=== PATIENT | female | born 1930 | race Caucasian/White ===

== ENCOUNTER 2016-04-10 01:28 | Observation (INO) ==
--- NOTE | 2016-04-10 01:54 | Emergency Department Note ---
Disposition Clinical Impression: CVA (cerebral vascular accident), Light headedness, Dyspnea, Generalized abdominal pain, Diarrhea Disposition: Admitted As Inpatient Condition: Good Referrals: Reinaldo Valladares Jr, MD [Primary Care Provider] - Forms: ED Satisfaction Letter Time of Disposition: 03:38 General Adult HPI - General Chief complaint: ED Chest Pain Stated complaint: vision loss/abd pain/chest pain Time Seen by Provider: 04/10/16 01:48 Source: patient, EMS Mode of arrival: EMS Limitations: no limitations Nursing Notes Reviewed: Yes Vital Signs Reviewed: Yes - History of Present Illness HPI Narrative: This is an 86-year-old female who states around 11:00 pm she had an episode where she lost her vision and got very lightheaded. Patient states she has also had nausea and abdominal pain that is generalized. Patient denies any bloody stools but states she has had a couple weeks of diarrhea. Patient states she has not been on any recent antibiotics and has not traveled out of the country. Patient states she does not have any chest pain but states she was short of breath. Patient states she is feeling better now. Patient states she always has a generalized headache and that really has not changed. Patient' s vision has returned. Onset (ago): hour(s) (started at 11pm) Pain Scale: 6 - Related Data Home Medications Medication Instructions Recorded Confirmed Alprazolam [Xanax 1 MG Tablet] 1 mg PO BID 12/04/15 01/05/16 Amlodipine Besylate 10 mg PO DAILY 12/04/15 01/05/16 Ascorbic Acid [Vitamin C] 500 mg PO DAILY 12/04/15 01/05/16 Aspirin 81 mg PO DAILY 12/04/15 01/05/16 Clopidogrel [Plavix] 75 mg PO DAILY 12/04/15 01/05/16 Furosemide [Lasix] 20 mg PO DAILY 12/04/15 01/05/16 Glimepiride [Amaryl] 2 mg PO BID 12/04/15 01/05/16 Isosorbide MONOnitrate (24 HR) 30 mg PO DAILY 12/04/15 01/05/16 [Imdur] L. Acidophilus/Pectin, [place] 1 cap PO TID PRN 12/04/15 01/05/16 [Acidophilus Probiotic Capsule] Metformin [Glucophage] 500 mg PO BIDWM 12/04/15 01/05/16 Ranitidine HCl [Heartburn Relief] 150 mg PO BID 12/04/15 01/05/16 Ubidecarenone [Co Q10] 100 mg PO DAILY 12/04/15 01/05/16 Zinc Acetate [Galzin] 50 mg PO DAILY 12/04/15 01/05/16 Oxycodone HCl/Acetaminophen 1 - 2 each PO QID PRN 01/05/16 01/05/16 [Percocet 5-325 mg Tablet] Previous Rx's Medication Instructions Recorded HydrALAZINE 25 mg PO Q6HR #100 tablet 12/14/15 Metoprolol [Lopressor] 25 mg PO BID #60 tablet 12/14/15 Nitroglycerin [Nitrostat] 0.4 mg SL AD #30 tab.subl 01/09/16 Allergies Allergy/AdvReac Type Severity Reaction Status Date / Time codeine AdvReac Unknown Gastrointestinal Verified 01/05/16 10:25 Upset All systems ED: reviewed and negative except as stated. Constitutional: Reports: weakness. Denies: fever, chills, weight change Eyes: Reports: vision change. Denies: eye pain, eye discharge ENT ED: Denies: ear pain, throat pain, dental pain, hearing loss, epistaxis, congestion, dysphagia Cardiovascular: Reports: other (light-headedness). Denies: chest pain, palpitations, dyspnea on exertion, edema, syncope Respiratory: Reports: dyspnea. Denies: cough, wheezes, hemoptysis, stridor Gastrointestinal: Reports: abdominal pain, nausea, diarrhea. Denies: vomiting, constipation, hematemesis, melena, hematochezia Genitourinary: Denies: dysuria, frequency, hematuria, discharge Musculoskeletal: Denies: back pain, neck pain, arthralgia, myalgia Integumentary: Denies: rash, abrasion, lesions Neurological: Reports: headache. Denies: numbness, paresthesias, confusion, abnormal gait, vertigo Psychiatric: Denies: anxiety, depression, suicidal thoughts, homicidal thoughts , auditory hallucinations, visual hallucinations Endocrine: Denies: fatigue Hematological/Lymphatic: Denies: easy bleeding, easy bruising Allergic/Immunologic: Denies: facial swelling, urticaria Past Medical History - Past Medical History Attestation: Yes The following information was validated with the patient. Source: patient Medical history: Reports: arthritis, atrial fibrillation, CHF, coronary artery disease, diabetes, GERD, hyperlipidemia, hypertension, myocardial infarction, peripheral artery disease, renal disease, other Surgical history: Reports: appendectomy, cholecystectomy, coronary bypass (CABG) , hysterectomy, DARYL/BSO, other Psychiatric history: Reports: no psych history - Social History Smoking Status: Former smoker Smokeless Tobacco Status: No Alcohol use: Reports: none Drug use: Reports: none Physical Exam - General Limitations: no limitations General appearance: alert, in no apparent distress - Head Head exam: atraumatic, normocephalic, normal inspection - Eye Eye exam: Present: normal appearance, PERRL, EOMI - Expanded Eye Exam Eyelids: bilateral: normal inspection Pupils: Bilateral: regular, round, reactive Sclera/Conjunctival: bilateral: normal inspection - ENT ENT exam: normal exam, normal oropharynx, mucous membranes moist - Expanded ENT Exam External ear exam: Present: normal external inspection Mouth exam: Present: normal external inspection Teeth exam: Present: normal inspection Throat exam: Present: normal inspection - Neck Neck exam: Present: normal inspection, full ROM, trachea midline - Chest Chest inspection: Present: normal inspection, symmetric chest wall rise, other ( scar from previous bypass) - Respiratory Respiratory exam: Present: normal lung sounds bilaterally - Cardiovascular Cardiovascular exam: Present: regular rate, irregular rhythm, normal heart sounds - Abdominal Exam Abdominal exam: Present: soft, Non-Tender. Absent: tenderness, distention, guarding, rebound, rigidity - Extremities Exam Extremities exam: Present: normal inspection, full ROM. Absent: tenderness, pedal edema - Expanded Upper Extremity Exam Shoulder exam: Present: normal inspection, full ROM Arm exam: Present: normal inspection, full ROM Elbow exam: Present: normal inspection, full ROM Forearm/Wrist exam: Present: normal inspection, full ROM Hand exam: Present: normal inspection, full ROM Vascular exam: Normal: capillary refill, radial pulse - Expanded Lower Extremity Exam Hip/Pelvis exam: Present: normal inspection, full ROM Upper leg exam: Present: normal inspection, full ROM Knee exam: Present: normal inspection, full ROM Lower leg exam: Present: normal inspection, full ROM Ankle exam: Present: normal inspection, full ROM Foot/toe exam: Present: normal inspection, full ROM Neurovascular/Tendon exam: Absent: motor deficit, sensory deficit, tendon deficit - Back Exam Back exam: Present: normal inspection, full ROM. Absent: tenderness - Neurological Exam Neurological exam: Present: alert, oriented X3 - Expanded Neurological Exam Patient oriented to: Present: person, place, time Coma Scale Eye Opening: Spontaneous Coma Scale Motor Response: Obeys Commands Coma Scale Verbal Response: Oriented Coma Scale Total: 15 - Psychiatric Psychiatric exam: Present: normal affect, normal mood - Skin Skin exam: Present: warm, dry, intact, normal color Course - Consultations Consultation #1: I spoke with Dr. Clark he just wants pt to have a regular ASA and he will see her in the morning in consult and georgie to order an MRI and carotid dopplers. Time: 03:43 Consultation #2: I spoke with Dr. Velasquez jacques to admit. Time: 03:55 Vital Signs Temperature 98.7 F 04/10/16 01:30 Pulse Rate 66 04/10/16 01:30 Respiratory Rate 16 04/10/16 01:30 Blood Pressure 167/84 04/10/16 01:30 O2 Sat by Pulse Oximetry 93 L 04/10/16 01:30 Temperature 98.7 F 04/10/16 01:30 Pulse Rate 63 04/10/16 03:35 Respiratory Rate 16 04/10/16 03:35 Blood Pressure 150/59 04/10/16 03:35 O2 Sat by Pulse Oximetry 95 04/10/16 03:35 Oxygen Delivery Oxygen Delivery Room Air Medical Decision Making - Medical Records Medical records reviewed: Yes I reviewed the patient's medical records. - Lab Data Lab results reviewed: Yes I reviewed the patient's lab results. Result diagrams: 04/10/16 02:20 04/10/16 02:20 Lab Results 04/10/16 04/10/16 04/10/16 Range/Units 02:20 02:20 02:20 WBC 8.1 (4.3-11.1) K/mcL RBC 3.69 L (3.82-4.97) M/mcL Hgb 11.0 L (11.5-15.4) g/dL Hct 34.2 L (35.3-44.9) % MCV 92.7 (83.0-100.0) fL MCH 29.8 (28.0-33.3) pg MCHC 32.2 (31.6-35.5) g/dL RDW 14.2 (11.5-14.5) % Plt Count 182 (140-400) K/mcL MPV 10.3 (9.4-12.4) fL Immature Gran % 0.5 (0-4) % Seg Neutrophils % 77.3 % Lymphocytes % 13.9 % Monocytes % 6.5 % Eosinophils % 1.2 % Basophils % 0.6 % Neutrophils # 6.2 (1.6-8.9) K/mcL Lymphocytes # 1.1 (0.6-4.6) K/mcL Monocytes # 0.5 (0.0-1.3) K/mcL Eosinophils # 0.1 (0.0-0.6) K/mcL Basophils # 0.1 (0.0-0.2) K/mcL PT 12.0 (9.4-12.1) Seconds INR 1.1 APTT 33.2 (26.0-36.0) Seconds Sodium 139 (136-145) mEq/L Potassium 4.5 (3.5-4.5) mEq/L Chloride 105 (98-109) mEq/L Carbon Dioxide 20 (19-29) mEq/L BUN 37 H (7-20) mg/dL Creatinine 1.41 H (0.57-1.11) mg/dL Est GFR ( Amer) 43 L (> 60) Est GFR (Non-Af Amer) 35 L (> 60) BUN/Creatinine Ratio 26 (6-26) Glucose 108 H (70-99) mg/dL Calculated Osmolality 297 (280-300) Lactic Acid (0.5-2.2) mmol/L Calcium 9.6 (8.6-10.8) mg/dL Total Bilirubin (0.2-1.2) mg/dL Direct Bilirubin (0.0-0.5) mg/dL Indirect Bilirubin (0.0-1.2) mg/dL AST (5-34) Units/L ALT (0-55) Units/L Alkaline Phosphatase (38-126) Units/L Troponin I (0-0.03) ng/mL B-Natriuretic Peptide (0-100) pg/mL Serum Total Protein (6.0-8.3) g/dL Albumin (3.5-5.0) g/dL Globulin (2.4-3.5) g/dL Albumin/Globulin Ratio (1.1-2.2) Lipase (8-78) Units/L TSH 4.982 H (0.350-4.840) mcIU/mL 04/10/16 04/10/16 04/10/16 Range/Units 02:20 02:20 02:20 WBC (4.3-11.1) K/mcL RBC (3.82-4.97) M/mcL Hgb (11.5-15.4) g/dL Hct (35.3-44.9) % MCV (83.0-100.0) fL MCH (28.0-33.3) pg MCHC (31.6-35.5) g/dL RDW (11.5-14.5) % Plt Count (140-400) K/mcL MPV (9.4-12.4) fL Immature Gran % (0-4) % Seg Neutrophils % % Lymphocytes % % Monocytes % % Eosinophils % % Basophils % % Neutrophils # (1.6-8.9) K/mcL Lymphocytes # (0.6-4.6) K/mcL Monocytes # (0.0-1.3) K/mcL Eosinophils # (0.0-0.6) K/mcL Basophils # (0.0-0.2) K/mcL PT (9.4-12.1) Seconds INR APTT (26.0-36.0) Seconds Sodium (136-145) mEq/L Potassium (3.5-4.5) mEq/L Chloride (98-109) mEq/L Carbon Dioxide (19-29) mEq/L BUN (7-20) mg/dL Creatinine (0.57-1.11) mg/dL Est GFR ( Amer) (> 60) Est GFR (Non-Af Amer) (> 60) BUN/Creatinine Ratio (6-26) Glucose (70-99) mg/dL Calculated Osmolality (280-300) Lactic Acid 1.4 (0.5-2.2) mmol/L Calcium (8.6-10.8) mg/dL Total Bilirubin 0.7 (0.2-1.2) mg/dL Direct Bilirubin 0.2 (0.0-0.5) mg/dL Indirect Bilirubin 0.5 (0.0-1.2) mg/dL AST 23 (5-34) Units/L ALT 17 (0-55) Units/L Alkaline Phosphatase 78 (38-126) Units/L Troponin I (0-0.03) ng/mL B-Natriuretic Peptide 735 H (0-100) pg/mL Serum Total Protein 7.7 (6.0-8.3) g/dL Albumin 3.7 (3.5-5.0) g/dL Globulin 4.0 H (2.4-3.5) g/dL Albumin/Globulin Ratio 0.9 L (1.1-2.2) Lipase 59 (8-78) Units/L TSH (0.350-4.840) mcIU/mL 04/10/16 Range/Units 02:20 WBC (4.3-11.1) K/mcL RBC (3.82-4.97) M/mcL Hgb (11.5-15.4) g/dL Hct (35.3-44.9) % MCV (83.0-100.0) fL MCH (28.0-33.3) pg MCHC (31.6-35.5) g/dL RDW (11.5-14.5) % Plt Count (140-400) K/mcL MPV (9.4-12.4) fL Immature Gran % (0-4) % Seg Neutrophils % % Lymphocytes % % Monocytes % % Eosinophils % % Basophils % % Neutrophils # (1.6-8.9) K/mcL Lymphocytes # (0.6-4.6) K/mcL Monocytes # (0.0-1.3) K/mcL Eosinophils # (0.0-0.6) K/mcL Basophils # (0.0-0.2) K/mcL PT (9.4-12.1) Seconds INR APTT (26.0-36.0) Seconds Sodium (136-145) mEq/L Potassium (3.5-4.5) mEq/L Chloride (98-109) mEq/L Carbon Dioxide (19-29) mEq/L BUN (7-20) mg/dL Creatinine (0.57-1.11) mg/dL Est GFR ( Amer) (> 60) Est GFR (Non-Af Amer) (> 60) BUN/Creatinine Ratio (6-26) Glucose (70-99) mg/dL Calculated Osmolality (280-300) Lactic Acid (0.5-2.2) mmol/L Calcium (8.6-10.8) mg/dL Total Bilirubin (0.2-1.2) mg/dL Direct Bilirubin (0.0-0.5) mg/dL Indirect Bilirubin (0.0-1.2) mg/dL AST (5-34) Units/L ALT (0-55) Units/L Alkaline Phosphatase (38-126) Units/L Troponin I 0.02 (0-0.03) ng/mL B-Natriuretic Peptide (0-100) pg/mL Serum Total Protein (6.0-8.3) g/dL Albumin (3.5-5.0) g/dL Globulin (2.4-3.5) g/dL Albumin/Globulin Ratio (1.1-2.2) Lipase (8-78) Units/L TSH (0.350-4.840) mcIU/mL - Radiology Data Radiology results reviewed: Yes I reviewed the patient's radiology results. - EKG Data EKG #1 EKG attestation: Yes I reviewed and interpreted this EKG. Rate: normal Rhythm: A.Fib [place]/QRS: normal Interpretation: nonspecific ST-T wave changes
[2016-04-10 02:27] LABS: Basophils # 0.1 K/mcL (0.0-0.2); Basophils % 0.6 %; Eosinophils # 0.1 K/mcL (0.0-0.6); Eosinophils % 1.2 %; Hematocrit 34.2 % (35.3-44.9); Immature Granulocytes % 0.5 % (0-4); Lymphocytes # 1.1 K/mcL (0.6-4.6); Lymphocytes % 13.9 %; Mean Corpuscular HGB Conc 32.2 g/dL (31.6-35.5); Mean Corpuscular Hemoglobin 29.8 pg (28.0-33.3); Mean Corpuscular Volume 92.7 fL (83.0-100.0); Mean Platelet Volume 10.3 fL (9.4-12.4); Monocytes # 0.5 K/mcL (0.0-1.3); Monocytes % 6.5 %; Neutrophils # 6.2 K/mcL (1.6-8.9); Platelet Count 182 K/mcL (140-400); Red Blood Count 3.69 M/mcL (3.82-4.97); Red Cell Distribution Width 14.2 % (11.5-14.5); Segmented Neutrophils % 77.3 %
[2016-04-10 02:40] LABS: Calcium 9.6 mg/dL (8.6-10.8); Potassium 4.5 mEq/L (3.5-4.5)
[2016-04-10 02:41] LABS: Albumin 3.7 g/dL (3.5-5.0); Albumin/Globulin Ratio 0.9 (1.1-2.2); Bilirubin,Direct 0.2 mg/dL (0.0-0.5); Bilirubin,Indirect 0.5 mg/dL (0.0-1.2); Bilirubin,Total 0.7 mg/dL (0.2-1.2); Total Protein 7.7 g/dL (6.0-8.3)
[2016-04-10 02:46] LABS: INR 1.1
[2016-04-10 02:49] LABS: Activated Partial Thrombo Time 33.2 Seconds (26.0-36.0)
[2016-04-10 03:03] LABS: Thyroid Stimulating Hormone 4.982 mcIU/mL (0.350-4.840)
[2016-04-10] MEDS ORDERED: Aspirin 325 MG TABLET PO ONE (03:42)
[2016-04-10] MEDS ORDERED: Acetaminophen 325 MG TABLET PO PRN (04:03)
[2016-04-10] MEDS ORDERED: *HR* Morphine 2 MG/ML SYRINGE IVP PRN (04:03)
[2016-04-10] MEDS ORDERED: Ondansetron ODT 4 MG TAB.RAPDIS SL PRN (04:03)
[2016-04-10] MEDS ORDERED: *HR* OxyCODONE Immed Rel 5 MG TABLET PO PRN (04:03)
[2016-04-10] MEDS ORDERED: Naloxone 0.4 MG/ML INJ IVP PRN (04:03)
[2016-04-10] MEDS ORDERED: 0.9 % Sodium Chloride 1,000 ML IVC SCH ×2 (04:15→15:30)
[2016-04-10] MEDS ORDERED: Dextrose Gel 15 GM PO PRN ×2 (04:16)
[2016-04-10] MEDS ORDERED: *HR* Dextrose 50 % in Water (Syg) 50 ML SYRINGE IVP PRN (04:16)
[2016-04-10] MEDS ORDERED: D5% in Water 1,000 ML IV PRN (04:16)
--- NOTE | 2016-04-10 04:23 | Internal Med History&Physical ---
Date of Encounter: 04/10/16 Time of Encounter: 04:00 Assessment and Plan (1) CVA (cerebral vascular accident) Status: Acute . Qualifiers: CVA mechanism: unspecified Qualified Code(s): I63.9 - Cerebral infarction, unspecified (2) CHF (congestive heart failure) Status: Chronic . Qualifiers: Congestive heart failure type: combined Congestive heart failure chronicity : acute on chronic Qualified Code(s): I50.43 - Acute on chronic combined systolic (congestive) and diastolic (congestive) heart failure (3) COPD (chronic obstructive pulmonary disease) Status: Chronic . Qualifiers: COPD type: emphysema Emphysema type: panlobular Qualified Code(s): J43.1 - Panlobular emphysema (4) Transient visual loss of left eye Status: Acute . (5) CAD (coronary artery disease) Status: Chronic . Qualifiers: Coronary Disease-Associated Artery/Lesion type: [place] artery [place] vs. transplanted heart: [place] heart Associated angina: without angina Qualified Code(s): I25.10 - Atherosclerotic heart disease of [place] coronary artery without angina pectoris (6) CKD (chronic kidney disease) stage 3, GFR 30-59 ml/min Status: Chronic . (7) Diabetes Status: Chronic . Qualifiers: Diabetes mellitus type: type 2 Diabetes mellitus complication status: with unspecified complications Diabetes mellitus intermediate insulin use: without emt intermediate use Qualified Code(s): E11.8 - Type 2 diabetes mellitus with unspecified complications (8) Hypertension Status: Chronic .. Qualifiers: Hypertension type: essential hypertension Qualified Code(s): I10 - Essential (primary) hypertension (9) Normocytic anemia Status: Chronic . (10) Paroxysmal atrial fibrillation Status: Chronic . (11) Complicated migraine Status: Acute . (12) TIA (transient ischemic attack) Status: Acute . Qualifiers: Transient cerebral ischemia type: amaurosis fugax Qualified Code(s): G45.3 - Amaurosis fugax (13) HLD (hyperlipidemia) Status: Chronic . Qualifiers: Hyperlipidemia type: mixed hyperlipidemia Qualified Code(s): E78.2 - Mixed hyperlipidemia (14) PAD (peripheral artery disease) Status: Chronic . (15) Valvular heart disease Status: Chronic . (16) Hx of CABG Status: Chronic . (17) Anemia Status: Chronic . Qualifiers: Anemia type: other cause Other causes of anemia: chronic disease, other Qualified Code(s): D63.8 - Anemia in other chronic diseases classified elsewhere Internal Medicine - H&P: HPI Chief complaint: Vision loss. Chest pain. Nausea. Admitted From: Emergency Dept Plans for Post Hospital Care: Home History of present illness: Ms. Rodas is a 86 year old female with history significant for CAD/CABG/AMIs, syst/diast CHF-LVEF 40-45%, paroxysmal atrial fibrillation(no A/C due to high fall risk), valvular heart disease/moderate MR+TR/pulm HTN, PAD s/p fem-pop bypass, old CVA, hypertension, dyslipidemia, type 2 diabetes mellitus, GERD, osteoarthritis, osteoporosis, CKD III, anemia chronic disease, anxiety disorder , former smoker The patient was visited and interviewed and examined. The patient was admitted to [facility] via emergency department presents via EMS services from home with complaints of chest pain associated with acute loss of vision. The patient reported that she had experienced approximately 11 PM the night of presentation an episode of acute vision loss. Had an uneventful day and compliance with her scheduled medications which include aspirin and Plavix. Patient has significant history of severe atherosclerotic cardiovascular disease and paroxysmal atrial fibrillation for which she's no chronic anticoagulation prescribed due to high fall risk. SHe's adament has been compliant with her aspirin and Plavix. Stated that late in the evening she had an episode of acute lightheadedness associated with some nausea and abdominal pain. The abdominal pain became generalized.. She acknowledged that over the preceding week she had episodes of loose stools associated with cramping discomfort that had been short-lived. She also experienced generalized headache consistent with chronic recurring headache that she has experienced off and on for many years. She experienced seeming loss of vision followed by bright lights and scotomata last for several minutes and resolved with her vision returning completely. No other neurologic deficits were reported. Her generalized discomfort and abdomen and chest was rated as a 6/10 severity which was also short. Return of vision followed a sense of lightheadedness and chronic headache returning to its baseline. Upon presenting to the emergency department she was completely free of discomfort or deficits. Findings in ED: Temperature 98.7 pulse 60-66 respirations 16 BP 150- 167/50-84 O2 saturation 93-95% at room air. WBC 8.1 hemoglobin 11 platelets 182 ,000. Differential normal. PT 12/1.1 PTT 33.2. Metabolic panel normal except BUN 37, creatinine 1.41. GFR 35. Glucose 108 osm 297. TSH 4.92. Lactic acid 1.4. Hepatic function normal. Troponin 0.02 BNP 735. EKG atrial fibrillation nonspecific ST-T wave changes; no acute ischemic change. CT abdomen and pelvis without contrast demonstrated diverticulosis throughout the colon without evidence of diverticulitis. Artery calcifications. Partially calcified mass anterior to the right ventricle. Bilateral atelectasis. Stable findings of cirrhosis. Bilateral adrenal myolipoma. Bilateral renal cysts status post appendectomy. Status post hysterectomy. Diffuse atherosclerotic changes without aneurysm. Portable chest x-ray reveals no acute cardiopulmonary process. Cardiomegaly. No focal airspace disease. Osseous structures benign. CT head scan demonstrates no acute hemmorrhage. Extensive small vessel chronic ischemic disease. Possible acute ischemia right occipital lobe in the posterior cerebral artery. MRI recommended for further evaluation. Small area of encephalomalacia left occipital. Preliminary impression suggests acute vascular headache, concerning for complicated migraine with transient vision loss, amaurosis fugax. CT scan demonstrated no evidence for acute hemorrhage or mass effect. However a suggestion of acute ischemia in the right occipital lobe associated with the posterior cerebral circulation. A follow-up MRI will be performed. Evidence of old left occipital infarct noted as well. The rapid clearance of patient's symptoms TIA versus complicated migraine highest in differential options. Screening studies were benign. Stage III CKD noted and stable. This is patient's anemia of chronic disease. Elevation in BNP consistent with chronic systolic and diastolic CHF. The patient's presenting, concern for its precipitous workup and treatment opportunity. He does present risk for further acute clinical decline and morbidity given his well-defined comorbid conditions. Cumulative laboratory and radiographic data base was reviewed, considered and discussed. Pertinent ancillary medical records including ECW and PCI documentation was reviewed and considered. Given the patient's presenting concerns, past medical history, clinical findings and symptoms, she is admitted at this time will undergo further evaluation and disposition. Orders were written as per the computerized physician sales order administrator system.......................................................................... .................... Consultative opinion and will be sought as clinical circumstances justify. Pain management needs will be addressed. Laboratory and radiographic data base will be updated as appropriate. Studies include: PT/INR, APTT, hypercoag panel, prolactin, cardiac injury panel, BNP, troponin metabolic and hematologic panel, magnesium, phosphorus, ionized calcium , thyroid panel, lipid profile, A1c, C-peptide, CRP, sedimentation rate, blood gas, lactic acid, UA, serologies, etc. Precautions: Aspiration, fall, seizure, delirium protocol/surveillance initiated. Telemetry with continuous hemodynamic monitoring and pulse oximetry initiated. Orthostatic vital signs. Empiric antibiotic coverage: pending culture data. Special studies: CT head, CT abd/pelvis, MRI brain, carotid US, chest x-ray, telemetry, EKG, echocardiogram. Pulmonary toilet: Incentive spirometry. Aerosol bronchodilator, mucolytic, antitussive PRN. Supplemental oxygen. Corticosteroid therapy PRN. CPAP/BiPAP supplemental oxygen delivery PRN. Aerosol Mucomyst therapy PRN. Fluid and electrolyte repletion efforts will proceed. Careful attention to fluid balance and renal recovery will be emphasized. Avoidance of nephrotoxic exposure and adverse drug drug interaction in the setting of impaired renal function will be monitored closely. Acute coronary syndrome protocol/surveillance initiated. Acute ICER HAND injury protocol/surveillance initiated. Aspirin and statin therapy. Trending of blood pressure measurements. Passive hypertension allowance pending completion of the CVA/TIA. Hypercoagulopathy w/u. DVT and PUD prophylaxis initiated: PPI therapy, intermittent pneumatic cuffs. Subcutaneous heparin. Early ambulation will be encouraged. Immunization updates recommended. Influenza and pneumococcal vaccinations as part of ongoing preventative healthcare recommendations strongly recommended. Smoking cessation counseling briefly addressed. Patient is a former smoker. Advanced care directive discussion briefly addressed. Patient does not declare any healthcare restrictions at this time. Cardiovascular risk appraisal and cardiovascular risk reduction efforts will be emphasized. Physical and occupational therapy consulted to evaluate/assess patient's functional capacity and progress mobility as his circumstances permit. Sliding scale and basal insulin coverage, ADA dietary restraint and schedule an as-needed basis fingerstick glucose assessments were initiated. Nutrition/ diabetes education counseling may be considered as circumstances permit. Outpatient medication schedules will be reviewed, confirmed and facilitated as appropriate. Reconciliation of home treatments including adjustments, substitutions and reintroduction into the treatment regimen will address necessary maintenance therapies for chronic pre-existing medical conditions. Plan of care has been reviewed and discussed in detail with the patient. Questions addressed. Hospital course will depend upon clinical findings, treatment response and potential consultative interventions. Patient is at risk for further acute clinical decline due to her age, chief complaints, findings and comorbidities. Condition is serious. Prognosis is cautiously optimistic. CODE STATUS is full. Past Med Surg Social Fam HX - Past Medical History Source: old records reviewed Medical history: arthritis, atrial fibrillation, cardiomyopathy, CHF, coronary artery disease, CVA, diabetes, GERD, hyperlipidemia, hypertension, kidney stones , migraine, myocardial infarction, osteoporosis, peripheral artery disease, renal disease, SVT, valvular heart disease, other Psychiatric history: anxiety, other - Past Surgical History Surgical History: appendectomy, cholecystectomy, coronary bypass (CABG), hysterectomy, orthopedic, other (Right shoulder surgery. Lumbar laminectomy.), sinus surgery (Tonsillectomy adenoidectomy.), DARYL/BSO, ureteral stent (Renal stone removal.), other, vascular surgery (History of femoropopliteal bypass.) - Social History Smoking Status: Former smoker Smokeless Tobacco Status: No Alcohol use: none Drug use: none Occupational status: retired Current living situation: Home - Independent Activity Level: Independent ambulation, Mostly sedentary Recent Out of Country Travel Within the Last 8 Weeks: No Exposure or Possible Exposure to Illness During Travel: No - Family History Father Living Status: Hx Family Cardiac Disorders: No Hx Family Endocrine Disorder: Yes Internal Medicine - H&P: Meds Amlodipine Besylate 10 mg PO DAILY 12/04/15 [History] Ascorbic Acid [Vitamin C] 500 mg PO DAILY 12/04/15 [History] Aspirin 81 mg PO DAILY 12/04/15 [History] Clopidogrel [Plavix] 75 mg PO DAILY 12/04/15 [History] Furosemide [Lasix] 20 mg PO DAILY 12/04/15 [History] Isosorbide MONOnitrate (24 HR) [Imdur] 30 mg PO DAILY 12/04/15 [History] L. Acidophilus/Pectin, [place] [Acidophilus Probiotic Capsule] 1 cap PO TID PRN 12/04/15 [History] Ubidecarenone [Co Q10] 100 mg PO DAILY 12/04/15 [History] Zinc Acetate [Galzin] 50 mg PO DAILY 12/04/15 [History] Nitroglycerin [Nitrostat] 0.4 mg SL AD #30 tab.subl 01/09/16 [Rx] Metformin [Glucophage] 500 mg PO BIDWM 04/10/16 [History] Metoprolol XL (24 HR) Succ [Toprol Xl] 25 mg PO BID 04/10/16 [History] Alprazolam [Xanax 1 MG Tablet] 1 mg PO BID #10 tablet 04/11/16 [Rx] Atorvastatin [Lipitor] 40 mg PO HS #30 tablet 04/11/16 [Rx] Oxycodone HCl/Acetaminophen [Percocet 5-325 mg Tablet] 1 - 2 each PO QID PRN # 20 tablet 04/11/16 [Rx] PredniSONE 60 mg PO DAILY #30 tablet 04/11/16 [Rx] Allergies codeine Adverse Reaction (Unknown, Verified 04/12/16 15:00) Gastrointestinal Upset All Systems PM: A 10-system review of systems was performed and is negative for pertinent findings except as documented above in the HPI. - Constitutional Constitutional: as per HPI, weakness, no chills, no fever(s), no night sweats - EENT Eyes: as per HPI, blurry vision, change in vision, loss of vision, seeing flashes, no discharge, no pain, no photophobia Ears: as per HPI, no ear discharge, no ear pain, no tinnitus Nose, mouth and throat: as per HPI, no dysphagia, no nasal discharge, no neck pain, no sore throat - Cardiovascular Cardiovascular ROS IM: as per HPI, lightheadedness, no chest pain, no diaphoresis, no dyspnea, no palpitations, no syncope - Respiratory Respiratory: as per HPI, dyspnea, dyspnea on exertion, no cough, no wheezing, no excessive phlegm production - Gastrointestinal Gastrointestinal: as per HPI, abdominal pain, cramping, diarrhea, loose stools, nausea, no hematemesis, no hematochezia, no melena, no vomiting - Genitourinary Genitourinary: as per HPI, no change in urinary stream, no dysuria, no flank pain, no hematuria - Musculoskeletal Musculoskeletal ROS IM: as per HPI, no numbness, no tingling - Integumentary Integumentary IM: as per HPI, no rash, no unusual bruising - Neurological Neurological ROS: as per HPI, headache(s), loss of vision, other, no confusion, no convulsions, no focal weakness, no numbness, no tingling, no tremor(s) - Psychiatric Psychiatric: as per HPI - Endocrine Endocrine IM: as per HPI - Hematologic/Lymphatic Hematologic/Lymphatic: as per HPI, no easy bruising - Allergic/Immunologic Allergic/Immunologic: as per HPI - Constitutional Vitals: Temp Pulse Resp BP Pulse Ox 98.7 F 63 16 150/59 95 04/10/16 01:30 04/10/16 03:35 04/10/16 03:35 04/10/16 03:35 04/10/16 03:35 General appearance: Present: cooperative, mild distress, A&O X 3, answers questions appropriately - Head Head exam: Present: atraumatic, normocephalic - Eye Eye exam: Present: PERRL, conjuntiva pink, sclera anicteric Pupils: Present: normal accommodation, PERRL - ENT ENT exam: Present: mucous membranes moist, normal oropharynx - Neck Neck exam general surgery: Present: full ROM, supple, trachea midline. Absent: lymphadenopathy, tenderness, nuchal rigidity - Respiratory Respiratory exam: Present: decreased breath sounds, CTAB. Absent: accessory muscle use, rales, rhonchi, wheezes - Cardiovascular Cardiovascular exam: Present: distant heart sounds, RRR, +S1, +S2. Absent: diastolic murmur, gallop, rubs, systolic murmur - GI/Abdominal GI/Abdominal exam: Present: normal bowel sounds, soft, no peritoneal signs. Absent: distended, tenderness - Extremities Exam Extremities exam: Present: full ROM, warm, radial pulses palpable and symetrical. Absent: calf tenderness, cyanotic, pedal edema - Neurological Exam Neurological exam: Present: alert, CN II-XII intact, oriented X3, no focal deficits. Absent: pronater drift, facial droop, speech deficit - Psychiatric Psychiatric exam: Present: normal affect, normal mood - Skin Skin exam: Present: dry, intact, warm. Absent: petechiae, rash, urticaria, vesicles Internal Med - H&P Results - Labs CBC & Chem 7: 04/11/16 04:11 04/11/16 04:11 Labs: Short CBC 04/10/16 Range/Units 02:20 WBC 8.1 (4.3-11.1) K/mcL Hgb 11.0 L (11.5-15.4) g/dL Hct 34.2 L (35.3-44.9) % Plt Count 182 (140-400) K/mcL Neutrophils # 6.2 (1.6-8.9) K/mcL BMP 04/10/16 02:20 Sodium 139 Potassium 4.5 Chloride 105 Carbon Dioxide 20 BUN 37 H Creatinine 1.41 H Glucose 108 H Calcium 9.6 Cardiac Enzymes 04/10/16 Range/Units 02:20 Troponin I 0.02 (0-0.03) ng/mL Liver Function 04/10/16 Range/Units 02:20 Total Bilirubin 0.7 (0.2-1.2) mg/dL Direct Bilirubin 0.2 (0.0-0.5) mg/dL AST 23 (5-34) Units/L ALT 17 (0-55) Units/L Alkaline Phosphatase 78 (38-126) Units/L Albumin 3.7 (3.5-5.0) g/dL - Impressions ITS Impressions Abdomen/Pelvis CT 04/10/16 01:48 IMPRESSION: 1. Diverticulosis without scan evidence for diverticulitis. 2. Stable findings of cirrhosis, bilateral adrenal lesions, bilateral renal lesions, and a heterogeneous mass adjacent to the right ventricle. D/ / Roger Ulrich MD / Roger Ulrich MD Interpreting Provider: Roger Ulrich MD Chest X-Ray 04/10/16 01:48 IMPRESSION: No acute disease. D/ / Roger Ulrich MD / Roger Ulrich MD Interpreting Provider: Roger Ulrich MD Head CT 04/10/16 01:49 IMPRESSION: Extensive small vessel chronic ischemic changes with possible acute ischemia in the right occipital lobe in the distribution of the posterior cerebral artery. No acute hemorrhage is identified. Brain MRI is recommended for further evaluation. D/ / Roger Ulrich MD / Roger Ulrich MD Interpreting Provider: Roger Ulrich MD Vital Signs Temp Pulse Resp BP Pulse Ox 04/10/16 03:35 63 16 150/59 95 04/10/16 02:25 57 16 156/66 97 04/10/16 01:40 96 04/10/16 01:30 98.7 F 66 16 167/84 93 L Intake and Output 04/09/16 04/09/16 04/10/16 15:59 23:59 07:59 Other: Weight 67.132 kg Patient Weight 04/10/16 23:59 Weight 67.132 kg Short CBC 04/10/16 Range/Units 02:20 WBC 8.1 (4.3-11.1) K/mcL Hgb 11.0 L (11.5-15.4) g/dL Hct 34.2 L (35.3-44.9) % Plt Count 182 (140-400) K/mcL Neutrophils # 6.2 (1.6-8.9) K/mcL BMP 04/10/16 Range/Units 02:20 Sodium 139 (136-145) mEq/L Potassium 4.5 (3.5-4.5) mEq/L Chloride 105 (98-109) mEq/L Carbon Dioxide 20 (19-29) mEq/L BUN 37 H (7-20) mg/dL Creatinine 1.41 H (0.57-1.11) mg/dL Glucose 108 H (70-99) mg/dL Calcium 9.6 (8.6-10.8) mg/dL Cardiac Enzymes 04/10/16 Range/Units 02:20 Troponin I 0.02 (0-0.03) ng/mL Liver Function 04/10/16 Range/Units 02:20 Total Bilirubin 0.7 (0.2-1.2) mg/dL Direct Bilirubin 0.2 (0.0-0.5) mg/dL AST 23 (5-34) Units/L ALT 17 (0-55) Units/L Alkaline Phosphatase 78 (38-126) Units/L Albumin 3.7 (3.5-5.0) g/dL Abnormal lab results RBC 3.69 M/mcL (3.82-4.97) L 04/10/16 02:20 Hgb 11.0 g/dL (11.5-15.4) L 04/10/16 02:20 Hct 34.2 % (35.3-44.9) L 04/10/16 02:20 BUN 37 mg/dL (7-20) H 04/10/16 02:20 Creatinine 1.41 mg/dL (0.57-1.11) H 04/10/16 02:20 Est GFR ( Amer) 43 (> 60) L 04/10/16 02:20 Est GFR (Non-Af Amer) 35 (> 60) L 04/10/16 02:20 Glucose 108 mg/dL (70-99) H 04/10/16 02:20 B-Natriuretic Peptide 735 pg/mL (0-100) H 04/10/16 02:20 Globulin 4.0 g/dL (2.4-3.5) H 04/10/16 02:20 Albumin/Globulin Ratio 0.9 (1.1-2.2) L 04/10/16 02:20 TSH 4.982 mcIU/mL (0.350-4.840) H 04/10/16 02:20 Allergies Allergy/AdvReac Type Severity Reaction Status Date / Time codeine AdvReac Unknown Gastrointestinal Verified 01/05/16 10:25 Upset Laboratory Last Values WBC 8.1 K/mcL (4.3-11.1) 04/10/16 02:20 RBC 3.69 M/mcL (3.82-4.97) L 04/10/16 02:20 Hgb 11.0 g/dL (11.5-15.4) L 04/10/16 02:20 Hct 34.2 % (35.3-44.9) L 04/10/16 02:20 MCV 92.7 fL (83.0-100.0) 04/10/16 02:20 MCH 29.8 pg (28.0-33.3) 04/10/16 02:20 MCHC 32.2 g/dL (31.6-35.5) 04/10/16 02:20 RDW 14.2 % (11.5-14.5) 04/10/16 02:20 Plt Count 182 K/mcL (140-400) 04/10/16 02:20 MPV 10.3 fL (9.4-12.4) 04/10/16 02:20 Immature Gran % 0.5 % (0-4) 04/10/16 02:20 Seg Neutrophils % 77.3 % 04/10/16 02:20 Lymphocytes % 13.9 % 04/10/16 02:20 Monocytes % 6.5 % 04/10/16 02:20 Eosinophils % 1.2 % 04/10/16 02:20 Basophils % 0.6 % 04/10/16 02:20 Neutrophils # 6.2 K/mcL (1.6-8.9) 04/10/16 02:20 Lymphocytes # 1.1 K/mcL (0.6-4.6) 04/10/16 02:20 Monocytes # 0.5 K/mcL (0.0-1.3) 04/10/16 02:20 Eosinophils # 0.1 K/mcL (0.0-0.6) 04/10/16 02:20 Basophils # 0.1 K/mcL (0.0-0.2) 04/10/16 02:20 PT 12.0 Seconds (9.4-12.1) 04/10/16 02:20 INR 1.1 04/10/16 02:20 APTT 33.2 Seconds (26.0-36.0) 04/10/16 02:20 Sodium 139 mEq/L (136-145) 04/10/16 02:20 Potassium 4.5 mEq/L (3.5-4.5) 04/10/16 02:20 Chloride 105 mEq/L (98-109) 04/10/16 02:20 Carbon Dioxide 20 mEq/L (19-29) 04/10/16 02:20 BUN 37 mg/dL (7-20) H 04/10/16 02:20 Creatinine 1.41 mg/dL (0.57-1.11) H 04/10/16 02:20 Est GFR ( Amer) 43 (> 60) L 04/10/16 02:20 Est GFR (Non-Af Amer) 35 (> 60) L 04/10/16 02:20 BUN/Creatinine Ratio 26 (6-26) 04/10/16 02:20 Glucose 108 mg/dL (70-99) H 04/10/16 02:20 Calculated Osmolality 297 (280-300) 04/10/16 02:20 Lactic Acid 1.4 mmol/L (0.5-2.2) 04/10/16 02:20 Calcium 9.6 mg/dL (8.6-10.8) 04/10/16 02:20 Total Bilirubin 0.7 mg/dL (0.2-1.2) 04/10/16 02:20 Direct Bilirubin 0.2 mg/dL (0.0-0.5) 04/10/16 02:20 Indirect Bilirubin 0.5 mg/dL (0.0-1.2) 04/10/16 02:20 AST 23 Units/L (5-34) 04/10/16 02:20 ALT 17 Units/L (0-55) 04/10/16 02:20 Alkaline Phosphatase 78 Units/L (38-126) 04/10/16 02:20 Troponin I 0.02 ng/mL (0-0.03) 04/10/16 02:20 B-Natriuretic Peptide 735 pg/mL (0-100) H 04/10/16 02:20 Serum Total Protein 7.7 g/dL (6.0-8.3) 04/10/16 02:20 Albumin 3.7 g/dL (3.5-5.0) 04/10/16 02:20 Globulin 4.0 g/dL (2.4-3.5) H 04/10/16 02:20 Albumin/Globulin Ratio 0.9 (1.1-2.2) L 04/10/16 02:20 Lipase 59 Units/L (8-78) 04/10/16 02:20 TSH 4.982 mcIU/mL (0.350-4.840) H 04/10/16 02:20 Abdomen/Pelvis CT 04/10/16 01:48 IMPRESSION: 1. Diverticulosis without scan evidence for diverticulitis. 2. Stable findings of cirrhosis, bilateral adrenal lesions, bilateral renal lesions, and a heterogeneous mass adjacent to the right ventricle. D/ / Roger Ulrich MD / Roger Ulrich MD Interpreting Provider: Roger Ulrich MD Chest X-Ray 04/10/16 01:48 IMPRESSION: No acute disease. D/ / Roger Ulrich MD / Roger Ulrich MD Interpreting Provider: Roger Ulrich MD Head CT 04/10/16 01:49 IMPRESSION: Extensive small vessel chronic ischemic changes with possible acute ischemia in the right occipital lobe in the distribution of the posterior cerebral artery. No acute hemorrhage is identified. Brain MRI is recommended for further evaluation. D/ / Roger Ulrich MD / Roger Ulrich MD Interpreting Provider: Roger Ulrich MD Brain MRI 04/10/16 03:44 IMPRESSION: No acute intracranial abnormality. Small old infarction in the posteromedial left occipital lobe. Mild parenchymal volume loss. Moderate chronic microvascular disease. D/ / Heri Chen MD / Heri Chen MD Interpreting Provider: Heri Chen MD Abnormal lab results RBC 3.23 M/mcL (3.82-4.97) L 04/11/16 04:11 Hgb 9.8 g/dL (11.5-15.4) L 04/11/16 04:11 Hct 29.9 % (35.3-44.9) L 04/11/16 04:11 ESR 33 mm/hr (0-15) H 04/11/16 04:11 VBG pH 7.55 pH Units (7.32-7.42) H 04/10/16 09:27 VBG pCO2 26 mmHg (41-51) L 04/10/16 09:27 VBG pO2 210 mmHg (25-40) H 04/10/16 09:27 Potassium 4.7 mEq/L (3.5-4.5) H 04/11/16 04:11 BUN 40 mg/dL (7-20) H 04/11/16 04:11 Creatinine 1.41 mg/dL (0.57-1.11) H 04/11/16 04:11 Est GFR ( Amer) 43 (> 60) L 04/11/16 04:11 Est GFR (Non-Af Amer) 35 (> 60) L 04/11/16 04:11 BUN/Creatinine Ratio 28 (6-26) H 04/11/16 04:11 Glucose 171 mg/dL (70-99) H 04/11/16 04:11 POC Glucose 207 (58-89) H 04/11/16 11:21 Calculated Osmolality 302 (280-300) H 04/11/16 04:11 Troponin I 0.13 ng/mL (0-0.03) H* 04/10/16 21:41 B-Natriuretic Peptide 735 pg/mL (0-100) H 04/10/16 02:20 Albumin 3.0 g/dL (3.5-5.0) L 04/11/16 04:11 Globulin 3.7 g/dL (2.4-3.5) H 04/11/16 04:11 Albumin/Globulin Ratio 0.8 (1.1-2.2) L 04/11/16 04:11 Triglycerides 230 mg/dL (< 150) H 04/11/16 04:11 Cholesterol 254 mg/dL (< 200) H 04/11/16 04:11 LDL Cholesterol, Calc 181 mg/dL (0-99) H 04/11/16 04:11 VLDL Cholesterol, Calc 46 mg/dL (< 31) H 04/11/16 04:11 HDL Cholesterol 27 mg/dL (40-59) L 04/11/16 04:11 Cholesterol/HDL Ratio 9.4 (0-4.9) H 04/11/16 04:11 TSH 4.982 mcIU/mL (0.350-4.840) H 04/10/16 02:20 Urine Protein >=300 mg/dL (Neg-Trace) H 04/10/16 04:19 Urine Blood Trace (Negative) H 04/10/16 04:19 Urine Microscopic RBC 3-5 per hpf (0-3) H 04/10/16 04:19 Urine Microscopic WBC 3-5 per hpf (0-3) H 04/10/16 04:19 Ur Squamous Epith Cells Many per lpf (None-Few) H 04/10/16 04:19
[2016-04-10] MEDS ORDERED: diazePAM 10 MG/2 ML SYRINGE IVP STA ×2 (04:40→04:43)
[2016-04-10 04:46] LABS: Phosphorous 4.4 mg/dL (2.3-4.7)
[2016-04-10] MEDS ORDERED: diazePAM 10 MG/2 ML SYRINGE ONE (04:46)
[2016-04-10 05:03] LABS: Bilirubin,Urine Negative (Negative); Blood,Urine Trace (Negative); Clarity,Urine Clear (Clear); Color,Urine Yellow (Yellow); Glucose,Urine (UA) Normal (Normal); Ketones,Urine Negative (Negative); Leukocyte Esterase,Urine Negative (Negative); Nitrite,Urine Negative (Negative); PH,Urine 6.5 pH Units (5.0-8.0); Protein,Urine >=300 mg/dL (Neg-Trace); Specific Gravity,Urine 1.015 (1.010-1.025); Urobilinogen,Urine Normal (Normal)
[2016-04-10 05:05] LABS: Bacteria,Urine None Seen per hpf (None-Few); Hyaline Casts,Urine None Seen per lpf (None-Few); Squamous Epithelial Cell,Urine Many per lpf (None-Few)
[2016-04-10 05:08] LABS: Triiodothyronine (T3) Free 2.53 pg/mL (1.71-3.71)
[2016-04-10] MEDS ORDERED: Ipratropium/Albuterol Neb 3 ML IH ONE (06:21)
[2016-04-10] MEDS ORDERED: Ipratropium/Albuterol Neb 3 ML ONE (06:35)
[2016-04-10] MEDS ORDERED: ALPRAZolam 1 MG TABLET PO SCH (09:00)
--- NOTE | 2016-04-10 09:12 | Internal Med Progress Note ---
<David Valle - Last Filed: 04/10/16 16:25> Date of Encounter: 04/10/16 Time of Encounter: 09:11 - Assessment and plan (1) Transient visual loss of left eye Current Visit: Yes Status: Acute Assessment and plan: No hx of CVA, brain MRI showed no acute issue but show hx of old infarct, she noticed prominent temporal artery on left side, left sided transient visual loss of few seconds, she saw bright light not black curtain type of blindness, also complaints of recent onset b/l shoulder pain and b/l hip pain, normal crp from yesterday and slightly elevated ESR , to avoid irreversible blindness of eye from giant cell arteritis, she was started on po high dose steroid, normal inflammatory markers do not necessary completely r/o temporal arteritis, recheck ESR in AM, neuro has been consulted for possible amaurosis fugax from TIA, echo echo and carotid u/s as well. (2) CKD (chronic kidney disease), stage III Current Visit: Yes Status: Acute Assessment and plan: Slight worse than baseline, gentle IV hydration, recheck in AM. (3) DM II (diabetes mellitus, type II), controlled Current Visit: Yes Status: Acute Assessment and plan: Recent A1C in low 5, spoke to breastfeeding educator, will hold off of her oral antidiabetic meds upon d/c, closely f/u with PCP as outpt. Qualifiers: Qualified Code(s): E11.9 - Type 2 diabetes mellitus without complications (4) CAD (coronary artery disease) Current Visit: Yes Status: Acute Assessment and plan: Hx of CABG, con't asa, plavix, imdur, and BB. Qualifiers: Qualified Code(s): I25.10 - Atherosclerotic heart disease of [place] coronary artery without angina pectoris (5) DVT prophylaxis Current Visit: Yes Status: Acute Assessment and plan: Heparin SQ. - Subjective Interval history: Pt seen and examined, normal vision, no tingling/numbness of extremities but did admit recent b/l shoulder pain and b/l hip pain along with weakness of b/l legs. - Constitutional Vitals: Temp Pulse Resp BP Pulse Ox 97.6 F 75 18 167/76 98 04/10/16 08:42 04/10/16 08:42 04/10/16 08:42 04/10/16 08:42 04/10/16 08:42 General appearance: Present: cooperative, A&O X 3, pleasant, no acute distress, answers questions appropriately - Head Head exam: Present: atraumatic, normocephalic Additional comments: Prominent left temporal artery, no tenderness to touch. - Eye Eye exam: Present: PERRL, conjuntiva pink, sclera anicteric Pupils: Present: PERRL - Neck Neck exam general surgery: Present: supple, trachea midline. Absent: lymphadenopathy - Respiratory Respiratory exam: Present: decreased breath sounds (at base b/l). Absent: accessory muscle use, rales, rhonchi, wheezes - Cardiovascular Cardiovascular exam: Present: RRR, +S1, +S2. Absent: diastolic murmur, gallop, rubs, systolic murmur - GI/Abdominal GI/Abdominal exam: Present: normal bowel sounds, soft, no peritoneal signs. Absent: distended, tenderness - Extremities Exam Extremities exam: Present: pedal edema (mild non-pitting b/l), warm, radial pulses palpable and symetrical. Absent: calf tenderness, cyanotic - Neurological Exam Neurological exam: Present: CN II-XII intact, oriented X3, no focal deficits. Absent: pronater drift, facial droop, speech deficit - Skin Skin exam: Present: dry, intact Internal Medicine: Result - Labs CBC & Chem 7: 04/10/16 02:20 04/10/16 02:20 - ABG Interpretation ABG results: PT/INR, D-dimer PT 12.0 Seconds (9.4-12.1) 04/10/16 02:20 Consult Discharge Plan - Plan Referrals: Reinaldo Valladares Jr, MD [Primary Care Provider] - 04/19/16 10:00 am (F/u in a week for hospital d/c f/u, possible TIA, migraine, DM II, HTN, CKD III, go over medication list (stopped two of diabetic med and started her on po steroid)) Armani Aranda DO [Partnered Physician] - 04/19/16 3:40 pm (Please see rheumatoloy for suspicious for temporal arteritis, need biopsy) Rojas Wise MD [Partnered Physician] - (Please see vascular surgery for possibility of need for temporal artery biopsy) Prescriptions: Alprazolam [Xanax 1 MG Tablet] 1 mg PO BID #10 tablet Atorvastatin [Lipitor] 40 mg PO HS #30 tablet Oxycodone HCl/Acetaminophen [Percocet 5-325 mg Tablet] 1 - 2 each PO QID PRN # 20 tablet PRN Reason: Pain PredniSONE 60 mg PO DAILY #30 tablet <Saul Gallego - Last Filed: 04/11/16 13:13> Date of Encounter: 04/10/16 - Constitutional Vitals: Temp Pulse Resp BP Pulse Ox 97.6 F 54 16 149/87 93 L 04/11/16 12:12 04/11/16 12:12 04/11/16 12:12 04/11/16 12:12 04/11/16 12:12 Internal Medicine: Result - Labs CBC & Chem 7: 04/11/16 04:11 04/11/16 04:11 Labs: Short CBC 04/11/16 Range/Units 04:11 WBC 5.5 (4.3-11.1) K/mcL Hgb 9.8 L (11.5-15.4) g/dL Hct 29.9 L (35.3-44.9) % Plt Count 153 (140-400) K/mcL BMP 04/11/16 04:11 Sodium 139 Potassium 4.7 H Chloride 106 Carbon Dioxide 21 BUN 40 H Creatinine 1.41 H Glucose 171 H Calcium 8.8 Cardiac Enzymes 04/10/16 04/10/16 Range/Units 15:56 21:41 Troponin I 0.19 H* 0.13 H* (0-0.03) ng/mL Liver Function 04/11/16 Range/Units 04:11 Total Bilirubin 0.6 (0.2-1.2) mg/dL AST 18 (5-34) Units/L ALT 15 (0-55) Units/L Alkaline Phosphatase 67 (38-126) Units/L Albumin 3.0 L (3.5-5.0) g/dL - ABG Interpretation ABG results: PT/INR, D-dimer PT 12.0 Seconds (9.4-12.1) 04/10/16 02:20 - Attending Attestation I examined this patient and my medical decision-making was reviewed with the Resident Physician on 04/10/16. I agree with the documented findings, disposition and treatment plan as described except to the extent set forth below. Ms. Rodas is currently in observation for acute exac COPD and possible CVA. She is doing somewhat better at this time. Exam Alert. Comfortable Heart reg Wheeze noted Temp artery nontender. I/P 1. Acute exac COPD 2. ? TIA versus temp arteritis Further diagnoses and plan as above.
[2016-04-10 09:50] LABS: VBG HCO3 22.7 mEq/L (21-27); VBG PH 7.55 pH Units (7.32-7.42)
[2016-04-10 10:01] LABS: Hemoglobin A1C 5.2 %
[2016-04-10] MEDS: Nitroglycerin 0.4 MG TAB.SUBL SL SCH (11:00)
[2016-04-10] MEDS: *HR* Heparin 5,000 UNIT/ML VIAL SQ SCH ×2 (11:05→16:45)
[2016-04-10] MEDS: Insulin LISPRO 300 UNITS/3 ML VIAL SQ SCH ×3 (11:05→16:45)
[2016-04-10] MEDS: hydrALAZINE 25 MG TABLET PO SCH ×3 (11:05→16:45)
[2016-04-10] MEDS: Aspirin 81 MG TAB.CHEW PO SCH (11:25)
[2016-04-10] MEDS: (Ubidecarenone [Co Q10] 100 MG) PO SCH (11:25)
[2016-04-10] MEDS: Ascorbic Acid 500 MG TABLET PO SCH (11:25)
[2016-04-10] MEDS: Isosorbide MONOnitrate (24 HR) 30 MG TAB.ER.24H PO SCH (11:25)
[2016-04-10] MEDS: (Zinc Acetate [Galzin] 50 MG) PO SCH (11:26)
--- NOTE | 2016-04-10 11:26 | Electrocardiograph Report ---
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
[2016-04-10] MEDS: predniSONE 20 MG TABLET PO SCH (11:27)
--- NOTE | 2016-04-10 11:28 | Electrocardiograph Report ---
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
[2016-04-10] MEDS ORDERED: ALPRAZolam 1 MG TABLET PO PRN (12:20)
--- NOTE | 2016-04-10 13:06 | Neurology - Consult Note ---
<Carlos Jones - Last Filed: 04/10/16 17:00> Date of Encounter: 04/10/16 Time of Encounter: 13:06 Assessment and Plan (1) Migraine with aura Current Visit: Yes Status: Acute - admitted for TIA/CVA workup but patient reports left visual loss with bright flashes of light that lasts up to an hour with a subsequent headache, nausea, and vomiting - currently she is asymptomatic - description appears to be more consistent with a migraine with aura - she admits to history of migraine headaches at a younger age mostly during her menstrual periods - currently she has been experiencing frequent headaches with associated nausea, photophobia, and these flashes of light "auras". Reports that this is the first time she has experienced "visual loss" - MRI of brain revealed small old infraction in the posteromedial left occipital lobe and chronic microvascular disease - unlikely that she experienced a TIA/CVA however she certainly has the risk factors given her atrial fibrillation - recommend to continue ASA and Plavix - strong history of brain aneurysm in the family, would recommend CTA of head - Carotid doppler is pending - ECHO (12/2015) EF of 40-45%, moderate segmental left ventricular systolic dysfunction Qualifiers: Status migrainosus presence: without status migrainosus Intractability: not intractable Qualified Code(s): G43.109 - Migraine with aura, not intractable, without status migrainosus History of Present Illness Chief complaint: TIA/CVA/VISION LOSS HPI: Ms. Rodas is a 86 year old female with a PMHx of Afib on aspirin and Plavix, CAD , CABG, DM, HLD and HTN who presented with left vision loss on 04/10. Reports at 2300, on 04/09, she experienced sudden complete loss of vision in her left eye while watching tv. Described as flashes of light with complete darkness, she does denies a curtain shade over the eyes. Visual change lasted up to an hour with spontaneous resolution. She also admits to associated lightheadedness, nausea, and headache. Reports a history of headaches as a younger women and also increase in frequency the past several weeks, multiple episodes per week. Denies any loss of consciousness, fall, injury, surgery, or neck pain. Denies any associated slurred speech, facial droop, or extremity weakness. She normally is weak in the lower extremities and uses a walker to ambulate around the house. She lives at home with son. Reported history of aneurysms in the family. Patient was admitted to [facility] for TIA/CVA work-up and neurology was consulted. Head CT showed extensive small vessel chronic changes with possible ischemia of the right occipital lobe. Brain MRI showed no acute infarct with moderate chronic microvascular disease and a small old infarct of the posteriomedial left occipital lobe. She has a history of atrial fibrillation and takes aspirin and plavix but denies any other anticoagulants. No history of prior strokes or DVT/PE. Past Med Surg Social Fam HX - Past Medical History Medical history: arthritis, atrial fibrillation, CHF, coronary artery disease, diabetes, GERD, hyperlipidemia, hypertension, myocardial infarction, osteoporosis, peripheral artery disease, renal disease, other Psychiatric history: anxiety, other - Past Surgical History Surgical History: appendectomy, cholecystectomy, coronary bypass (CABG), hysterectomy, DARYL/BSO, other - Social History Smoking Status: Former smoker Smokeless Tobacco Status: No Alcohol use: none Drug use: none - Family History Father Living Status: Hx Family Cardiac Disorders: No Hx Family Endocrine Disorder: Yes Medications and Allergies Alprazolam [Xanax 1 MG Tablet] 1 mg PO BID 12/04/15 [History] Amlodipine Besylate 10 mg PO DAILY 12/04/15 [History] Ascorbic Acid [Vitamin C] 500 mg PO DAILY 12/04/15 [History] Aspirin 81 mg PO DAILY 12/04/15 [History] Clopidogrel [Plavix] 75 mg PO DAILY 12/04/15 [History] Furosemide [Lasix] 20 mg PO DAILY 12/04/15 [History] Glimepiride [Amaryl] 2 mg PO BID 12/04/15 [History] Isosorbide MONOnitrate (24 HR) [Imdur] 30 mg PO DAILY 12/04/15 [History] L. Acidophilus/Pectin, [place] [Acidophilus Probiotic Capsule] 1 cap PO TID PRN 12/04/15 [History] Ubidecarenone [Co Q10] 100 mg PO DAILY 12/04/15 [History] Zinc Acetate [Galzin] 50 mg PO DAILY 12/04/15 [History] Oxycodone HCl/Acetaminophen [Percocet 5-325 mg Tablet] 1 - 2 each PO QID PRN [History] Nitroglycerin [Nitrostat] 0.4 mg SL AD #30 tab.subl 01/09/16 [Rx] GlipiZIDE [Glucotrol] 5 mg PO BID 04/10/16 [History] Metformin [Glucophage] 500 mg PO BIDWM 04/10/16 [History] Metoprolol XL (24 HR) Succ [Toprol XL] 25 mg PO BID 04/10/16 [History] Allergies codeine Adverse Reaction (Unknown, Verified 04/10/16 09:31) Gastrointestinal Upset All Systems: A 10-system review of systems was performed and is negative for pertinent findings except as documented above in the HPI. - Constitutional Constitutional ROS IM: frequent falls, headache(s), weakness, no daytime sleepiness, no fever(s) - Nose, Mouth, Throat Nose, mouth and throat: headache(s) - Cardiovascular Cardiovascular ROS IM: as per HPI - Respiratory Respiratory IM: as per HPI - Gastrointestinal Gastrointestinal: diarrhea, nausea - Genitourinary Genitourinary ROS: as per HPI - Musculoskeletal Musculoskeletal ROS IM: muscle weakness - Integumentary Integumentary IM: as per HPI - Neurological Neurological ROS: as per HPI - Psychiatric Psychiatric general PM: as per HPI - Endocrine Endocrine IM: as per HPI - Hematologic/Lymphatic Hematologic/Lymphatic pediatric: as per HPI - Allergic/Immunologic Allergic/Immunologic ROS PM: as per HPI Physical Examination - Vital Signs Vital Signs: Initial Vital Signs Temp Pulse Resp BP Pulse Ox 98.7 F 66 16 167/84 93 L 04/10/16 01:30 04/10/16 01:30 04/10/16 01:30 04/10/16 01:30 04/10/16 01:30 - Constitutional General appearance: comfortable - Neurologic Sensorimotor examination: intact Detailed motor examination: grossly full strength in all extremities, full strength in all major muscle groups Motor examination - right side: 5/5: deltoids, biceps, triceps, wrist flexion, wrist extension, deckhand fishing vessel, hip flexors, tibialis Anterior, quadriceps, toe extension (EHL), plantarflexion Motor examination - left side: 5/5: deltoids, biceps, triceps, wrist flexion, wrist extension, hip flexors, deckhand fishing vessel, quadriceps, tibialis Anterior, toe extension (EHL), plantarflexion Detailed sensory examination: intact, light touch Reflexes: Biceps: 2+, Triceps: 2+, Brachioradialis: 2+, Patella: 2+, Achilles: 2 + Mental Status Examination: awake, alert, oriented to person, oriented to place, oriented to time, follows commands appropriately, answers questions appropriately, no agnosia, no aphasia, no aproxia Cranial nerve examination: PERRL, EOMI, visual luther intact, sensory to face intact, mastication intact, no facial asymmetry is present, no dysarthria, hearing is intact symmetrically, soft palate elevates bilaterally upon phonation , flexes SCM and trapezius muscles symmetrically with full power, tongue protrudes midline, no atrophy or facial fasiculations present Cerebellar examination: no dysmetria, performs finger to nose and heel to angulo symmetrically without ataxia, no difficulty with rapid alternating movements Results - Laboratory Findings CBC and BMP: 04/10/16 02:20 04/10/16 02:20 Abnormal lab findings: Abnormal lab results RBC 3.69 M/mcL (3.82-4.97) L 04/10/16 02:20 Hgb 11.0 g/dL (11.5-15.4) L 04/10/16 02:20 Hct 34.2 % (35.3-44.9) L 04/10/16 02:20 VBG pH 7.55 pH Units (7.32-7.42) H 04/10/16 09:27 VBG pCO2 26 mmHg (41-51) L 04/10/16 09:27 VBG pO2 210 mmHg (25-40) H 04/10/16 09:27 BUN 37 mg/dL (7-20) H 04/10/16 02:20 Creatinine 1.41 mg/dL (0.57-1.11) H 04/10/16 02:20 Est GFR ( Amer) 43 (> 60) L 04/10/16 02:20 Est GFR (Non-Af Amer) 35 (> 60) L 04/10/16 02:20 Glucose 108 mg/dL (70-99) H 04/10/16 02:20 POC Glucose 154 (58-89) H 04/10/16 11:53 Troponin I 0.05 ng/mL (0-0.03) H* 04/10/16 09:27 B-Natriuretic Peptide 735 pg/mL (0-100) H 04/10/16 02:20 Globulin 4.0 g/dL (2.4-3.5) H 04/10/16 02:20 Albumin/Globulin Ratio 0.9 (1.1-2.2) L 04/10/16 02:20 TSH 4.982 mcIU/mL (0.350-4.840) H 04/10/16 02:20 Urine Protein >=300 mg/dL (Neg-Trace) H 04/10/16 04:19 Urine Blood Trace (Negative) H 04/10/16 04:19 Urine Microscopic RBC 3-5 per hpf (0-3) H 04/10/16 04:19 Urine Microscopic WBC 3-5 per hpf (0-3) H 04/10/16 04:19 Ur Squamous Epith Cells Many per lpf (None-Few) H 04/10/16 04:19 Consult Discharge Plan - Plan Referrals: Reinaldo Valladares Jr, MD [Primary Care Provider] - 04/19/16 10:00 am () <Freddie Clark - Last Filed: 04/10/16 17:20> Date of Encounter: 04/10/16 Time of Encounter: 17:12 Assessment and Plan (1) CVA (cerebral vascular accident) Current Visit: Yes Status: Acute Qualifiers: CVA mechanism: unspecified Qualified Code(s): I63.9 - Cerebral infarction, unspecified (2) Migraine with aura Current Visit: Yes Status: Acute Case was discussed with Dr. Jones I agree with his assessment and recommendations as listed above. Do believe that this was a migrainous event. She does not report a history of migraine headaches. At this point I feel that she will infarct is less likely the MRI with diffusion imaging and did not show evidence of acute infarct. Clinically I am doubtful that we are dealing with occipital lobe seizure event. At this juncture however since she does have a strong family history of cerebral aneurysmal would like to get a CTA of the head. At this juncture temporal arteritis is not likely. We will like to follow up with her in my office as an outpatient for further assessment of her frequent headaches and perhaps prophylactic treatment measures. Qualifiers: Status migrainosus presence: without status migrainosus Intractability: not intractable Qualified Code(s): G43.109 - Migraine with aura, not intractable, without status migrainosus History of Present Illness HPI: The chart was reviewed along with Dr. Jones. I agree with his history as stated above. Pt. was examined Independently. All Systems: A 10-system review of systems was performed and is negative for pertinent findings except as documented above in the HPI. Review of Systems: 10 point review of systems is consistent with a history of present illness otherwise negative. Physical Examination - Vital Signs Vital Signs: Initial Vital Signs Temp Pulse Resp BP Pulse Ox 98.7 F 66 16 167/84 93 L 04/10/16 01:30 04/10/16 01:30 04/10/16 01:30 04/10/16 01:30 04/10/16 01:30 Results - Laboratory Findings CBC and BMP: 04/10/16 02:20 04/10/16 02:20 Abnormal lab findings: Abnormal lab results RBC 3.69 M/mcL (3.82-4.97) L 04/10/16 02:20 Hgb 11.0 g/dL (11.5-15.4) L 04/10/16 02:20 Hct 34.2 % (35.3-44.9) L 04/10/16 02:20 VBG pH 7.55 pH Units (7.32-7.42) H 04/10/16 09:27 VBG pCO2 26 mmHg (41-51) L 04/10/16 09:27 VBG pO2 210 mmHg (25-40) H 04/10/16 09:27 BUN 37 mg/dL (7-20) H 04/10/16 02:20 Creatinine 1.41 mg/dL (0.57-1.11) H 04/10/16 02:20 Est GFR ( Amer) 43 (> 60) L 04/10/16 02:20 Est GFR (Non-Af Amer) 35 (> 60) L 04/10/16 02:20 Glucose 108 mg/dL (70-99) H 04/10/16 02:20 POC Glucose 154 (58-89) H 04/10/16 11:53 Troponin I 0.19 ng/mL (0-0.03) H* 04/10/16 15:56 B-Natriuretic Peptide 735 pg/mL (0-100) H 04/10/16 02:20 Globulin 4.0 g/dL (2.4-3.5) H 04/10/16 02:20 Albumin/Globulin Ratio 0.9 (1.1-2.2) L 04/10/16 02:20 TSH 4.982 mcIU/mL (0.350-4.840) H 04/10/16 02:20 Urine Protein >=300 mg/dL (Neg-Trace) H 04/10/16 04:19 Urine Blood Trace (Negative) H 04/10/16 04:19 Urine Microscopic RBC 3-5 per hpf (0-3) H 04/10/16 04:19 Urine Microscopic WBC 3-5 per hpf (0-3) H 04/10/16 04:19 Ur Squamous Epith Cells Many per lpf (None-Few) H 04/10/16 04:19
[2016-04-10] MEDS ORDERED: Insulin LISPRO 300 UNITS/3 ML VIAL SQ SCH (21:00)
[2016-04-11] MEDS: hydrALAZINE 25 MG TABLET PO SCH ×3 (00:44→13:00)
[2016-04-11] MEDS: Nitroglycerin 0.4 MG TAB.SUBL SL SCH (03:32)
[2016-04-11 04:50] LABS: Hematocrit 29.9 % (35.3-44.9); Hemoglobin 9.8 g/dL (11.5-15.4); Mean Corpuscular HGB Conc 32.8 g/dL (31.6-35.5); Mean Corpuscular Hemoglobin 30.3 pg (28.0-33.3); Mean Corpuscular Volume 92.6 fL (83.0-100.0); Mean Platelet Volume 10.8 fL (9.4-12.4); Platelet Count 153 K/mcL (140-400); Red Blood Count 3.23 M/mcL (3.82-4.97); Red Cell Distribution Width 13.9 % (11.5-14.5)
[2016-04-11 05:08] LABS: Albumin/Globulin Ratio 0.8 (1.1-2.2); Bilirubin,Total 0.6 mg/dL (0.2-1.2); Calcium 8.8 mg/dL (8.6-10.8); Chol/HDL Ratio 9.4 (0-4.9); Globulin 3.7 g/dL (2.4-3.5); Potassium 4.7 mEq/L (3.5-4.5); Total Protein 6.7 g/dL (6.0-8.3)
[2016-04-11] MEDS: *HR* Heparin 5,000 UNIT/ML VIAL SQ SCH (06:23)
[2016-04-11] MEDS: Ascorbic Acid 500 MG TABLET PO SCH (08:02)
[2016-04-11] MEDS: Isosorbide MONOnitrate (24 HR) 30 MG TAB.ER.24H PO SCH (08:02)
[2016-04-11] MEDS: Insulin LISPRO 300 UNITS/3 ML VIAL SQ SCH ×2 (08:02→13:00)
[2016-04-11] MEDS: (Zinc Acetate [Galzin] 50 MG) PO SCH (08:03)
[2016-04-11] MEDS: Aspirin 81 MG TAB.CHEW PO SCH (08:03)
[2016-04-11] MEDS: predniSONE 20 MG TABLET PO SCH (08:03)
[2016-04-11] MEDS: (Ubidecarenone [Co Q10] 100 MG) PO SCH (08:03)
--- NOTE | 2016-04-11 09:35 | Carotid Imaging Report ---
Carotid Duplex Patient Name:Patti Rodas Order Number:[id number] Procedure Date:04/10/2016 Date:1930ge:86 yrs Gender:Female Rt.BP:148 / 61 mmHgHeart Rate: Location:[facility] Room #: 2NE18 Leveler:Jania Adan RDCS Referring MD:Hubert Chowdhury DO forest science professor:Reinaldo Valladares MD Reading MD:Rojas Wise MD , FACS Primary Indications:TIA/CVA Risk Factors Yes/No Hypertension Yes Diabetes Yes Hypercholesterolemia Yes Smoker Previous Yes Impressions: Findings: Bilateral carotid systems have nonstenotic plaque. Recommendations: Test completed on 04/10/2016 at 8:49:00 pm. Findings Carotid Duplex: Right: The right proximal common carotid artery has a PSV of 57 cm/s and a EDV of 12 cm/s. The right mid common carotid artery has a PSV of 57 cm/s and a EDV of 12 cm/s. The right distal common carotid artery has a PSV of 62 cm/s and a EDV of 14 cm/s. There is nonstenotic plaque in the right bifurcation with a PSV of 65 cm/s and a EDV of 12 cm/s. There is irregular heterogeneous plaque. There is nonstenotic plaque in the right proximal internal carotid artery with a PSV of 76 cm/s and a EDV of 17 cm/s. There is irregular heterogeneous plaque. The right mid internal carotid artery has a PSV of 75 cm/s and a EDV of 16 cm/s. The right distal internal carotid artery has a PSV of 78 cm/s and a EDV of 14 cm/s. The right eca has a PSV of 261 cm/s and a EDV of 12 cm/s. The right vertebral artery has a PSV of 111 cm/s and a EDV of 17 cm/s. There is antegrade spectral Doppler flow patterns. Left: The left proximal common carotid artery has a PSV of 112 cm/s and a EDV of 11 cm/s. The left mid common carotid artery has a PSV of 104 cm/s and a EDV of 11 cm/s. The left distal common carotid artery has a PSV of 79 cm/s and a EDV of 13 cm/s. There is nonstenotic plaque in the left bifurcation with a PSV of 81 cm/s and a EDV of 19 cm/s. There is smooth heterogeneous plaque. There is nonstenotic plaque in the left proximal internal carotid artery with a PSV of 60 cm/s and a EDV of 17 cm/s. There is irregular heterogeneous plaque. The left mid internal carotid artery has a PSV of 115 cm/s and a EDV of 15 cm/s. The left distal internal carotid artery has a PSV of 82 cm/s and a EDV of 17 cm/s. The left eca has a PSV of 132 cm/s and a EDV of 4 cm/s. The left vertebral artery has a PSV of 76 cm/s and a EDV of 17 cm/s. There is antegrade spectral Doppler flow patterns. Prior Study: No prior study available for comparison. Carotid Results Right PSV EDV Assessment Proximal CCA 57 12 Mid CCA 57 12 Distal CCA 62 14 Bifurcation 65 12 Non Stenotic Plaque Proximal ICA 76 17 Non Stenotic Plaque Mid ICA 75 16 Distal ICA 78 14 ECA 261 12 Vertebral Artery 111 17 Antegrade Flow Left PSV EDV Assessment Proximal CCA 112 11 Mid CCA 104 11 Distal CCA 79 13 Bifurcation 81 19 Non Stenotic Plaque Proximal ICA 60 17 Non Stenotic Plaque Mid ICA 115 15 Distal ICA 82 17 ECA 132 4 Vertebral Artery 76 17 Antegrade Flow Ratio's Right ICA/CCA Ratio: 1.37 ICA/CCA Values: 78/57 Left ICA/CCA Ratio: 1.11 ICA/CCA Values: 115/104 Updated by Rojas Wise MD, FACS on 04/11/2016 9:30:30 AM Rojas Wise MD electronically signed on 04/11/2016 9:31:02 AM with status of Final
--- NOTE | 2016-04-11 09:59 | Discharge Summary ---
<David Valle - Last Filed: 04/11/16 11:19> Date of Encounter: 04/11/16 Time of Encounter: 09:55 - Discharge Diagnosis (1) Transient visual loss of left eye Priority: Primary Status: Acute (2) CKD (chronic kidney disease), stage III Priority: Secondary Status: Acute (3) DM II (diabetes mellitus, type II), controlled Priority: Secondary Status: Acute Qualifiers: Qualified Code(s): E11.9 - Type 2 diabetes mellitus without complications (4) CAD (coronary artery disease) Priority: Secondary Status: Acute Qualifiers: Qualified Code(s): I25.10 - Atherosclerotic heart disease of three affiliated coronary artery without angina pectoris (5) DVT prophylaxis Priority: Secondary Status: Acute - Discharge Medications Prescriptions: Alprazolam [Xanax 1 MG Tablet] 1 mg PO BID #10 tablet Atorvastatin [Lipitor] 40 mg PO HS #30 tablet Oxycodone HCl/Acetaminophen [Percocet 5-325 mg Tablet] 1 - 2 each PO QID PRN # 20 tablet PRN Reason: Pain PredniSONE 60 mg PO DAILY #30 tablet Home Medications: Amlodipine Besylate 10 mg PO DAILY 12/04/15 [History] Ascorbic Acid [Vitamin C] 500 mg PO DAILY 12/04/15 [History] Aspirin 81 mg PO DAILY 12/04/15 [History] Clopidogrel [Plavix] 75 mg PO DAILY 12/04/15 [History] Furosemide [Lasix] 20 mg PO DAILY 12/04/15 [History] Isosorbide MONOnitrate (24 HR) [Imdur] 30 mg PO DAILY 12/04/15 [History] L. Acidophilus/Pectin, [place] [Acidophilus Probiotic Capsule] 1 cap PO TID PRN 12/04/15 [History] Ubidecarenone [Co Q10] 100 mg PO DAILY 12/04/15 [History] Zinc Acetate [Galzin] 50 mg PO DAILY 12/04/15 [History] Nitroglycerin [Nitrostat] 0.4 mg SL AD #30 tab.subl 01/09/16 [Rx] Metformin [Glucophage] 500 mg PO BIDWM 04/10/16 [History] Metoprolol XL (24 HR) Succ [Toprol Xl] 25 mg PO BID 04/10/16 [History] Alprazolam [Xanax 1 MG Tablet] 1 mg PO BID #10 tablet 04/11/16 [Rx] Atorvastatin [Lipitor] 40 mg PO HS #30 tablet 04/11/16 [Rx] Oxycodone HCl/Acetaminophen [Percocet 5-325 mg Tablet] 1 - 2 each PO QID PRN # 20 tablet 04/11/16 [Rx] PredniSONE 60 mg PO DAILY #30 tablet 04/11/16 [Rx] Allergies/Adverse Reactions: Allergies codeine Adverse Reaction (Unknown, Verified 04/10/16 09:31) Gastrointestinal Upset Procedures/tests Complete & Pending: Procedures Performed prior 72 hours Category Date Time Status ECG 12 lead ECG [ECG] Routine Y 04/10/16 06:30 Completed EV echocardiogram Routine Y 04/10/16 16:16 Completed Date of admission: 04/10/16 04:09 Primary care physician: Reinaldo Valladares Jr, MD Consults: 04/10/16 04:16 Consult to Swinging Cut Off Saw Operator [CONS] Routine Comment: 04/10/16 08:46 Consult to Reversal Print Inspector [CONS] Routine Reason for SW Consult: stroke protocol 04/10/16 12:18 Consult to Reversal Print Inspector [CONS] Routine Reason for SW Consult: PT HAS [facility] O2 Discharging clinician: David Valle Anticipated date of discharge: 04/11/16 - Patient Status Disposition: Transfer SNF Condition: Good Functional capacity at discharge: uses cane/walker (fall precaution) Overall status at discharge: patient is progressing back to baseline - Discharge Instructions Follow Up With: Reinaldo Valladares Jr, MD [Primary Care Provider] - 04/19/16 10:00 am (F/u in a week for hospital d/c f/u, possible TIA, migraine, DM II, HTN, CKD III, go over medication list (stopped two of diabetic med and started her on po steroid)) Armani Aranda DO [Partnered Physician] - 04/19/16 3:40 pm (Please see rheumatoloy for suspicious for temporal arteritis, need biopsy) Rojas Wise MD [Partnered Physician] - (Please see vascular surgery for possibility of need for temporal artery biopsy) - Diet and Activity Activity: resume usual activities as tolerated Diet: diabetic diet, low fat, low cholesterol, low salt diet (cardiac diet) Hospital course: Ms. Rodas is a 86 year old female with hx of CAD and COPD, who presented to the ER with cc of transient visual loss of left eye, admitted for same reason, brain MRI was done to r/o cva and it did not show acute process, she was also noticing prominent temporal artery on left side above her left eyebrow recently , recent onset headache/bilateral shoulder pain and b/l hip pain for several months, therefore she was started on high dose po steroid for clinical suspicion of giant cell arteritis. Neuro was consulted, thinking it might be due to migraine with aura. She is already of dual antiplatelet therapy with ASA and plavix therefore she will con't those meds, pt/ot recommended ECF/SNF, she will f/u with rheumatology/vascular surgery for possible temporal artery biopsy , lipid panel, carotid and echo were reviewed, pt is stable to be d/c today. - Time Spent with Patient Total time spent providing and/or coordinating discharge services: - Constitutional Vitals: Temp Pulse Resp BP Pulse Ox 98 F 62 16 155/99 96 04/11/16 07:41 04/11/16 07:41 04/11/16 07:41 04/11/16 07:41 04/11/16 07:41 General appearance: Present: cooperative, A&O X 3, answers questions appropriately - Head Head exam: Present: atraumatic, normocephalic - Eye Eye exam: Present: PERRL, conjuntiva pink, sclera anicteric Pupils: Present: PERRL - Neck Neck exam general surgery: Present: supple, trachea midline. Absent: lymphadenopathy - Respiratory Respiratory exam: Present: CTAB. Absent: accessory muscle use, rales, rhonchi, wheezes - Cardiovascular Cardiovascular exam: Present: RRR, +S1, +S2. Absent: diastolic murmur, gallop, rubs, systolic murmur - GI/Abdominal GI/Abdominal exam: Present: normal bowel sounds, soft, no peritoneal signs. Absent: distended, tenderness - Extremities Exam Extremities exam: Present: warm, radial pulses palpable and symetrical. Absent : calf tenderness, cyanotic, pedal edema - Neurological Exam Neurological exam: Present: CN II-XII intact, oriented X3, no focal deficits. Absent: pronater drift, facial droop, speech deficit - Skin Skin exam: Present: dry, intact <Julián,Saul A - Last Filed: 04/11/16 13:38> Date of Encounter: 04/11/16 - Discharge Diagnosis (1) Transient visual loss of left eye Status: Acute (2) Giant cell arteritis with polymyalgia rheumatica Priority: Primary Status: Suspected (3) COPD (chronic obstructive pulmonary disease) Priority: Secondary Status: Acute Qualifiers: COPD type: emphysema Emphysema type: panlobular Qualified Code(s): J43.1 - Panlobular emphysema (4) Paroxysmal atrial fibrillation Priority: Secondary Status: Chronic (5) CAD (coronary artery disease) Status: Chronic Qualifiers: Coronary Disease-Associated Artery/Lesion type: three affiliated artery [place] vs. transplanted heart: three affiliated heart Associated angina: without angina Qualified Code(s): I25.10 - Atherosclerotic heart disease of three affiliated coronary artery without angina pectoris (6) Diabetes Priority: Secondary Status: Chronic Qualifiers: Diabetes mellitus type: type 2 Diabetes mellitus complication status: with kidney complications Diabetes mellitus complication detail: with chronic kidney disease Diabetes mellitus fdc insulin use: without intermediate accountant use Chronic kidney disease stage: stage 3 (moderate) Qualified Code(s): E11.22 - Type 2 diabetes mellitus with diabetic chronic kidney disease; N18.3 - Chronic kidney disease, stage 3 (moderate) Procedures/tests Complete & Pending: Procedures Performed prior 72 hours Category Date Time Status ECG 12 lead ECG [ECG] Routine Y 04/10/16 06:30 Completed EV echocardiogram Routine Y 04/10/16 16:16 Completed Date of admission: 04/10/16 04:09 Primary care physician: Reinaldo Valladares Jr, MD Consults: 04/10/16 04:16 Consult to Swinging Cut Off Saw Operator [CONS] Routine Comment: 04/10/16 08:46 Consult to Reversal Print Inspector [CONS] Routine Reason for SW Consult: stroke protocol 04/10/16 12:18 Consult to Reversal Print Inspector [CONS] Routine Reason for SW Consult: PT HAS [facility] [place] [id number] Hospital course: Ms. Rodas is a 86 year old female - Time Spent with Patient Total time spent providing and/or coordinating discharge services: 37 min - Constitutional Vitals: Temp Pulse Resp BP Pulse Ox 97.6 F 54 16 149/87 93 L 04/11/16 12:12 04/11/16 12:12 04/11/16 12:12 04/11/16 12:12 04/11/16 12:12 - Attending Attestation I examined this patient and my medical decision-making was reviewed with the Resident Physician on 04/11/16. I agree with the documented findings, disposition and treatment plan as described except to the extent set forth below. Ms. Rodas is doing better today. She feels ready to go home. Exam Alert. Comfortable Heart reg Lungs clear Plan D/C today Follow up with PCP Follow up with rheumatology regarding potential of temporal arteritis.
--- NOTE | 2016-04-11 10:08 | Physician Discharge Referral ---
<David Valle - Last Filed: 04/11/16 10:06> ExtendedCare Referral Info Transfer To: C/SNF Provider in Charge: Dr. Gallego Provider in Charge after Transfer: PCP Institutional Level of Care: Skilled - Diagnosis (1) Transient visual loss of left eye Priority: Primary Status: Acute (2) CKD (chronic kidney disease), stage III Status: Acute (3) DM II (diabetes mellitus, type II), controlled Status: Acute (4) CAD (coronary artery disease) Status: Acute (5) DVT prophylaxis Status: Acute - Transfer Medications Prescriptions: Alprazolam [Xanax 1 MG Tablet] 1 mg PO BID #10 tablet Atorvastatin [Lipitor] 40 mg PO HS #30 tablet Oxycodone HCl/Acetaminophen [Percocet 5-325 mg Tablet] 1 - 2 each PO QID PRN # 20 tablet PRN Reason: Pain PredniSONE 60 mg PO DAILY #30 tablet Home Medications: Amlodipine Besylate 10 mg PO DAILY 12/04/15 [History] Ascorbic Acid [Vitamin C] 500 mg PO DAILY 12/04/15 [History] Aspirin 81 mg PO DAILY 12/04/15 [History] Clopidogrel [Plavix] 75 mg PO DAILY 12/04/15 [History] Furosemide [Lasix] 20 mg PO DAILY 12/04/15 [History] Isosorbide MONOnitrate (24 HR) [Imdur] 30 mg PO DAILY 12/04/15 [History] L. Acidophilus/Pectin, [place] [Acidophilus Probiotic Capsule] 1 cap PO TID PRN 12/04/15 [History] Ubidecarenone [Co Q10] 100 mg PO DAILY 12/04/15 [History] Zinc Acetate [Galzin] 50 mg PO DAILY 12/04/15 [History] Nitroglycerin [Nitrostat] 0.4 mg SL AD #30 tab.subl 01/09/16 [Rx] Metformin [Glucophage] 500 mg PO BIDWM 04/10/16 [History] Metoprolol XL (24 HR) Succ [Toprol Xl] 25 mg PO BID 04/10/16 [History] Alprazolam [Xanax 1 MG Tablet] 1 mg PO BID #10 tablet 04/11/16 [Rx] Atorvastatin [Lipitor] 40 mg PO HS #30 tablet 04/11/16 [Rx] Oxycodone HCl/Acetaminophen [Percocet 5-325 mg Tablet] 1 - 2 each PO QID PRN # 20 tablet 04/11/16 [Rx] PredniSONE 60 mg PO DAILY #30 tablet 04/11/16 [Rx] Allergies/Adverse Reactions: Allergies codeine Adverse Reaction (Unknown, Verified 04/10/16 09:31) Gastrointestinal Upset - Respiratory Orders Oxygen / L per min (venturi mask 16 lpm fio2 50, titrate to sat 92%) Smoking Cessation: Smoking cessation has been advised. For more information, call the [employer] Quit Line at 5-702-CBOHNOW. - Ancillary Orders May use pressure relief devices daily prn, May go on ROGE w/family/respon republican w /meds at nurse discretion PRN, May consult with Dentist, Pmo Manager, Field Software Engineer PRN - Advance Directives Code Status: DNR-Arrest - Mobility Orders Ambulate (up with assistance, fall precaution) - Rehabiliation Orders Rehab Potential: Fair Rehab Orders: ROM Exercises, Evaluation for Physical Therapy, Evaluation for Occupational Therapy - Treatments Skin tear care topically daily PRN per policy, May check for fecal impaction rectally daily PRN, Fleet enema rectally every other day PRN cleansing purposes - Diet Orders No Added Salt (RAYSHAWN), Cardiac (and diabetic) CERTIFICATION: I certify that the transfer of the above named patient to an Extended Care Facility is necessary for the continuing treatment of the diagnosis listed. The above information is true and accurate reflection of patient's current condition. Confidential - Redisclosure prohibited without a patient's written consent. <Saul Gallego - Last Filed: 04/11/16 13:16> - Respiratory Orders Smoking Cessation: Smoking cessation has been advised. For more information, call the [place] [employer] Quit Line at 0-052-EJLC-NOW. CERTIFICATION: I certify that the transfer of the above named patient to an Extended Care Facility is necessary for the continuing treatment of the diagnosis listed. The above information is true and accurate reflection of patient's current condition. Confidential - Redisclosure prohibited without a patient's written consent.
--- NOTE | 2016-04-11 10:32 | Neurology Progress Note ---
Date of Encounter: 04/11/16 Time of Encounter: 10:31 Assessment and Plan (1) Migraine with aura Current Visit: Yes Status: Acute - reports of a headache that occurred after therapy where she was moving from sitting to standing - symptoms resolved roughly an hour later while she rested - Carotid duplex showed bilateral nonstenotic plaques - highly recommend a CTA of the neck but this has not been performed and may unlikely be performed during her admission due to CKD stage III - recommend follow up with Dr. Clark as an outpatient for further management and to continue ASA and Plavix as previously prescribed Qualifiers: Status migrainosus presence: without status migrainosus Intractability: not intractable Qualified Code(s): G43.109 - Migraine with aura, not intractable, without status migrainosus (2) Transient visual loss of left eye Current Visit: Yes Status: Acute - resolved - likely not TIA such as amaurosis fugax but with the elevated lipid panel, recommend continuation of statin -ESR is elevated at 33, the possibility of giant cell arteritis unlikely as discussed on prior note Subjective Interval history: Patient seen and examined. She just finished participating in therapy and reports a headache from the activity. Describes pain as a pressure throughout the frontal and temporal areas. Denies any visual changes, vision loss, or symptoms similar to her initial presentation to the ED. Also reports some chest tightness after therapy but has improved. After my examination most symptoms resolved including the headache. Objective - Constitutional Vitals: Temp Pulse Resp BP Pulse Ox 98 F 62 16 155/99 96 04/11/16 07:41 04/11/16 07:41 04/11/16 07:41 04/11/16 07:41 04/11/16 07:41 General appearance: Present: cooperative, A&O X 3, pleasant, no acute distress - Eye Eye exam: Present: conjunctival injection, EOMI, normal appearance, PERRL - Neurological Exam Sensorimotor examination: Present: intact Motor Examination: Present: grossly full strength in all extremities, full strength in all major muscle groups Motor examination - right side: 5/5: deltoids, biceps, triceps, wrist flexion, wrist extension, customer relations consultant, hip flexors, tibialis Anterior, quadriceps, toe extension (EHL), plantarflexion Motor examination - left side: 5/5: deltoids, biceps, triceps, wrist flexion, wrist extension, hip flexors, customer relations consultant, quadriceps, tibialis Anterior, toe extension (EHL), plantarflexion Sensation intact: Present: intact, light touch Mental Status Examination: Present: awake, alert, oriented to person, oriented to place, oriented to time, follows commands appropriately, answers questions appropriately, no agnosia, no aphasia, no aproxia Cranial nerve examination: Present: PERRL, EOMI, visual luther intact, sensory to face intact, mastication intact, no facial asymmetry is present, no dysarthria, hearing is intact symmetrically, soft palate elevates bilaterally upon phonation, flexes SCM and trapezius muscles symmetrically with full power, tongue protrudes midline, no atrophy or facial fasiculations present Cerebellar examination: Present: no dysmetria, performs finger to nose and heel to angulo symmetrically without ataxia, no difficulty with rapid alternating movements Results - Laboratory Findings CBC and BMP: 04/11/16 04:11 04/11/16 04:11 Abnormal lab findings: Abnormal lab results RBC 3.23 M/mcL (3.82-4.97) L 04/11/16 04:11 Hgb 9.8 g/dL (11.5-15.4) L 04/11/16 04:11 Hct 29.9 % (35.3-44.9) L 04/11/16 04:11 ESR 33 mm/hr (0-15) H 04/11/16 04:11 VBG pH 7.55 pH Units (7.32-7.42) H 04/10/16 09:27 VBG pCO2 26 mmHg (41-51) L 04/10/16 09:27 VBG pO2 210 mmHg (25-40) H 04/10/16 09:27 Potassium 4.7 mEq/L (3.5-4.5) H 04/11/16 04:11 BUN 40 mg/dL (7-20) H 04/11/16 04:11 Creatinine 1.41 mg/dL (0.57-1.11) H 04/11/16 04:11 Est GFR ( Amer) 43 (> 60) L 04/11/16 04:11 Est GFR (Non-Af Amer) 35 (> 60) L 04/11/16 04:11 BUN/Creatinine Ratio 28 (6-26) H 04/11/16 04:11 Glucose 171 mg/dL (70-99) H 04/11/16 04:11 POC Glucose 154 (58-89) H 04/10/16 11:53 Calculated Osmolality 302 (280-300) H 04/11/16 04:11 Troponin I 0.13 ng/mL (0-0.03) H* 04/10/16 21:41 B-Natriuretic Peptide 735 pg/mL (0-100) H 04/10/16 02:20 Albumin 3.0 g/dL (3.5-5.0) L 04/11/16 04:11 Globulin 3.7 g/dL (2.4-3.5) H 04/11/16 04:11 Albumin/Globulin Ratio 0.8 (1.1-2.2) L 04/11/16 04:11 Triglycerides 230 mg/dL (< 150) H 04/11/16 04:11 Cholesterol 254 mg/dL (< 200) H 04/11/16 04:11 LDL Cholesterol, Calc 181 mg/dL (0-99) H 04/11/16 04:11 VLDL Cholesterol, Calc 46 mg/dL (< 31) H 04/11/16 04:11 HDL Cholesterol 27 mg/dL (40-59) L 04/11/16 04:11 Cholesterol/HDL Ratio 9.4 (0-4.9) H 04/11/16 04:11 TSH 4.982 mcIU/mL (0.350-4.840) H 04/10/16 02:20 Urine Protein >=300 mg/dL (Neg-Trace) H 04/10/16 04:19 Urine Blood Trace (Negative) H 04/10/16 04:19 Urine Microscopic RBC 3-5 per hpf (0-3) H 04/10/16 04:19 Urine Microscopic WBC 3-5 per hpf (0-3) H 04/10/16 04:19 Ur Squamous Epith Cells Many per lpf (None-Few) H 04/10/16 04:19 Consult Discharge Plan - Plan Instructions: Diabetes Mellitus Type 2 in Adults (DC), Chronic Hypertension (DC ) Referrals: Reinaldo Valladares Jr, MD [Primary Care Provider] - 04/19/16 10:00 am (F/u in a week for hospital d/c f/u, possible TIA, migraine, DM II, HTN, CKD III, go over medication list (stopped two of diabetic med and started her on po steroid)) Armani Aranda DO [Partnered Physician] - 04/19/16 3:40 pm (Please see rheumatoloy for suspicious for temporal arteritis, need biopsy) Rojas Wise MD [Partnered Physician] - (Please see vascular surgery for possibility of need for temporal artery biopsy) Prescriptions: Alprazolam [Xanax 1 MG Tablet] 1 mg PO BID #10 tablet Atorvastatin [Lipitor] 40 mg PO HS #30 tablet Oxycodone HCl/Acetaminophen [Percocet 5-325 mg Tablet] 1 - 2 each PO QID PRN # 20 tablet PRN Reason: Pain PredniSONE 60 mg PO DAILY #30 tablet
[2016-04-11 12:13] VITALS: BP 149/87
--- NOTE | 2016-04-11 12:54 | Physician Discharge Referral ---
Home Health/Hosp Referral Info Transfer to: Home Health Attending Provider: Dr. Gallego Provider in Charge Post Discharge: PCP - Diagnosis (1) Transient visual loss of left eye Priority: Primary Status: Acute (2) CKD (chronic kidney disease), stage III Status: Acute (3) DM II (diabetes mellitus, type II), controlled Status: Acute (4) CAD (coronary artery disease) Status: Acute (5) DVT prophylaxis Status: Acute - Respiratory Orders Oxygen / L per min (venturi mask 15 L, FiO2 50) Smoking Cessation: Smoking cessation has been advised. For more information, call the [place] [employer] Quit Line at 7-702-JIPJ-NOW. - Diet/Nutrition Diet/Nutrition Orders: No Added Salt (RAYSHAWN), Cardiac (diabetic) - Activity Activity Orders: Walker (fall precaution) - Services Needed Following services are medically necessary services: Nursing, Home Health Aide, Physical Therapy, Occupational Therapy - Transfer Medications Prescriptions: Alprazolam [Xanax 1 MG Tablet] 1 mg PO BID #10 tablet Atorvastatin [Lipitor] 40 mg PO HS #30 tablet Oxycodone HCl/Acetaminophen [Percocet 5-325 mg Tablet] 1 - 2 each PO QID PRN # 20 tablet PRN Reason: Pain PredniSONE 60 mg PO DAILY #30 tablet Home Medications: Amlodipine Besylate 10 mg PO DAILY 12/04/15 [History] Ascorbic Acid [Vitamin C] 500 mg PO DAILY 12/04/15 [History] Aspirin 81 mg PO DAILY 12/04/15 [History] Clopidogrel [Plavix] 75 mg PO DAILY 12/04/15 [History] Furosemide [Lasix] 20 mg PO DAILY 12/04/15 [History] Isosorbide MONOnitrate (24 HR) [Imdur] 30 mg PO DAILY 12/04/15 [History] L. Acidophilus/Pectin, [place] [Acidophilus Probiotic Capsule] 1 cap PO TID PRN 12/04/15 [History] Ubidecarenone [Co Q10] 100 mg PO DAILY 12/04/15 [History] Zinc Acetate [Galzin] 50 mg PO DAILY 12/04/15 [History] Nitroglycerin [Nitrostat] 0.4 mg SL AD #30 tab.subl 01/09/16 [Rx] Metformin [Glucophage] 500 mg PO BIDWM 04/10/16 [History] Metoprolol XL (24 HR) Succ [Toprol Xl] 25 mg PO BID 04/10/16 [History] Alprazolam [Xanax 1 MG Tablet] 1 mg PO BID #10 tablet 04/11/16 [Rx] Atorvastatin [Lipitor] 40 mg PO HS #30 tablet 04/11/16 [Rx] Oxycodone HCl/Acetaminophen [Percocet 5-325 mg Tablet] 1 - 2 each PO QID PRN # 20 tablet 04/11/16 [Rx] PredniSONE 60 mg PO DAILY #30 tablet 04/11/16 [Rx] Allergies/Adverse Reactions: Allergies codeine Adverse Reaction (Unknown, Verified 04/10/16 09:31) Gastrointestinal Upset Certification: Further, I certify that my clinical findings support that this patient is homebound (i.e. absences from home require considerable and taxing effort and are for medical reasons or latter-day services or infrequently or short duration when for other reasons) because: pt having difficulty getting in/out of vehicle. Homebound Reason: Leaving home requires considerable and taxing effort due to condition Attestation: My signature below is to certify that this patient is under my care and that I, or nurse practitioner, or a physician's bookkeeper assistant working with me, has a face-to -face encounter with this patient.
== END 2016-04-11 17:01 ==
LOC: EMEROO 01:28 → 2NENU 01:28
PROVIDERS: ADMIT Internal Medicine; ATTEND Internal Medicine

== ENCOUNTER 2016-04-12 11:30 | Inpatient (IN) ==
--- NOTE | 2016-04-12 11:58 | Emergency Department Note ---
Disposition Clinical Impression: Atrial fibrillation, Fluid overload, Diabetes, Anemia, Elevated troponin, CHF ( congestive heart failure), Chest pain, Atrial fibrillation with rapid ventricular response, Hypoxemia, CAD (coronary artery disease), CKD (chronic kidney disease), stage III, Hypertension, Pleural effusion, Headache Disposition: Admitted As Inpatient Referrals: Reinaldo Valladares Jr, MD [Primary Care Provider] - Forms: Work/School Release, ED Satisfaction Letter General Adult HPI - General Chief complaint: ED General Medical Stated complaint: general illness Time Seen by Provider: 04/12/16 11:57 Source: patient, EMS Limitations: no limitations - History of Present Illness HPI Narrative: 86-year-old female reports emergency department complaining of a headache nausea and chest discomfort. The patient has a history of atrial fibrillation she states she was recently admitted to the hospital for a TIA or stroke. She was just discharged last night from the hospital and developed new onset headache last evening. The patient reports he is anticoagulated and takes Coumadin. There is no history of head trauma neck stiffness rash or fever and a convulsion or confusion or trouble moving the arms or legs and apparently no dysarthria. The patient has not fallen. There is no history of abdominal pain vomiting or diarrhea but she does describe significant nausea. She states she has chest pressure. Does not radiate. There is no history of leg swelling or pain coughing up blood or sore throat or runny nose. There is no history of rash or any type of bleeding. The patient's main complaints and concerns are acute headache, chest pressure, and nausea. Onset (ago): hour(s) Pain Scale: 8 - Related Data Home Medications Medication Instructions Recorded Confirmed Amlodipine Besylate 10 mg PO DAILY 12/04/15 04/10/16 Ascorbic Acid [Vitamin C] 500 mg PO DAILY 12/04/15 04/10/16 Aspirin 81 mg PO DAILY 12/04/15 04/10/16 Clopidogrel [Plavix] 75 mg PO DAILY 12/04/15 04/10/16 Furosemide [Lasix] 20 mg PO DAILY 12/04/15 04/10/16 Isosorbide MONOnitrate (24 HR) 30 mg PO DAILY 12/04/15 04/10/16 [Imdur] L. Acidophilus/Pectin, [place] 1 cap PO TID PRN 12/04/15 04/10/16 [Acidophilus Probiotic Capsule] Ubidecarenone [Co Q10] 100 mg PO DAILY 12/04/15 04/10/16 Zinc Acetate [Galzin] 50 mg PO DAILY 12/04/15 04/10/16 Metformin [Glucophage] 500 mg PO BIDWM 04/10/16 04/10/16 Metoprolol XL (24 HR) Succ [Toprol 25 mg PO BID 04/10/16 04/10/16 Xl] Previous Rx's Medication Instructions Recorded Nitroglycerin [Nitrostat] 0.4 mg SL AD #30 tab.subl 01/09/16 Alprazolam [Xanax 1 MG Tablet] 1 mg PO BID #10 tablet 04/11/16 Atorvastatin [Lipitor] 40 mg PO HS #30 tablet 04/11/16 Oxycodone HCl/Acetaminophen 1 - 2 each PO QID PRN #20 tablet 04/11/16 [Percocet 5-325 mg Tablet] PredniSONE 60 mg PO DAILY #30 tablet 04/11/16 Allergies Allergy/AdvReac Type Severity Reaction Status Date / Time codeine AdvReac Unknown Gastrointestinal Verified 04/12/16 15:00 Upset All systems ED: reviewed and negative except as stated. Past Medical History - Past Medical History Medical history: Reports: arthritis, atrial fibrillation, CHF, coronary artery disease, diabetes, GERD, hyperlipidemia, hypertension, kidney stones, migraine, myocardial infarction, osteoporosis, peripheral artery disease, renal disease, SVT, valvular heart disease, other Surgical history: Reports: appendectomy, cholecystectomy, coronary bypass (CABG) , hysterectomy, orthopedic, other (Right shoulder surgery. Lumbar laminectomy.) , sinus surgery (Tonsillectomy adenoidectomy.), DARYL/BSO, ureteral stent (Renal stone removal.), other, vascular surgery (History of femoropopliteal bypass.) Psychiatric history: Reports: anxiety, other - Social History Smoking Status: Former smoker Smokeless Tobacco Status: No Alcohol use: Reports: none Drug use: Reports: none Physical Exam - General Limitations: no limitations General appearance: alert - Head Head exam: atraumatic, normocephalic, normal inspection - Eye Eye exam: Present: normal appearance, PERRL, EOMI. Absent: miosis, mydriasis - ENT ENT exam: normal exam, normal oropharynx, mucous membranes moist - Neck Neck exam: Present: normal inspection, full ROM, trachea midline. Absent: tenderness - Chest Chest inspection: Present: symmetric chest wall rise. Absent: tenderness - Respiratory Respiratory exam: Present: normal lung sounds bilaterally. Absent: respiratory distress - Cardiovascular Cardiovascular exam: Present: tachycardia, irregular rhythm - Abdominal Exam Abdominal exam: Present: soft, Non-Tender. Absent: tenderness, distention, guarding, rebound, rigidity, pulsatile mass - Extremities Exam Extremities exam: Present: normal inspection, full ROM. Absent: tenderness, normal capillary refill, pedal edema, joint swelling, calf tenderness - Expanded Lower Extremity Exam Neurovascular/Tendon exam: Absent: motor deficit, sensory deficit, tendon deficit - Back Exam Back exam: Present: normal inspection, full ROM. Absent: tenderness, CVA tenderness (L), vertebral tenderness - Neurological Exam Neurological exam: Present: alert, oriented X3, CN II-XII intact. Absent: motor sensory deficit - Psychiatric Psychiatric exam: Present: anxious - Skin Skin exam: Present: warm, dry, intact, normal color. Absent: rash, cyanosis, diaphoresis, erythema, pallor, mottled Course Course Narrative: During her stay in the ED, the patient developed coarse breath sounds and shortness of breath, her chest x-ray indicated pulmonary edema, BNP pending. The patient appears to be in CHF, her troponin is significantly elevated as well. Vital Signs Temperature 98.2 F 04/12/16 11:38 Pulse Rate 121 04/12/16 11:38 Respiratory Rate 20 04/12/16 11:38 Blood Pressure 149/90 04/12/16 11:38 O2 Sat by Pulse Oximetry 92 L 04/12/16 11:38 Temperature 98.2 F 04/12/16 11:38 Pulse Rate 111 04/12/16 14:45 Respiratory Rate 18 04/12/16 14:45 Blood Pressure 138/84 04/12/16 14:45 O2 Sat by Pulse Oximetry 91 L 04/12/16 14:45 Oxygen Delivery Oxygen Delivery Nasal Cannula Medical Decision Making - [facility] Narrative Medical decision making narrative: The patient's heart rate remains significantly elevated. She was given Cardizem , Nitropaste, Lasix, and aspirin. She had complained of chest pressure but seems to be feeling better now. Based on the patient's tachycardia, elevated troponin, CAD, apparent heart failure, and complaints of chest pressure, and frail elderly state, I felt the patient would probably be best served by being admitted to the hospital. I discussed the case with the hospitalist on-call. - Lab Data Lab results reviewed: Yes I reviewed the patient's lab results. Result diagrams: 04/12/16 12:54 04/12/16 12:54 Lab Results 04/12/16 04/12/16 04/12/16 Range/Units 12:54 12:54 12:54 WBC 12.4 H D (4.3-11.1) K/mcL RBC 3.67 L (3.82-4.97) M/mcL Hgb 10.9 L (11.5-15.4) g/dL Hct 34.3 L (35.3-44.9) % MCV 93.5 (83.0-100.0) fL MCH 29.7 (28.0-33.3) pg MCHC 31.8 (31.6-35.5) g/dL RDW 14.6 H (11.5-14.5) % Plt Count 243 D (140-400) K/mcL MPV 10.2 (9.4-12.4) fL Immature Gran % 1.0 (0-4) % Seg Neutrophils % 81.0 % Lymphocytes % 10.5 % Monocytes % 7.0 % Eosinophils % 0.1 % Basophils % 0.4 % Neutrophils # 10.0 H (1.6-8.9) K/mcL Lymphocytes # 1.3 (0.6-4.6) K/mcL Monocytes # 0.9 (0.0-1.3) K/mcL Eosinophils # 0.0 (0.0-0.6) K/mcL Basophils # 0.1 (0.0-0.2) K/mcL PT (9.4-12.1) Seconds INR APTT (26.0-36.0) Seconds Sodium 139 (136-145) mEq/L Potassium 4.1 (3.5-4.5) mEq/L Chloride 108 (98-109) mEq/L Carbon Dioxide 21 (19-29) mEq/L BUN 45 H (7-20) mg/dL Creatinine 1.35 H (0.57-1.11) mg/dL Est GFR ( Amer) 45 L (> 60) Est GFR (Non-Af Amer) 37 L (> 60) BUN/Creatinine Ratio 33 H (6-26) Glucose 169 H (70-99) mg/dL Calculated Osmolality 303 H (280-300) Lactic Acid 1.8 (0.5-2.2) mmol/L Calcium 8.7 (8.6-10.8) mg/dL Total Bilirubin (0.2-1.2) mg/dL Direct Bilirubin (0.0-0.5) mg/dL Indirect Bilirubin (0.0-1.2) mg/dL AST (5-34) Units/L ALT (0-55) Units/L Alkaline Phosphatase (38-126) Units/L Troponin I (0-0.03) ng/mL C-Reactive Protein (Less than 5) mg/L B-Natriuretic Peptide (0-100) pg/mL Serum Total Protein (6.0-8.3) g/dL Albumin (3.5-5.0) g/dL Globulin (2.4-3.5) g/dL Albumin/Globulin Ratio (1.1-2.2) Urine Color (Yellow) Urine Clarity (Clear) Urine pH (5.0-8.0) pH Units Ur Specific [place] (1.010-1.025) Urine Protein (Neg-Trace) mg/dL Urine Glucose (UA) (Normal) mg/dL Urine Ketones (Negative) mg/dL Urine Blood (Negative) Urine Nitrite (Negative) Urine Bilirubin (Negative) Urine Urobilinogen (Normal) mg/dL Ur Leukocyte Esterase (Negative) Urine Microscopic RBC (0-3) per hpf Urine Microscopic WBC (0-3) per hpf Ur Squamous Epith Cells (None-Few) per lpf Urine Bacteria (None-Few) per hpf Hyaline Casts (None-Few) per lpf Ur Culture Indicated? (NO) 04/12/16 04/12/16 04/12/16 Range/Units 12:54 12:54 12:54 WBC (4.3-11.1) K/mcL RBC (3.82-4.97) M/mcL Hgb (11.5-15.4) g/dL Hct (35.3-44.9) % MCV (83.0-100.0) fL MCH (28.0-33.3) pg MCHC (31.6-35.5) g/dL RDW (11.5-14.5) % Plt Count (140-400) K/mcL MPV (9.4-12.4) fL Immature Gran % (0-4) % Seg Neutrophils % % Lymphocytes % % Monocytes % % Eosinophils % % Basophils % % Neutrophils # (1.6-8.9) K/mcL Lymphocytes # (0.6-4.6) K/mcL Monocytes # (0.0-1.3) K/mcL Eosinophils # (0.0-0.6) K/mcL Basophils # (0.0-0.2) K/mcL PT 11.4 (9.4-12.1) Seconds INR 1.1 APTT 27.4 (26.0-36.0) Seconds Sodium (136-145) mEq/L Potassium (3.5-4.5) mEq/L Chloride (98-109) mEq/L Carbon Dioxide (19-29) mEq/L BUN (7-20) mg/dL Creatinine (0.57-1.11) mg/dL Est GFR ( Amer) (> 60) Est GFR (Non-Af Amer) (> 60) BUN/Creatinine Ratio (6-26) Glucose (70-99) mg/dL Calculated Osmolality (280-300) Lactic Acid (0.5-2.2) mmol/L Calcium (8.6-10.8) mg/dL Total Bilirubin 0.5 (0.2-1.2) mg/dL Direct Bilirubin 0.2 (0.0-0.5) mg/dL Indirect Bilirubin 0.3 (0.0-1.2) mg/dL AST 26 (5-34) Units/L ALT 19 (0-55) Units/L Alkaline Phosphatase 65 (38-126) Units/L Troponin I 0.41 H* (0-0.03) ng/mL C-Reactive Protein 1 (Less than 5) mg/L B-Natriuretic Peptide (0-100) pg/mL Serum Total Protein 7.3 (6.0-8.3) g/dL Albumin 3.6 (3.5-5.0) g/dL Globulin 3.7 H (2.4-3.5) g/dL Albumin/Globulin Ratio 1.0 L (1.1-2.2) Urine Color (Yellow) Urine Clarity (Clear) Urine pH (5.0-8.0) pH Units Ur Specific [place] (1.010-1.025) Urine Protein (Neg-Trace) mg/dL Urine Glucose (UA) (Normal) mg/dL Urine Ketones (Negative) mg/dL Urine Blood (Negative) Urine Nitrite (Negative) Urine Bilirubin (Negative) Urine Urobilinogen (Normal) mg/dL Ur Leukocyte Esterase (Negative) Urine Microscopic RBC (0-3) per hpf Urine Microscopic WBC (0-3) per hpf Ur Squamous Epith Cells (None-Few) per lpf Urine Bacteria (None-Few) per hpf Hyaline Casts (None-Few) per lpf Ur Culture Indicated? (NO) 04/12/16 04/12/16 Range/Units 12:56 13:50 WBC (4.3-11.1) K/mcL RBC (3.82-4.97) M/mcL Hgb (11.5-15.4) g/dL Hct (35.3-44.9) % MCV (83.0-100.0) fL MCH (28.0-33.3) pg MCHC (31.6-35.5) g/dL RDW (11.5-14.5) % Plt Count (140-400) K/mcL MPV (9.4-12.4) fL Immature Gran % (0-4) % Seg Neutrophils % % Lymphocytes % % Monocytes % % Eosinophils % % Basophils % % Neutrophils # (1.6-8.9) K/mcL Lymphocytes # (0.6-4.6) K/mcL Monocytes # (0.0-1.3) K/mcL Eosinophils # (0.0-0.6) K/mcL Basophils # (0.0-0.2) K/mcL PT (9.4-12.1) Seconds INR APTT (26.0-36.0) Seconds Sodium (136-145) mEq/L Potassium (3.5-4.5) mEq/L Chloride (98-109) mEq/L Carbon Dioxide (19-29) mEq/L BUN (7-20) mg/dL Creatinine (0.57-1.11) mg/dL Est GFR ( Amer) (> 60) Est GFR (Non-Af Amer) (> 60) BUN/Creatinine Ratio (6-26) Glucose (70-99) mg/dL Calculated Osmolality (280-300) Lactic Acid (0.5-2.2) mmol/L Calcium (8.6-10.8) mg/dL Total Bilirubin (0.2-1.2) mg/dL Direct Bilirubin (0.0-0.5) mg/dL Indirect Bilirubin (0.0-1.2) mg/dL AST (5-34) Units/L ALT (0-55) Units/L Alkaline Phosphatase (38-126) Units/L Troponin I (0-0.03) ng/mL C-Reactive Protein (Less than 5) mg/L B-Natriuretic Peptide 1085 H (0-100) pg/mL Serum Total Protein (6.0-8.3) g/dL Albumin (3.5-5.0) g/dL Globulin (2.4-3.5) g/dL Albumin/Globulin Ratio (1.1-2.2) Urine Color Yellow (Yellow) Urine Clarity Cloudy A (Clear) Urine pH 5.0 (5.0-8.0) pH Units Ur Specific [place] 1.019 (1.010-1.025) Urine Protein >=300 H (Neg-Trace) mg/dL Urine Glucose (UA) Normal (Normal) mg/dL Urine Ketones Negative (Negative) mg/dL Urine Blood Trace H (Negative) Urine Nitrite Negative (Negative) Urine Bilirubin Negative (Negative) Urine Urobilinogen Normal (Normal) mg/dL Ur Leukocyte Esterase Negative (Negative) Urine Microscopic RBC 3-5 H (0-3) per hpf Urine Microscopic WBC 0-3 (0-3) per hpf Ur Squamous Epith Cells Many H (None-Few) per lpf Urine Bacteria Few (None-Few) per hpf Hyaline Casts None Seen (None-Few) per lpf Ur Culture Indicated? NO (NO) - Radiology Data Radiology results reviewed: Yes I reviewed the patient's radiology results.
[2016-04-12] MEDS ORDERED: *HR* Morphine 2 MG/ML SYRINGE IVP ONE (12:00)
[2016-04-12] MEDS ORDERED: Ondansetron 4 MG/2 ML VIAL IVP ONE (12:02)
[2016-04-12] MEDS ORDERED: Nitroglycerin 1 INCH/GM PACKET TP ONE (12:48)
[2016-04-12] MEDS ORDERED: Furosemide 40 MG in 0.9 % Sodium Chloride 50 ML IVPB ONE (12:48)
[2016-04-12 13:01] LABS: Basophils # 0.1 K/mcL (0.0-0.2); Basophils % 0.4 %; Eosinophils % 0.1 %; Hematocrit 34.3 % (35.3-44.9); Hemoglobin 10.9 g/dL (11.5-15.4); Lymphocytes # 1.3 K/mcL (0.6-4.6); Lymphocytes % 10.5 %; Mean Corpuscular HGB Conc 31.8 g/dL (31.6-35.5); Mean Corpuscular Hemoglobin 29.7 pg (28.0-33.3); Mean Corpuscular Volume 93.5 fL (83.0-100.0); Mean Platelet Volume 10.2 fL (9.4-12.4); Monocytes # 0.9 K/mcL (0.0-1.3); Platelet Count 243 K/mcL (140-400); Red Blood Count 3.67 M/mcL (3.82-4.97); Red Cell Distribution Width 14.6 % (11.5-14.5)
[2016-04-12 13:06] LABS: INR 1.1; Prothrombin Time 11.4 Seconds (9.4-12.1)
[2016-04-12 13:09] LABS: Activated Partial Thrombo Time 27.4 Seconds (26.0-36.0)
[2016-04-12 13:21] LABS: Calcium 8.7 mg/dL (8.6-10.8); Potassium 4.1 mEq/L (3.5-4.5)
[2016-04-12 13:23] LABS: Albumin 3.6 g/dL (3.5-5.0); Bilirubin,Direct 0.2 mg/dL (0.0-0.5); Bilirubin,Indirect 0.3 mg/dL (0.0-1.2); Bilirubin,Total 0.5 mg/dL (0.2-1.2); Globulin 3.7 g/dL (2.4-3.5); Total Protein 7.3 g/dL (6.0-8.3)
[2016-04-12] MEDS ORDERED: Aspirin 325 MG TABLET PO ONE (13:27)
[2016-04-12 14:08] LABS: Bilirubin,Urine Negative (Negative); Blood,Urine Trace (Negative); Clarity,Urine Cloudy (Clear); Color,Urine Yellow (Yellow); Glucose,Urine (UA) Normal (Normal); Ketones,Urine Negative (Negative); Leukocyte Esterase,Urine Negative (Negative); Nitrite,Urine Negative (Negative); Protein,Urine >=300 mg/dL (Neg-Trace); Specific Gravity,Urine 1.019 (1.010-1.025); Urobilinogen,Urine Normal (Normal)
[2016-04-12 14:09] LABS: Bacteria,Urine Few per hpf (None-Few); Hyaline Casts,Urine None Seen per lpf (None-Few); Squamous Epithelial Cell,Urine Many per lpf (None-Few); WBC,Urine 0-3 per hpf (0-3)
[2016-04-12] MEDS ORDERED: Ipratropium/Albuterol Neb 3 ML IH ONE (16:41)
[2016-04-12] MEDS ORDERED: *HR* Metoprolol 5 MG/5 ML VIAL IVP ONE (16:42)
[2016-04-12] MEDS ORDERED: Amiodarone Premix 360 MG/200 ML BAG IVC ONE (17:01)
[2016-04-12] MEDS ORDERED: Naloxone 0.4 MG/ML INJ IVP PRN (17:03)
[2016-04-12] MEDS ORDERED: Ondansetron ODT 4 MG TAB.RAPDIS SL PRN (17:03)
[2016-04-12] MEDS ORDERED: Dextrose Gel 15 GM PO PRN ×2 (17:27)
[2016-04-12] MEDS ORDERED: *HR* Dextrose 50 % in Water (Syg) 50 ML SYRINGE IVP PRN (17:27)
[2016-04-12] MEDS ORDERED: D5% in Water 1,000 ML IV PRN (17:27)
--- NOTE | 2016-04-12 17:34 | Internal Med History&Physical ---
<Arun Valentin - Last Filed: 04/12/16 18:49> Date of Encounter: 04/12/16 Time of Encounter: 17:32 Assessment and Plan (1) Acute respiratory failure Current visit: Yes Status: Acute Patient with known systolic heart failure admitted with CHF exacerbation the setting of atrial fibrillation with RVR. Patient requires increased oxygen demand currently at 4 L oxygen nasal cannula with oxygen saturations at 90%. Plan: - Continue to treat fluid overload with IV Lasix and monitor renal function. - DuoNeb treatments ordered every 6 hours at this time. Qualifiers: Qualified Code(s): J96.00 - Acute respiratory failure, unspecified whether with hypoxia or hypercapnia (2) Acute exacerbation of congestive heart failure Current visit: Yes Status: Acute Mrs. Yanes presents the emergency Department shortness of breath atrial fibrillation with RVR with known atrial fibrillation. She was short of breath demonstrated tachypnea, physical examination demonstrated diffuse crackles in all lung luther, lower extremity trace edema bilaterally. BNP was 1085 which was elevated from 735 on 04/10/2016. She is already received 40 mg IV Lasix in the emergency department and has a Ann catheter in place with appropriate urinary drainage. Echocardiogram performed 03/07/2016 demonstrates an LVEF of 40-45.%, Normal left ventricular chamber size and wall thickness and function. Moderate segmental left ventricular systolic dysfunction. No significant change in LV function compared to prior reports. Plan: - Continue IV Lasix 40mg BID. - Strict intake and output monitoring - Nothing by mouth after midnight - Daily weights standing. - Continue aspirin, Lipitor 40 mg by mouth at bedtime, metoprolol 50 mg twice a day, Plavix. - Patient echocardiogram completed prior to discharge, we will discuss with cardiology. Qualifiers: Qualified Code(s): I50.9 - Heart failure, unspecified (3) Atrial fibrillation with rapid ventricular response Current visit: Yes Status: Acute Patient was found to have nature fibrillation with RVR with a heart rate roughly around 120, EKG demonstrated atrial fibrillation RVR with ST depressions in leads V5 and V6. Current rhythm is atrial fibrillation with a heart rate around 100 -112. Plan: - Continue metoprolol XL 25 mg by mouth twice a day - Possibly caused by ischemia, will discuss with cardiology. - Patient echocardiogram completed prior to discharge, we will discuss with cardiology. (4) CAD (coronary artery disease) Current visit: Yes Status: Acute Patient has known coronary artery disease, valvular heart disease, history of fem-pop bypass. Her lipid panel demonstrates hyperlipidemia and hypercholesterolemia. Patient is on Lipitor 40 mg at bedtime. Plan: - Continue atorvastatin 40 mg - Continue to optimize cardiac medications. - Continue aspirin and Plavix. Qualifiers: Qualified Code(s): I25.10 - Atherosclerotic heart disease of [place] coronary artery without angina pectoris (5) Elevated troponin Current visit: Yes Status: Acute Patient has elevated troponin at 0.41, she had an elevated troponin of 0.13 on 04/10/2016. Review of previous troponins this is the highest elevation. I reviewed her EKG performed in the emergency department upon arrival which demonstrates 8 atrial fibrillation with RVR with ST depressions in the lateral leads of V5 and V6. This is likely supply demand mismatch from rapid ventricular rate and diminished perfusion with known coronary artery disease. She originally had chest tightness substernally and has improved with rate control and topical nitroglycerin. Plan: - As listed above - Troponins 3 every 6 hours - If troponins continue to elevate patient will likely require IV heparin drip (6) CKD (chronic kidney disease), stage III Current visit: Yes Status: Chronic Patient has known chronic kidney disease stage III, current creatinine is 1.35 and GFR 45 which is roughly around her baseline. Plan: - Continue to monitor renal function with a.m. labs - Renally dose medications and avoid nephrotoxic medications including NSAIDs. (7) DM II (diabetes mellitus, type II), controlled Current visit: No Status: Acute Mrs. Yanes is a type II diabetic who is on metformin at home with an admitting glucose 169, and a hemoglobin A1c on 04/10/2016 of 5.2. On admission her metformin was held and she was started on a low-dose sliding scale insulin. Her glucoses may elevate as she has recently been started on high-dose prednisone 60 mg by mouth and may need adjustment in her insulin coverage. Plan to monitor with before meals at bedtime glucose checks. 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 She denies any new or changing symptoms. Plan to continue her home dose scheduled prednisone. (9) DVT prophylaxis Current visit: No Status: Acute SCDs. Internal Medicine - H&P: HPI Chief complaint: Results of breath Admitted From: Emergency Dept Plans for Post Hospital Care: Home History of present illness: Ms. 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 Mrs. Rodas presenting to the emergency department this evening with shortness of breath, diaphoresis, palpitations that started last evening. She says that her symptoms of racing heart and shortness of breath started last evening when she was taking her evening medications prior to going to bed. She was discharged from the hospital yesterday afternoon and felt really well and without concern. At home she ate dinner which she says she has had a lack of appetite so had a small meal and was doing well throughout the evening without any distress. Just prior to going to bed she took her evening medications and started feeling as if her heart was racing and beating audibly. She became short of breath but did not feel that she needs to increase her oxygen which she uses at night while sleeping. She left her oxygen at 2 L. She woke up first around 2 AM feeling diaphoretic, short of breath and with a cough. She felt nauseous but was unable to vomit. She tried to fall asleep again throughout the evening but woke up several more times. Nothing she did helped her symptoms, laying flat made her shortness of breath worse. She also complains of some chest discomfort that was continuous until her arrival at the emergency department. Her symptoms progressed throughout the morning that prompted her to seek treatment at the emergency department. When she arrived at the emergency department she was found to be in atrial fibrillation RVR with heart rate roughly around 120, she was short of breath and tachypnea and required nasal cannula oxygen. She is provided 25 mg Cardizem which slowed her rate to roughly around 100. Chest x-ray demonstrated pulmonary edema and pleural effusions bilaterally. She was given 40 mg furosemide IV push once and given 1 inch nitroglycerin topical. She had resolution of her chest discomfort. Upon my examination she continued to be to tachypnic and required 7 liters oxygen to maintain saturations around 88-90%. Her symptoms of increased HR improved after 5mg Lopressor and respiratory rate improved with duoneb treatment. Past Med Surg Social Fam HX - Past Medical History Medical history: arthritis, atrial fibrillation, CHF, coronary artery disease, diabetes, GERD, hyperlipidemia, hypertension, kidney stones, migraine, myocardial infarction, osteoporosis, peripheral artery disease, renal disease, SVT, valvular heart disease, other Psychiatric history: anxiety, other - Past Surgical History Surgical History: appendectomy, cholecystectomy, coronary bypass (CABG), hysterectomy, orthopedic, other (Right shoulder surgery. Lumbar laminectomy.), sinus surgery (Tonsillectomy adenoidectomy.), DARYL/BSO, ureteral stent (Renal stone removal.), other, vascular surgery (History of femoropopliteal bypass.) - Social History Smoking Status: Former smoker Smokeless Tobacco Status: No Alcohol use: none Drug use: none - Family History Father Living Status: Hx Family Cardiac Disorders: No Hx Family Endocrine Disorder: Yes Internal Medicine - H&P: Meds Amlodipine Besylate 10 mg PO DAILY 12/04/15 [History] Ascorbic Acid [Vitamin C] 500 mg PO DAILY 12/04/15 [History] Aspirin 81 mg PO DAILY 12/04/15 [History] Clopidogrel [Plavix] 75 mg PO DAILY 12/04/15 [History] Furosemide [Lasix] 20 mg PO DAILY 12/04/15 [History] Isosorbide MONOnitrate (24 HR) [Imdur] 30 mg PO DAILY 12/04/15 [History] L. Acidophilus/Pectin, [place] [Acidophilus Probiotic Capsule] 1 cap PO TID PRN 12/04/15 [History] Ubidecarenone [Co Q10] 100 mg PO DAILY 12/04/15 [History] Zinc Acetate [Galzin] 50 mg PO DAILY 12/04/15 [History] Nitroglycerin [Nitrostat] 0.4 mg SL AD #30 tab.subl 01/09/16 [Rx] Metformin [Glucophage] 500 mg PO BIDWM 04/10/16 [History] Metoprolol XL (24 HR) Succ [Toprol Xl] 25 mg PO BID 04/10/16 [History] Alprazolam [Xanax 1 MG Tablet] 1 mg PO BID #10 tablet 04/11/16 [Rx] Atorvastatin [Lipitor] 40 mg PO HS #30 tablet 04/11/16 [Rx] Oxycodone HCl/Acetaminophen [Percocet 5-325 mg Tablet] 1 - 2 each PO QID PRN # 20 tablet 04/11/16 [Rx] PredniSONE 60 mg PO DAILY #30 tablet 04/11/16 [Rx] Allergies codeine Adverse Reaction (Unknown, Verified 04/12/16 15:00) Gastrointestinal Upset All Systems PM: A 10-system review of systems was performed and is negative for pertinent findings except as documented above in the HPI. - Constitutional Constitutional: weakness - EENT Eyes: no blurry vision, no change in vision Nose, mouth and throat: no sore throat, no throat swelling - Cardiovascular Cardiovascular ROS IM: chest pain, dyspnea, edema, irregular heart rhythm, palpitations - Respiratory Respiratory: wheezing, chest congestion, excessive phlegm production - Gastrointestinal Gastrointestinal: constipation, no abdominal pain, no hematemesis, no hematochezia, no nausea, no vomiting - Musculoskeletal Musculoskeletal ROS IM: no muscle cramps, no neck pain, no numbness - Integumentary Integumentary IM: no rash - Neurological Neurological ROS: no confusion, no dizziness, no loss of vision, no numbness, no weakness - Psychiatric Psychiatric: no confusion, no depression - Endocrine Endocrine IM: no polydipsia, no polyphagia, no polyuria - Allergic/Immunologic Allergic/Immunologic: no throat swelling, no wheezing - Constitutional Vitals: Temp Pulse Resp BP Pulse Ox 0 F L 111 18 138/84 91 L 04/12/16 17:07 04/12/16 14:45 04/12/16 17:07 04/12/16 17:07 04/12/16 14:45 General appearance: Present: mild distress, A&O X 3 - Head Head exam: Present: atraumatic, normocephalic - Eye Eye exam: Present: PERRL, conjuntiva pink, sclera anicteric Pupils: Present: PERRL - ENT ENT exam: Present: mucous membranes moist - Neck Neck exam general surgery: Present: supple, trachea midline. Absent: lymphadenopathy - Respiratory Respiratory exam: Present: wheezes. Absent: accessory muscle use, rales, rhonchi Additional comments: Patient has diffuse restricted bronchial and vesicular breath sounds with inspiratory and expiratory wheeze, Diffuse crackles. - Cardiovascular Cardiovascular exam: Present: irregular rhythm - GI/Abdominal GI/Abdominal exam: Present: normal bowel sounds, soft, no peritoneal signs. Absent: distended, tenderness - Extremities Exam Extremities exam: Present: pedal edema, warm. Absent: tenderness - Neurological Exam Neurological exam: Present: alert, oriented X3, no focal deficits. Absent: pronater drift, facial droop, speech deficit - Psychiatric Psychiatric exam: Present: normal affect, normal mood - Skin Skin exam: Present: dry, intact, warm Internal Med - H&P Results - Labs CBC & Chem 7: 04/12/16 12:54 04/12/16 12:54 <Saul Gallego - Last Filed: 04/12/16 19:10> Date of Encounter: 04/12/16 Assessment and Plan (1) NSTEMI (non-ST elevated myocardial infarction) Current visit: No Status: Chronic (2) Acute on chronic respiratory failure with hypoxemia Current visit: Yes Status: Acute (3) Atrial fibrillation Current visit: Yes Status: Acute Qualifiers: Atrial fibrillation type: chronic Qualified Code(s): I48.2 - Chronic atrial fibrillation (4) CKD (chronic kidney disease), stage III Current visit: Yes Status: Chronic (5) Headache Current visit: Yes Status: Acute Qualifiers: Headache type: other headache syndrome Qualified Code(s): G44.89 - Other headache syndrome (6) DM II (diabetes mellitus, type II), controlled Current visit: No Status: Resolved Qualifiers: Diabetes mellitus complication status: with hyperglycemia Diabetes mellitus fci insulin 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 Rodas is a 86 year old female Past Med Surg Social Fam HX - Family History Mother Hx Family Cardiac Disorders: Yes All Systems PM: A 10-system review of systems was performed and is negative for pertinent findings except as documented above in the HPI. - Constitutional Vitals: Temp Pulse Resp BP Pulse Ox 0 F L 111 18 138/84 91 L 04/12/16 17:07 04/12/16 14:45 04/12/16 17:21 04/12/16 17:07 04/12/16 17:21 Internal Med - H&P Results - Labs CBC & Chem 7: 04/12/16 12:54 04/12/16 12:54 Labs: Cardiac Enzymes 04/12/16 Range/Units 18:19 Troponin I 2.37 H* (0-0.03) ng/mL - Attending Attestation I examined this patient and my medical decision-making was reviewed with the Resident Physician on 04/12/16. I agree with the documented findings, disposition and treatment plan as described except to the extent set forth below. Ms. Rodas is 86y/o female just discharged from [facility] yesterday who presented to ED with palpaitations and difficulty breathing. She was found to be in rapid atrial fib and hypoxic and admitted Ms. Rodas is currently slightly better though her troponin has elevated. Breathing treatments help. No current chest pain. Exam Alert. Mod resp distress Heart tachy and irreg Lungs with rales throughout Abd soft No edema EKG and labs reviewed I/P 1. Acute NSTEMI 2. Hypoxic resp failure 3. A fib Further diagnoses and plan as above.
[2016-04-12 18:13] LABS: Magnesium 2.2 mg/dL (1.6-2.6); Phosphorous 3.5 mg/dL (2.3-4.7)
[2016-04-12] MEDS: Nitroglycerin 0.4 MG TAB.SUBL SL SCH (18:38)
[2016-04-12] MEDS ORDERED: *HR* Heparin 5,000 UNIT/ML VIAL IVP ONE (19:25)
[2016-04-12] MEDS ORDERED: *HR* Heparin 5,000 UNIT/ML VIAL IVP PRN ×2 (19:25)
[2016-04-12] MEDS: Metoprolol XL (24 HR) Succ 25 MG TAB.ER.24H PO SCH (20:48)
[2016-04-12] MEDS: Insulin LISPRO 300 UNITS/3 ML VIAL SQ SCH (20:53)
[2016-04-12] MEDS: Heparin 25,000 UNIT/500 ML D5W 25,000 UNIT/500 ML MLS IVC SCH (20:55)
[2016-04-12] MEDS: Ipratropium/Albuterol Neb 3 ML IH PRN (21:02)
[2016-04-12] MEDS ORDERED: *HR* LORazepam 2 MG/ML VIAL IVP ONE (23:19)
[2016-04-12] MEDS ORDERED: Albuterol 2.5 MG/3 ML NEBULIZER ONE (23:38)
[2016-04-12] MEDS ORDERED: Albuterol 2.5 MG/3 ML NEBULIZER IH PRN (23:38)
[2016-04-13 00:32] LABS: Hematocrit 32.7 % (35.3-44.9); Hemoglobin 10.2 g/dL (11.5-15.4); Mean Corpuscular HGB Conc 31.2 g/dL (31.6-35.5); Mean Corpuscular Hemoglobin 29.9 pg (28.0-33.3); Mean Corpuscular Volume 95.9 fL (83.0-100.0); Mean Platelet Volume 10.5 fL (9.4-12.4); Platelet Count 190 K/mcL (140-400); Red Blood Count 3.41 M/mcL (3.82-4.97)
[2016-04-13 00:47] LABS: Albumin 3.3 g/dL (3.5-5.0); Albumin/Globulin Ratio 0.9 (1.1-2.2); Bilirubin,Total 0.5 mg/dL (0.2-1.2); Calcium 8.8 mg/dL (8.6-10.8); Globulin 3.6 g/dL (2.4-3.5); Potassium 4.9 mEq/L (3.5-4.5); Total Protein 6.9 g/dL (6.0-8.3)
[2016-04-13 01:07] LABS: Thyroid Stimulating Hormone 3.752 mcIU/mL (0.350-4.840)
[2016-04-13] MEDS: Ipratropium/Albuterol Neb 3 ML IH PRN (03:53)
[2016-04-13 04:20] LABS: Activated Partial Thrombo Time 129.7 Seconds (26.0-36.0)
--- NOTE | 2016-04-13 08:24 | Cardiology Consult Note ---
Date of Encounter: 04/13/16 Time of Encounter: 08:24 Assessment and Plan (1) Elevated troponin Current Visit: Yes Status: Acute - Initial troponin 0.41 which has since increased: 0.41, 2.37, 12.35, 21.05 - Patient still is having intermittent chest discomfort/heaviness but will deny "pain", no symptoms currently - Troponins when she was admitted on 04/10 were also elevated (0.05, 0.19, 0.13) with similar symptoms. Chart review reported relief of patients pain with nitro and rate control - Started on heparin gtt last night, continue - STAT Echo ordered - Patient did not want LHC previously in 12/31 but is amendable now, will likely proceed today to director of laboratory operations - Unable to find previous cath reports in any documentation system. Patient with h/o CABG and PCI. - Further recommendations pending echo and attending evaluation (2) Acute exacerbation of congestive heart failure Current Visit: Yes Status: Acute - BNP 1085 from 735 on 04/10/2016 - Echocardiogram December 2015 with EF of 40-45.%, Normal left ventricular chamber size and wall thickness and function. Moderate segmental left ventricular systolic dysfunction. No significant change in LV function compared to prior reports. - Repeating Echo today - Continue IV Lasix - Strict I/O's - Daily weights - BiPAP as needed, will take off for now and place on 6L NC to evaluate for tolerating LHC. Patient in no respiratory distress with BiPAP off. - Also consider SL NTG as needed if pressures are adequate - Continue medical optimization with aspirin/plavix, lipitor, metoprolol, lasix Qualifiers: Congestive heart failure type: combined Qualified Code(s): I50.43 - Acute on chronic combined systolic (congestive) and diastolic (congestive) heart failure (3) Atrial fibrillation with rapid ventricular response Current Visit: Yes Status: Acute - HR 90-120 - Some of the patients symptoms could be rate related however, patient is having chest discomfort as well with a significantly elevated troponin - Continue rate control - Echo pending - Plan as above - Further recs pending attending evaluation Discussion w patient/family: The assessment and plan as outlined above was discussed with the patient and/or family members who expressed understanding and agreement. All questions were answered. Thank you for involving us in the care of your patient. Please call with any questions. History of Present Illness Consult date: 04/13/16 Requesting physician: Saul Gallego Consult reason: chest pain, elevated trop, A-fib Chief complaint: Chest discomfort History of present illness: Ms. Rodas is a 86 year old female who presents through the ED yesterday with the chief complaint of headache, nausea, chest discomfort. Patient states that she was just discharged from the hospital 2 days ago and has been feeling unwell since discharge. She states she got home and was feeling about her baseline but then started to develop a headache. Reports the headache as a global ache, better or worse with nothing, associated with transient blurriness and seeing stars in her eyes. Also reports she has been very nauseated and feels generally weak and dizzy, more so than usual. Patient denies any "chest pain" however, she does state that she has been having a lot of heaviness and a tight pressure in her chest intermittently for the past few days. Reports the pain usually precedes the headache/changes in vision. She denies any fall or trauma. Denies and fever, shortness of breath, vomiting, focal weakness, numbness. She does have a history of CAD and has had previous PCI. She has chronic A-fib but is no longer anti-coagulated due to high fall risk. Does continue to take ASA/Plavix. Denies any chest pain currently. After chart review, the patient was admitted to this hospital on 04/10/16 for acute intermittent L sided visual loss. Thought to be due to potential Giant Cell Arteritis. Of note, patient had elevated troponins at that time Past Med Surg Social Fam HX - Past Medical History Medical history: arthritis, atrial fibrillation, CHF, coronary artery disease, diabetes, GERD, hyperlipidemia, hypertension, kidney stones, migraine, myocardial infarction, osteoporosis, peripheral artery disease, renal disease, SVT, valvular heart disease, other Psychiatric history: anxiety, other - Past Surgical History Surgical History: appendectomy, cholecystectomy, coronary bypass (CABG), hysterectomy, orthopedic, other (Right shoulder surgery. Lumbar laminectomy.), sinus surgery (Tonsillectomy adenoidectomy.), DARYL/BSO, ureteral stent (Renal stone removal.), other, vascular surgery (History of femoropopliteal bypass.) - Social History Smoking Status: Former smoker Smokeless Tobacco Status: No Alcohol use: none Drug use: none - Family History Mother Hx Family Cardiac Disorders: Yes Father Living Status: Age at : 72 Cause of : diabetes Hx Family Cardiac Disorders: No Hx Family Respiratory Disorders: No Hx Family Cancer: No Hx Family GI Disorders: No Hx Family Endocrine Disorder: Yes Hx Family Medical Disorders: Yes Medications and Allergies Amlodipine Besylate 10 mg PO DAILY 12/04/15 [History] Ascorbic Acid [Vitamin C] 500 mg PO DAILY 12/04/15 [History] Aspirin 81 mg PO DAILY 12/04/15 [History] Clopidogrel [Plavix] 75 mg PO DAILY 12/04/15 [History] Furosemide [Lasix] 20 mg PO DAILY 12/04/15 [History] Isosorbide MONOnitrate (24 HR) [Imdur] 30 mg PO DAILY 12/04/15 [History] L. Acidophilus/Pectin, [place] [Acidophilus Probiotic Capsule] 1 cap PO TID PRN 12/04/15 [History] Ubidecarenone [Co Q10] 100 mg PO DAILY 12/04/15 [History] Zinc Acetate [Galzin] 50 mg PO DAILY 12/04/15 [History] Nitroglycerin [Nitrostat] 0.4 mg SL AD #30 tab.subl 01/09/16 [Rx] Metformin [Glucophage] 500 mg PO BIDWM 04/10/16 [History] Metoprolol XL (24 HR) Succ [Toprol Xl] 25 mg PO BID 04/10/16 [History] Alprazolam [Xanax 1 MG Tablet] 1 mg PO BID #10 tablet 04/11/16 [Rx] Atorvastatin [Lipitor] 40 mg PO HS #30 tablet 04/11/16 [Rx] Oxycodone HCl/Acetaminophen [Percocet 5-325 mg Tablet] 1 - 2 each PO QID PRN # 20 tablet 04/11/16 [Rx] PredniSONE 60 mg PO DAILY #30 tablet 04/11/16 [Rx] Allergies codeine Adverse Reaction (Unknown, Verified 04/12/16 15:00) Gastrointestinal Upset All Systems Review: A 10-system review of systems was performed and is negative for pertinent findings except as documented above in the HPI. - Constitutional Constitutional: fatigue, frequent falls, lethargy, malaise, no chills, no fever( s), no weakness - EENT Eyes: blurred vision Nose, mouth and throat: no dysphagia, no sore throat - Cardiovascular Cardiovascular: chest pain at rest, chest pain with exertion, irregular heart rhythm, lightheadedness, syncope (near ), no diaphoresis, no dyspnea at rest, no dyspnea on exertion, no leg edema, no palpitations - Respiratory Respiratory: no cough, no hemoptysis, no wheezing - Gastrointestinal Gastrointestinal: abdominal pain (reports epigastric discomfort), nausea, no coffee ground emesis - Musculoskeletal Musculoskeletal: muscle weakness (generalized ) - Integumentary Integumentary: no rash - Neurological Neurological: dizziness, syncope (near), no abnormal speech, no focal weakness - Hematological/Lymphatic Hematologic/Lymphatic: no easy bleeding, no easy bruising Physical Examination Vital Signs, Last 4 Hours Temp Pulse Resp BP Pulse Ox 04/13/16 05:08 98.2 F 107 14 133/73 92 L General: Conversant, No Apparent Distress, Other (resting comfortably on BiPAP) HEENT: Atraumatic, Normocephaly, Mucus Membranes Moist Neck: No JVD, Normal carotid pulses Cardiac: Other (A-fib, tachycardic, systolic murmur) Lungs: Other (rales in B bases ) Neuro: Alert and responsive, No focal deficits noted Abdomen: Soft, Non-Tender Skin: No rashes noted on visualized skin Musculoskeletal: No Chest Wall Tenderness Extremities: No Clubbing, No Cyanosis, No Edema, Normal Pulses Results 04/13/16 00:21 04/13/16 00:21 Lab Results 04/13/16 04/13/16 04/13/16 00:21 00:21 00:21 WBC 8.4 Hgb 10.2 L Hct 32.7 L Plt Count 190 APTT Sodium 139 Potassium 4.9 H Chloride 107 Carbon Dioxide 20 BUN 53 H Creatinine 1.74 H Glucose 169 H Calcium 8.8 Total Bilirubin 0.5 AST 55 H ALT 22 Alkaline Phosphatase 65 Troponin I 12.35 H* TSH 3.752 04/13/16 04/13/16 03:14 06:27 WBC Hgb Hct Plt Count APTT 129.7 H* D Sodium Potassium Chloride Carbon Dioxide BUN Creatinine Glucose Calcium Total Bilirubin AST ALT Alkaline Phosphatase Troponin I 21.05 H* TSH - Imaging and Cardiology Chest Xray: report reviewed, image reviewed Echo: pending - EKG Interpretation EKG results cardiology: personally reviewed (04/12/16: A-fib, rate 120, ST seg depression in V5/6 that is increased from previous on 04/10/16, otherwise, no gross changes from previous) Consult Discharge Plan - Plan Referrals: Reinaldo Valladares Jr, MD [Primary Care Provider] -
--- NOTE | 2016-04-13 08:31 | Internal Med Progress Note ---
<Arun Valentin Merlin - Last Filed: 04/13/16 09:21> Date of Encounter: 04/13/16 Time of Encounter: 08:30 - Assessment and plan (1) NSTEMI (non-ST elevated myocardial infarction) Current Visit: Yes Status: Chronic Assessment and plan: Mrs. Rodas 86-year-old female admitted with acute respiratory distress in the setting of pulmonary edema and atrial fibrillation with RVR with underlying known controlled atrial fibrillation. Original troponin was 0.41 associated with an EKG upon admission with atrial fibrillation RVR and ST depressions in the lateral leads V5 and V6. Repeat troponins continue to elevate to 2.37-12.35 -21.05. Cardiology was consult last night and the case was discussed patient was started on heparin drip and cardiac medications were optimized. Plan: - Continue keeping patient nothing by mouth with possible left heart catheterization. - Continue heparin drip. APTT is 129.7 - Continue statin, beta ramy, aspirin, Plavix, oxygen, sublingual nitroglycerin as needed. - Awaiting further recommendations from cardiology team. (2) Acute respiratory failure Current Visit: Yes Status: Acute Assessment and plan: Patient with known systolic heart failure admitted with CHF exacerbation the setting of atrial fibrillation with RVR and NSTEMI. Patient requires increased and is currently on BiPAP with oxygen saturations at 92%. Respiratory examination demonstrates improvements in crackles and absence of wheezing this morning. Plan: - We will hold IV Lasix this morning as patient's renal function has worsened. She is stable on BiPAP. - DuoNeb treatments ordered every 6 hours at this time. Qualifiers: Qualified Code(s): J96.00 - Acute respiratory failure, unspecified whether with hypoxia or hypercapnia (3) Acute exacerbation of congestive heart failure Current Visit: Yes Status: Acute Assessment and plan: 04/13/2016: Suspect exacerbation of systolic congestive heart failure likely secondary to ischemic events and atrial fibrillation with RVR. Mrs. Yanes presents the emergency Department shortness of breath atrial fibrillation with RVR with known atrial fibrillation. She was short of breath demonstrated tachypnea, physical examination demonstrated diffuse crackles in all lung luther, lower extremity trace edema bilaterally. BNP was 1085 which was elevated from 735 on 04/10/2016. She is already received 40 mg IV Lasix in the emergency department and has a Ann catheter in place with appropriate urinary drainage. Echocardiogram performed 03/07/2016 demonstrates an LVEF of 40-45.%, Normal left ventricular chamber size and wall thickness and function. Moderate segmental left ventricular systolic dysfunction. No significant change in LV function compared to prior reports. Plan: - Hold Lasix this morning. - Strict intake and output monitoring - Continue nothing by mouth - Daily weights standing. - Continue aspirin, Lipitor 40 mg by mouth at bedtime, metoprolol 50 mg twice a day, Plavix. Qualifiers: Congestive heart failure type: combined Qualified Code(s): I50.43 - Acute on chronic combined systolic (congestive) and diastolic (congestive) heart failure (4) Atrial fibrillation with rapid ventricular response Current Visit: Yes Status: Acute Assessment and plan: Patient was found to have Atrial fibrillation with RVR with a heart rate roughly around 120, EKG 04/12/2016 demonstrated atrial fibrillation RVR with ST depressions in leads V5 and V6. Current rhythm is atrial fibrillation with a heart rate around 100. Suspect acute change is related cardiac ischemia. Plan: - Continue metoprolol XL 25 mg by mouth twice a day - Possibly caused by ischemia, may require coronary cath. - Patient echocardiogram completed prior to discharge, we will discuss with cardiology. (5) CAD (coronary artery disease) Current Visit: Yes Status: Acute Assessment and plan: Patient has known coronary artery disease, valvular heart disease, history of fem-pop bypass, CABG around 1992. Her lipid panel demonstrates hyperlipidemia and hypercholesterolemia. Patient is on Lipitor 40 mg at bedtime. Plan: - Continue atorvastatin 40 mg - Continue to optimize cardiac medications. - Continue aspirin and Plavix. Qualifiers: Qualified Code(s): I25.10 - Atherosclerotic heart disease of [place] coronary artery without angina pectoris (6) DM II (diabetes mellitus, type II), controlled Current Visit: No Status: Resolved Assessment and plan: Mrs. Yanes is a type II diabetic who is on metformin at home, hemoglobin A1c on 04/10/2016 of 5.2. On admission her metformin was held and she was started on a low-dose sliding scale insulin. Her glucoses may elevate as she has recently been started on high-dose prednisone 60 mg by mouth and may need adjustment in her insulin coverage. Plan to monitor with before meals at bedtime glucose checks. 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 Patient is currently fluid overloaded in the setting of NSTEMI, her creatinine elevation is likely associated with poor renal perfusion. Lasix has been held this morning. Plan: - Continue to monitor renal function with a.m. labs - Renally dose medications and avoid nephrotoxic medications including NSAIDs. (8) Giant cell arteritis with polymyalgia rheumatica Current Visit: No Status: Suspected Assessment and plan: Patient presented with temporal headache and symptoms that were concerning for giant cell arteritis and was discharged on Prednisone. She denies any new or changing symptoms. Plan to continue her home dose scheduled prednisone. (9) DVT prophylaxis Current Visit: No Status: Acute Assessment and plan: SCDs. - Subjective Interval history: Mrs. Yanes 86-year-old female seen and evaluated patient bedside this morning. She is alert awake and interactive she is wearing her BiPAP and does not appear to be in distress. She denies any chest pain, chest pressure, palpitations, diaphoresis, abdominal pain, nausea, vomiting, diarrhea. She is continuing to have constipation. She denies any discomfort or pain at this time. She has not had any breakfast and she slept okay throughout the evening. At this time she is in stable condition and does not have any further questions or concerns. - Constitutional Vitals: Temp Pulse Resp BP Pulse Ox 98.2 F 107 14 133/73 92 L 04/13/16 05:08 04/13/16 05:08 04/13/16 05:08 04/13/16 05:08 04/13/16 05:08 General appearance: Present: A&O X 3, pleasant, no acute distress - Head Head exam: Present: atraumatic, normocephalic - Eye Eye exam: Present: PERRL, conjuntiva pink, sclera anicteric Pupils: Present: PERRL - Neck Neck exam general surgery: Present: supple, trachea midline. Absent: lymphadenopathy - Respiratory Additional comments: Patient has diffuse crackles in lower lung bases, no wheezing appreciated. Patient continues to have diminished inspiratory breath sounds. Her breathing is nonlabored and she is tolerating her BiPAP. - Cardiovascular Cardiovascular exam: Present: irregular rhythm - GI/Abdominal GI/Abdominal exam: Present: normal bowel sounds, soft, no peritoneal signs. Absent: distended, tenderness - Extremities Exam Extremities exam: Present: pedal edema, warm - Neurological Exam Neurological exam: Present: alert, oriented X3, no focal deficits, strengths equal and symetr throughout. Absent: pronater drift, facial droop, speech deficit - Psychiatric Psychiatric exam: Present: normal affect, normal mood - Skin Skin exam: Present: dry, intact, warm Internal Medicine: Result - Labs CBC & Chem 7: 04/13/16 00:21 04/13/16 00:21 Labs: Short CBC 04/13/16 Range/Units 00:21 WBC 8.4 (4.3-11.1) K/mcL Hgb 10.2 L (11.5-15.4) g/dL Hct 32.7 L (35.3-44.9) % Plt Count 190 (140-400) K/mcL BMP 04/13/16 00:21 Sodium 139 Potassium 4.9 H Chloride 107 Carbon Dioxide 20 BUN 53 H Creatinine 1.74 H Glucose 169 H Calcium 8.8 Cardiac Enzymes 04/13/16 04/13/16 Range/Units 00:21 06:27 Troponin I 12.35 H* 21.05 H* (0-0.03) ng/mL Liver Function 04/13/16 Range/Units 00:21 Total Bilirubin 0.5 (0.2-1.2) mg/dL AST 55 H (5-34) Units/L ALT 22 (0-55) Units/L Alkaline Phosphatase 65 (38-126) Units/L Albumin 3.3 L (3.5-5.0) g/dL - ABG Interpretation ABG results: PT/INR, D-dimer PT 11.4 Seconds (9.4-12.1) 04/12/16 12:54 Consult Discharge Plan - Plan Referrals: Reinaldo Valladares Jr, MD [Primary Care Provider] - <Saul Gallego - Last Filed: 04/13/16 14:52> - Assessment and plan (1) Acute on chronic respiratory failure with hypoxemia Current Visit: Yes Status: Acute (2) NSTEMI (non-ST elevated myocardial infarction) Current Visit: Yes Status: Chronic (3) Atrial fibrillation Current Visit: Yes Status: Acute Qualifiers: Atrial fibrillation type: chronic Qualified Code(s): I48.2 - Chronic atrial fibrillation (4) CKD (chronic kidney disease), stage III Current Visit: Yes Status: Chronic (5) Headache Current Visit: Yes Status: Acute Qualifiers: Headache type: other headache syndrome Qualified Code(s): G44.89 - Other headache syndrome (6) DM II (diabetes mellitus, type II), controlled Current Visit: No Status: Resolved Qualifiers: Diabetes mellitus complication status: with hyperglycemia Diabetes mellitus custodial insulin use: with custodial use Qualified Code(s): E11.65 - Type 2 diabetes mellitus with hyperglycemia; 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 transplanted heart: [place] heart Associated angina: with unstable angina Qualified Code(s): I25.110 - Atherosclerotic heart disease of [place] coronary artery with unstable angina pectoris (8) Hypertension Current Visit: Yes Status: Chronic Qualifiers: Hypertension type: essential hypertension - Constitutional Vitals: Temp Pulse Resp BP Pulse Ox 97.5 F L 102 18 129/76 88 L 04/13/16 11:19 04/13/16 13:08 04/13/16 11:19 04/13/16 13:08 04/13/16 11:19 Internal Medicine: Result - Labs CBC & Chem 7: 04/13/16 00:21 04/13/16 00:21 Labs: Short CBC 04/13/16 Range/Units 00:21 WBC 8.4 (4.3-11.1) K/mcL Hgb 10.2 L (11.5-15.4) g/dL Hct 32.7 L (35.3-44.9) % Plt Count 190 (140-400) K/mcL BMP 04/13/16 00:21 Sodium 139 Potassium 4.9 H Chloride 107 Carbon Dioxide 20 BUN 53 H Creatinine 1.74 H Glucose 169 H Calcium 8.8 Cardiac Enzymes 04/13/16 04/13/16 Range/Units 00:21 06:27 Troponin I 12.35 H* 21.05 H* (0-0.03) ng/mL Liver Function 04/13/16 Range/Units 00:21 Total Bilirubin 0.5 (0.2-1.2) mg/dL AST 55 H (5-34) Units/L ALT 22 (0-55) Units/L Alkaline Phosphatase 65 (38-126) Units/L Albumin 3.3 L (3.5-5.0) g/dL - ABG Interpretation ABG results: PT/INR, D-dimer PT 11.4 Seconds (9.4-12.1) 04/12/16 12:54 - Attending Attestation I examined this patient and my medical decision-making was reviewed with the Resident Physician on 04/13/16. I agree with the documented findings, disposition and treatment plan as described except to the extent set forth below. Ms. Rodas is currently admitted for acute NSTEMI and acute exac CHF and atrial fibrillation. She is high risk due to the potential of cardiac decompensation and respiratory failure. Ms. Rodas continues to have difficulty breathing. She is off bipap at this time. She remains on heparin drip. She is to have cardiac cath today. Exam Alert. Moderate distress due to resp issues. Mucus membranes dry Heart irreg and tachy Lungs with rales bilaterally Abd soft I/P 1. Acute NSTEMI 2. Acute exac CHF - echo results pending 3. Acute on chronic hypoxic resp failure 4. a fib 5. CAD Cardiac cath today - pt wishes to remain full code and to have all interventions as this time.
[2016-04-13] MEDS: Insulin LISPRO 300 UNITS/3 ML VIAL SQ SCH ×4 (09:40→21:49)
[2016-04-13] MEDS: Isosorbide MONOnitrate (24 HR) 30 MG TAB.ER.24H PO SCH (10:23)
[2016-04-13] MEDS: amLODIPine 5 MG TABLET PO SCH (10:23)
[2016-04-13] MEDS: Aspirin 81 MG TAB.CHEW PO SCH (10:23)
[2016-04-13] MEDS: Metoprolol XL (24 HR) Succ 25 MG TAB.ER.24H PO SCH ×2 (10:23→21:48)
[2016-04-13] MEDS: Pantoprazole 40 MG VIAL IVP SCH (10:23)
[2016-04-13] MEDS: predniSONE 20 MG TABLET PO SCH (10:23)
[2016-04-13] MEDS ORDERED: *HR* Heparin 10,000 UNIT/10 ML VIAL ONE (12:43)
[2016-04-13] MEDS ORDERED: Heparin 1,000 UNITS/500 mL NS 0 ML ONE (12:43)
[2016-04-13] MEDS ORDERED: Nitroglycerin 1,000 MCG/10 ML VIAL IV ONE (12:44)
--- NOTE | 2016-04-13 13:24 | Pre-Sedation Evaluation ---
Pre-sedation evaluation - Pre-sedation checklist Date of procedure: 04/13/16 Procedure: Heart cath Recent Vitals: Last Vital Signs Temp 97.5 F L 04/13/16 11:19 Pulse 102 04/13/16 13:08 Resp 18 04/13/16 11:19 BP 129/76 04/13/16 13:08 Pulse Ox 88 L 04/13/16 11:19 H&P (including ROS) documented in medical record: Yes Previous reaction to sedatives/anesthetics: No Dietary Status: NPO after Midnight Airway Assessment: Patient can open mouth completely, TMJ function normal, Micrognathia (under-bite, receding chin) absent, Neck with adequate range of motion Dentition: No loose teeth or bridges Possible difficult airway: No ASA Classification *see protocol: CLASS II-Mild systemic disease Plan of Care: Pt appropriate candidate for procedure/moderate/conscious sedation , Risks/benefits of procedure/sedation discussed w/ patient/family
--- NOTE | 2016-04-13 15:18 | Event Note ---
Date of Encounter: 04/13/16 Time of Encounter: 15:15 - Cardiology Event Note Patient unable to tolerate laying flat for LHC, even on BiPAP. Discussed risks and benefits of procedure and both the patient and family elected for medical management which I think is very reasonable given her current condition. We will continue medical optimization with heparin gtt, Aspirin, Plavix, and rate control. Patient was instructed to let us know if she starts to develop chest discomfort again or any worsening shortness of breath. She verbalizes understanding. Patient's NPO status will now be removed. Will continue to follow in AM or sooner, if needed.
--- NOTE | 2016-04-13 16:16 | Electrocardiograph Report ---
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
--- NOTE | 2016-04-13 16:24 | Electrocardiograph Report ---
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
[2016-04-13] MEDS: Nitroglycerin 0.4 MG TAB.SUBL SL SCH (17:29)
[2016-04-14] MEDS: Acetaminophen 325 MG TABLET PO PRN ×2 (05:08→17:34)
[2016-04-14 05:15] LABS: Basophils % 0.2 %; Hematocrit 31.1 % (35.3-44.9); Hemoglobin 9.7 g/dL (11.5-15.4); Immature Granulocytes % 1.7 % (0-4); Lymphocytes # 0.8 K/mcL (0.6-4.6); Lymphocytes % 14.5 %; Mean Corpuscular HGB Conc 31.2 g/dL (31.6-35.5); Mean Corpuscular Hemoglobin 29.5 pg (28.0-33.3); Mean Corpuscular Volume 94.5 fL (83.0-100.0); Mean Platelet Volume 11.1 fL (9.4-12.4); Monocytes # 0.3 K/mcL (0.0-1.3); Monocytes % 6.3 %; Neutrophils # 4.2 K/mcL (1.6-8.9); Platelet Count 152 K/mcL (140-400); Red Blood Count 3.29 M/mcL (3.82-4.97); Red Cell Distribution Width 14.7 % (11.5-14.5); Segmented Neutrophils % 77.3 %
[2016-04-14 05:34] LABS: Albumin 3.2 g/dL (3.5-5.0); Albumin/Globulin Ratio 0.9 (1.1-2.2); Bilirubin,Total 0.7 mg/dL (0.2-1.2); Calcium 8.7 mg/dL (8.6-10.8); Globulin 3.5 g/dL (2.4-3.5); Potassium 4.4 mEq/L (3.5-4.5); Total Protein 6.7 g/dL (6.0-8.3)
[2016-04-14] MEDS: Heparin 25,000 UNIT/500 ML D5W 25,000 UNIT/500 ML MLS IVC SCH (06:48)
[2016-04-14] MEDS: Aspirin 81 MG TAB.CHEW PO SCH (08:03)
[2016-04-14] MEDS: amLODIPine 5 MG TABLET PO SCH (08:03)
[2016-04-14] MEDS: predniSONE 20 MG TABLET PO SCH (08:03)
[2016-04-14] MEDS: Metoprolol XL (24 HR) Succ 25 MG TAB.ER.24H PO SCH ×2 (08:04→20:16)
[2016-04-14] MEDS: Isosorbide MONOnitrate (24 HR) 30 MG TAB.ER.24H PO SCH (08:04)
[2016-04-14] MEDS: Pantoprazole 40 MG VIAL IVP SCH (08:04)
[2016-04-14] MEDS: Insulin LISPRO 300 UNITS/3 ML VIAL SQ SCH ×4 (08:04→22:35)
[2016-04-14] MEDS ORDERED: Furosemide 40 MG/4 ML VIAL IVP ONE (09:21)
[2016-04-14] MEDS ORDERED: Furosemide 40 MG/4 ML VIAL IVP SCH (10:00)
--- NOTE | 2016-04-14 10:02 | Cardiology Progress Note ---
Date of Encounter: 04/14/16 Time of Encounter: 10:00 Assessment and Plan (1) NSTEMI (non-ST elevated myocardial infarction) Current Visit: Yes Status: Chronic Troponin up to 21.05. Medical management recommended in the setting of acute respiratory failure. Continue heparin drip 48 hours. Continue aspirin, statin, beta ramy, and plavix. She denies any chest pain. TTE 04/10/16- EF 40-45%, segmental LV dysfunction. Severely dilated left atrium. There is mild mitral regurgitation. Moderate pulmonary hypertension. Discussed with Dr. Jaime, no indication to repeat echo at this time. (2) Atrial fibrillation with rapid ventricular response Current Visit: Yes Status: Acute Atrial fibrillation with RVR. Known history of A. fib. Heart rate 113 the 120s this morning. Heart rates may improve once respiratory status improves. Increase toprol XL as tolerated. Currently on heparin gtt. Not on long-term anticoagulation secondary to fall risk according to her primary explosives engineer's office note. (3) CAD (coronary artery disease) Current Visit: Yes Status: Acute Patient has known coronary artery disease s/p CABG. Continue asa, statin, bb, and plavix. Qualifiers: Coronary Disease-Associated Artery/Lesion type: [place] artery [place] vs. transplanted heart: [place] heart Associated angina: with unstable angina Qualified Code(s): I25.110 - Atherosclerotic heart disease of [place] coronary artery with unstable angina pectoris (4) CHF (congestive heart failure) Current Visit: Yes Status: Acute EF 40-45%, acute on chronic CHF. Pulmonary edema on chest x-ray. Appears she has only received 40 mg IV Lasix at this time. Neck negative is only 150 mL. Creatinine is increasing but still near baseline. Recommend continuing diuretic.Bipap as needed. Strict I&O and daily weights. Low sodium diet. Qualifiers: Congestive heart failure type: systolic Congestive heart failure chronicity : acute on chronic Qualified Code(s): I50.23 - Acute on chronic systolic ( congestive) heart failure (5) CKD (chronic kidney disease), stage III Current Visit: Yes Status: Chronic Creatinine noted to be increasing. Continues to be within her baseline range. Discussion w patient/family: The assessment and plan as outlined above was discussed with the patient and/or family members who expressed understanding and agreement. All questions were answered. Thank you for involving us in the care of your patient. Please call with any questions. Subjective Principal diagnosis: NSTEMI, acute on chronic systolic chf Interval history: Pt continues to have dyspnea and orthopnea. SPO2 88% on my exam. She c/o right sided neck pain that improved with tylenol. No acute distress noted. Objective Vital Signs, Last 4 Hours Temp Pulse Resp BP Pulse Ox 04/14/16 06:56 97.9 F 113 16 108/68 90 L General: Conversant, No Apparent Distress HEENT: Atraumatic, Normocephaly, Mucus Membranes Moist Neck: Other (Positive JVD) Cardiac: Other (Irregularly irregular. ) Lungs: Other (rhonci and wheezes scattered throughout) Neuro: Alert and responsive, No focal deficits noted Abdomen: Soft, Non-Tender Skin: No rashes noted on visualized skin Musculoskeletal: No Chest Wall Tenderness Extremities: No Clubbing, No Cyanosis, No Edema, Normal Pulses Results 04/14/16 04:18 04/14/16 04:18 Lab Results 04/13/16 04/13/16 04/14/16 11:30 17:35 04:18 WBC 5.4 Hgb 9.7 L Hct 31.1 L Plt Count 152 APTT 78.0 H 61.2 H Sodium Potassium Chloride Carbon Dioxide BUN Creatinine Glucose Calcium Total Bilirubin AST ALT Alkaline Phosphatase 04/14/16 04:18 WBC Hgb Hct Plt Count APTT Sodium 138 Potassium 4.4 Chloride 107 Carbon Dioxide 22 BUN 63 H Creatinine 1.82 H Glucose 178 H Calcium 8.7 Total Bilirubin 0.7 AST 68 H ALT 29 Alkaline Phosphatase 64 - Imaging and Cardiology Echo: report reviewed - EKG Interpretation EKG results cardiology: other (Currently atrial fibrillation with RVR with heart rate 113-120.) Consult Discharge Plan - Plan Referrals: Reinaldo Valladares Jr, MD [Primary Care Provider] -
[2016-04-14] MEDS ORDERED: Metoprolol XL (24 HR) Succ 25 MG TAB.ER.24H PO ONE (11:20)
--- NOTE | 2016-04-14 12:43 | Internal Med Progress Note ---
<Arun Valentin Merlin - Last Filed: 04/14/16 12:41> Date of Encounter: 04/14/16 Time of Encounter: 08:30 - Assessment and plan (1) NSTEMI (non-ST elevated myocardial infarction) Current Visit: Yes Status: Chronic Assessment and plan: Mrs. Rodas 86-year-old female admitted with acute respiratory distress in the setting of pulmonary edema and atrial fibrillation with RVR with underlying known controlled atrial fibrillation. Original troponin was 0.41 associated with an EKG upon admission with atrial fibrillation RVR and ST depressions in the lateral leads V5 and V6. Repeat troponins continue to elevate to 2.37-12.35 -21.05. TTE 04/10/16- EF 40-45%, segmental LV dysfunction. Severely dilated left atrium. There is mild mitral regurgitation. Moderate pulmonary hypertension. Mrs. Yanes was unable to tolerate laying flat even with the BiPAP for a cardiac catheterization. It was discussed with this Joaquín and agreed upon for medical management of her current NSTEMI. Plan: - Continue heparin drip for a total of 48 hours. Current APTT is 61.2 - Continue statin, beta ramy, aspirin, Plavix, oxygen, sublingual nitroglycerin as needed. - No repeat echocardiogram as this will not change management manager at this time. - Awaiting further recommendations from cardiology team. (2) Acute respiratory failure Current Visit: Yes Status: Acute Assessment and plan: Patient with known systolic heart failure admitted with CHF exacerbation the setting of atrial fibrillation with RVR and NSTEMI. Patient requires increased and is currently on BiPAP with oxygen saturations at 92%. Respiratory examination demonstrates improvements in crackles and absence of wheezing this morning. Plan: - Lasix 40 mg IV once today. - Continue with high flow oxygen or BiPAP to keep oxygen saturations greater than 90%. - DuoNeb treatments ordered every 6 hours at this time. Qualifiers: Qualified Code(s): J96.00 - Acute respiratory failure, unspecified whether with hypoxia or hypercapnia (3) Acute exacerbation of congestive heart failure Current Visit: Yes Status: Acute Assessment and plan: 04/14/2016: Patient continues to have systolic congestive heart failure exacerbation. We will be receiving dose of Lasix today. This improves her respiration status. Her pulmonary edema likely secondary to her A. fib RVR and myocardial ischemia. 04/13/2016: Suspect exacerbation of systolic congestive heart failure likely secondary to ischemic events and atrial fibrillation with RVR. Mrs. Yanes presents the emergency Department shortness of breath atrial fibrillation with RVR with known atrial fibrillation. She was short of breath demonstrated tachypnea, physical examination demonstrated diffuse crackles in all lung luther, lower extremity trace edema bilaterally. BNP was 1085 which was elevated from 735 on 04/10/2016. She is already received 40 mg IV Lasix in the emergency department and has a Ann catheter in place with appropriate urinary drainage. Echocardiogram performed 03/07/2016 demonstrates an LVEF of 40-45.%, Normal left ventricular chamber size and wall thickness and function. Moderate segmental left ventricular systolic dysfunction. No significant change in LV function compared to prior reports. Plan: - Strict intake and output monitoring - Continue nothing by mouth - Daily weights standing. - Continue aspirin, Lipitor 40 mg by mouth at bedtime, metoprolol 50 mg twice a day, Plavix. Qualifiers: Congestive heart failure type: combined Qualified Code(s): I50.43 - Acute on chronic combined systolic (congestive) and diastolic (congestive) heart failure (4) Atrial fibrillation with rapid ventricular response Current Visit: Yes Status: Acute Assessment and plan: Patient was found to have Atrial fibrillation with RVR with a heart rate roughly around 120, EKG 04/12/2016 demonstrated atrial fibrillation RVR with ST depressions in leads V5 and V6. Current rhythm is atrial fibrillation with a heart rate around 100. Suspect acute change is related cardiac ischemia. Plan: - Continue metoprolol XL 25 mg by mouth twice a day - Possibly caused by ischemia. (5) CAD (coronary artery disease) Current Visit: Yes Status: Acute Assessment and plan: Patient has known coronary artery disease, valvular heart disease, history of fem-pop bypass, CABG around 1992. Her lipid panel demonstrates hyperlipidemia and hypercholesterolemia. Patient is on Lipitor 40 mg at bedtime. Plan: - Continue atorvastatin 40 mg - Continue to optimize cardiac medications. - Continue aspirin and Plavix. Qualifiers: Coronary Disease-Associated Artery/Lesion type: [place] artery [place] vs. transplanted heart: [place] heart Associated angina: with unstable angina Qualified Code(s): I25.110 - Atherosclerotic heart disease of [place] coronary artery with unstable angina pectoris (6) DM II (diabetes mellitus, type II), controlled Current Visit: No Status: Resolved Assessment and plan: Mrs. Yanes is a type II diabetic who is on metformin at home, hemoglobin A1c on 04/10/2016 of 5.2. On admission her metformin was held and she was started on a low-dose sliding scale insulin. Her glucoses may elevate as she has recently been started on high-dose prednisone 60 mg by mouth and may need adjustment in her insulin coverage. Plan to monitor with before meals at bedtime glucose checks. Her glucose today has been roughly 169-178. At this time I will not adjust her inpatient sliding scale. 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 Patient is currently fluid overloaded in the setting of NSTEMI, her creatinine elevation is likely associated with poor renal perfusion. Her acute kidney injury continues to slightly worsened with a creatinine elevation today without any Lasix. This is likely prerenal in nature associated with poor cardiac output. Plan: - Continue to monitor renal function with a.m. labs - Renally dose medications and avoid nephrotoxic medications including NSAIDs. (8) Giant cell arteritis with polymyalgia rheumatica Current Visit: No Status: Suspected Assessment and plan: Patient presented with temporal headache and symptoms that were concerning for giant cell arteritis and was discharged on Prednisone. She denies any new or changing symptoms. Plan to continue her home dose scheduled prednisone. (9) DVT prophylaxis Current Visit: No Status: Acute Assessment and plan: SCDs. - Subjective Interval history: Mrs. Yanes 86-year-old female seen and evaluated patient bedside this morning. She is alert awake and interactive she is wearing high flow nasal cannula oxygen and does not appear to be in distress. She said she needed a break from the BiPAP but does feel like she oxygenates better with the BiPAP. She denies any chest pain, chest pressure, palpitations, diaphoresis, abdominal pain, nausea, vomiting, diarrhea. She does not appear labored, and distress, lethargic or stuporous during my conversation today. She feels overall her respiratory status has improved but does not feel back to baseline. I discussed medical management of her current NSTEMI for which she discussed already with Cardiology. She continues to be okay with this current plan. - Constitutional Vitals: Temp Pulse Resp BP Pulse Ox 97.6 F 111 15 120/92 93 L 04/14/16 10:49 04/14/16 10:49 04/14/16 10:49 04/14/16 10:49 04/14/16 10:49 General appearance: Present: A&O X 3, pleasant, no acute distress - Head Head exam: Present: atraumatic, normocephalic - Eye Eye exam: Present: PERRL, conjuntiva pink, sclera anicteric Pupils: Present: PERRL - ENT ENT exam: Present: mucous membranes moist Additional comments: She has a Band-Aid on the bridge of her nose which she says helps protect against pressure from the BiPAP machine. - Neck Neck exam general surgery: Present: supple, trachea midline. Absent: lymphadenopathy - Respiratory Additional comments: Bilateral crackles in the lung bases with diminished breath sounds. She continues to sound diminished in all lung luther but improved compared to yesterday. - Cardiovascular Cardiovascular exam: Present: +S1, +S2, tachycardia. Absent: diastolic murmur, gallop, rubs, systolic murmur - GI/Abdominal GI/Abdominal exam: Present: normal bowel sounds, soft, no peritoneal signs. Absent: distended, tenderness - Extremities Exam Extremities exam: Present: warm, radial pulses palpable and symetrical. Absent : calf tenderness, cyanotic, pedal edema - Neurological Exam Neurological exam: Present: alert, oriented X3, no focal deficits. Absent: pronater drift, facial droop, speech deficit - Psychiatric Psychiatric exam: Present: normal affect, normal mood - Skin Skin exam: Present: dry, intact Internal Medicine: Result - Labs CBC & Chem 7: 04/14/16 04:18 04/14/16 04:18 Labs: Short CBC 04/14/16 Range/Units 04:18 WBC 5.4 (4.3-11.1) K/mcL Hgb 9.7 L (11.5-15.4) g/dL Hct 31.1 L (35.3-44.9) % Plt Count 152 (140-400) K/mcL Neutrophils # 4.2 (1.6-8.9) K/mcL BMP 04/14/16 04:18 Sodium 138 Potassium 4.4 Chloride 107 Carbon Dioxide 22 BUN 63 H Creatinine 1.82 H Glucose 178 H Calcium 8.7 Liver Function 04/14/16 Range/Units 04:18 Total Bilirubin 0.7 (0.2-1.2) mg/dL AST 68 H (5-34) Units/L ALT 29 (0-55) Units/L Alkaline Phosphatase 64 (38-126) Units/L Albumin 3.2 L (3.5-5.0) g/dL - ABG Interpretation ABG results: PT/INR, D-dimer PT 11.4 Seconds (9.4-12.1) 04/12/16 12:54 Consult Discharge Plan - Plan Referrals: Reinaldo Valladares Jr, MD [Primary Care Provider] - <Saul Gallego - Last Filed: 04/15/16 15:07> - Assessment and plan (1) Acute on chronic respiratory failure with hypoxemia Current Visit: Yes Status: Acute (2) NSTEMI (non-ST elevated myocardial infarction) Current Visit: Yes Status: Chronic (3) Atrial fibrillation Current Visit: Yes Status: Acute Qualifiers: Atrial fibrillation type: chronic Qualified Code(s): I48.2 - Chronic atrial fibrillation (4) CKD (chronic kidney disease), stage III Current Visit: Yes Status: Chronic (5) Headache Current Visit: Yes Status: Acute Qualifiers: Headache type: other headache syndrome Qualified Code(s): G44.89 - Other headache syndrome (6) DM II (diabetes mellitus, type II), controlled Current Visit: No Status: Resolved Qualifiers: Diabetes mellitus complication status: with hyperglycemia Diabetes mellitus skilled nursing insulin use: with intermodal dispatcher use Qualified Code(s): E11.65 - Type 2 diabetes mellitus with hyperglycemia; 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 transplanted heart: [place] heart Associated angina: with unstable angina Qualified Code(s): I25.110 - Atherosclerotic heart disease of [place] coronary artery with unstable angina pectoris (8) Hypertension Current Visit: Yes Status: Chronic Qualifiers: Hypertension type: essential hypertension (9) Fluid overload Current Visit: Yes Status: Acute Qualifiers: Hypervolemia type: other (10) Anemia Current Visit: Yes Status: Acute Qualifiers: Anemia type: other cause Other causes of anemia: chronic disease, other Qualified Code(s): D63.8 - Anemia in other chronic diseases classified elsewhere - Constitutional Vitals: Temp Pulse Resp BP Pulse Ox 97.7 F 109 24 136/92 94 L 04/15/16 11:15 04/15/16 11:15 04/15/16 11:15 04/15/16 11:15 04/15/16 11:15 Internal Medicine: Result - Labs CBC & Chem 7: 04/15/16 05:18 04/15/16 05:18 Labs: Short CBC 04/15/16 Range/Units 05:18 WBC 9.9 D (4.3-11.1) K/mcL Hgb 10.2 L (11.5-15.4) g/dL Hct 32.3 L (35.3-44.9) % Plt Count 199 (140-400) K/mcL Neutrophils # 7.4 (1.6-8.9) K/mcL BMP 04/15/16 05:18 Sodium 135 L Potassium 4.4 Chloride 102 Carbon Dioxide 21 BUN 72 H Creatinine 1.88 H Glucose 143 H Calcium 9.1 Liver Function 04/15/16 Range/Units 05:18 Total Bilirubin 0.6 (0.2-1.2) mg/dL AST 47 H (5-34) Units/L ALT 31 (0-55) Units/L Alkaline Phosphatase 62 (38-126) Units/L Albumin 3.4 L (3.5-5.0) g/dL - ABG Interpretation ABG results: ABG ABG pH 7.40 pH Units (7.32-7.45) 04/15/16 10:30 ABG pCO2 39 mmHg (35-45) 04/15/16 10:30 ABG pO2 62 mmHg (85-104) L 04/15/16 10:30 ABG O2 Saturation 91 % (95-98) L 04/15/16 10:30 PT/INR, D-dimer PT 11.4 Seconds (9.4-12.1) 04/12/16 12:54 - Impressions Impressions Chest X-Ray 04/15/16 07:54 IMPRESSION: New opacification of the right lower lobe likely representing pulmonary edema rather than pneumonia. New small bilateral pleural effusions and pulmonary vascular congestion likely represent CHF. D/ / 04/15/2016 08:28:11 Kvng Nielsen MD / malia Interpreting Provider: Kvng Nielsen MD - Attending Attestation I examined this patient and my medical decision-making was reviewed with the Resident Physician on 04/14/16. I agree with the documented findings, disposition and treatment plan as described except to the extent set forth below. Ms. Rodas is doing a little better today. She is off bipap and on nasal canula. She has been doing crossword puzzles today. Denies chest heaviness currently. Appetite OK. No GI symptoms Exam alert. Comfortable Heart irreg and tachy Lungs with rales throughout I/P 1. Acute NSTEMI 2. Pulmonary edema 3. Acute exac chronic syst heart failure Further diagnoses and plan as above.
[2016-04-14] MEDS: Nitroglycerin 0.4 MG TAB.SUBL SL SCH (17:17)
[2016-04-14] MEDS: Furosemide 40 MG/4 ML VIAL IVP SCH (17:19)
[2016-04-15] MEDS: Acetaminophen 325 MG TABLET PO PRN (01:53)
[2016-04-15 05:58] LABS: Basophils % 0.4 %; Hematocrit 32.3 % (35.3-44.9); Hemoglobin 10.2 g/dL (11.5-15.4); Immature Granulocytes % 2.4 % (0-4); Lymphocytes # 1.3 K/mcL (0.6-4.6); Lymphocytes % 12.9 %; Mean Corpuscular HGB Conc 31.6 g/dL (31.6-35.5); Mean Corpuscular Hemoglobin 29.7 pg (28.0-33.3); Mean Corpuscular Volume 94.2 fL (83.0-100.0); Mean Platelet Volume 10.8 fL (9.4-12.4); Monocytes # 0.9 K/mcL (0.0-1.3); Monocytes % 9.1 %; Neutrophils # 7.4 K/mcL (1.6-8.9); Nucleated Red Blood Cells 0.3 /100 WBC (0); Platelet Count 199 K/mcL (140-400); Red Blood Count 3.43 M/mcL (3.82-4.97); Segmented Neutrophils % 75.2 %
[2016-04-15 06:12] LABS: Albumin 3.4 g/dL (3.5-5.0); Albumin/Globulin Ratio 0.9 (1.1-2.2); Bilirubin,Total 0.6 mg/dL (0.2-1.2); Calcium 9.1 mg/dL (8.6-10.8); Globulin 3.7 g/dL (2.4-3.5); Potassium 4.4 mEq/L (3.5-4.5); Total Protein 7.1 g/dL (6.0-8.3)
[2016-04-15] MEDS: Furosemide 40 MG/4 ML VIAL IVP SCH (07:38)
[2016-04-15] MEDS: Metoprolol XL (24 HR) Succ 25 MG TAB.ER.24H PO SCH ×2 (07:39→20:18)
[2016-04-15] MEDS: amLODIPine 5 MG TABLET PO SCH (07:39)
[2016-04-15] MEDS: Insulin LISPRO 300 UNITS/3 ML VIAL SQ SCH ×4 (07:39→23:25)
[2016-04-15] MEDS: Isosorbide MONOnitrate (24 HR) 30 MG TAB.ER.24H PO SCH (07:39)
[2016-04-15] MEDS: Pantoprazole 40 MG VIAL IVP SCH (07:39)
[2016-04-15] MEDS: predniSONE 20 MG TABLET PO SCH (07:39)
[2016-04-15] MEDS: Aspirin 81 MG TAB.CHEW PO SCH (07:39)
[2016-04-15] MEDS: Ipratropium/Albuterol Neb 3 ML IH PRN (08:11)
[2016-04-15] MEDS: *HR* Digoxin 0.5 MG/2 ML AMPUL IVP SCH ×2 (09:49→17:23)
[2016-04-15 10:37] LABS: ABG Base Excess -0.5 mEq/L (-2.0 to 3.0); ABG HCO3 24.2 mEQ/L (21-27); ABG Oxygen Saturation 91 % (95-98); ABG PCO2 39 mmHg (35-45); ABG PO2 62 mmHg (85-104); ABG TCO2 25.4 mEq/L (20-26)
[2016-04-15 10:38] LABS: Blood Gas Liter Flow 8 L/MIN
--- NOTE | 2016-04-15 11:37 | Cardiology Progress Note ---
Date of Encounter: 04/15/16 Time of Encounter: 11:35 Assessment and Plan (1) NSTEMI (non-ST elevated myocardial infarction) Current Visit: Yes Status: Chronic Troponin up to 21.05. Medical management recommended in the setting of acute respiratory failure and frail elderly female. Medical management discussed again with patient and she agrees. Discussed with Dr. Jaime. She is not a good candidate for left heart catheterization. Risk outweighs benefit. Continue heparin drip for atrial fibrillation. Heparin drip has completed 48 hours. Continue aspirin, statin, beta ramy, and plavix. She denies any chest pain. TTE 04/10/16- EF 40-45%, segmental LV dysfunction. Severely dilated left atrium. There is mild mitral regurgitation. Moderate pulmonary hypertension. Discussed with Dr. Jaime, no indication to repeat echo at this time. (2) Atrial fibrillation with rapid ventricular response Current Visit: Yes Status: Acute Atrial fibrillation with RVR. Known history of afib. Heart rate 113 the 120s currently, up to the 150s this morning. Rate over 24 hours was 108 bpm.. Heart rates may improve once respiratory status improves. Currently on heparin gtt. Not on long-term anticoagulation secondary to fall risk according to her primary letter carrier's office note. We will add digoxin IV load today for better heart rate control. (3) CAD (coronary artery disease) Current Visit: Yes Status: Acute Patient has known coronary artery disease s/p CABG. Continue asa, statin, bb, and plavix. Qualifiers: Coronary Disease-Associated Artery/Lesion type: [place] artery [place] vs. transplanted heart: [place] heart Associated angina: with unstable angina Qualified Code(s): I25.110 - Atherosclerotic heart disease of [place] coronary artery with unstable angina pectoris (4) CHF (congestive heart failure) Current Visit: Yes Status: Acute EF 40-45%, acute on chronic CHF. Pulmonary edema increased on chest x-ray despite IV diuretic. Continue IV diuretic. Strict I&O and daily weights. Low sodium diet. Continue to watch BMP closely. Digixin load given. Agree with palliative care consult. CODE STATUS discussed with patient. She wishes to continue to be a full code. Qualifiers: Congestive heart failure type: systolic Congestive heart failure chronicity : acute on chronic Qualified Code(s): I50.23 - Acute on chronic systolic ( congestive) heart failure (5) CKD (chronic kidney disease), stage III Current Visit: Yes Status: Chronic Creatinine noted to be increasing. Continues to be within her baseline range. Consider nephrology consult if creatinine continues to increase and no improvement in fluid status. Discussion w patient/family: The assessment and plan as outlined above was discussed with the patient and/or family members who expressed understanding and agreement. All questions were answered. Thank you for involving us in the care of your patient. Please call with any questions. Subjective Principal diagnosis: NSTEMI, acute on chronic systolic chf Interval history: Patient develops increasing shortness of breath overnight was placed back on BiPAP. She is now back off of BiPAP the continues to have labored respirations. She reports she is comfortable. Denies chest pain. Objective Vital Signs, Last 4 Hours Temp Pulse Resp BP Pulse Ox 04/15/16 11:15 97.7 F 109 24 136/92 94 L 04/15/16 10:51 30 92 L 04/15/16 08:11 27 145/99 96 General: Conversant, Other (Respirations are labored.) HEENT: Atraumatic, Normocephaly, Mucus Membranes Moist Neck: Other (Positive JVD) Cardiac: Other (Irregularly irregular, continues to have atrial fibrillation with RVR.) Lungs: Other (Course rhonchi scattered throughout) Neuro: Alert and responsive, No focal deficits noted Abdomen: Soft, Non-Tender Skin: No rashes noted on visualized skin Musculoskeletal: No Chest Wall Tenderness Extremities: Other (Trace edema in bilateral ankles increased from yesterday.) Results 04/15/16 05:18 04/15/16 05:18 Lab Results 04/14/16 04/15/16 04/15/16 17:01 05:18 05:18 WBC 9.9 D Hgb 10.2 L Hct 32.3 L Plt Count 199 APTT 81.0 H Sodium 135 L Potassium 4.4 Chloride 102 Carbon Dioxide 21 BUN 72 H Creatinine 1.88 H Glucose 143 H Calcium 9.1 Total Bilirubin 0.6 AST 47 H ALT 31 Alkaline Phosphatase 62 - EKG Interpretation EKG results cardiology: other (24 hour telemetry review shows atrial fibrillation with multiple episodes of atrial fibrillation with RVR, average heart rate is 108 bpm) Consult Discharge Plan - Plan Referrals: Reinaldo Valladares Jr, MD [Primary Care Provider] -
--- NOTE | 2016-04-15 11:45 | Internal Med Progress Note ---
<Arun Valentin - Last Filed: 04/15/16 11:42> Date of Encounter: 04/15/16 Time of Encounter: 08:30 - Assessment and plan (1) NSTEMI (non-ST elevated myocardial infarction) Current Visit: Yes Status: Chronic Assessment and plan: 04/15/2016: Mrs. Rodas demonstrates signs of poor cardiac output with increasing renal failure, cardiomyopathy seen on chest x-ray and diffuse pulmonary edema in the setting of her fibrillation with rapid ventricular rate. Mrs. Rodas 86-year-old female admitted with acute respiratory distress in the setting of pulmonary edema and atrial fibrillation with RVR with underlying known controlled atrial fibrillation. Original troponin was 0.41 associated with an EKG upon admission with atrial fibrillation RVR and ST depressions in the lateral leads V5 and V6. Repeat troponins continue to elevate to 2.37-12.35 -21.05. TTE 04/10/16- EF 40-45%, segmental LV dysfunction. Severely dilated left atrium. There is mild mitral regurgitation. Moderate pulmonary hypertension. Mrs. Yanes was unable to tolerate laying flat even with the BiPAP for a cardiac catheterization. It was discussed with this Joaquín and agreed upon for medical management of her current NSTEMI. Plan: - completed Heparin - Continue statin, beta ramy, aspirin, Plavix, oxygen, sublingual nitroglycerin as needed. - No repeat echocardiogram as this will not behavior management specialist at this time. - Awaiting further recommendations from cardiology team. (2) Acute respiratory failure Current Visit: Yes Status: Acute Assessment and plan: Patient with known systolic heart failure admitted with CHF exacerbation the setting of atrial fibrillation with RVR and NSTEMI. Patient requires increased and is currently on BiPAP with oxygen saturations at 92%. Respiratory examination demonstrates worsening of crackles in Rales. With worsening CHF exacerbation and pulmonary edema she may require intubation as she is on BiPAP and still labored in her breathing and tachypnea. This is discussed with the patient and she like to discuss with her family. Palliative care has been consulted. Plan: - Lasix 40 mg twice a day - Continue with high flow oxygen or BiPAP to keep oxygen saturations greater than 90%. - DuoNeb treatments ordered every 6 hours at this time. (3) Acute exacerbation of congestive heart failure Current Visit: Yes Status: Acute Assessment and plan: 04/15/2016: Mrs. Yanes demonstrates worsening of her congestive heart failure with diffuse pulmonary edema and cardiomegaly with pleural effusion seen on chest x-ray. She demonstrates worsening her renal function and elevated BUN, atrial fibrillation with RVR. She is not responding well to IV Lasix. Discussed patient with cardiology and will start digoxin. Prognosis is poor for recovery. 04/14/2016: Patient continues to have systolic congestive heart failure exacerbation. We will be receiving dose of Lasix today. This improves her respiration status. Her pulmonary edema likely secondary to her A. fib RVR and myocardial ischemia. 04/13/2016: Suspect exacerbation of systolic congestive heart failure likely secondary to ischemic events and atrial fibrillation with RVR. Mrs. Yanes presents the emergency Department shortness of breath atrial fibrillation with RVR with known atrial fibrillation. She was short of breath demonstrated tachypnea, physical examination demonstrated diffuse crackles in all lung luther, lower extremity trace edema bilaterally. BNP was 1085 which was elevated from 735 on 04/10/2016. She is already received 40 mg IV Lasix in the emergency department and has a Ann catheter in place with appropriate urinary drainage. Echocardiogram performed 03/07/2016 demonstrates an LVEF of 40-45.%, Normal left ventricular chamber size and wall thickness and function. Moderate segmental left ventricular systolic dysfunction. No significant change in LV function compared to prior reports. Plan: - Strict intake and output monitoring - Continue nothing by mouth - Daily weights standing. - Continue aspirin, Lipitor 40 mg by mouth at bedtime, metoprolol 50 mg twice a day, Plavix. - Starting digoxin. (4) Atrial fibrillation with rapid ventricular response Current Visit: Yes Status: Acute Assessment and plan: Patient was found to have Atrial fibrillation with RVR with a heart rate roughly around 150, EKG 04/12/2016 demonstrated atrial fibrillation RVR with ST depressions in leads V5 and V6. Current rhythm is atrial fibrillation with a heart rate around 100. Suspect acute change is related cardiac ischemia. Plan: - Continue metoprolol XL 25 mg by mouth twice a day - Possibly caused by ischemia. (5) CAD (coronary artery disease) Current Visit: Yes Status: Acute Assessment and plan: Patient has known coronary artery disease, valvular heart disease, history of fem-pop bypass, CABG around 1992. Her lipid panel demonstrates hyperlipidemia and hypercholesterolemia. Patient is on Lipitor 40 mg at bedtime. Plan: - Continue atorvastatin 40 mg - Continue to optimize cardiac medications. - Continue aspirin and Plavix. (6) DM II (diabetes mellitus, type II), controlled Current Visit: No Status: Resolved Assessment and plan: Mrs. Yanes is a type II diabetic who is on metformin at home, hemoglobin A1c on 04/10/2016 of 5.2. On admission her metformin was held and she was started on a low-dose sliding scale insulin. Her glucoses may elevate as she has recently been started on high-dose prednisone 60 mg by mouth and may need adjustment in her insulin coverage. Plan to monitor with before meals at bedtime glucose checks. Her glucose today has been roughly 169-178. At this time I will not adjust her inpatient sliding scale. (7) Acute kidney injury superimposed on CKD Current Visit: Yes Status: Acute Assessment and plan: Patient has known chronic kidney disease stage III, creatinine has worsened after diuresis. Patient is currently fluid overloaded in the setting of NSTEMI , her creatinine elevation is likely associated with poor renal perfusion. Her acute kidney injury continues to slightly worsened with a creatinine elevation today with Lasix. This is likely prerenal in nature associated with poor cardiac output. Plan: - Continue to monitor renal function with a.m. labs - Renally dose medications and avoid nephrotoxic medications including NSAIDs. (8) Giant cell arteritis with polymyalgia rheumatica Current Visit: No Status: Suspected Assessment and plan: Patient presented with temporal headache and symptoms that were concerning for giant cell arteritis and was discharged on Prednisone. She denies any new or changing symptoms. Plan to continue her home dose scheduled prednisone. (9) DVT prophylaxis Current Visit: No Status: Acute Assessment and plan: SCDs. - Subjective Interval history: Mrs. Yanes 86-year-old female seen and evaluated patient bedside this morning. She is alert awake and interactive she is wearing BiPAP to maintain her oxygen saturations greater than 90%. She said she is not doing well with morning and that she cannot breathe well even with the BiPAP on. She is sitting up and leaning forward in bed demonstrates tachypnea. She denies any headache, sore throat, change in vision, chest pain, palpitations, abdominal pain, nausea, vomiting diarrhea or constipation. She says she does not have any appetite and does not wish to eat. I discussed her current renal function and cardio/pulmonary findings. She would like to have a discussion with her family today. - Constitutional Vitals: Temp Pulse Resp BP Pulse Ox 97.7 F 109 24 136/92 94 L 04/15/16 11:15 04/15/16 11:15 04/15/16 11:15 04/15/16 11:15 04/15/16 11:15 General appearance: Present: cooperative, A&O X 3, pleasant, no acute distress - Head Head exam: Present: atraumatic, normocephalic - Eye Eye exam: Present: PERRL, conjuntiva pink, sclera anicteric Pupils: Present: PERRL - Neck Neck exam general surgery: Present: supple, trachea midline. Absent: lymphadenopathy - Respiratory Respiratory exam: Present: rales, tachypnea Additional comments: Diffuse rales and crackles - Cardiovascular Cardiovascular exam: Present: irregular rhythm Additional comments: Rapid ventricular rate - GI/Abdominal GI/Abdominal exam: Present: normal bowel sounds, soft, no peritoneal signs. Absent: distended, tenderness - Extremities Exam Extremities exam: Present: warm, radial pulses palpable and symetrical. Absent : calf tenderness, cyanotic, pedal edema - Neurological Exam Neurological exam: Present: alert, oriented X3, no focal deficits, strengths equal and symetr throughout. Absent: pronater drift, facial droop, speech deficit - Skin Skin exam: Present: dry, intact, warm Internal Medicine: Result - Labs CBC & Chem 7: 04/15/16 05:18 04/15/16 05:18 Labs: Short CBC 04/15/16 Range/Units 05:18 WBC 9.9 D (4.3-11.1) K/mcL Hgb 10.2 L (11.5-15.4) g/dL Hct 32.3 L (35.3-44.9) % Plt Count 199 (140-400) K/mcL Neutrophils # 7.4 (1.6-8.9) K/mcL BMP 04/15/16 05:18 Sodium 135 L Potassium 4.4 Chloride 102 Carbon Dioxide 21 BUN 72 H Creatinine 1.88 H Glucose 143 H Calcium 9.1 Liver Function 04/15/16 Range/Units 05:18 Total Bilirubin 0.6 (0.2-1.2) mg/dL AST 47 H (5-34) Units/L ALT 31 (0-55) Units/L Alkaline Phosphatase 62 (38-126) Units/L Albumin 3.4 L (3.5-5.0) g/dL - ABG Interpretation ABG results: ABG ABG pH 7.40 pH Units (7.32-7.45) 04/15/16 10:30 ABG pCO2 39 mmHg (35-45) 04/15/16 10:30 ABG pO2 62 mmHg (85-104) L 04/15/16 10:30 ABG O2 Saturation 91 % (95-98) L 04/15/16 10:30 PT/INR, D-dimer PT 11.4 Seconds (9.4-12.1) 04/12/16 12:54 - Impressions Impressions Chest X-Ray 04/15/16 07:54 IMPRESSION: New opacification of the right lower lobe likely representing pulmonary edema rather than pneumonia. New small bilateral pleural effusions and pulmonary vascular congestion likely represent CHF. D/ / 04/15/2016 08:28:11 Kvng Nielsen MD / malia Interpreting Provider: Kvng Nielsen MD Consult Discharge Plan - Plan Referrals: Reinaldo Valladares Jr, MD [Primary Care Provider] - <Saul Gallego A - Last Filed: 04/15/16 17:36> - Assessment and plan (1) Acute on chronic respiratory failure with hypoxemia Current Visit: Yes Status: Acute (2) NSTEMI (non-ST elevated myocardial infarction) Current Visit: Yes Status: Chronic (3) Fluid overload Current Visit: Yes Status: Acute Qualifiers: Hypervolemia type: other (4) Atrial fibrillation Current Visit: Yes Status: Acute Qualifiers: Atrial fibrillation type: chronic Qualified Code(s): I48.2 - Chronic atrial fibrillation (5) Acute kidney injury superimposed on CKD Current Visit: Yes Status: Acute (6) CKD (chronic kidney disease), stage III Current Visit: Yes Status: Chronic (7) Headache Current Visit: Yes Status: Resolved Qualifiers: Headache type: other headache syndrome Qualified Code(s): G44.89 - Other headache syndrome (8) DM II (diabetes mellitus, type II), controlled Current Visit: No Status: Resolved Qualifiers: Diabetes mellitus complication status: with hyperglycemia 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 transplanted heart: [place] heart Associated angina: with unstable angina Qualified Code(s): I25.110 - Atherosclerotic heart disease of [place] coronary artery with unstable angina pectoris (10) Hypertension Current Visit: Yes Status: Chronic Qualifiers: Hypertension type: essential hypertension (11) Anemia Current Visit: Yes Status: Acute Qualifiers: Anemia type: other cause Other causes of anemia: chronic disease, other Qualified Code(s): D63.8 - Anemia in other chronic diseases classified elsewhere - Constitutional Vitals: Temp Pulse Resp BP Pulse Ox 98.5 F 91 17 118/84 95 04/15/16 16:57 04/15/16 16:57 04/15/16 16:57 04/15/16 16:57 04/15/16 16:57 Internal Medicine: Result - Labs CBC & Chem 7: 04/15/16 05:18 04/15/16 05:18 Labs: Short CBC 04/15/16 Range/Units 05:18 WBC 9.9 D (4.3-11.1) K/mcL Hgb 10.2 L (11.5-15.4) g/dL Hct 32.3 L (35.3-44.9) % Plt Count 199 (140-400) K/mcL Neutrophils # 7.4 (1.6-8.9) K/mcL BMP 04/15/16 05:18 Sodium 135 L Potassium 4.4 Chloride 102 Carbon Dioxide 21 BUN 72 H Creatinine 1.88 H Glucose 143 H Calcium 9.1 Liver Function 04/15/16 Range/Units 05:18 Total Bilirubin 0.6 (0.2-1.2) mg/dL AST 47 H (5-34) Units/L ALT 31 (0-55) Units/L Alkaline Phosphatase 62 (38-126) Units/L Albumin 3.4 L (3.5-5.0) g/dL - ABG Interpretation ABG results: ABG ABG pH 7.40 pH Units (7.32-7.45) 04/15/16 10:30 ABG pCO2 39 mmHg (35-45) 04/15/16 10:30 ABG pO2 62 mmHg (85-104) L 04/15/16 10:30 ABG O2 Saturation 91 % (95-98) L 04/15/16 10:30 PT/INR, D-dimer PT 11.4 Seconds (9.4-12.1) 04/12/16 12:54 - Impressions Impressions Chest X-Ray 04/15/16 07:54 IMPRESSION: New opacification of the right lower lobe likely representing pulmonary edema rather than pneumonia. New small bilateral pleural effusions and pulmonary vascular congestion likely represent CHF. D/ / 04/15/2016 08:28:11 Kvng Nielsen MD / malia Interpreting Provider: Kvng Nielsen MD - Attending Attestation I examined this patient and my medical decision-making was reviewed with the Resident Physician on 04/15/16. I agree with the documented findings, disposition and treatment plan as described except to the extent set forth below. Ms. Rodas is currently admitted for acute NSTEMI and acute hypoxic resp failure due to pulmonary edema. She has also developed MELLISSA. She is high risk due to the potential for worsening cardiac failure, resp failure and renal failure. Ms. Rodas was not doing very well this AM. She is requiring almost continuous bipap again. She is sleeping a lot. No chest heaviness. No GI symptoms. Exam Alert. On bipap currently Heart tachy and irreg Lungs with rales and rhonchi noted I/P 1. Acute on chronic hypoxic resp failure - bipap 2. Acute NSTEMI 3. Acute pulmonary edema - diuresing as able Palliative care has been consulted due to the continued decline of Ms. Rodas. She is now DNRCCA/DNI. Will continue supportive care and proceed with discharge planning. Further diagnoses and plan as above.
--- NOTE | 2016-04-15 13:26 | Palliative - Consult Note ---
Date of Encounter: 04/15/16 Time of Encounter: 13:30 - Assessment and Plan (1) Dyspnea Current Visit: No Status: Acute Assessment and plan: Remains on bipap support, diuretic therapy for pulmonary edema. Will continue to monitor progress and clinical course. Qualifiers: Dyspnea type: shortness of breath Qualified Code(s): R06.02 - Shortness of breath (2) Counseling regarding advanced care planning and goals of care Current Visit: Yes Status: Acute Assessment and plan: Discussion with pt and 3 out of 4 children, (Isaak, Kristina, and Sandy). Patient states she completed a living will but has not done power of commercial litigation attorney, Discussed that we can assist completing for her before she leaves the hospital if she desires. Discussed code status, and she does not desire intubation, CPR/ defib or ACLS for cardiac arrest. Children emotional at bedside but states they honor their mother's decision. Code status changed to DNR/DNI. Patient does desire to continue all supportive measures at this time. Noted that she is unable to lie flat for heart cath and cardiology managing with medications at this point. She lives with son and has multiple DME's, including oxygen, hospital bed, rollator walker, BSC, and wheelchair. [facility] home health referral was made on discharge, however, pt was readmitted back to hospital that same evening. Palliative SW will follow for discharge plan. Palliative-CN HPI - Data of Consult Requesting Physician: Saul Gallego DO Primary Care Provider: Reinaldo Valladares Jr, MD - Consult Narrative History of present illness: Ms. Rodas is a 86 year old female who was recently in hospital for change in vision and headache. Stroke was ruled out and pt sent home with steroid therapy as temporal arteritis was suspected. She states she was feeling very well upon discharge, but that night, experienced shortness of breath, chest pain , and diaphoresis and returned to the hospital. She was found to have NSTEMI with troponin peak at 21.05. Cardiology is following and pt currently on heparin drip. She has struggled with respiratory status and has pulmonary edema , currently receiving IV Furosemide. She is unable to lie flat for [facility], so cardiology managing medically. Renal function also and issue and being monitored closely. CC: Saul Gallego DO Past Med Surg Social Fam HX - Past Medical History Medical history: arthritis, atrial fibrillation, CHF, coronary artery disease, diabetes, GERD, hyperlipidemia, hypertension, kidney stones, migraine, myocardial infarction, osteoporosis, peripheral artery disease, renal disease, SVT, valvular heart disease, other Psychiatric history: anxiety, other - Past Surgical History Surgical History: appendectomy, cholecystectomy, coronary bypass (CABG), hysterectomy, orthopedic, other (Right shoulder surgery. Lumbar laminectomy.), sinus surgery (Tonsillectomy adenoidectomy.), DARYL/BSO, ureteral stent (Renal stone removal.), other, vascular surgery (History of femoropopliteal bypass.) - Social History Smoking Status: Former smoker Smokeless Tobacco Status: No Alcohol use: none Drug use: none - Family History Mother Hx Family Cardiac Disorders: Yes Father Living Status: Age at : 72 Cause of : diabetes Hx Family Cardiac Disorders: No Hx Family Respiratory Disorders: No Hx Family Cancer: No Hx Family GI Disorders: No Hx Family Endocrine Disorder: Yes Hx Family Medical Disorders: Yes Medications and Allergies Amlodipine Besylate 10 mg PO DAILY 12/04/15 [History] Ascorbic Acid [Vitamin C] 500 mg PO DAILY 12/04/15 [History] Aspirin 81 mg PO DAILY 12/04/15 [History] Clopidogrel [Plavix] 75 mg PO DAILY 12/04/15 [History] Furosemide [Lasix] 20 mg PO DAILY 12/04/15 [History] Isosorbide MONOnitrate (24 HR) [Imdur] 30 mg PO DAILY 12/04/15 [History] L. Acidophilus/Pectin, [place] [Acidophilus Probiotic Capsule] 1 cap PO TID PRN 12/04/15 [History] Ubidecarenone [Co Q10] 100 mg PO DAILY 12/04/15 [History] Zinc Acetate [Galzin] 50 mg PO DAILY 12/04/15 [History] Nitroglycerin [Nitrostat] 0.4 mg SL AD #30 tab.subl 01/09/16 [Rx] Metformin [Glucophage] 500 mg PO BIDWM 04/10/16 [History] Metoprolol XL (24 HR) Succ [Toprol Xl] 25 mg PO BID 04/10/16 [History] Alprazolam [Xanax 1 MG Tablet] 1 mg PO BID #10 tablet 04/11/16 [Rx] Atorvastatin [Lipitor] 40 mg PO HS #30 tablet 04/11/16 [Rx] Oxycodone HCl/Acetaminophen [Percocet 5-325 mg Tablet] 1 - 2 each PO QID PRN # 20 tablet 04/11/16 [Rx] PredniSONE 60 mg PO DAILY #30 tablet 04/11/16 [Rx] Allergies codeine Adverse Reaction (Unknown, Verified 04/12/16 15:00) Gastrointestinal Upset ROS unobtainable: other (Difficult to obtain r/t bipap, did state + shortness of breath, generalized weakness, poor appetite) Palliative Care-Exam - Constitutional Vitals: Temp Pulse Resp BP Pulse Ox 97.7 F 109 24 136/92 94 L 04/15/16 11:15 04/15/16 11:15 04/15/16 11:15 04/15/16 11:15 04/15/16 11:15 General appearance: Present: mild distress - Head Head Exam: Present: normal inspection, normocephalic - Eye Eye exam: Present: EOMI, normal appearance, PERRL - ENT ENT exam: Present: mucous membranes moist - Respiratory Respiratory exam: Present: accessory muscle use Additional comments: Crackles bilateral bases posteriorally. Remains on bipap - Cardiovascular Cardiovascular exam: Present: irregular rhythm, tachycardia - GI/Abdominal Exam GI/Abdominal exam: Present: normal bowel sounds, soft - Catheter Type: Urethral (Ann) Additional comments: Urine light yellow with brownish sediment - Extremities Exam Extremities exam: Present: normal capillary refill, normal inspection - Neurological Exam Neurological exam: Present: alert, oriented X3, strengths equal and symetr throughout - Skin Skin exam: Present: dry, pallor, warm Internal Medicine - CN: Reslt - Labs CBC & Chem 7: 04/15/16 05:18 04/15/16 05:18 Labs: Short CBC 04/15/16 Range/Units 05:18 WBC 9.9 D (4.3-11.1) K/mcL Hgb 10.2 L (11.5-15.4) g/dL Hct 32.3 L (35.3-44.9) % Plt Count 199 (140-400) K/mcL Neutrophils # 7.4 (1.6-8.9) K/mcL BMP 04/15/16 05:18 Sodium 135 L Potassium 4.4 Chloride 102 Carbon Dioxide 21 BUN 72 H Creatinine 1.88 H Glucose 143 H Calcium 9.1 Liver Function 04/15/16 Range/Units 05:18 Total Bilirubin 0.6 (0.2-1.2) mg/dL AST 47 H (5-34) Units/L ALT 31 (0-55) Units/L Alkaline Phosphatase 62 (38-126) Units/L Albumin 3.4 L (3.5-5.0) g/dL - ABG Interpretation ABG results: ABG ABG pH 7.40 pH Units (7.32-7.45) 04/15/16 10:30 ABG pCO2 39 mmHg (35-45) 04/15/16 10:30 ABG pO2 62 mmHg (85-104) L 04/15/16 10:30 ABG O2 Saturation 91 % (95-98) L 04/15/16 10:30 PT/INR, D-dimer PT 11.4 Seconds (9.4-12.1) 04/12/16 12:54 - Impressions Impressions Chest X-Ray 04/15/16 07:54 IMPRESSION: New opacification of the right lower lobe likely representing pulmonary edema rather than pneumonia. New small bilateral pleural effusions and pulmonary vascular congestion likely represent CHF. D/ / 04/15/2016 08:28:11 Kvng Nielsen MD / malia Interpreting Provider: Kvng Nielsen MD Consult Discharge Plan - Plan Referrals: Reinaldo Valladares Jr, MD [Primary Care Provider] - Palliative Quality Palliative Quality: Screen for Code Status: Yes, Screen for Goals of Care: Yes, Screen for Pain: Yes, If Pain Regimen Started, Initiate Bowel Regimen: NA, Screen for Nausea/Vomitting: Yes Code Status: 04/15/16 13:22 DNR [Resuscitation Status: Active] [RES] Routine Comment: Resuscitation Status: [id number]
[2016-04-15] MEDS ORDERED: Furosemide 240 MG in D5% in Water 96 ML IVC SCH (17:22)
[2016-04-15] MEDS ORDERED: *HR* Digoxin 0.5 MG/2 ML AMPUL IVP SCH (23:00)
[2016-04-16 05:45] LABS: Basophils % 0.2 %; Hematocrit 28.5 % (35.3-44.9); Hemoglobin 9.3 g/dL (11.5-15.4); Immature Granulocytes % 1.5 % (0-4); Lymphocytes # 0.9 K/mcL (0.6-4.6); Lymphocytes % 13.2 %; Mean Corpuscular HGB Conc 32.6 g/dL (31.6-35.5); Mean Corpuscular Hemoglobin 30.1 pg (28.0-33.3); Mean Corpuscular Volume 92.2 fL (83.0-100.0); Mean Platelet Volume 10.8 fL (9.4-12.4); Monocytes # 0.5 K/mcL (0.0-1.3); Monocytes % 7.7 %; Nucleated Red Blood Cells 0.3 /100 WBC (0); Platelet Count 166 K/mcL (140-400); Red Blood Count 3.09 M/mcL (3.82-4.97); Red Cell Distribution Width 14.8 % (11.5-14.5); Segmented Neutrophils % 77.4 %
[2016-04-16 05:57] LABS: Albumin 3.3 g/dL (3.5-5.0); Bilirubin,Total 0.9 mg/dL (0.2-1.2); Calcium 9.4 mg/dL (8.6-10.8); Globulin 3.4 g/dL (2.4-3.5); Potassium 4.3 mEq/L (3.5-4.5); Total Protein 6.7 g/dL (6.0-8.3)
--- NOTE | 2016-04-16 09:29 | Palliative Progress Note ---
Date of Encounter: 04/16/16 Time of Encounter: 09:15 - Assessment and plan (1) Dyspnea Current Visit: Yes Status: Acute Assessment and plan: BiPAP support as needed. She was able to tolerate nasal cannula for morning meal. Nebulizers as needed with one dose last night. Lasix drip started yesterday per primary team. Qualifiers: Dyspnea type: shortness of breath Qualified Code(s): R06.02 - Shortness of breath (2) Counseling regarding advanced care planning and goals of care Current Visit: Yes Status: Acute Assessment and plan: non emergency services ambulance driver following for discharge needs. Goals of care established yesterday during family meeting. Continue to follow. - Time Spent With Patient Total time spent is greater than 50% in coordination of care (as documented) at patient's floor/unit and/or counseling patient: - Subjective Interval history: Ms. Rodas is sitting on the bedside commode. She is on the BiPAP. Once she returns to the bed, she reports some exertional dyspnea, but states the BiPAP helps. She was able to eat "a little bit" of her breakfast, and was able to tolerate nasal cannula during that time. - Constitutional Vitals: Abnormal lab results RBC 3.09 M/mcL (3.82-4.97) L 04/16/16 05:06 Hgb 9.3 g/dL (11.5-15.4) L 04/16/16 05:06 Hct 28.5 % (35.3-44.9) L 04/16/16 05:06 RDW 14.8 % (11.5-14.5) H 04/16/16 05:06 Nucleated RBCs/100 WBC 0.3 /100 WBC (0) H 04/16/16 05:06 APTT 83.0 Seconds (26.0-36.0) H 04/15/16 17:04 Heparin Anti-Xa, Unfract 1.00 IU/mL (0.30-0.70) H* 04/13/16 03:14 ABG pO2 62 mmHg (85-104) L 04/15/16 10:30 ABG O2 Saturation 91 % (95-98) L 04/15/16 10:30 BUN 73 mg/dL (7-20) H 04/16/16 05:06 Creatinine 1.79 mg/dL (0.57-1.11) H 04/16/16 05:06 Est GFR ( Amer) 33 (> 60) L 04/16/16 05:06 Est GFR (Non-Af Amer) 27 (> 60) L 04/16/16 05:06 BUN/Creatinine Ratio 41 (6-26) H 04/16/16 05:06 Glucose 149 mg/dL (70-99) H 04/16/16 05:06 POC Glucose 159 (58-89) H 04/15/16 11:18 Calculated Osmolality 308 (280-300) H 04/16/16 05:06 AST 37 Units/L (5-34) H 04/16/16 05:06 Troponin I 21.05 ng/mL (0-0.03) H* 04/13/16 06:27 B-Natriuretic Peptide 1085 pg/mL (0-100) H 04/12/16 12:56 Albumin 3.3 g/dL (3.5-5.0) L 04/16/16 05:06 Albumin/Globulin Ratio 1.0 (1.1-2.2) L 04/16/16 05:06 Urine Clarity Cloudy (Clear) A 04/12/16 13:50 Urine Protein >=300 mg/dL (Neg-Trace) H 04/12/16 13:50 Urine Blood Trace (Negative) H 04/12/16 13:50 Urine Microscopic RBC 3-5 per hpf (0-3) H 04/12/16 13:50 Ur Squamous Epith Cells Many per lpf (None-Few) H 04/12/16 13:50 General appearance: Present: cooperative, no acute distress Exam: 86 year old female alert and cooperative - Respiratory Respiratory exam: Present: tachypnea (with exertion). Absent: respiratory distress, rhonchi, wheezes Additional comments: on BiPAP - Cardiovascular Cardiovascular exam: Present: RRR - GI/Abdominal GI/Abdominal exam: Present: normal bowel sounds, soft. Absent: tenderness Additional comments: loose/liquid bowel movements - Extremities Exam Extremities exam: Absent: pedal edema - Neurological Exam Neurological exam: Present: alert, oriented X3, no focal deficits, strengths equal and symetr throughout - Psychiatric Psychiatric exam: Present: normal affect. Absent: agitated, anxious - Skin Skin exam: Present: dry, warm Palliative Quality Palliative Quality: Screen for Code Status: Yes, Screen for Goals of Care: Yes, Screen for Pain: Yes, If Pain Regimen Started, Initiate Bowel Regimen: NA, Screen for Nausea/Vomitting: Yes Code Status: 04/15/16 13:22 DNR [Resuscitation Status: Active] [RES] Routine Comment: Resuscitation Status: [id number] - Labs CBC & Chem 7: 04/16/16 05:06 04/16/16 05:06 Labs: Laboratory Results - last 24 hr 04/15/16 04/15/16 04/15/16 07:23 10:30 11:18 WBC RBC Hgb Hct MCV MCH MCHC RDW Plt Count MPV Immature Gran % Seg Neutrophils % Lymphocytes % Monocytes % Eosinophils % Basophils % Neutrophils # Lymphocytes # Monocytes # Eosinophils # Basophils # Nucleated RBCs/100 WBC APTT ABG pH 7.40 ABG pCO2 39 ABG pO2 62 L ABG HCO3 24.2 ABG Total CO2 25.4 ABG O2 Saturation 91 L ABG Base Excess -0.5 Liter Flow 8 Blood Gas Modality HFNC Sodium Potassium Chloride Carbon Dioxide BUN Creatinine Est GFR ( Amer) Est GFR (Non-Af Amer) BUN/Creatinine Ratio Glucose POC Glucose 187 H 159 H Calculated Osmolality Calcium Total Bilirubin AST ALT Alkaline Phosphatase Serum Total Protein Albumin Globulin Albumin/Globulin Ratio 04/15/16 04/16/16 04/16/16 17:04 05:06 05:06 WBC 6.5 RBC 3.09 L Hgb 9.3 L Hct 28.5 L MCV 92.2 MCH 30.1 MCHC 32.6 RDW 14.8 H Plt Count 166 MPV 10.8 Immature Gran % 1.5 Seg Neutrophils % 77.4 Lymphocytes % 13.2 Monocytes % 7.7 Eosinophils % 0.0 Basophils % 0.2 Neutrophils # 5.0 Lymphocytes # 0.9 Monocytes # 0.5 Eosinophils # 0.0 Basophils # 0.0 Nucleated RBCs/100 WBC 0.3 H APTT 83.0 H ABG pH ABG pCO2 ABG pO2 ABG HCO3 ABG Total CO2 ABG O2 Saturation ABG Base Excess Liter Flow Blood Gas Modality Sodium 137 Potassium 4.3 Chloride 101 Carbon Dioxide 24 BUN 73 H Creatinine 1.79 H Est GFR ( Amer) 33 L Est GFR (Non-Af Amer) 27 L BUN/Creatinine Ratio 41 H Glucose 149 H POC Glucose Calculated Osmolality 308 H Calcium 9.4 Total Bilirubin 0.9 AST 37 H ALT 28 Alkaline Phosphatase 57 Serum Total Protein 6.7 Albumin 3.3 L Globulin 3.4 Albumin/Globulin Ratio 1.0 L - ABG Interpretation ABG results: ABG ABG pH 7.40 pH Units (7.32-7.45) 04/15/16 10:30 ABG pCO2 39 mmHg (35-45) 04/15/16 10:30 ABG pO2 62 mmHg (85-104) L 04/15/16 10:30 ABG O2 Saturation 91 % (95-98) L 04/15/16 10:30 PT/INR, D-dimer PT 11.4 Seconds (9.4-12.1) 04/12/16 12:54 Consult Discharge Plan - Plan Referrals: Reinaldo Valladares Jr, MD [Primary Care Provider] -
[2016-04-16] MEDS: Insulin LISPRO 300 UNITS/3 ML VIAL SQ SCH ×4 (09:53→22:07)
[2016-04-16] MEDS: amLODIPine 5 MG TABLET PO SCH (09:54)
[2016-04-16] MEDS: predniSONE 20 MG TABLET PO SCH (09:54)
[2016-04-16] MEDS: Aspirin 81 MG TAB.CHEW PO SCH (09:54)
[2016-04-16] MEDS: Isosorbide MONOnitrate (24 HR) 30 MG TAB.ER.24H PO SCH (09:54)
[2016-04-16] MEDS: Metoprolol XL (24 HR) Succ 25 MG TAB.ER.24H PO SCH ×2 (09:54→22:07)
--- NOTE | 2016-04-16 10:40 | Cardiology Progress Note ---
Date of Encounter: 04/16/16 Time of Encounter: 10:36 Assessment and Plan (1) CHF (congestive heart failure) Current Visit: Yes Status: Acute EF 40-45%, acute on chronic CHF. Pulmonary edema increased on chest x-ray, 04/15/15, despite IV diuretic. IV lasix gtt started by primary team and patient is responding well. Cumalitive -1650 ML. Continues to require bipap and + JVD. Continue IV lasix gtt. Strict I&O and daily weights. Low sodium diet. Continue to watch BMP closely. Qualifiers: Congestive heart failure type: systolic Congestive heart failure chronicity : acute on chronic Qualified Code(s): I50.23 - Acute on chronic systolic ( congestive) heart failure (2) NSTEMI (non-ST elevated myocardial infarction) Current Visit: Yes Status: Chronic Troponin up to 21.05. Medical management recommended in the setting of acute respiratory failure and frail elderly female. Palliative care following. She is now a DNR CC DNI. Heparin gtt completed. Start DVT prophylaxis. Continue aspirin, statin, beta ramy, plavix, and imdur. She denies any chest pain. TTE 04/10/16- EF 40-45%, segmental LV dysfunction. Severely dilated left atrium. There is mild mitral regurgitation. Moderate pulmonary hypertension. Discussed with Dr. Jaime, no indication to repeat echo at this time. (3) Atrial fibrillation with rapid ventricular response Current Visit: Yes Status: Acute Atrial fibrillation is now rate controlled. Known history of afib. HR avg 76 bm over last 24 hours. HR as low as 41 bpm seen this am with 3.2 second pauses. We will not start oral digoxin. IV digoxin given yesterday. Discussed with Dr. Maddox, we will also decrease metoprolol to 25 mg BID. Not on long-term anticoagulation secondary to fall risk. (4) CAD (coronary artery disease) Current Visit: Yes Status: Acute Patient has known coronary artery disease s/p CABG. Continue asa, statin, bb, and plavix. Qualifiers: Coronary Disease-Associated Artery/Lesion type: [place] artery [place] vs. transplanted heart: [place] heart Associated angina: with unstable angina Qualified Code(s): I25.110 - Atherosclerotic heart disease of [place] coronary artery with unstable angina pectoris (5) CKD (chronic kidney disease), stage III Current Visit: Yes Status: Chronic Creatinine noted to be increasing. Continues to be within her baseline range. Consider nephrology consult if creatinine continues to increase and no improvement in fluid status. (6) Hypertension Current Visit: Yes Status: Chronic B/p elevated through out the night. Toprol will be decreased d/t bradycardia. Continue norvasc. Add hydralizine. Qualifiers: Hypertension type: essential hypertension Qualified Code(s): I10 - Essential (primary) hypertension Discussion w patient/family: The assessment and plan as outlined above was discussed with the patient and/or family members who expressed understanding and agreement. All questions were answered. Thank you for involving us in the care of your patient. Please call with any questions. Subjective Principal diagnosis: NSTEMI, acute on chronic systolic chf Interval history: Patient develops increasing shortness of breath yesterday evening. Placed on lasix gtt and back on bi-pap. Pt states she cannot tolerate being off bi-pap. Off a short time to eat breakfast this morning. Denies chest pain. Objective Vital Signs, Last 4 Hours Temp Pulse Resp BP Pulse Ox 04/16/16 07:16 98.1 F 76 23 159/89 96 General: Conversant, Other (Remains on bipap) HEENT: Atraumatic, Normocephaly, Mucus Membranes Moist Neck: No JVD, Normal carotid pulses Cardiac: Other (Irregularly irregular) Lungs: Other (Lung sounds diminished with faint wheezes throughout. ) Neuro: Alert and responsive, No focal deficits noted Abdomen: Soft, Non-Tender Skin: No rashes noted on visualized skin Musculoskeletal: No Chest Wall Tenderness Extremities: No Clubbing, No Cyanosis, Normal Pulses, Other (trace ankle edema) Other: Urine more clear today. Ann intact. Results 04/16/16 05:06 04/16/16 05:06 Lab Results 04/15/16 04/16/16 04/16/16 17:04 05:06 05:06 WBC 6.5 Hgb 9.3 L Hct 28.5 L Plt Count 166 APTT 83.0 H Sodium 137 Potassium 4.3 Chloride 101 Carbon Dioxide 24 BUN 73 H Creatinine 1.79 H Glucose 149 H Calcium 9.4 Total Bilirubin 0.9 AST 37 H ALT 28 Alkaline Phosphatase 57 - EKG Interpretation EKG results cardiology: other (24 hour telemetry review shows atrial fibrillation , atrial fibrillation with slow ventricular response seen this morning with HR in the 40's. Puses up to 3.2 seconds seen.) Consult Discharge Plan - Plan Referrals: Reinaldo Valladares Jr, MD [Primary Care Provider] -
[2016-04-16] MEDS: hydrALAZINE 10 MG TABLET PO SCH ×3 (12:09→22:08)
[2016-04-16] MEDS ORDERED: predniSONE 20 MG TABLET PO SCH (13:25)
--- NOTE | 2016-04-16 13:26 | Internal Med Progress Note ---
<David Kelly - Last Filed: 04/16/16 14:49> Time of Encounter: 08:00 - Assessment and plan (1) NSTEMI (non-ST elevated myocardial infarction) Current Visit: Yes Status: Acute Assessment and plan: patient was unable to have LHC due to being unable to lye flat. cardiology recommended medical management. She completed her heparin gtt. Continue ASA, plavix, and lipitor. (2) Acute exacerbation of congestive heart failure Current Visit: Yes Status: Acute Assessment and plan: EF of 40-45% She is improving clinically She is net negative 1400 cc's Continue lasix gtt and fluid restriction. May consider ACEi and beta ramy when more clinically stable. Qualifiers: Congestive heart failure type: combined Qualified Code(s): I50.43 - Acute on chronic combined systolic (congestive) and diastolic (congestive) heart failure (3) Acute kidney injury superimposed on CKD Current Visit: Yes Status: Acute Assessment and plan: Patient has known chronic kidney disease stage III, creatinine has worsened after diuresis. Etiology is likely prerenal given worsened cardiac output and afib with RVR. Improving. Continue diuresis. Continue to monitor renal function with a.m. labs Renally dose medications and avoid nephrotoxic medications including NSAIDs. (4) Anemia Current Visit: Yes Status: Acute Assessment and plan: normocytic. stable. possibly anemia of CKD. check hematinics Qualifiers: Anemia type: other cause Other causes of anemia: chronic disease, other Qualified Code(s): D63.8 - Anemia in other chronic diseases classified elsewhere (5) Atrial fibrillation with rapid ventricular response Current Visit: Yes Status: Acute Assessment and plan: Patient was found to have Atrial fibrillation with RVR with a heart rate roughly around 150, EKG 04/12/2016 demonstrated atrial fibrillation RVR with ST depressions in leads V5 and V6. Plan: - Continue metoprolol XL 25 mg by mouth twice a day - Possibly caused by ischemia. currently rate controlled. (6) DVT prophylaxis Current Visit: Yes Status: Acute Assessment and plan: SQ heparin - Subjective Interval history: No major events overnight. today the patient states that she is feeling better. She states that she is breathing easier. she denies any pain or discomfort. She states that her appetite is improving and she is having normal bowel and bladder functions. She has no further complaints or concerns at this time. - Constitutional Vitals: Temp Pulse Resp BP Pulse Ox 97.9 F 81 18 149/74 93 L 04/16/16 11:25 04/16/16 11:25 04/16/16 11:25 04/16/16 11:25 04/16/16 11:25 General appearance: Present: cooperative, A&O X 3, pleasant, no acute distress - Head Head exam: Present: atraumatic, normocephalic - Eye Eye exam: Present: PERRL, conjuntiva pink, sclera anicteric Pupils: Present: PERRL Additional comments: the bridge of the nose is well dressed ( pressure ulcer from BIPAP mask) - ENT ENT exam: Present: mucous membranes moist - Neck Neck exam general surgery: Present: supple, trachea midline. Absent: lymphadenopathy - Respiratory Respiratory exam: Absent: accessory muscle use, rales, rhonchi, wheezes Additional comments: she has very mild crackles at the bases. - Cardiovascular Cardiovascular exam: Present: RRR, +S1, +S2. Absent: diastolic murmur, gallop, rubs, systolic murmur - GI/Abdominal GI/Abdominal exam: Present: normal bowel sounds, soft, no peritoneal signs. Absent: distended, tenderness - Extremities Exam Extremities exam: Present: warm, radial pulses palpable and symetrical. Absent : calf tenderness, cyanotic, pedal edema - Skin Skin exam: Present: dry, intact Internal Medicine: Result - Labs CBC & Chem 7: 04/16/16 05:06 04/16/16 05:06 Labs: Short CBC 04/16/16 Range/Units 05:06 WBC 6.5 (4.3-11.1) K/mcL Hgb 9.3 L (11.5-15.4) g/dL Hct 28.5 L (35.3-44.9) % Plt Count 166 (140-400) K/mcL Neutrophils # 5.0 (1.6-8.9) K/mcL BMP 04/16/16 05:06 Sodium 137 Potassium 4.3 Chloride 101 Carbon Dioxide 24 BUN 73 H Creatinine 1.79 H Glucose 149 H Calcium 9.4 Liver Function 04/16/16 Range/Units 05:06 Total Bilirubin 0.9 (0.2-1.2) mg/dL AST 37 H (5-34) Units/L ALT 28 (0-55) Units/L Alkaline Phosphatase 57 (38-126) Units/L Albumin 3.3 L (3.5-5.0) g/dL - ABG Interpretation ABG results: ABG ABG pH 7.40 pH Units (7.32-7.45) 04/15/16 10:30 ABG pCO2 39 mmHg (35-45) 04/15/16 10:30 ABG pO2 62 mmHg (85-104) L 04/15/16 10:30 ABG O2 Saturation 91 % (95-98) L 04/15/16 10:30 PT/INR, D-dimer PT 11.4 Seconds (9.4-12.1) 04/12/16 12:54 Consult Discharge Plan - Plan Referrals: Reinaldo Valladares Jr, MD [Primary Care Provider] - <Saul Gallego - Last Filed: 04/16/16 16:48> Date of Encounter: 04/16/16 - Assessment and plan (1) Acute on chronic respiratory failure with hypoxemia Current Visit: Yes Status: Acute (2) NSTEMI (non-ST elevated myocardial infarction) Current Visit: Yes Status: Chronic (3) Fluid overload Current Visit: Yes Status: Acute Qualifiers: Hypervolemia type: other (4) Atrial fibrillation Current Visit: Yes Status: Acute Qualifiers: Atrial fibrillation type: chronic Qualified Code(s): I48.2 - Chronic atrial fibrillation (5) Acute kidney injury superimposed on CKD Current Visit: Yes Status: Acute (6) CKD (chronic kidney disease), stage III Current Visit: Yes Status: Chronic (7) Headache Current Visit: Yes Status: Resolved Qualifiers: Headache type: other headache syndrome Qualified Code(s): G44.89 - Other headache syndrome (8) DM II (diabetes mellitus, type II), controlled Current Visit: No Status: Resolved Qualifiers: Diabetes mellitus complication status: with hyperglycemia Diabetes mellitus terminologist insulin use: with terminologist use Qualified Code(s): E11.65 - Type 2 diabetes mellitus with hyperglycemia; 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 transplanted heart: [place] heart Associated angina: with unstable angina Qualified Code(s): I25.110 - Atherosclerotic heart disease of [place] coronary artery with unstable angina pectoris (10) Hypertension Current Visit: Yes Status: Chronic Qualifiers: Hypertension type: essential hypertension Qualified Code(s): I10 - Essential (primary) hypertension (11) Anemia Current Visit: Yes Status: Acute Qualifiers: Anemia type: other cause Other causes of anemia: chronic disease, other Qualified Code(s): D63.8 - Anemia in other chronic diseases classified elsewhere - Constitutional Vitals: Temp Pulse Resp BP Pulse Ox 97.9 F 79 16 137/93 94 L 04/16/16 16:00 04/16/16 16:00 04/16/16 16:00 04/16/16 16:00 04/16/16 16:00 Internal Medicine: Result - Labs CBC & Chem 7: 04/16/16 05:06 04/16/16 05:06 Labs: Short CBC 04/16/16 Range/Units 05:06 WBC 6.5 (4.3-11.1) K/mcL Hgb 9.3 L (11.5-15.4) g/dL Hct 28.5 L (35.3-44.9) % Plt Count 166 (140-400) K/mcL Neutrophils # 5.0 (1.6-8.9) K/mcL BMP 04/16/16 05:06 Sodium 137 Potassium 4.3 Chloride 101 Carbon Dioxide 24 BUN 73 H Creatinine 1.79 H Glucose 149 H Calcium 9.4 Liver Function 04/16/16 Range/Units 05:06 Total Bilirubin 0.9 (0.2-1.2) mg/dL AST 37 H (5-34) Units/L ALT 28 (0-55) Units/L Alkaline Phosphatase 57 (38-126) Units/L Albumin 3.3 L (3.5-5.0) g/dL - ABG Interpretation ABG results: ABG ABG pH 7.40 pH Units (7.32-7.45) 04/15/16 10:30 ABG pCO2 39 mmHg (35-45) 04/15/16 10:30 ABG pO2 62 mmHg (85-104) L 04/15/16 10:30 ABG O2 Saturation 91 % (95-98) L 04/15/16 10:30 PT/INR, D-dimer PT 11.4 Seconds (9.4-12.1) 04/12/16 12:54 - Attending Attestation I examined this patient and my medical decision-making was reviewed with the Resident Physician on 04/16/16. I agree with the documented findings, disposition and treatment plan as described except to the extent set forth below. Ms. Rodas is currently admitted for acute NSTEMI and acute hypoxic resp failure related to CHF. She remains high risk due to potential of worsening cardiac status and respiratory failure. Ms. Rodas is feeling a little better today. She is able to be off the bipap some. She is not eating well mostly because of the bipap mask. No chest heaviness. Dyspnea somewhat better today. No other new symptoms. Exam Alert. Moderate dyspnea though better than yesterday. Able to be off bipap during rounds. Heart irreg - not as tachy Lungs with rales. I/P 1. Acute NSTEMI 2. Acute pulmonary edema - seems somewhat better today. Using low dose Lasix drip for diuresis. 3. Systolic CHF - acute on chronic Further diagnoses and plan as above.
[2016-04-16] MEDS: *HR* Heparin 5,000 UNIT/ML VIAL SQ SCH (18:42)
[2016-04-17 05:47] LABS: Basophils % 0.2 %; Hemoglobin 9.6 g/dL (11.5-15.4); Immature Granulocytes % 2.6 % (0-4); Immature Reticulocyte % 29.3 % (11.0-38.0); Lymphocytes # 0.6 K/mcL (0.6-4.6); Lymphocytes % 10.2 %; Mean Corpuscular Hemoglobin 29.9 pg (28.0-33.3); Mean Corpuscular Volume 93.5 fL (83.0-100.0); Mean Platelet Volume 10.7 fL (9.4-12.4); Monocytes # 0.5 K/mcL (0.0-1.3); Monocytes % 8.7 %; Neutrophils # 4.6 K/mcL (1.6-8.9); Platelet Count 162 K/mcL (140-400); Red Blood Count 3.21 M/mcL (3.82-4.97); Red Cell Distribution Width 14.6 % (11.5-14.5); Retculocyte # 0.08 M/mcL (0.05-0.10); Reticulocyte % 2.5 % (1.6-2.8); Segmented Neutrophils % 78.3 %
[2016-04-17 06:02] LABS: Calcium 9.2 mg/dL (8.6-10.8); Potassium 4.2 mEq/L (3.5-4.5)
[2016-04-17] MEDS: *HR* Heparin 5,000 UNIT/ML VIAL SQ SCH ×2 (06:13→18:05)
--- NOTE | 2016-04-17 09:38 | Palliative Progress Note ---
Date of Encounter: 04/17/16 Time of Encounter: 09:40 - Assessment and plan (1) Dyspnea Current Visit: Yes Status: Acute Assessment and plan: Much improved and responding to diuretic therapy. Oxygen requirements less. Monitor Qualifiers: Dyspnea type: shortness of breath Qualified Code(s): R06.02 - Shortness of breath (2) Counseling regarding advanced care planning and goals of care Current Visit: Yes Status: Acute Assessment and plan: DNR/DNI - completed state form today and provided pt with copies. She is interested in home health at discharge, previously had [facility] services, but had to stop this r/t income. Will inform licensed master social worker. - Time Spent With Patient Total time spent is greater than 50% in coordination of care (as documented) at patient's floor/unit and/or counseling patient: 25 - 35 minutes - Subjective Interval history: Patient reading in bed. Was able to remain on nasal cannula last night and primary nurse currently titrating down. She states breathing much better. Denies pain or nausea. Good oral intake. - Constitutional Vitals: Abnormal lab results RBC 3.21 M/mcL (3.82-4.97) L 04/17/16 05:26 Hgb 9.6 g/dL (11.5-15.4) L 04/17/16 05:26 Hct 30.0 % (35.3-44.9) L 04/17/16 05:26 RDW 14.6 % (11.5-14.5) H 04/17/16 05:26 Nucleated RBCs/100 WBC 0.3 /100 WBC (0) H 04/16/16 05:06 APTT 83.0 Seconds (26.0-36.0) H 04/15/16 17:04 Heparin Anti-Xa, Unfract 1.00 IU/mL (0.30-0.70) H* 04/13/16 03:14 ABG pO2 62 mmHg (85-104) L 04/15/16 10:30 ABG O2 Saturation 91 % (95-98) L 04/15/16 10:30 BUN 82 mg/dL (7-20) H 04/17/16 05:26 Creatinine 1.73 mg/dL (0.57-1.11) H 04/17/16 05:26 Est GFR ( Amer) 34 (> 60) L 04/17/16 05:26 Est GFR (Non-Af Amer) 28 (> 60) L 04/17/16 05:26 BUN/Creatinine Ratio 47 (6-26) H 04/17/16 05:26 Glucose 166 mg/dL (70-99) H 04/17/16 05:26 POC Glucose 327 (58-89) H 04/16/16 21:20 Calculated Osmolality 317 (280-300) H 04/17/16 05:26 Iron 39 mcg/dL (50-170) L 04/17/16 05:26 % Saturation 11 % (15-50) L 04/17/16 05:26 AST 37 Units/L (5-34) H 04/16/16 05:06 Troponin I 21.05 ng/mL (0-0.03) H* 04/13/16 06:27 B-Natriuretic Peptide 1085 pg/mL (0-100) H 04/12/16 12:56 Albumin 3.3 g/dL (3.5-5.0) L 04/16/16 05:06 Albumin/Globulin Ratio 1.0 (1.1-2.2) L 04/16/16 05:06 Urine Clarity Cloudy (Clear) A 04/12/16 13:50 Urine Protein >=300 mg/dL (Neg-Trace) H 04/12/16 13:50 Urine Blood Trace (Negative) H 04/12/16 13:50 Urine Microscopic RBC 3-5 per hpf (0-3) H 04/12/16 13:50 Ur Squamous Epith Cells Many per lpf (None-Few) H 04/12/16 13:50 General appearance: Present: no acute distress - Respiratory Additional comments: Few faint rales bilateral bases. Oxygen currently at 5 L - Cardiovascular Cardiovascular exam: Present: irregular rhythm - GI/Abdominal GI/Abdominal exam: Present: normal bowel sounds, soft - Extremities Exam Extremities exam: Present: normal capillary refill, normal inspection - Neurological Exam Neurological exam: Present: alert, oriented X3, strengths equal and symetr throughout - Skin Skin exam: Present: dry, pallor, warm Palliative Quality Palliative Quality: Screen for Code Status: Yes, Screen for Goals of Care: Yes, Screen for Pain: Yes, If Pain Regimen Started, Initiate Bowel Regimen: NA, Screen for Nausea/Vomitting: Yes Code Status: 04/15/16 13:22 DNR [Resuscitation Status: Active] [RES] Routine Comment: Resuscitation Status: [id number] - Labs CBC & Chem 7: 04/17/16 05:26 04/17/16 05:26 Labs: Laboratory Results - last 24 hr 04/16/16 04/16/16 04/16/16 07:08 12:10 16:27 WBC RBC Hgb Hct MCV MCH MCHC RDW Plt Count MPV Reticulocyte # Immature Gran % Seg Neutrophils % Lymphocytes % Monocytes % Eosinophils % Basophils % Neutrophils # Lymphocytes # Monocytes # Eosinophils # Basophils # Percent Retic Immature Retic Fraction Retic Hgb Equivalent Sodium Potassium Chloride Carbon Dioxide BUN Creatinine Est GFR ( Amer) Est GFR (Non-Af Amer) BUN/Creatinine Ratio Glucose POC Glucose 153 H 174 H 209 H Calculated Osmolality Calcium Iron % Saturation Transferrin Ferritin 04/16/16 04/17/16 04/17/16 21:20 05:26 05:26 WBC 5.9 RBC 3.21 L Hgb 9.6 L Hct 30.0 L MCV 93.5 MCH 29.9 MCHC 32.0 RDW 14.6 H Plt Count 162 MPV 10.7 Reticulocyte # 0.08 Immature Gran % 2.6 Seg Neutrophils % 78.3 Lymphocytes % 10.2 Monocytes % 8.7 Eosinophils % 0.0 Basophils % 0.2 Neutrophils # 4.6 Lymphocytes # 0.6 Monocytes # 0.5 Eosinophils # 0.0 Basophils # 0.0 Percent Retic 2.5 Immature Retic Fraction 29.3 Retic Hgb Equivalent 33.6 Sodium 139 Potassium 4.2 Chloride 99 Carbon Dioxide 27 BUN 82 H Creatinine 1.73 H Est GFR ( Amer) 34 L Est GFR (Non-Af Amer) 28 L BUN/Creatinine Ratio 47 H Glucose 166 H POC Glucose 327 H Calculated Osmolality 317 H Calcium 9.2 Iron 39 L % Saturation 11 L Transferrin 244 Ferritin 84 - ABG Interpretation ABG results: ABG ABG pH 7.40 pH Units (7.32-7.45) 04/15/16 10:30 ABG pCO2 39 mmHg (35-45) 04/15/16 10:30 ABG pO2 62 mmHg (85-104) L 04/15/16 10:30 ABG O2 Saturation 91 % (95-98) L 04/15/16 10:30 PT/INR, D-dimer PT 11.4 Seconds (9.4-12.1) 04/12/16 12:54 Consult Discharge Plan - Plan Referrals: Reinaldo Valladares Jr, MD [Primary Care Provider] -
[2016-04-17] MEDS: Aspirin 81 MG TAB.CHEW PO SCH (09:43)
[2016-04-17] MEDS: Isosorbide MONOnitrate (24 HR) 30 MG TAB.ER.24H PO SCH (09:43)
[2016-04-17] MEDS: hydrALAZINE 10 MG TABLET PO SCH ×3 (09:44→21:32)
[2016-04-17] MEDS: amLODIPine 5 MG TABLET PO SCH (09:44)
[2016-04-17] MEDS: Metoprolol XL (24 HR) Succ 25 MG TAB.ER.24H PO SCH ×2 (09:45→21:32)
[2016-04-17] MEDS: Insulin LISPRO 300 UNITS/3 ML VIAL SQ SCH ×4 (09:45→21:33)
--- NOTE | 2016-04-17 10:26 | Internal Med Progress Note ---
<Cedrick Milian P - Last Filed: 04/17/16 17:49> - Constitutional Vitals: Temp Pulse Resp BP Pulse Ox 97.7 F 82 18 129/83 90 L 04/17/16 15:35 04/17/16 15:35 04/17/16 15:35 04/17/16 15:35 04/17/16 15:35 Internal Medicine: Result - Labs CBC & Chem 7: 04/17/16 05:26 04/17/16 05:26 Labs: Short CBC 04/17/16 Range/Units 05:26 WBC 5.9 (4.3-11.1) K/mcL Hgb 9.6 L (11.5-15.4) g/dL Hct 30.0 L (35.3-44.9) % Plt Count 162 (140-400) K/mcL Neutrophils # 4.6 (1.6-8.9) K/mcL BMP 04/17/16 05:26 Sodium 139 Potassium 4.2 Chloride 99 Carbon Dioxide 27 BUN 82 H Creatinine 1.73 H Glucose 166 H Calcium 9.2 - ABG Interpretation ABG results: ABG ABG pH 7.40 pH Units (7.32-7.45) 04/15/16 10:30 ABG pCO2 39 mmHg (35-45) 04/15/16 10:30 ABG pO2 62 mmHg (85-104) L 04/15/16 10:30 ABG O2 Saturation 91 % (95-98) L 04/15/16 10:30 PT/INR, D-dimer PT 11.4 Seconds (9.4-12.1) 04/12/16 12:54 Consult Discharge Plan - Plan Instructions: Myocardial Infarction (DC), Myocardial Infarction (GEN), Heart Failure (DC), Atrial Fibrillation (DC), Diabetes Mellitus Type 2 in Adults (DC) , Chronic Hypertension (DC), Anemia (GEN) Referrals: Reinaldo Valladares Jr, MD [Primary Care Provider] - - Attending Attestation I examined this patient and my medical decision-making was reviewed with the [employer] FORMER/PA/Advanced Practice Nurse/Resident Physician. I agree with the documented findings, disposition and treatment plan as described except to the extent set forth below. <David Kelly - Last Filed: 04/18/16 15:41> Date of Encounter: 04/18/16 Time of Encounter: 08:40 - Assessment and plan (1) NSTEMI (non-ST elevated myocardial infarction) Current Visit: Yes Status: Acute Assessment and plan: patient was unable to have LHC due to being unable to lye flat. cardiology recommended medical management. She completed her heparin gtt. Continue ASA, plavix, and lipitor. appreciate cardiologies recomendations. (2) Acute exacerbation of congestive heart failure Current Visit: Yes Status: Acute Assessment and plan: EF of 40-45% She is improving clinically agree with change fo Lasix gtt to IV push. Will plan on tranistioning to PO. May consider ACEi and beta ramy when more clinically stable. Qualifiers: Congestive heart failure type: combined Qualified Code(s): I50.43 - Acute on chronic combined systolic (congestive) and diastolic (congestive) heart failure (3) Acute kidney injury superimposed on CKD Current Visit: Yes Status: Acute Assessment and plan: Patient has known chronic kidney disease stage III, creatinine has worsened after diuresis. Etiology is likely prerenal given worsened cardiac output and afib with RVR. Improving. Continue diuresis. Continue to monitor renal function with a.m. labs Renally dose medications and avoid nephrotoxic medications including NSAIDs. (4) Anemia Current Visit: Yes Status: Acute Assessment and plan: normocytic. stable. possibly anemia of CKD. hematinics pending Qualifiers: Anemia type: other cause Other causes of anemia: chronic disease, other Qualified Code(s): D63.8 - Anemia in other chronic diseases classified elsewhere (5) Atrial fibrillation with rapid ventricular response Current Visit: Yes Status: Acute Assessment and plan: Patient was found to have Atrial fibrillation with RVR with a heart rate roughly around 150, EKG 04/12/2016 demonstrated atrial fibrillation RVR with ST depressions in leads V5 and V6. Plan: - Continue metoprolol XL 25 mg by mouth twice a day - Possibly caused by ischemia. currently rate controlled. No anticoagulation do to increased fall risk per cardiology. (6) DVT prophylaxis Current Visit: Yes Status: Acute Assessment and plan: SQ heparin - Subjective Interval history: No major events overnight. Today patient states that she is feeling better. She is breathing much better and is off of the BIPAP. She denies any chest pain. She denies any other pain or discomfort. She states she is eating well and is having normal bowel functions. No further complaints at this time. - Constitutional Vitals: Temp Pulse Resp BP Pulse Ox 98.2 F 75 18 162/85 94 L 04/17/16 07:48 04/17/16 07:48 04/17/16 07:48 04/17/16 07:48 04/17/16 07:48 General appearance: Present: cooperative, A&O X 3, pleasant, no acute distress Exam: General: Mrs. Rodas is a very pleasant well-developed well-nourished 86-year- old female who is alert and orientated to person place time and situation. That appears to be comfortable no acute distress at this time. HEENT: Head is normal cephalic atraumatic. Anicteric sclera, moist mucous membranes, neck is supple without mass or thyromegaly. No cervical submandibular or supraclavicular lymphadenopathy palpable on exam. Heart: Irregular regular rate is currently 80 to 90s in the program. No murmurs rubs or gallops. Lungs: She has a normal effort of breathing normal rise and expansive the chest wall bilaterally. She does have some very mild crackles in the bases of the lungs bilaterally diminished breath sounds in the bases of the lungs bilaterally. However overall her lung exam has improved from yesterday. Abdomen: The abdomen is obese, nondistended, nontender to palpation. Bowel sounds are positive no bruits no organomegaly noted on exam. Next musculoskeletal: Grossly normal for age no gross deformities. Extremities: There is no clubbing, cyanosis, or edema. Integument: No rash or lesions. Internal Medicine: Result - Labs CBC & Chem 7: 04/18/16 05:55 04/18/16 05:55 Labs: Short CBC 04/17/16 Range/Units 05:26 WBC 5.9 (4.3-11.1) K/mcL Hgb 9.6 L (11.5-15.4) g/dL Hct 30.0 L (35.3-44.9) % Plt Count 162 (140-400) K/mcL Neutrophils # 4.6 (1.6-8.9) K/mcL BMP 04/17/16 05:26 Sodium 139 Potassium 4.2 Chloride 99 Carbon Dioxide 27 BUN 82 H Creatinine 1.73 H Glucose 166 H Calcium 9.2 - ABG Interpretation ABG results: ABG ABG pH 7.40 pH Units (7.32-7.45) 04/15/16 10:30 ABG pCO2 39 mmHg (35-45) 04/15/16 10:30 ABG pO2 62 mmHg (85-104) L 04/15/16 10:30 ABG O2 Saturation 91 % (95-98) L 04/15/16 10:30 PT/INR, D-dimer PT 11.4 Seconds (9.4-12.1) 04/12/16 12:54
--- NOTE | 2016-04-17 14:10 | Cardiology Progress Note ---
Date of Encounter: 04/17/16 Time of Encounter: 14:08 Assessment and Plan (1) CHF (congestive heart failure) Current Visit: Yes Status: Acute EF 40-45%, acute on chronic CHF. Responded very well to IV lasix gtt. Net negative 3035 ml Now on 4L oxygen. decrease lasix to 40 mg IV BID. Strict I&O and daily weights. Low sodium diet. Continue to watch BMP closely. Qualifiers: Qualified Code(s): I50.23 - Acute on chronic systolic (congestive) heart failure (2) NSTEMI (non-ST elevated myocardial infarction) Current Visit: Yes Status: Chronic Troponin up to 21.05. Medical management recommended in the setting of acute respiratory failure and frail elderly female. Palliative care following. She is now a DNR CC DNI. Heparin gtt completed. On DVT prophylaxis. Continue aspirin, statin, beta ramy, plavix, and imdur. She denies any chest pain. TTE 04/10/16- EF 40-45%, segmental LV dysfunction. Severely dilated left atrium. There is mild mitral regurgitation. Moderate pulmonary hypertension. Discussed with Dr. Jaime, no indication to repeat echo at this time. (3) Atrial fibrillation with rapid ventricular response Current Visit: Yes Status: Acute Atrial fibrillation is now rate controlled. Known history of afib. HR avg 80 bpm over last 24 hours. No significant pauses. Minimum HR 48 bpm at 1048am. Continue to monitor. Continue metoprolol. Not on long-term anticoagulation secondary to fall risk. (4) CAD (coronary artery disease) Current Visit: Yes Status: Acute Patient has known coronary artery disease s/p CABG. Continue asa, statin, bb, and plavix. Qualifiers: Qualified Code(s): I25.110 - Atherosclerotic heart disease of [place] coronary artery with unstable angina pectoris (5) CKD (chronic kidney disease), stage III Current Visit: Yes Status: Chronic Kidney function within baseline. Improving. (6) Hypertension Current Visit: Yes Status: Chronic B/p improved. Continue hydralizine. Qualifiers: Qualified Code(s): I10 - Essential (primary) hypertension Discussion w patient/family: The assessment and plan as outlined above was discussed with the patient and/or family members who expressed understanding and agreement. All questions were answered. Thank you for involving us in the care of your patient. Please call with any questions. Subjective Principal diagnosis: NSTEMI, acute on chronic systolic chf Interval history: Pt reports she is doing much better. Off bi-pap. Denies chest pain or SOB. Objective Vital Signs, Last 4 Hours Temp Pulse Resp BP Pulse Ox 04/17/16 11:34 98.4 F 72 18 127/61 92 L General: Conversant, No Apparent Distress, Other (Frail female. ) HEENT: Atraumatic, Normocephaly, Mucus Membranes Moist Neck: No JVD, Normal carotid pulses Cardiac: Other (Irregularly irregular. Atrial fibrillation) Lungs: Normal Breath Sounds, No Wheeze, Rales, Rhonchi, Other (Respirations easy on 4LNC) Neuro: Alert and responsive, No focal deficits noted Abdomen: Soft, Non-Tender Skin: No rashes noted on visualized skin Musculoskeletal: No Chest Wall Tenderness Extremities: No Clubbing, No Cyanosis, Normal Pulses, Other (Trace edema in BLE. ) Results 04/17/16 05:26 04/17/16 05:26 Lab Results 04/17/16 04/17/16 05:26 05:26 WBC 5.9 Hgb 9.6 L Hct 30.0 L Plt Count 162 Sodium 139 Potassium 4.2 Chloride 99 Carbon Dioxide 27 BUN 82 H Creatinine 1.73 H Glucose 166 H Calcium 9.2 - EKG Interpretation EKG results cardiology: other (12 hour telemetry review shows avg HR was 80 bpm atrial fibrillation. . Minimum HR was 48 bpm at 1048am. No significant pauses.) Consult Discharge Plan - Plan Referrals: Reinaldo Valladares Jr, MD [Primary Care Provider] -
[2016-04-17] MEDS ORDERED: Furosemide 40 MG/4 ML VIAL IVP SCH (21:00)
[2016-04-18] MEDS: Acetaminophen 325 MG TABLET PO PRN (02:25)
[2016-04-18 06:35] LABS: Basophils % 0.3 %; Hematocrit 28.5 % (35.3-44.9); Hemoglobin 9.2 g/dL (11.5-15.4); Immature Granulocytes % 2.2 % (0-4); Lymphocytes # 0.9 K/mcL (0.6-4.6); Lymphocytes % 12.8 %; Mean Corpuscular HGB Conc 32.3 g/dL (31.6-35.5); Mean Corpuscular Hemoglobin 30.1 pg (28.0-33.3); Mean Corpuscular Volume 93.1 fL (83.0-100.0); Mean Platelet Volume 11.1 fL (9.4-12.4); Monocytes # 0.6 K/mcL (0.0-1.3); Monocytes % 8.8 %; Neutrophils # 5.3 K/mcL (1.6-8.9); Platelet Count 158 K/mcL (140-400); Red Blood Count 3.06 M/mcL (3.82-4.97); Red Cell Distribution Width 14.7 % (11.5-14.5); Segmented Neutrophils % 75.9 %
[2016-04-18] MEDS: *HR* Heparin 5,000 UNIT/ML VIAL SQ SCH ×3 (06:37→21:42)
[2016-04-18 06:45] LABS: Calcium 9.2 mg/dL (8.6-10.8); Potassium 3.9 mEq/L (3.5-4.5)
[2016-04-18] MEDS: hydrALAZINE 10 MG TABLET PO SCH ×3 (10:27→21:43)
[2016-04-18] MEDS: Aspirin 81 MG TAB.CHEW PO SCH (10:30)
[2016-04-18] MEDS: Metoprolol XL (24 HR) Succ 25 MG TAB.ER.24H PO SCH ×2 (10:30→21:43)
[2016-04-18] MEDS: Isosorbide MONOnitrate (24 HR) 30 MG TAB.ER.24H PO SCH (10:30)
[2016-04-18] MEDS: amLODIPine 5 MG TABLET PO SCH (10:30)
[2016-04-18] MEDS: Insulin LISPRO 300 UNITS/3 ML VIAL SQ SCH ×4 (10:30→21:42)
--- NOTE | 2016-04-18 11:10 | Palliative Progress Note ---
Date of Encounter: 04/18/16 Time of Encounter: 09:30 - Assessment and plan (1) Dyspnea Current Visit: Yes Status: Acute Assessment and plan: Continues to improve and oxygen has been weaned down. Qualifiers: Dyspnea type: shortness of breath Qualified Code(s): R06.02 - Shortness of breath (2) Counseling regarding advanced care planning and goals of care Current Visit: Yes Status: Acute Assessment and plan: When ready for discharge, will have [facility] home health. Medical power of attorney recruiter completed and pt appointed son Chaka as primary POA and daughter Yaquelin as alternate. Copies provided to pt/family/ and placed on medical record here. Code status remains DNR/DNI and state form has been signed by pt. Palliative will follow at a distance. - Time Spent With Patient Total time spent is greater than 50% in coordination of care (as documented) at patient's floor/unit and/or counseling patient: 25 - 35 minutes - Subjective Interval history: Patient awake and alert, in good spirits. C/o weakness and headache. No other complaints. No family at bedside. - Constitutional Vitals: Abnormal lab results RBC 3.06 M/mcL (3.82-4.97) L 04/18/16 05:55 Hgb 9.2 g/dL (11.5-15.4) L 04/18/16 05:55 Hct 28.5 % (35.3-44.9) L 04/18/16 05:55 RDW 14.7 % (11.5-14.5) H 04/18/16 05:55 Nucleated RBCs/100 WBC 0.3 /100 WBC (0) H 04/16/16 05:06 APTT 83.0 Seconds (26.0-36.0) H 04/15/16 17:04 Heparin Anti-Xa, Unfract 1.00 IU/mL (0.30-0.70) H* 04/13/16 03:14 ABG pO2 62 mmHg (85-104) L 04/15/16 10:30 ABG O2 Saturation 91 % (95-98) L 04/15/16 10:30 BUN 75 mg/dL (7-20) H 04/18/16 05:55 Creatinine 1.53 mg/dL (0.57-1.11) H 04/18/16 05:55 Est GFR ( Amer) 39 (> 60) L 04/18/16 05:55 Est GFR (Non-Af Amer) 32 (> 60) L 04/18/16 05:55 BUN/Creatinine Ratio 49 (6-26) H 04/18/16 05:55 Glucose 175 mg/dL (70-99) H 04/18/16 05:55 POC Glucose 327 (58-89) H 04/16/16 21:20 Calculated Osmolality 317 (280-300) H 04/18/16 05:55 Iron 39 mcg/dL (50-170) L 04/17/16 05:26 % Saturation 11 % (15-50) L 04/17/16 05:26 AST 37 Units/L (5-34) H 04/16/16 05:06 Troponin I 21.05 ng/mL (0-0.03) H* 04/13/16 06:27 B-Natriuretic Peptide 1085 pg/mL (0-100) H 04/12/16 12:56 Albumin 3.3 g/dL (3.5-5.0) L 04/16/16 05:06 Albumin/Globulin Ratio 1.0 (1.1-2.2) L 04/16/16 05:06 Urine Clarity Cloudy (Clear) A 04/12/16 13:50 Urine Protein >=300 mg/dL (Neg-Trace) H 04/12/16 13:50 Urine Blood Trace (Negative) H 04/12/16 13:50 Urine Microscopic RBC 3-5 per hpf (0-3) H 04/12/16 13:50 Ur Squamous Epith Cells Many per lpf (None-Few) H 04/12/16 13:50 General appearance: Present: no acute distress - Respiratory Additional comments: Few faint rales bilateral bases. On room air currently - Cardiovascular Cardiovascular exam: Present: irregular rhythm - GI/Abdominal GI/Abdominal exam: Present: normal bowel sounds, soft - Extremities Exam Extremities exam: Present: normal capillary refill, normal inspection - Neurological Exam Neurological exam: Present: alert, oriented X3, strengths equal and symetr throughout - Skin Skin exam: Present: dry, pallor, warm Palliative Quality Palliative Quality: Screen for Code Status: Yes, Screen for Goals of Care: Yes, Screen for Pain: Yes, If Pain Regimen Started, Initiate Bowel Regimen: NA, Screen for Nausea/Vomitting: Yes Code Status: 04/15/16 13:22 DNR [Resuscitation Status: Active] [RES] Routine Comment: Resuscitation Status: [id number] - Labs CBC & Chem 7: 04/18/16 05:55 04/18/16 05:55 Labs: Laboratory Results - last 24 hr 04/18/16 04/18/16 04/18/16 05:55 05:55 05:55 WBC 6.9 RBC 3.06 L Hgb 9.2 L Hct 28.5 L MCV 93.1 MCH 30.1 MCHC 32.3 RDW 14.7 H Plt Count 158 MPV 11.1 Immature Gran % 2.2 Seg Neutrophils % 75.9 Lymphocytes % 12.8 Monocytes % 8.8 Eosinophils % 0.0 Basophils % 0.3 Neutrophils # 5.3 Lymphocytes # 0.9 Monocytes # 0.6 Eosinophils # 0.0 Basophils # 0.0 ESR 13 Sodium 140 Potassium 3.9 Chloride 98 Carbon Dioxide 29 BUN 75 H Creatinine 1.53 H Est GFR ( Amer) 39 L Est GFR (Non-Af Amer) 32 L BUN/Creatinine Ratio 49 H Glucose 175 H Calculated Osmolality 317 H Calcium 9.2 - ABG Interpretation ABG results: ABG ABG pH 7.40 pH Units (7.32-7.45) 04/15/16 10:30 ABG pCO2 39 mmHg (35-45) 04/15/16 10:30 ABG pO2 62 mmHg (85-104) L 04/15/16 10:30 ABG O2 Saturation 91 % (95-98) L 04/15/16 10:30 PT/INR, D-dimer PT 11.4 Seconds (9.4-12.1) 04/12/16 12:54 Consult Discharge Plan - Plan Referrals: Reinaldo Valladares Jr, MD [Primary Care Provider] -
--- NOTE | 2016-04-18 12:18 | Cardiology Progress Note ---
Date of Encounter: 04/18/16 Time of Encounter: 12:16 Assessment and Plan (1) CHF (congestive heart failure) Current Visit: Yes Status: Acute EF 40-45%, acute on chronic CHF. Responded very well to IV lasix gtt and iV lasix. Net negative 3675 ml. Now on 3L oxygen. Change lasix to maintenance dose. She is being discharged today. Strict I&O and daily weights. Low sodium diet. Continue to watch BMP closely. Continue beta-ramy. No anthony or aldactone d/t renal insufficiency. CHF education has been reviewed with patient. Qualifiers: Congestive heart failure type: systolic Congestive heart failure chronicity : acute on chronic Qualified Code(s): I50.23 - Acute on chronic systolic ( congestive) heart failure (2) NSTEMI (non-ST elevated myocardial infarction) Current Visit: Yes Status: Chronic Troponin up to 21.05. Medical management recommended in the setting of acute respiratory failure and frail elderly female. Palliative care following. She is now a DNR CC DNI. Heparin gtt completed. On DVT prophylaxis. Continue aspirin, statin, beta ramy, plavix, and imdur. She denies any chest pain. TTE 04/10/16- EF 40-45%, segmental LV dysfunction. Severely dilated left atrium. There is mild mitral regurgitation. Moderate pulmonary hypertension. Discussed with Dr. Jaime, no indication to repeat echo at this time. (3) Atrial fibrillation with rapid ventricular response Current Visit: Yes Status: Acute Atrial fibrillation is now rate controlled. Known history of afib. HR avg 80 bpm over last 24 hours. Continue metoprolol. Not on long-term anticoagulation secondary to advanced age and fall risk. On asa and plavix. (4) CAD (coronary artery disease) Current Visit: Yes Status: Acute Patient has known coronary artery disease s/p CABG. Continue asa, statin, bb, and plavix. Qualifiers: Coronary Disease-Associated Artery/Lesion type: [place] artery [place] vs. transplanted heart: [place] heart Associated angina: with unstable angina Qualified Code(s): I25.110 - Atherosclerotic heart disease of [place] coronary artery with unstable angina pectoris (5) CKD (chronic kidney disease), stage III Current Visit: Yes Status: Chronic Kidney function within baseline. Improving. (6) Hypertension Current Visit: Yes Status: Chronic B/p improved. Continue hydralizine. Qualifiers: Hypertension type: essential hypertension Qualified Code(s): I10 - Essential (primary) hypertension Discussion w patient/family: The assessment and plan as outlined above was discussed with the patient and/or family members who expressed understanding and agreement. All questions were answered. Thank you for involving us in the care of your patient. Please call with any questions. Subjective Principal diagnosis: NSTEMI, acute on chronic systolic chf Interval history: Pt reports she is doing much better. Denies SOB or chest pain. Up to bedside without difficulty. On 3L NC now. Objective Vital Signs, Last 4 Hours Temp Pulse Resp BP Pulse Ox 04/18/16 11:30 97.8 F 77 16 123/66 96 General: Conversant, No Apparent Distress HEENT: Atraumatic, Normocephaly, Mucus Membranes Moist Neck: No JVD, Normal carotid pulses Cardiac: Other (irregularly irregular) Lungs: Normal Breath Sounds, No Wheeze, Rales, Rhonchi Neuro: Alert and responsive, No focal deficits noted Abdomen: Soft, Non-Tender Skin: No rashes noted on visualized skin Musculoskeletal: No Chest Wall Tenderness Extremities: No Clubbing, No Cyanosis, No Edema, Normal Pulses Results 04/18/16 05:55 04/18/16 05:55 Lab Results 04/18/16 04/18/16 05:55 05:55 WBC 6.9 Hgb 9.2 L Hct 28.5 L Plt Count 158 Sodium 140 Potassium 3.9 Chloride 98 Carbon Dioxide 29 BUN 75 H Creatinine 1.53 H Glucose 175 H Calcium 9.2 Consult Discharge Plan - Plan Instructions: Myocardial Infarction (DC), Myocardial Infarction (GEN), Heart Failure (DC), Atrial Fibrillation (DC), Diabetes Mellitus Type 2 in Adults (DC) , Chronic Hypertension (DC), Anemia (GEN) Referrals: Reinaldo Valladares Jr, MD [Primary Care Provider] -
[2016-04-18] MEDS ORDERED: predniSONE 20 MG TABLET PO SCH (15:36)
--- NOTE | 2016-04-18 15:38 | Internal Med Progress Note ---
<David Kelly - Last Filed: 04/18/16 15:36> Date of Encounter: 04/18/16 Time of Encounter: 06:40 - Assessment and plan (1) NSTEMI (non-ST elevated myocardial infarction) Current Visit: Yes Status: Acute Assessment and plan: patient was unable to have C due to being unable to lye flat. cardiology recommended medical management. She completed her heparin gtt. Continue ASA, plavix, and lipitor. appreciate cardiologies recomendations. (2) Acute exacerbation of congestive heart failure Current Visit: Yes Status: Acute Assessment and plan: EF of 40-45% She is improving clinically continue IV lasix. Will plan on tranistioning to PO. May consider ACEi and beta ramy when more clinically stable. Qualifiers: Congestive heart failure type: combined Qualified Code(s): I50.43 - Acute on chronic combined systolic (congestive) and diastolic (congestive) heart failure (3) Acute kidney injury superimposed on CKD Current Visit: Yes Status: Acute Assessment and plan: Patient has known chronic kidney disease stage III, creatinine has worsened after diuresis. Etiology is likely prerenal given worsened cardiac output and afib with RVR. Improving. Continue diuresis. Continue to monitor renal function with a.m. labs Renally dose medications and avoid nephrotoxic medications including NSAIDs. 04/18/16 improving. (4) Anemia Current Visit: Yes Status: Acute Assessment and plan: normocytic. stable. possibly anemia of CKD. hematinics pending Qualifiers: Anemia type: other cause Other causes of anemia: chronic disease, other Qualified Code(s): D63.8 - Anemia in other chronic diseases classified elsewhere (5) Atrial fibrillation with rapid ventricular response Current Visit: Yes Status: Acute Assessment and plan: Patient was found to have Atrial fibrillation with RVR with a heart rate roughly around 150, EKG 04/12/2016 demonstrated atrial fibrillation RVR with ST depressions in leads V5 and V6. Plan: - Continue metoprolol XL 25 mg by mouth twice a day - Possibly caused by ischemia. currently rate controlled. No anticoagulation do to increased fall risk per cardiology. (6) DVT prophylaxis Current Visit: Yes Status: Acute Assessment and plan: SQ heparin (7) Temporal arteritis Current Visit: Yes Status: Acute Assessment and plan: recently diagnosed per medical history. Increasing headaches with decreased doses. Will increase back to 60 mg per day. - Subjective Interval history: No major events overnight. Patient is complaining of headache this AM. She states it is in the occipital region. She denies visual disturbances or pain with cheing. she states that her breathing is easier. She has no further complaints or concerns at this time. - Constitutional Vitals: Temp Pulse Resp BP Pulse Ox 97.8 F 77 16 123/66 96 04/18/16 11:30 04/18/16 11:30 04/18/16 11:30 04/18/16 11:30 04/18/16 11:30 General appearance: Present: cooperative, A&O X 3, pleasant, no acute distress - Head Head exam: Present: atraumatic, normocephalic - Eye Eye exam: Present: PERRL, conjuntiva pink, sclera anicteric Pupils: Present: PERRL - ENT ENT exam: Present: mucous membranes moist Additional comments: no pain paith palpation of the temporal artery distribution bilaterally. No tenderness with palpation of the calvarium. - Neck Neck exam general surgery: Present: supple, trachea midline. Absent: lymphadenopathy - Respiratory Respiratory exam: Absent: accessory muscle use, rales, rhonchi, wheezes Additional comments: mild crackles at the bases but improving from prior exams. - Cardiovascular Cardiovascular exam: Present: RRR, +S1, +S2. Absent: diastolic murmur, gallop, rubs, systolic murmur - Extremities Exam Extremities exam: Present: warm, radial pulses palpable and symetrical. Absent : calf tenderness, cyanotic, pedal edema - Skin Skin exam: Present: dry, intact Internal Medicine: Result - Labs CBC & Chem 7: 04/18/16 05:55 04/18/16 05:55 Labs: Short CBC 04/18/16 Range/Units 05:55 WBC 6.9 (4.3-11.1) K/mcL Hgb 9.2 L (11.5-15.4) g/dL Hct 28.5 L (35.3-44.9) % Plt Count 158 (140-400) K/mcL Neutrophils # 5.3 (1.6-8.9) K/mcL BMP 04/18/16 05:55 Sodium 140 Potassium 3.9 Chloride 98 Carbon Dioxide 29 BUN 75 H Creatinine 1.53 H Glucose 175 H Calcium 9.2 - ABG Interpretation ABG results: ABG ABG pH 7.40 pH Units (7.32-7.45) 04/15/16 10:30 ABG pCO2 39 mmHg (35-45) 04/15/16 10:30 ABG pO2 62 mmHg (85-104) L 04/15/16 10:30 ABG O2 Saturation 91 % (95-98) L 04/15/16 10:30 PT/INR, D-dimer PT 11.4 Seconds (9.4-12.1) 04/12/16 12:54 Consult Discharge Plan - Plan Instructions: Myocardial Infarction (DC), Myocardial Infarction (GEN), Heart Failure (DC), Atrial Fibrillation (DC), Diabetes Mellitus Type 2 in Adults (DC) , Chronic Hypertension (DC), Anemia (GEN) Referrals: Reinaldo Valladares Jr, MD [Primary Care Provider] - <Cedrick Milian P - Last Filed: 04/18/16 17:38> - Constitutional Vitals: Temp Pulse Resp BP Pulse Ox 98.0 F 98 16 136/87 96 04/18/16 16:00 04/18/16 16:00 04/18/16 16:00 04/18/16 16:00 04/18/16 16:00 Internal Medicine: Result - Labs CBC & Chem 7: 04/18/16 05:55 04/18/16 05:55 Labs: Short CBC 04/18/16 Range/Units 05:55 WBC 6.9 (4.3-11.1) K/mcL Hgb 9.2 L (11.5-15.4) g/dL Hct 28.5 L (35.3-44.9) % Plt Count 158 (140-400) K/mcL Neutrophils # 5.3 (1.6-8.9) K/mcL BMP 04/18/16 05:55 Sodium 140 Potassium 3.9 Chloride 98 Carbon Dioxide 29 BUN 75 H Creatinine 1.53 H Glucose 175 H Calcium 9.2 - ABG Interpretation ABG results: ABG ABG pH 7.40 pH Units (7.32-7.45) 04/15/16 10:30 ABG pCO2 39 mmHg (35-45) 04/15/16 10:30 ABG pO2 62 mmHg (85-104) L 04/15/16 10:30 ABG O2 Saturation 91 % (95-98) L 04/15/16 10:30 PT/INR, D-dimer PT 11.4 Seconds (9.4-12.1) 04/12/16 12:54 - Attending Attestation I examined this patient and my medical decision-making was reviewed with the BLUE CRABBER/PA/Advanced Practice Nurse/Resident Physician. I agree with the documented findings, disposition and treatment plan as described except to the extent set forth below. possible home tomorrow
[2016-04-18] MEDS: Furosemide 20 MG TABLET PO SCH (16:19)
[2016-04-19 04:56] LABS: Basophils % 0.3 %; Eosinophils % 0.2 %; Hematocrit 28.4 % (35.3-44.9); Hemoglobin 9.2 g/dL (11.5-15.4); Lymphocytes # 0.7 K/mcL (0.6-4.6); Lymphocytes % 10.5 %; Mean Corpuscular HGB Conc 32.4 g/dL (31.6-35.5); Mean Corpuscular Hemoglobin 30.3 pg (28.0-33.3); Mean Corpuscular Volume 93.4 fL (83.0-100.0); Monocytes # 0.4 K/mcL (0.0-1.3); Monocytes % 6.9 %; Neutrophils # 5.1 K/mcL (1.6-8.9); Platelet Count 150 K/mcL (140-400); Red Blood Count 3.04 M/mcL (3.82-4.97); Red Cell Distribution Width 14.7 % (11.5-14.5); Segmented Neutrophils % 80.1 %
[2016-04-19 05:13] LABS: Calcium 8.7 mg/dL (8.6-10.8); Magnesium 1.8 mg/dL (1.6-2.6); Potassium 3.8 mEq/L (3.5-4.5)
[2016-04-19] MEDS: Aspirin 81 MG TAB.CHEW PO SCH (08:39)
[2016-04-19] MEDS: Metoprolol XL (24 HR) Succ 25 MG TAB.ER.24H PO SCH (08:39)
[2016-04-19] MEDS: hydrALAZINE 10 MG TABLET PO SCH ×2 (08:39→16:29)
[2016-04-19] MEDS: Furosemide 20 MG TABLET PO SCH ×2 (08:39→16:29)
[2016-04-19] MEDS: amLODIPine 5 MG TABLET PO SCH (08:39)
[2016-04-19] MEDS: Isosorbide MONOnitrate (24 HR) 30 MG TAB.ER.24H PO SCH (08:39)
[2016-04-19] MEDS: Insulin LISPRO 300 UNITS/3 ML VIAL SQ SCH ×3 (08:47→16:29)
[2016-04-19 11:36] VITALS: BP 135/77
--- NOTE | 2016-04-19 14:08 | Discharge Summary ---
Date of Encounter: 04/19/16 Time of Encounter: 14:05 - Discharge Diagnosis (1) Acute exacerbation of congestive heart failure Priority: Primary Status: Acute Qualifiers: Congestive heart failure type: combined Qualified Code(s): I50.43 - Acute on chronic combined systolic (congestive) and diastolic (congestive) heart failure (2) NSTEMI (non-ST elevated myocardial infarction) Priority: Primary Status: Acute (3) Acute kidney injury superimposed on CKD Priority: Primary Status: Acute (4) CAD (coronary artery disease) Priority: Secondary Status: Acute Qualifiers: Coronary Disease-Associated Artery/Lesion type: [place] artery [place] vs. transplanted heart: [place] heart Associated angina: with unstable angina Qualified Code(s): I25.110 - Atherosclerotic heart disease of [place] coronary artery with unstable angina pectoris (5) Anemia Priority: Secondary Status: Acute Qualifiers: Anemia type: other cause Other causes of anemia: chronic disease, other Qualified Code(s): D63.8 - Anemia in other chronic diseases classified elsewhere - Discharge Medications Home Medications: Amlodipine Besylate 10 mg PO DAILY 12/04/15 [History] Ascorbic Acid [Vitamin C] 500 mg PO DAILY 12/04/15 [History] Aspirin 81 mg PO DAILY 12/04/15 [History] Clopidogrel [Plavix] 75 mg PO DAILY 12/04/15 [History] Furosemide [Lasix] 20 mg PO DAILY 12/04/15 [History] Isosorbide MONOnitrate (24 HR) [Imdur] 30 mg PO DAILY 12/04/15 [History] L. Acidophilus/Pectin, [place] [Acidophilus Probiotic Capsule] 1 cap PO TID PRN 12/04/15 [History] Ubidecarenone [Co Q10] 100 mg PO DAILY 12/04/15 [History] Zinc Acetate [Galzin] 50 mg PO DAILY 12/04/15 [History] Nitroglycerin [Nitrostat] 0.4 mg SL AD #30 tab.subl 01/09/16 [Rx] Metformin [Glucophage] 500 mg PO BIDWM 04/10/16 [History] Metoprolol XL (24 HR) Succ [Toprol Xl] 25 mg PO BID 04/10/16 [History] Alprazolam [Xanax 1 MG Tablet] 1 mg PO BID #10 tablet 04/11/16 [Rx] Atorvastatin [Lipitor] 40 mg PO HS #30 tablet 04/11/16 [Rx] Oxycodone HCl/Acetaminophen [Percocet 5-325 mg Tablet] 1 - 2 each PO QID PRN # 20 tablet 04/11/16 [Rx] PredniSONE 60 mg PO DAILY #30 tablet 04/11/16 [Rx] Allergies/Adverse Reactions: Allergies codeine Adverse Reaction (Unknown, Verified 04/12/16 15:00) Gastrointestinal Upset Date of admission: 04/12/16 23:34 Primary care physician: Reinaldo Valladares Jr, MD Consults: 04/15/16 11:52 Consult to Palliative Care [CONS] Stat Comment: Consulting Provider: Palliative Care Patricia Discharging clinician: Cedrick Milian - Patient Status Disposition: Home, Self-Care Condition: Good - Discharge Instructions Instructions: Myocardial Infarction (DC), Myocardial Infarction (GEN), Heart Failure (DC), Atrial Fibrillation (DC), Diabetes Mellitus Type 2 in Adults (DC) , Chronic Hypertension (DC), Anemia (GEN) Follow Up With: Reinaldo Valladares Jr, MD [Primary Care Provider] - 04/23/16 1:45 pm - Diet and Activity Activity: as per physical therapy Diet: low fat, low cholesterol Interval History: Ms. 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 Mrs. Rodas presenting to the emergency department this evening with shortness of breath, diaphoresis, palpitations that started last evening. She says that her symptoms of racing heart and shortness of breath started last evening when she was taking her evening medications prior to going to bed. She was discharged from the hospital yesterday afternoon and felt really well and without concern. At home she ate dinner which she says she has had a lack of appetite so had a small meal and was doing well throughout the evening without any distress. Just prior to going to bed she took her evening medications and started feeling as if her heart was racing and beating audibly. She became short of breath but did not feel that she needs to increase her oxygen which she uses at night while sleeping. She left her oxygen at 2 L. She woke up first around 2 AM feeling diaphoretic, short of breath and with a cough. She felt nauseous but was unable to vomit. She tried to fall asleep again throughout the evening but woke up several more times. Nothing she did helped her symptoms, laying flat made her shortness of breath worse. She also complains of some chest discomfort that was continuous until her arrival at the emergency department. Her symptoms progressed throughout the morning that prompted her to seek treatment at the emergency department. When she arrived at the emergency department she was found to be in atrial fibrillation RVR with heart rate roughly around 120, she was short of breath and tachypnea and required nasal cannula oxygen. She is provided 25 mg Cardizem which slowed her rate to roughly around 100. Chest x-ray demonstrated pulmonary edema and pleural effusions bilaterally. She was given 40 mg furosemide IV push once and given 1 inch nitroglycerin topical. She had resolution of her chest discomfort. Upon my examination she continued to be to tachypnic and required 7 liters oxygen to maintain saturations around 88-90%. Her symptoms of increased HR improved after 5mg Lopressor and respiratory rate improved with duoneb treatment. Hospital course: Patient was hospitalized. She was evaluated by cardiology. She was supposed to undergo cardiac catheterization. Patient was not able to lay down flat. This will cardiac catheterization was not done. Patient was recommended to have a cardiac rehabilitation as outpatient. Echocardiogram was done. Her ejection fraction is 40-45%. Cardiology decided to manage her medically. Plan Patient can go home today. Patient to resume all her medications. Patient is to follow up with PCP in one week. Patient will be following up with cardiology in 1-2 weeks. - Time Spent with Patient Total time spent providing and/or coordinating discharge services: - Constitutional Vitals: Temp Pulse Resp BP Pulse Ox 98 F 78 15 135/77 94 L 04/19/16 11:32 04/19/16 11:32 04/19/16 11:32 04/19/16 11:32 04/19/16 11:32 General appearance: Present: cooperative, A&O X 3, pleasant, no acute distress - Head Head exam: Present: atraumatic, normocephalic - Eye Eye exam: Present: PERRL, conjuntiva pink, sclera anicteric Pupils: Present: PERRL - Neck Neck exam general surgery: Present: supple, trachea midline. Absent: lymphadenopathy - Respiratory Respiratory exam: Present: CTAB. Absent: accessory muscle use, rales, rhonchi, wheezes - Cardiovascular Cardiovascular exam: Present: RRR, +S1, +S2. Absent: diastolic murmur, gallop, rubs, systolic murmur - GI/Abdominal GI/Abdominal exam: Present: normal bowel sounds, soft, no peritoneal signs. Absent: distended, tenderness - Extremities Exam Extremities exam: Present: warm, radial pulses palpable and symetrical. Absent : calf tenderness, cyanotic, pedal edema - Neurological Exam Neurological exam: Present: CN II-XII intact, oriented X3, no focal deficits. Absent: pronater drift, facial droop, speech deficit - Skin Skin exam: Present: dry, intact
--- NOTE | 2016-04-19 14:14 | Physician Discharge Referral ---
Home Health/Hosp Referral Info Transfer to: Home Health - Diagnosis (1) Acute exacerbation of congestive heart failure Priority: Primary Status: Acute (2) NSTEMI (non-ST elevated myocardial infarction) Priority: Primary Status: Acute (3) Acute kidney injury superimposed on CKD Priority: Primary Status: Acute (4) CAD (coronary artery disease) Priority: Secondary Status: Acute (5) Anemia Priority: Secondary Status: Acute - Respiratory Orders Smoking Cessation: Smoking cessation has been advised. For more information, call the [place] Tobacco Quit Line at 0-258-OASA-NOW. - Services Needed Following services are medically necessary services: Nursing, Home Health Aide, Physical Therapy, Occupational Therapy - Transfer Medications Home Medications: Amlodipine Besylate 10 mg PO DAILY 12/04/15 [History] Ascorbic Acid [Vitamin C] 500 mg PO DAILY 12/04/15 [History] Aspirin 81 mg PO DAILY 12/04/15 [History] Clopidogrel [Plavix] 75 mg PO DAILY 12/04/15 [History] Furosemide [Lasix] 20 mg PO DAILY 12/04/15 [History] Isosorbide MONOnitrate (24 HR) [Imdur] 30 mg PO DAILY 12/04/15 [History] L. Acidophilus/Pectin, [place] [Acidophilus Probiotic Capsule] 1 cap PO TID PRN 12/04/15 [History] Ubidecarenone [Co Q10] 100 mg PO DAILY 12/04/15 [History] Zinc Acetate [Galzin] 50 mg PO DAILY 12/04/15 [History] Nitroglycerin [Nitrostat] 0.4 mg SL AD #30 tab.subl 01/09/16 [Rx] Metformin [Glucophage] 500 mg PO BIDWM 04/10/16 [History] Metoprolol XL (24 HR) Succ [Toprol Xl] 25 mg PO BID 04/10/16 [History] Alprazolam [Xanax 1 MG Tablet] 1 mg PO BID #10 tablet 04/11/16 [Rx] Atorvastatin [Lipitor] 40 mg PO HS #30 tablet 04/11/16 [Rx] Oxycodone HCl/Acetaminophen [Percocet 5-325 mg Tablet] 1 - 2 each PO QID PRN # 20 tablet 04/11/16 [Rx] PredniSONE 60 mg PO DAILY #30 tablet 04/11/16 [Rx] Allergies/Adverse Reactions: Allergies codeine Adverse Reaction (Unknown, Verified 04/12/16 15:00) Gastrointestinal Upset Certification: Further, I certify that my clinical findings support that this patient is homebound (i.e. absences from home require considerable and taxing effort and are for medical reasons or spiritism services or infrequently or short duration when for other reasons) because: Homebound Reason: Patient requires assistance of a person or device to safely leave home Attestation: My signature below is to certify that this patient is under my care and that I, or nurse practitioner, or a physician's billing and accounting staff assistant working with me, has a face-to -face encounter with this patient.
[2016-04-19] MEDS: *HR* Heparin 5,000 UNIT/ML VIAL SQ SCH (16:28)
[2016-04-20 11:30] LABS: MMA (VIT B12 STATUS) 0.41 umol/L (0.00-0.40)
== END 2016-04-19 19:00 | disposition home or self-care (01) | DRG 280 ==
LOC: 2NENU 11:30 → EMEROO 11:30 → 2NENU 17:09 → SUATTDRO 23:34
PROVIDERS: ADMIT Internal Medicine; ATTEND Internal Medicine

== ENCOUNTER 2016-05-18 00:24 | Inpatient (IN) ==
[2016-05-18] MEDS ORDERED: Ipratropium/Albuterol Neb 3 ML IH ONE (00:47)
[2016-05-18 01:03] LABS: Calcium 8.4 mg/dL (8.6-10.8); Potassium 5.2 mEq/L (3.5-4.5)
[2016-05-18 01:41] LABS: Basophils # 0.1 K/mcL (0.0-0.2); Basophils % 0.8 %; Eosinophils # 0.1 K/mcL (0.0-0.6); Eosinophils % 0.8 %; Hematocrit 28.8 % (35.3-44.9); Hemoglobin 8.9 g/dL (11.5-15.4); Immature Granulocytes % 1.1 % (0-4); Lymphocytes # 0.9 K/mcL (0.6-4.6); Lymphocytes % 14.3 %; Mean Corpuscular HGB Conc 30.9 g/dL (31.6-35.5); Mean Corpuscular Hemoglobin 30.1 pg (28.0-33.3); Mean Corpuscular Volume 97.3 fL (83.0-100.0); Mean Platelet Volume 10.6 fL (9.4-12.4); Monocytes # 0.4 K/mcL (0.0-1.3); Monocytes % 6.9 %; Neutrophils # 4.8 K/mcL (1.6-8.9); Platelet Count 174 K/mcL (140-400); Red Blood Count 2.96 M/mcL (3.82-4.97); Red Cell Distribution Width 18.1 % (11.5-14.5); Segmented Neutrophils % 76.1 %
[2016-05-18] MEDS ORDERED: Furosemide 20 MG/2 ML VIAL IVP ONE ×3 (02:24→13:15)
--- NOTE | 2016-05-18 02:36 | Emergency Department Note ---
Disposition Clinical Impression: Acute decompensated heart failure, Pulmonary edema, Dyspnea Disposition: Admitted As Inpatient Condition: Fair Referrals: Reinaldo Valladares Jr, MD [Primary Care Provider] - Forms: ED Satisfaction Letter SOB HPI - General Chief Complaint: ED Shortness of Breath/Dyspnea Stated Complaint: CHERYL Time Seen by Provider: 05/18/16 00:45 Source: EMS Limitations: no limitations Nursing Notes Reviewed: Yes Vital Signs Reviewed: Yes - History of Present Illness 86-year-old female with a history of CAD status post bypass in 1995, know heart failure, hypertension, & type 2 diabetes presents emergency Department with abrupt shortness of breath. It started while she was sleeping today. She reports a recent admission for similar symptoms. She takes metformin, Plavix, metoprolol, Lasix and has been taking these as prescribed. She reports orthopnea. She reports some lower extremity swelling with the left leg being larger than the right but she states that is chronic and has had ultrasounds in the past. Denies history of DVT. She reports her lower extremity is been more red than normal. Denies any associated chest pain. Denies any nausea or vomiting. No fevers or chills. - Related Data Home Medications Medication Instructions Recorded Confirmed Unable To Obtain [Unable to Obtain] 05/18/16 05/18/16 Allergies Allergy/AdvReac Type Severity Reaction Status Date / Time codeine AdvReac Unknown Gastrointestinal Verified 05/18/16 00:26 Upset All systems ED: reviewed and negative except as stated. Constitutional: Denies: fever Cardiovascular: Reports: dyspnea on exertion, orthopnea. Denies: chest pain, syncope Respiratory: Reports: cough, dyspnea Gastrointestinal: Denies: abdominal pain, nausea, vomiting Musculoskeletal: Denies: back pain, neck pain Neurological: Denies: headache, weakness, numbness Past Medical History - Past Medical History Medical history: Reports: arthritis, atrial fibrillation, CHF, coronary artery disease, diabetes, GERD, hyperlipidemia, hypertension, kidney stones, migraine, myocardial infarction, osteoporosis, peripheral artery disease, renal disease, SVT, valvular heart disease, other Surgical history: Reports: appendectomy, cholecystectomy, coronary bypass (CABG) , hysterectomy, orthopedic, other (Right shoulder surgery. Lumbar laminectomy.) , sinus surgery (Tonsillectomy adenoidectomy.), DARYL/BSO, ureteral stent (Renal stone removal.), other, vascular surgery (History of femoropopliteal bypass.) Psychiatric history: Reports: anxiety, other - Social History Smoking Status: Former smoker Smokeless Tobacco Status: No Alcohol use: Reports: none Drug use: Reports: none Physical Exam General: She is resting comfortably in bed, mild respiratory distress, talking in full sentences and appropriate Cardiovascular: Irregular rhythm but controlled rate. S1, S2. No murmurs, rubs or gallops. Respiratory: Bilateral Rales. Respiratory rate around 25. Occasional dry coughing. Talking in full sentences. Abdomen: Soft, nontender. No guarding, rebound or rigidity. Eyes: Conjunctiva clear HENT: No oral mucosal lesions. Moist mucous membranes Neuro: Cranial nerves intact. No motor or sensory deficit. Musculoskeletal: Bilateral lower extremity swelling without edema. Left calf is larger than the right but patient states this is chronic. She has erythema from the mid angulo down to the foot bilaterally. It does not feel warm. Skin: Lower extremity erythema. She has a sacral decub in the sacral area but smaller than a dime as well as another ulcer on the medial right gluteus approximately 2 cm. No surrounding erythema. Rectal: She has a very small rectal prolapse that was easily reduced with gentle pressure no pain in this area. Psych: Appropriate - General Limitations: no limitations General appearance: alert Course Course Narrative: Presents to the emergency department with dyspnea that began tonight. She has a known history of CAD, CHF and atrial fibrillation. On exam she had some bilateral Rales with lower extremity swelling. Her left leg seems larger than the right the patient states that is chronic and has had ultrasounds before. She does have a bit of redness, its symmetric but I do not think this represents cellulitis. EKG showed A. fib without any acute ischemic changes. She was having some respiratory distress but not significant. Chest x-ray shows bilateral pulmonary edema with small pleural effusions. Her troponin is elevated at 0.05 but she has renal insufficiency making it hard to interpret. I do not suspect ACS due to the fact she is having no chest pain and appears very comfortable. She has had elevated troponins in the past. Her BNP is 3800 which is higher than it ever been. I suspect acute decompensated heart failure. She had an echocardiogram in December 2015 showing EF of 40-45%. We gave her some Lasix in the emergency department through her IV. After reviewing her record she is on metformin, Plavix, metoprolol and 20 mg of Lasix daily. She may need her medications adjusted. I spoke with the family and the patient and they are comfortable with admission to the hospital. I spoke with the on-call hospitalist, Dr. Vega who access for admission with no further orders. Vital Signs Temperature 98.1 F 05/18/16 00:27 Pulse Rate 98 05/18/16 00:27 Respiratory Rate 22 05/18/16 00:27 Blood Pressure 132/75 05/18/16 00:27 O2 Sat by Pulse Oximetry 90 L 05/18/16 00:27 Temperature 98.1 F 05/18/16 00:27 Pulse Rate 89 05/18/16 03:07 Respiratory Rate 18 05/18/16 03:07 Blood Pressure 137/79 05/18/16 03:07 O2 Sat by Pulse Oximetry 91 L 05/18/16 03:07 Oxygen Delivery Oxygen Delivery Nasal Cannula Shortness of Breath/Dyspnea - Lab Data Result diagrams: 05/18/16 01:35 05/18/16 00:30 Lab Results 05/18/16 05/18/16 05/18/16 Range/Units 00:30 00:30 00:30 WBC (4.3-11.1) K/mcL RBC (3.82-4.97) M/mcL Hgb (11.5-15.4) g/dL Hct (35.3-44.9) % MCV (83.0-100.0) fL MCH (28.0-33.3) pg MCHC (31.6-35.5) g/dL RDW (11.5-14.5) % Plt Count (140-400) K/mcL MPV (9.4-12.4) fL Immature Gran % (0-4) % Seg Neutrophils % % Lymphocytes % % Monocytes % % Eosinophils % % Basophils % % Neutrophils # (1.6-8.9) K/mcL Lymphocytes # (0.6-4.6) K/mcL Monocytes # (0.0-1.3) K/mcL Eosinophils # (0.0-0.6) K/mcL Basophils # (0.0-0.2) K/mcL Sodium 138 (136-145) mEq/L Potassium 5.2 H (3.5-4.5) mEq/L Chloride 103 (98-109) mEq/L Carbon Dioxide 25 (19-29) mEq/L BUN 46 H (7-20) mg/dL Creatinine 1.66 H (0.57-1.11) mg/dL Est GFR ( Amer) 36 L (> 60) Est GFR (Non-Af Amer) 29 L (> 60) BUN/Creatinine Ratio 28 H (6-26) Glucose 337 H (70-99) mg/dL Calculated Osmolality 311 H (280-300) Calcium 8.4 L (8.6-10.8) mg/dL Troponin I 0.05 H* (0-0.03) ng/mL B-Natriuretic Peptide 3803 H (0-100) pg/mL Specimen Rejected 05/18/16 05/18/16 Range/Units 00:30 01:35 WBC 6.2 (4.3-11.1) K/mcL RBC 2.96 L (3.82-4.97) M/mcL Hgb 8.9 L (11.5-15.4) g/dL Hct 28.8 L (35.3-44.9) % MCV 97.3 D (83.0-100.0) fL MCH 30.1 (28.0-33.3) pg MCHC 30.9 L (31.6-35.5) g/dL RDW 18.1 H (11.5-14.5) % Plt Count 174 (140-400) K/mcL MPV 10.6 (9.4-12.4) fL Immature Gran % 1.1 (0-4) % Seg Neutrophils % 76.1 % Lymphocytes % 14.3 % Monocytes % 6.9 % Eosinophils % 0.8 % Basophils % 0.8 % Neutrophils # 4.8 (1.6-8.9) K/mcL Lymphocytes # 0.9 (0.6-4.6) K/mcL Monocytes # 0.4 (0.0-1.3) K/mcL Eosinophils # 0.1 (0.0-0.6) K/mcL Basophils # 0.1 (0.0-0.2) K/mcL Sodium (136-145) mEq/L Potassium (3.5-4.5) mEq/L Chloride (98-109) mEq/L Carbon Dioxide (19-29) mEq/L BUN (7-20) mg/dL Creatinine (0.57-1.11) mg/dL Est GFR ( Amer) (> 60) Est GFR (Non-Af Amer) (> 60) BUN/Creatinine Ratio (6-26) Glucose (70-99) mg/dL Calculated Osmolality (280-300) Calcium (8.6-10.8) mg/dL Troponin I (0-0.03) ng/mL B-Natriuretic Peptide (0-100) pg/mL Specimen Rejected MCV Delta - EKG Data EKG results narrative: EKG shows atrial fibrillation with a rate of [address] elevation or depression. T-wave flattening in inferior leads. Left axis deviation, poor R-wave progression. Previous EKG and 12/16/2014 shows atrial fibrillation with similar wave morphology. Attestation Statement - Attestation Attestation: IJose MD, personally performed a history and physical exam of the patient and discussed their management with the resident. I reviewed the resident's note and agree with the documented findings, medical decision making , and plan of care. 86-year-old female presents to the emergency department by ambulance from home with a complaint of shortness of breath which started earlier this evening. No cough or fever. No chest pain. On examination patient is a well-developed well-nourished elderly female in no acute distress. She is alert and oriented 3. There is no cyanosis or diaphoresis. Breath sounds are decreased bilaterally with some bibasilar rales. Heart is irregularly irregular. Abdomen is soft and nontender with normal bowel sounds. Patient has a small 1 cm full-thickness decubitus sacral region and a 1 x 2 cm partial thickness decubitus to the lower right medial buttock. She has a mild partial rectal prolapse which was reduced easily. EKG shows atrial fibrillation with no acute changes and no significant change from prior EKG. Chest x-ray shows cardiomegaly with pulmonary edema and small bilateral pleural effusions. Labs reviewed. Abnormalities all appear at baseline for this patient and a significant increase in her BNP. The hospitalist, Dr. Vega, was consulted and accepted admission of the patient.
[2016-05-18] MEDS ORDERED: Naloxone 0.4 MG/ML INJ IVP PRN (03:39)
[2016-05-18] MEDS ORDERED: Ondansetron 4 MG/2 ML VIAL IVP PRN (03:39)
[2016-05-18] MEDS ORDERED: Pantoprazole 40 MG VIAL IVP STA (03:39)
[2016-05-18] MEDS ORDERED: metOLazone 2.5 MG TABLET PO STA (03:39)
[2016-05-18] MEDS ORDERED: Acetaminophen 325 MG TABLET PO PRN (03:39)
[2016-05-18] MEDS ORDERED: *HR* Morphine 2 MG/ML SYRINGE IVP PRN (03:39)
[2016-05-18] MEDS ORDERED: *HR* OxyCODONE Immed Rel 5 MG TABLET PO PRN (03:39)
[2016-05-18] MEDS ORDERED: Bumetanide 1 MG/4 ML VIAL IVP ONE (03:39)
--- NOTE | 2016-05-18 03:55 | Internal Med History&Physical ---
Date of Encounter: 05/18/16 Time of Encounter: 03:30 Assessment and Plan (1) Acute chest wall pain Current visit: Yes Status: Acute . (2) Chest pain, rule out acute myocardial infarction Current visit: Yes Status: Acute . (3) Chest pain with moderate risk of acute coronary syndrome Current visit: Yes Status: Acute . (4) Demand ischemia of myocardium Current visit: Yes Status: Acute . (5) Elevated troponin I measurement Current visit: Yes Status: Acute . (6) Non-ST elevation myocardial infarction (NSTEMI) due to mismatch of myocardial oxygen supply and demand Current visit: Yes Status: Acute . (7) Acute decompensated heart failure Current visit: Yes Status: Acute . (8) A-fib Current visit: Yes Status: Chronic . Qualifiers: Atrial fibrillation type: paroxysmal Qualified Code(s): I48.0 - Paroxysmal atrial fibrillation (9) Acute kidney injury superimposed on CKD Current visit: Yes Status: Acute . (10) Acute on chronic respiratory failure with hypoxemia Current visit: Yes Status: Acute . (11) CAD (coronary artery disease) Current visit: Yes Status: Chronic . Qualifiers: Coronary Disease-Associated Artery/Lesion type: [place] artery [place] vs. transplanted heart: [place] heart Associated angina: angina presence unspecified Qualified Code(s): I25.10 - Atherosclerotic heart disease of [place] coronary artery without angina pectoris (12) CKD (chronic kidney disease) stage 3, GFR 30-59 ml/min Current visit: Yes Status: Chronic . (13) COPD (chronic obstructive pulmonary disease) Current visit: Yes Status: Chronic . 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 Qualifiers: Hyperlipidemia type: mixed hyperlipidemia Qualified Code(s): E78.2 - Mixed hyperlipidemia (16) Hx of CABG Current visit: Yes Status: Chronic . (17) Hypertension Current visit: Yes Status: Chronic Qualifiers: Hypertension type: essential hypertension Qualified Code(s): I10 - Essential (primary) hypertension (18) Normocytic anemia Current visit: Yes Status: Chronic . (19) PAD (peripheral artery disease) Current visit: Yes Status: Chronic . (20) Paroxysmal atrial fibrillation Current visit: Yes Status: Chronic . (21) Restless leg syndrome Current visit: Yes Status: Chronic . (22) Valvular heart disease Current visit: Yes Status: Chronic . (23) Frailty Current visit: Yes Status: Acute . (24) Cellulitis of both lower extremities Current visit: Yes Status: Acute . Internal Medicine - H&P: HPI Chief complaint: Difficulty breathing Admitted From: Emergency Dept Plans for Post Hospital Care: Home History of present illness: Ms. Rodas is a 86 year old female with medical history significant for CAD/ [id number]/AMI, combined syst/diast CHF`[id number]%, PAF (no A/C due to high fall risk), valvular heart disease/moderate MR+TR/Pulm HTN, type II DM, hypertension , dyslipidemia, osteoarthritis, osteoporosis, PAD/LE fem-pop bypass, CKD III, nephrolithiasis, anemia of chronic disease, anxiety disorder, H/O treated TA/PMR , former smoker The patient was visited and interviewed and examined. The patient is admitted to [facility] via the emergency department when she presents via EMS services from home with complaints of difficulty in breathing. Labs present symptoms as abrupt in onset. While she was sleeping. Awakened promptly from sleep. Bowel is feeling of orthopnea with increased air hunger and attempts to lie flat. Reports increasing dyspnea with activity. some lower extremity edema with the left leg being larger than the right which is a chronic finding. Extremities however have been better than usual. Denies any prior history of DVT or PE. Denies any associated chest pain, abdominal pain headache neck pain and flank pain or arm pain. Denies any nausea vomiting diarrhea constipation. Denies fevers chills sweats. Denies any feelings of presyncope or syncope or postural dizziness. Denies any unilateral weakness slurring of speech vision deficit acute change in status. She is a former smoker. The patient possesses some multiple cardiovascular risk factors. Stated that she had been compliant with her prescribed medications without indiscretions. Findings in the ED: Temperature 98.1 pulse 89-98 respiration 18-22 BP 132-137/75 -79. O2 saturation 90-91% @2liters per nasal cannula. WBC 6.2 hemoglobin 8.9 hematocrit 28.8. RDW 18.1. Platelets 174,000. Differential normal. Chest x- ray cardiomegaly with pulmonary edema. Small bilateral pleural effusions. Median sternotomy wires noted. Diffuse interstitial prominence. Increased opacities right lung base with mild elevation of right hemidiaphragm suggests atelectasis. No evidence of pneumothorax. Metabolic panel potassium 5.2. BUN 46 and creatinine 1.66. GFR 29. Glucose 337 osmolality 311. Calcium 8.4. Troponin 0.05 BNP 3803. 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 Demand ischemia with troponin elevation is apparent. Chemistry is also demonstrate acute on chronic renal failure with modest metabolic and electrolyte derangements. Chest x-ray confirms a cardiomegaly with pulmonary edema and pleural effusions. The patient presents increased risk for further acute clinical decline and morbidity given her advanced age, clinical findings, presenting chief complaint and comorbidities. Workup and treatment progress comprehensively. Cumulative laboratory and radiographic data base was reviewed, considered and discussed. Pertinent ancillary medical records including ECW and PCI documentation was reviewed and considered. Given the patient's presenting concerns, past medical history, clinical findings and symptoms, she is admitted at this time will undergo further evaluation and disposition. Orders were written as per the computerized physician food and beverage order clerk system.......................................................................... .................... Consultative opinions will be sought as clinical circumstances justify. Pain management needs will be addressed. Laboratory and radiographic data base will be updated as appropriate. Studies include: Cultures of blood urine sputum, CPK, hepatic fxn, cardiac injury panel , BNP, PT/INR, APTT, Ddimer, metabolic and hematologic panel, magnesium, phosphorus, ionized calcium, thyroid panel, lipid profile, A1c, C-peptide, CRP, sedimentation rate, blood gas, UA, lactic acid, serologies, etc. Precautions: Aspiration, fall, delirium protocol/surveillance initiated. Telemetry with continuous hemodynamic monitoring and pulse oximetry initiated. Orthostatic vital signs. Empiric antibiotic coverage: Intravenous vancomycin and Zosyn pending diagnostics/culture data. Special studies: CT chest, chest x-ray, telemetry, EKG, echocardiogram,US retroperitoneum/bladder scan/postvoid. Pulmonary toilet: Incentive spirometry, aerosol bronchodilator, mucolytic, antitussive, supplemental oxygen. Corticosteroid therapy. CPAP/BiPAP supplemental oxygen delivery employed. Aerosol Mucomyst therapy may be employed. Fluid and electrolyte repletion efforts will proceed. Careful attention to fluid balance and renal recovery will be emphasized. Avoidance of nephrotoxic exposure and adverse drug drug interaction in the setting of impaired renal function will be monitored closely. Acute coronary syndrome protocol/surveillance initiated. Includes: Aspirin, statin, beta ramy, nitrates, Plavix. SHAD inhibitor was held due to acute kidney injury. (Will reinstate SHAD inhibitor vs ARB as renal function permits). SQ therapeutic Lovenox. MorphinePRN. Supplemental oxygen. Acute heart failure protocol/surveillance initiated. Includes: 1500 mL total fluid restriction per 24 hours. Strict input and output measurements and daily weights. No added salt dietary restraint. Acute kidney injury protocol/surveillance initiated. Includes: Correction of metabolic and acid-base deficits to be emphasized. Avoidance of nephrotoxic exposures. Trial of Isordil plus hydralazine to preload and afterload reduction. Judicious diuresis. DVT and PUD prophylaxis initiated: PPI therapy, intermittent pneumatic cuffs/ TEDs. Subcutaneous heparin. Early ambulation will be encouraged. Immunization updates recommended. Influenza and pneumococcal vaccinations as part of ongoing preventative healthcare recommendations strongly recommended. Smoking cessation counseling briefly addressed. Patient is a former smoker. Advanced care directive discussion briefly addressed. Patient does not declare any healthcare restrictions at this time. Cardiovascular risk appraisal and cardiovascular risk reduction efforts will be emphasized. Physical /occupational therapy may be consulted to evaluate patient's functional capacity and progress mobility if her circumstances justify. Sliding scale insulin coverage, ADA/RAYSHAWN dietary restraint and schedule an as- needed basis fingerstick glucose assessments were initiated. Nutrition/ diabetes education counseling may be considered as circumstances justify. Outpatient medication schedules will be reviewed, confirmed and facilitated as appropriate. Reconciliation of home treatments including adjustments, substitutions and reintroduction into the treatment regimen will address necessary maintenance therapies for chronic pre-existing medical conditions. Plan of care has been reviewed and discussed in detail with the patient. Questions addressed. Hospital course dictated by clinical findings, treatment response and potential consultative interventions. Patient is at risk for further acute clinical decline and morbidity due to her advanced age, presenting chief complaints, findings and comorbidities. Condition is serious. Prognosis is guarded. CODE STATUS is DO NOT RESUSCITATE, Comfort Care Arrest/ DNI. Past Med Surg Social Fam HX - Past Medical History Source: old records reviewed Medical history: arthritis, atrial fibrillation, cardiomyopathy, CHF (Combined systolic and diastolic heart failure), COPD, coronary artery disease, diabetes, GERD, hyperlipidemia, hypertension, kidney stones, migraine, myocardial infarction, osteoporosis, peripheral artery disease, renal disease, SVT, valvular heart disease, other Psychiatric history: anxiety, other - Past Surgical History Surgical History: appendectomy, cholecystectomy, coronary bypass (CABG), hysterectomy, orthopedic, other (Right shoulder surgery. Lumbar laminectomy.), sinus surgery (Tonsillectomy adenoidectomy.), DARYL/BSO, ureteral stent (Renal stone removal.), other, vascular surgery (History of femoropopliteal bypass.), LE bypass, LE vascular intervention - Social History Smoking Status: Former smoker Smokeless Tobacco Status: No Alcohol use: none Drug use: none Occupational status: retired Current living situation: With Family Activity Level: Uses cane/walker, Mostly sedentary Recent Out of Country Travel Within the Last 8 Weeks: No Exposure or Possible Exposure to Illness During Travel: No - Family History Mother Hx Family Cardiac Disorders: Yes Father Living Status: Hx Family Cardiac Disorders: No Hx Family Respiratory Disorders: No Hx Family Cancer: No Hx Family GI Disorders: No Hx Family Endocrine Disorder: Yes Internal Medicine - H&P: Meds Unable To Obtain [Unable to Obtain] 05/18/16 [History] Allergies codeine Adverse Reaction (Unknown, Verified 05/18/16 00:26) Gastrointestinal Upset All Systems PM: A 10-system review of systems was performed and is negative for pertinent findings except as documented above in the HPI. - Constitutional Constitutional: as per HPI, malaise, no chills, no fever(s), no night sweats - EENT Eyes: as per HPI, no change in vision, no discharge, no pain, no photophobia Ears: as per HPI, no ear discharge, no ear pain, no tinnitus Nose, mouth and throat: as per HPI, no dysphagia, no nasal discharge, no neck pain, no sore throat - Cardiovascular Cardiovascular ROS IM: as per HPI, dyspnea, dyspnea on exertion, edema, orthopnea, no chest pain, no diaphoresis, no lightheadedness, no palpitations, no syncope - Respiratory Respiratory: as per HPI, dyspnea, dyspnea on exertion, no cough, no wheezing, no excessive phlegm production - Gastrointestinal Gastrointestinal: as per HPI, no abdominal pain, no diarrhea, no hematemesis, no hematochezia, no melena, no nausea, no vomiting - Genitourinary Genitourinary: as per HPI, no change in urinary stream, no dysuria, no flank pain, no hematuria - Musculoskeletal Musculoskeletal ROS IM: as per HPI, no numbness, no tingling - Integumentary Integumentary IM: as per HPI, erythema, rash, other, no unusual bruising - Neurological Neurological ROS: as per HPI, no confusion, no convulsions, no focal weakness, no numbness, no tingling, no tremor(s) - Psychiatric Psychiatric: as per HPI - Endocrine Endocrine IM: as per HPI - Hematologic/Lymphatic Hematologic/Lymphatic: as per HPI, no easy bruising - Allergic/Immunologic Allergic/Immunologic: as per HPI - Constitutional Vitals: Temp Pulse Resp BP Pulse Ox 98.1 F 89 20 142/77 91 L 05/18/16 00:27 05/18/16 03:07 05/18/16 03:32 05/18/16 03:32 05/18/16 03:07 General appearance: Present: cooperative, mild distress, A&O X 3, answers questions appropriately - Head Head exam: Present: atraumatic, normocephalic - Eye Eye exam: Present: EOMI, PERRL, conjuntiva pink, sclera anicteric Pupils: Present: normal accommodation, PERRL - ENT ENT exam: Present: mucous membranes moist, normal oropharynx - Neck Neck exam general surgery: Present: full ROM, supple, trachea midline. Absent: lymphadenopathy - Respiratory Respiratory exam: Present: chest wall tenderness, decreased breath sounds, rales , respiratory distress, rhonchi, wheezes. Absent: accessory muscle use, stridor , tachypnea - Cardiovascular Cardiovascular exam: Present: distant heart sounds, irregular rhythm, +S1, +S2. Absent: diastolic murmur, gallop, rubs, systolic murmur - GI/Abdominal GI/Abdominal exam: Present: normal bowel sounds, soft, no peritoneal signs. Absent: distended, tenderness - Extremities Exam Extremities exam: Present: full ROM, pedal edema, warm, radial pulses palpable and symetrical. Absent: calf tenderness, cyanotic - Neurological Exam Neurological exam: Present: alert, CN II-XII intact, oriented X3, no focal deficits. Absent: pronater drift, facial droop, speech deficit - Psychiatric Psychiatric exam: Present: normal affect, normal mood - Skin Skin exam: Present: dry, erythema, excoriation, intact, rash, warm - Expanded Skin Exam Distribution of rash: Present: RLE, LLE Description of rash: Present: confluent, crusting, erythematous, macular, swelling Internal Med - H&P Results - Labs CBC & Chem 7: 05/18/16 01:35 05/18/16 00:30 Labs: Vital Signs Temp Pulse Resp BP Pulse Ox 05/18/16 04:00 97.6 F 88 18 124/71 94 L 05/18/16 03:32 20 142/77 05/18/16 03:07 89 18 137/79 91 L 05/18/16 01:23 87 20 139/91 99 05/18/16 00:27 98.1 F 98 22 132/75 90 L Intake and Output 05/17/16 05/17/16 05/18/16 15:59 23:59 07:59 Intake Total 0 / 0 Output Total 750 / 750 Balance -750 / -750 Intake: Oral 0 / 0 Output: Catheter 750 / 750 Other: Weight 67.132 kg Patient Weight 05/18/16 23:59 Weight 67.132 kg - Impressions Vital Signs Temp Pulse Resp BP Pulse Ox 05/18/16 03:32 20 142/77 05/18/16 03:07 89 18 137/79 91 L 05/18/16 01:23 87 20 139/91 99 05/18/16 00:27 98.1 F 98 22 132/75 90 L Intake and Output 05/17/16 05/17/16 05/18/16 15:59 23:59 07:59 Other: Weight 67.132 kg Patient Weight 05/18/16 23:59 Weight 67.132 kg Short CBC 05/18/16 Range/Units 01:35 WBC 6.2 (4.3-11.1) K/mcL Hgb 8.9 L (11.5-15.4) g/dL Hct 28.8 L (35.3-44.9) % Plt Count 174 (140-400) K/mcL Neutrophils # 4.8 (1.6-8.9) K/mcL BMP 05/18/16 Range/Units 00:30 Sodium 138 (136-145) mEq/L Potassium 5.2 H (3.5-4.5) mEq/L Chloride 103 (98-109) mEq/L Carbon Dioxide 25 (19-29) mEq/L BUN 46 H (7-20) mg/dL Creatinine 1.66 H (0.57-1.11) mg/dL Glucose 337 H (70-99) mg/dL Calcium 8.4 L (8.6-10.8) mg/dL Cardiac Enzymes 05/18/16 Range/Units 00:30 Troponin I 0.05 H* (0-0.03) ng/mL Abnormal lab results RBC 2.96 M/mcL (3.82-4.97) L 05/18/16 01:35 Hgb 8.9 g/dL (11.5-15.4) L 05/18/16 01:35 Hct 28.8 % (35.3-44.9) L 05/18/16 01:35 MCHC 30.9 g/dL (31.6-35.5) L 05/18/16 01:35 RDW 18.1 % (11.5-14.5) H 05/18/16 01:35 Potassium 5.2 mEq/L (3.5-4.5) H 05/18/16 00:30 BUN 46 mg/dL (7-20) H 05/18/16 00:30 Creatinine 1.66 mg/dL (0.57-1.11) H 05/18/16 00:30 Est GFR ( Amer) 36 (> 60) L 05/18/16 00:30 Est GFR (Non-Af Amer) 29 (> 60) L 05/18/16 00:30 BUN/Creatinine Ratio 28 (6-26) H 05/18/16 00:30 Glucose 337 mg/dL (70-99) H 05/18/16 00:30 Calculated Osmolality 311 (280-300) H 05/18/16 00:30 Calcium 8.4 mg/dL (8.6-10.8) L 05/18/16 00:30 Troponin I 0.05 ng/mL (0-0.03) H* 05/18/16 00:30 B-Natriuretic Peptide 3803 pg/mL (0-100) H 05/18/16 00:30 Allergies Allergy/AdvReac Type Severity Reaction Status Date / Time codeine AdvReac Unknown Gastrointestinal Verified 05/18/16 00:26 Upset Laboratory Results WBC 6.2 K/mcL (4.3-11.1) 05/18/16 01:35 RBC 2.96 M/mcL (3.82-4.97) L 05/18/16 01:35 Hgb 8.9 g/dL (11.5-15.4) L 05/18/16 01:35 Hct 28.8 % (35.3-44.9) L 05/18/16 01:35 MCV 97.3 fL (83.0-100.0) D 05/18/16 01:35 MCH 30.1 pg (28.0-33.3) 05/18/16 01:35 MCHC 30.9 g/dL (31.6-35.5) L 05/18/16 01:35 RDW 18.1 % (11.5-14.5) H 05/18/16 01:35 Plt Count 174 K/mcL (140-400) 05/18/16 01:35 MPV 10.6 fL (9.4-12.4) 05/18/16 01:35 Immature Gran % 1.1 % (0-4) 05/18/16 01:35 Seg Neutrophils % 76.1 % 05/18/16 01:35 Lymphocytes % 14.3 % 05/18/16 01:35 Monocytes % 6.9 % 05/18/16 01:35 Eosinophils % 0.8 % 05/18/16 01:35 Basophils % 0.8 % 05/18/16 01:35 Neutrophils # 4.8 K/mcL (1.6-8.9) 05/18/16 01:35 Lymphocytes # 0.9 K/mcL (0.6-4.6) 05/18/16 01:35 Monocytes # 0.4 K/mcL (0.0-1.3) 05/18/16 01:35 Eosinophils # 0.1 K/mcL (0.0-0.6) 05/18/16 01:35 Basophils # 0.1 K/mcL (0.0-0.2) 05/18/16 01:35 Sodium 138 mEq/L (136-145) 05/18/16 00:30 Potassium 5.2 mEq/L (3.5-4.5) H 05/18/16 00:30 Chloride 103 mEq/L (98-109) 05/18/16 00:30 Carbon Dioxide 25 mEq/L (19-29) 05/18/16 00:30 BUN 46 mg/dL (7-20) H 05/18/16 00:30 Creatinine 1.66 mg/dL (0.57-1.11) H 05/18/16 00:30 Est GFR ( Amer) 36 (> 60) L 05/18/16 00:30 Est GFR (Non-Af Amer) 29 (> 60) L 05/18/16 00:30 BUN/Creatinine Ratio 28 (6-26) H 05/18/16 00:30 Glucose 337 mg/dL (70-99) H 05/18/16 00:30 Calculated Osmolality 311 (280-300) H 05/18/16 00:30 Calcium 8.4 mg/dL (8.6-10.8) L 05/18/16 00:30 Troponin I 0.05 ng/mL (0-0.03) H* 05/18/16 00:30 B-Natriuretic Peptide 3803 pg/mL (0-100) H 05/18/16 00:30 Specimen Rejected MCV Delta 05/18/16 00:30 Impressions Chest X-Ray 05/18/16 00:47 IMPRESSION: Cardiomegaly with pulmonary edema and small bilateral pleural effusions. D/ / Angeles Santamaria MD / Angeles Santamaria MD Interpreting Provider: Angeles Santamaria MD
[2016-05-18] MEDS ORDERED: *HR* Enoxaparin 80 MG/0.8 ML SYRINGE SQ SCH (05:15)
[2016-05-18 05:36] LABS: INR 1.1; Prothrombin Time 12.2 Seconds (9.4-12.1)
[2016-05-18 05:39] LABS: Activated Partial Thrombo Time 25.6 Seconds (26.0-36.0)
[2016-05-18 05:44] LABS: Albumin 2.4 g/dL (3.5-5.0); Albumin/Globulin Ratio 0.7 (1.1-2.2); Bilirubin,Direct 0.7 mg/dL (0.0-0.5); Bilirubin,Indirect 0.7 mg/dL (0.0-1.2); Bilirubin,Total 1.4 mg/dL (0.2-1.2); Chol/HDL Ratio 4.3 (0-4.9); Globulin 3.6 g/dL (2.4-3.5); Phosphorous 4.1 mg/dL (2.3-4.7)
[2016-05-18] MEDS ORDERED: Bumetanide 1 MG/4 ML VIAL IVP SCH ×2 (06:00→09:00)
[2016-05-18 06:04] LABS: Thyroid Stimulating Hormone 1.295 mcIU/mL (0.350-4.840)
[2016-05-18] MEDS ORDERED: Albuterol 2.5 MG/3 ML NEBULIZER IH PRN (06:09)
[2016-05-18] MEDS ORDERED: Vancomycin 1,000 MG in D5% in Water 250 ML IVPB ONE (07:00)
[2016-05-18] MEDS ORDERED: Vancomycin 1 EACH in D5% in Water 250 ML IVPB SCH (07:00)
[2016-05-18] MEDS: Piperacillin/Tazobactam 3.375 GM in D5% in Water (Mini-Bag+) 100 ML IVPB SCH ×2 (07:39→18:17)
[2016-05-18] MEDS: hydrALAZINE 10 MG TABLET PO SCH ×3 (07:40→16:36)
[2016-05-18] MEDS: Aspirin Enteric Coated 81 MG Tablet PO SCH (07:40)
[2016-05-18] MEDS ORDERED: Piperacillin/Tazobactam 2.25 GM in D5% in Water (Mini-Bag+) 100 ML IVPB SCH (08:00)
[2016-05-18] MEDS: Ipratropium/Albuterol Neb 3 ML IH SCH ×4 (08:20→22:58)
--- NOTE | 2016-05-18 10:09 | Internal Med Progress Note ---
Date of Encounter: 05/18/16 Time of Encounter: 09:59 - Assessment and plan (1) Acute decompensated heart failure Current Visit: Yes Status: Acute Assessment and plan: Acute respiratory distress secondary to Acute decompensated HF F/U 2D echo continue diuretic therapy It is not clear if patient is compliant with her medical therapy readjusted her home medication dosing given her current BP readings continue to monitor I/Os fluid restricted diet (1.5L/day) early ambulation encouraged monitor daily weights O2 supplementation as needed (2) Elevated troponin I measurement Current Visit: Yes Status: Acute Assessment and plan: Likely demand ischemia no chest pain reported at this time NO EKG changes noted will trend serial TNI (3) Cellulitis of both lower extremities Current Visit: Yes Status: Acute Assessment and plan: continue IV abx f/u cultures (4) Acute kidney injury superimposed on CKD Current Visit: Yes Status: Acute Assessment and plan: Kidney function appears to be at baseline will continue to monitor (5) A-fib Current Visit: Yes Status: Chronic Assessment and plan: Rate controlled with Metoprolol-Will continue Not on anticoagulation due to high risk of falls Qualifiers: Atrial fibrillation type: paroxysmal Qualified Code(s): I48.0 - Paroxysmal atrial fibrillation (6) CAD (coronary artery disease) Current Visit: Yes Status: Chronic Assessment and plan: No signs of angina present at this time continue home meds (ASA, BB, statin) Qualifiers: Coronary Disease-Associated Artery/Lesion type: unspecified vessel or lesion type [place] vs. transplanted heart: unspecified whether [place] or transplanted heart Associated angina: with unspecified angina Qualified Code (s): I25.119 - Atherosclerotic heart disease of [place] coronary artery with unspecified angina pectoris (7) COPD (chronic obstructive pulmonary disease) Current Visit: Yes Status: Chronic Assessment and plan: Not in acute exacerbation continue home meds patient chronically on steroid therapy, will continue continue O2 supplementation as needed Qualifiers: COPD type: unspecified COPD Qualified Code(s): J44.9 - Chronic obstructive pulmonary disease, unspecified (8) Diabetes Current Visit: Yes Status: Chronic Assessment and plan: Hold oral antihyperglycemic agents at this time started insulin sliding scale algorithm continue to monitor fingerstick and blood glucose Qualifiers: Diabetes mellitus type: type 2 Diabetes mellitus complication status: with unspecified complications Diabetes mellitus residential insulin use: unspecified vermin exterminator insulin use status Qualified Code(s): E11.8 - Type 2 diabetes mellitus with unspecified complications (9) HLD (hyperlipidemia) Current Visit: Yes Status: Chronic Qualifiers: Hyperlipidemia type: mixed hyperlipidemia Qualified Code(s): E78.2 - Mixed hyperlipidemia (10) DVT prophylaxis Current Visit: No Status: Acute Assessment and plan: Lovenox SQ - Subjective Interval history: Patient is an 86y/o female who is admitted for management of Acute respiratory distress secondary to CHF decompensation, Elevated TNI, MELLISSA, and Lower extremity cellulitis. Patient seen and examined at bedside. Resting comfortably in bed and saturating well on nasal cannula. Reports of feeling significantly better compared to yesterday. Noted to significant erythema of bilateral lower extremities but patient states she did not notice it until she got to the hospital. Also denies any chest pain at this time. - Constitutional Vitals: Temp Pulse Resp BP Pulse Ox 98.1 F 95 18 117/73 93 L 05/18/16 07:29 05/18/16 07:59 05/18/16 07:29 05/18/16 07:29 05/18/16 07:29 General appearance: Present: cooperative, disheveled, A&O X 3, no acute distress , obese, answers questions appropriately - Head Head exam: Present: atraumatic, normocephalic - Eye Eye exam: Present: normal appearance, conjuntiva pink, sclera anicteric - Respiratory Respiratory exam: Absent: respiratory distress, wheezes (bibasilar crackles) - Cardiovascular Cardiovascular exam: Present: RRR, +S1, +S2 - GI/Abdominal GI/Abdominal exam: Present: normal bowel sounds, soft. Absent: distended, tenderness - Extremities Exam Extremities exam: Present: pedal edema (2+pitting edema in bilateral lower extremities, erythema on dorsal surface of foot and lower bilateral lower extremities ). Absent: calf tenderness - Neurological Exam Neurological exam: Present: alert, oriented X3 - Psychiatric Psychiatric exam: Present: normal affect, normal mood Internal Medicine: Result - Labs CBC & Chem 7: 05/18/16 01:35 05/18/16 00:30 Labs: Cardiac Enzymes 05/18/16 Range/Units 04:27 Troponin I 0.04 H* (0-0.03) ng/mL Liver Function 05/18/16 Range/Units 04:27 Total Bilirubin 1.4 H (0.2-1.2) mg/dL Direct Bilirubin 0.7 H (0.0-0.5) mg/dL AST 16 (5-34) Units/L ALT 21 (0-55) Units/L Alkaline Phosphatase 116 (38-126) Units/L Albumin 2.4 L (3.5-5.0) g/dL - ABG Interpretation ABG results: PT/INR, D-dimer PT 12.2 Seconds (9.4-12.1) H 05/18/16 04:27 - Impressions Impressions Chest CT 05/18/16 08:00 IMPRESSION: 1. Small to moderate right and trace to small left pleural effusions with underlying passive atelectasis most prominent in the right lower lobe. There are no associated air bronchograms to suggest superimposed pneumonia. 2. Mild cardiomegaly with severe coronary atherosclerotic calcifications status post bypass grafting. 3. Interstitial and suspected subtle alveolar pulmonary edema, suggestive of congestive heart failure. 4. Markedly dilated pulmonary arteries, suggestive of pulmonary hypertension. 5. Centrilobular groundglass especially near the apices, potentially respiratory bronchiolitis, infectious bronchiolitis, or hypersensitivity pneumonitis. 6. Long-term stability of a 6.6 cm x 4.9 cm x 3.1 cm heterogeneous soft tissue density lesion associated with the pericardium anterior to the right atrium. Of note, this is located adjacent to the right coronary artery. Considerations include benign or indolent malignant neoplasm versus thrombosed aneurysm. 7. Aortic valve leaflet calcifications, a finding that can be seen with aortic valve stenosis. Of note, there is no associated dilation of the ascending thoracic aorta. 8. Borderline to mildly dilated mediastinal and right hilar lymph nodes, most likely reactive. 9. Changes of cirrhosis. There is long-term stability of an area of capsular bulging in hepatic segment 5 adjacent to the gallbladder fossa. An underlying neoplasm cannot be excluded, and further evaluation with liver protocol MRI or CT is recommended on a nonemergent basis. D/ / Freddie Ruiz MD / Freddie Ruiz MD Interpreting Provider: Freddie Ruiz MD Consult Discharge Plan - Plan Referrals: Reinaldo Valladares Jr, MD [Primary Care Provider] -
[2016-05-18] MEDS ORDERED: D5% in Water 1,000 ML IV PRN (10:23)
[2016-05-18] MEDS ORDERED: *HR* Dextrose 50 % in Water (Syg) 50 ML SYRINGE IVP PRN (10:23)
[2016-05-18] MEDS ORDERED: Dextrose Gel 15 GM PO PRN ×2 (10:23)
[2016-05-18 10:38] LABS: Hematocrit 23.8 % (35.3-44.9); Hemoglobin 7.5 g/dL (11.5-15.4); Mean Corpuscular HGB Conc 31.5 g/dL (31.6-35.5); Mean Corpuscular Hemoglobin 29.8 pg (28.0-33.3); Mean Corpuscular Volume 94.4 fL (83.0-100.0); Mean Platelet Volume 10.5 fL (9.4-12.4); Platelet Count 134 K/mcL (140-400); Red Blood Count 2.52 M/mcL (3.82-4.97); Red Cell Distribution Width 18.2 % (11.5-14.5); Segmented Neutrophils % 77.5 %
[2016-05-18 10:39] LABS: Basophils % 0.4 %; Eosinophils % 0.8 %; Immature Granulocytes % 0.8 % (0-4); Lymphocytes # 0.7 K/mcL (0.6-4.6); Lymphocytes % 14.6 %; Monocytes # 0.3 K/mcL (0.0-1.3); Monocytes % 5.9 %; Neutrophils # 3.8 K/mcL (1.6-8.9)
[2016-05-18 10:50] LABS: Calcium 8.2 mg/dL (8.6-10.8); Phosphorous 4.4 mg/dL (2.3-4.7); Potassium 4.7 mEq/L (3.5-4.5)
--- NOTE | 2016-05-18 12:07 | Electrocardiograph Report ---
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
[2016-05-18] MEDS: predniSONE 20 MG TABLET PO SCH (13:16)
[2016-05-18] MEDS: Insulin LISPRO 300 UNITS/3 ML VIAL SQ SCH ×3 (13:16→21:45)
[2016-05-18] MEDS ORDERED: Vancomycin 1 EACH in D5% in Water 250 ML IVPB PRN (15:43)
--- NOTE | 2016-05-18 20:36 | ECHO - Doppler Report ---
Echocardiogram Name: Patti Rodas Date of Study: 05/18/2016 Date: 1930 Ht: 64.0 in Medical Record#: [id number] Age: 86 Wt: 148.0 lb Gender: Female BSA: 1.72 Order #: [id number] Location: [facility] Room #: 2N15 Reading Physician: Justin Roman MD, [facility] Blue Split Trimmer: Marta Bean RVT, [facility] Ordering Physician: Rj Eng MD Primary Physician: Reinaldo Valladares MD Indications: Congestive heart failure Impressions: LVEF 20-25%; quantitatively reduced compared to previous reported EF 03/2016 Moderate-severe mitral regurgitation. Severely dilated left atrium. Moderate pulmonary hypertension. Severe global left ventricular systolic dysfunction. Left Ventricular Wall Motion: Rest Echo Findings The apex, apical inferior, mid inferior, basal inferior, apical anterior, mid anterior, basal anterior, apical septal, mid inferior septal, basal inferior septal, apical lateral, mid anterior lateral, basal anterior lateral, mid anterior septal, mid inferior lateral, basal anterior septal and basal inferior lateral up were hypokinetic. Findings: Study Quality * Technically adequate exam. Right Ventricle * Normal right ventricular structure and function. Aortic Valve * Mildly calcified aortic valve leaflets. * Normal aortic valve function. * No aortic regurgitation. * No aortic stenosis. Interatrial Septum * No evidence of PFO by color Doppler. Aorta * Normally sized aortic root. Pericardium * There is a trivial pericardial effusion present. Mitral Valve * Normal mitral valve structure. * Mild mitral stenosis. * Moderate-severe mitral regurgitation. Left Atrium * Severely dilated left atrium. Tricuspid Valve * No tricuspid stenosis. * Mild tricuspid regurgitation. * Estimated RVSP is 45 mmHg. * Moderate pulmonary hypertension. * Estimated RA pressure is 5-8 mmHg. Pulmonic Valve * No pulmonic stenosis. * Mild pulmonic regurgitation. Left Ventricle * Indeterminate diastolic function. * LVEF 20-25%. * Severe global left ventricular systolic dysfunction. ECG Findings * Atrial fibrillation. Right Atrium * Right atrium is not well visualized. IVC * The IVC is not dilated. * < 50% respiratory change. History Hypertension Diabetes Hypercholesteremia History of CAD/PTCA Myocardial Infarction 04-10-2016 a Previous Echo was performed. Measurements: BP: 102/ 51 2D Normal Values RVIDd: 3.60 cm <2.7 cm IVSd: 1.00 cm 0.6 - 1.0 cm LVIDd: 6.30 cm 3.7 - 5.6 cm LVPWd: 1.10 cm 0.6 - 1.1 cm LVIDs: 5.00 cm 1.5 - 3.6 cm AO: 2.40 cm < 4.0 cm LA: 5.60 cm 2.0 - 4.0cm %FS: 20.60 cm >25 % LA volume: Mitral Valve Peak Velocity 1.71 m/sec Mean Velocity:.78 m/sec Peak Grad:12.00 mmHg Mean Grad:3.00 mmHg Pressure Time:56.00 msec Valve Area:3.93 cm2 Peak E:1.53 m/sec Tricuspid Valve TV Regurg Peak Grad: 45.00mmHg TV Regurg Peak Damon: 3.36m/sec Updated by Justin Roman MD, [facility] on 05/18/2016 8:24:58 PM electronically signed on 05/18/2016 8:30:42 PM with status of Final Wall Motion [place]: 1=Normal, 2=Hypokinesis, 3=Akinesis, 4=Dyskinesis, 5=Aneurysmal, 6=Hyperkinetic, X=Not Visualized (Blank)=Missing
[2016-05-19] MEDS ORDERED: *HR* Enoxaparin 30 MG/0.3 ML SYRINGE SQ SCH (06:00)
[2016-05-19] MEDS ORDERED: *HR* Enoxaparin 80 MG/0.8 ML SYRINGE SQ SCH (06:00)
[2016-05-19] MEDS: Piperacillin/Tazobactam 3.375 GM in D5% in Water (Mini-Bag+) 100 ML IVPB SCH ×2 (06:22→16:49)
[2016-05-19] MEDS: hydrALAZINE 10 MG TABLET PO SCH ×3 (06:23→16:50)
[2016-05-19] MEDS: Ipratropium/Albuterol Neb 3 ML IH SCH ×4 (06:47→23:33)
[2016-05-19 07:07] LABS: Basophils % 0.3 %; Hematocrit 24.2 % (35.3-44.9); Hemoglobin 7.6 g/dL (11.5-15.4); Immature Granulocytes % 1.3 % (0-4); Lymphocytes # 0.5 K/mcL (0.6-4.6); Lymphocytes % 12.3 %; Mean Corpuscular HGB Conc 31.4 g/dL (31.6-35.5); Mean Corpuscular Hemoglobin 30.3 pg (28.0-33.3); Mean Corpuscular Volume 96.4 fL (83.0-100.0); Monocytes # 0.2 K/mcL (0.0-1.3); Monocytes % 5.1 %; Neutrophils # 3.2 K/mcL (1.6-8.9); Platelet Count 130 K/mcL (140-400); Red Blood Count 2.51 M/mcL (3.82-4.97); Red Cell Distribution Width 17.9 % (11.5-14.5)
[2016-05-19 07:31] LABS: Calcium 7.8 mg/dL (8.6-10.8); Magnesium 1.6 mg/dL (1.6-2.6); Phosphorous 4.8 mg/dL (2.3-4.7); Potassium 5.2 mEq/L (3.5-4.5)
[2016-05-19 07:41] LABS: Vancomycin,Random 8.3 mcg/mL
[2016-05-19] MEDS ORDERED: Vancomycin 500 MG in D5% in Water (Mini-Bag+) 100 ML IVPB ONE (07:46)
[2016-05-19] MEDS: Lactobacillus 1 EACH CAP.SPRINK PO SCH (08:29)
[2016-05-19] MEDS: Isosorbide MONOnitrate (24 HR) 30 MG TAB.ER.24H PO SCH (08:29)
[2016-05-19] MEDS: Furosemide 40 MG/4 ML VIAL IVP SCH (08:29)
[2016-05-19] MEDS: hydroCHLOROthiazide 25 MG TABLET PO SCH ×2 (08:30→11:28)
[2016-05-19] MEDS: predniSONE 20 MG TABLET PO SCH (08:30)
[2016-05-19] MEDS: Aspirin Enteric Coated 81 MG Tablet PO SCH (08:30)
[2016-05-19] MEDS: Insulin LISPRO 300 UNITS/3 ML VIAL SQ SCH ×4 (08:31→20:41)
[2016-05-19] MEDS ORDERED: 0.9 % Sodium Chloride 500 ML ONE (11:19)
--- NOTE | 2016-05-19 12:30 | Internal Med Progress Note ---
Date of Encounter: 05/19/16 Time of Encounter: 12:28 - Assessment and plan (1) Acute decompensated heart failure Current Visit: Yes Status: Acute Assessment and plan: Acute respiratory distress secondary to Acute decompensated HF 2D echo: LVEF 20-25% significantly reduced from 03/2016, moderate-severe mitral regurgitation, severely dilated left atrium, moderate pulm hypertension, severe global LV systolic dysfunciton continue diuretic therapy It is not clear if patient is compliant with her medical therapy readjusted her home medication dosing given her current BP readings continue to monitor I/Os fluid restricted diet (1.5L/day) early ambulation encouraged monitor daily weights O2 supplementation as needed cardiology consultation requested given the acute changes reported on 2D echo and worsening HF. (2) Elevated troponin I measurement Current Visit: Yes Status: Acute Assessment and plan: Likely demand ischemia no chest pain reported at this time NO EKG changes noted TNI normalized (3) Cellulitis of both lower extremities Current Visit: Yes Status: Resolved (4) Acute kidney injury superimposed on CKD Current Visit: Yes Status: Acute Assessment and plan: Kidney function appears to be at baseline will continue to monitor (5) A-fib Current Visit: Yes Status: Chronic Assessment and plan: Rate controlled with Metoprolol-Will continue Not on anticoagulation due to high risk of falls Qualifiers: Atrial fibrillation type: paroxysmal Qualified Code(s): I48.0 - Paroxysmal atrial fibrillation (6) CAD (coronary artery disease) Current Visit: Yes Status: Chronic Assessment and plan: No signs of angina present at this time continue home meds (ASA, BB, statin) Qualifiers: Coronary Disease-Associated Artery/Lesion type: unspecified vessel or lesion type [place] vs. transplanted heart: unspecified whether [place] or transplanted heart Associated angina: with unspecified angina Qualified Code (s): I25.119 - Atherosclerotic heart disease of [place] coronary artery with unspecified angina pectoris (7) COPD (chronic obstructive pulmonary disease) Current Visit: Yes Status: Chronic Assessment and plan: Not in acute exacerbation continue home meds patient chronically on steroid therapy, will continue continue O2 supplementation as needed Qualifiers: COPD type: unspecified COPD Qualified Code(s): J44.9 - Chronic obstructive pulmonary disease, unspecified (8) Diabetes Current Visit: Yes Status: Chronic Assessment and plan: Hold oral antihyperglycemic agents at this time continue insulin sliding scale algorithm continue to monitor fingerstick and blood glucose Qualifiers: Diabetes mellitus type: type 2 Diabetes mellitus complication status: with unspecified complications Diabetes mellitus long term acute care registered nurse insulin use: unspecified assisted insulin use status Qualified Code(s): E11.8 - Type 2 diabetes mellitus with unspecified complications (9) HLD (hyperlipidemia) Current Visit: Yes Status: Chronic Qualifiers: Hyperlipidemia type: mixed hyperlipidemia Qualified Code(s): E78.2 - Mixed hyperlipidemia (10) DVT prophylaxis Current Visit: No Status: Acute Assessment and plan: IPCD due to anemia (11) Anemia Current Visit: Yes Status: Acute Assessment and plan: Patient has history of anemia drop in H&H noted will transfuse 1unit PRBC with close monitoring for signs of volume overload f/u stool occult will add iron studies to today's morning labs continue to monitor H&H Qualifiers: Anemia type: unspecified type Qualified Code(s): D64.9 - Anemia, unspecified - Subjective Interval history: Patient is an 86y/o female who is admitted for management of Acute respiratory distress secondary to CHF decompensation, Elevated TNI, MELLISSA, and Lower extremity cellulitis. Patient seen and examined at bedside. Resting comfortably in bed and saturating well on nasal cannula. Reports of feeling better. NOted to have persistent low H &H, will transfuse one unit PRBC. - Constitutional Vitals: Temp Pulse Resp BP Pulse Ox 97.7 F 115 16 112/68 97 05/19/16 12:13 05/19/16 12:13 05/19/16 12:13 05/19/16 12:13 05/19/16 12:13 General appearance: Present: cooperative, A&O X 3, no acute distress, obese, answers questions appropriately - Head Head exam: Present: atraumatic, normocephalic - Eye Eye exam: Present: normal appearance, conjuntiva pink, sclera anicteric - Respiratory Respiratory exam: Absent: respiratory distress, wheezes (bibasilar crackles) - Cardiovascular Cardiovascular exam: Present: irregular rhythm, +S1, +S2 - GI/Abdominal GI/Abdominal exam: Present: normal bowel sounds, soft. Absent: distended, tenderness - Extremities Exam Extremities exam: Present: pedal edema (2+pitting edema bilaterally, erythema noted on dorsal feet extending to mid angulo bilateral lower extremities), warm, radial pulses palpable and symetrical. Absent: calf tenderness - Neurological Exam Neurological exam: Present: alert, oriented X3 - Psychiatric Psychiatric exam: Present: normal affect, normal mood Internal Medicine: Result - Labs CBC & Chem 7: 05/19/16 05:56 05/19/16 05:56 Labs: Short CBC 05/19/16 Range/Units 05:56 WBC 3.9 L (4.3-11.1) K/mcL Hgb 7.6 L (11.5-15.4) g/dL Hct 24.2 L (35.3-44.9) % Plt Count 130 L (140-400) K/mcL Neutrophils # 3.2 (1.6-8.9) K/mcL BMP 05/19/16 05:56 Sodium 134 L Potassium 5.2 H Chloride 98 Carbon Dioxide 27 BUN 39 H Creatinine 1.78 H Glucose 293 H Calcium 7.8 L Cardiac Enzymes 05/18/16 05/19/16 Range/Units 16:20 05:56 Troponin I 0.04 H* 0.03 (0-0.03) ng/mL - ABG Interpretation ABG results: PT/INR, D-dimer PT 12.2 Seconds (9.4-12.1) H 05/18/16 04:27 Consult Discharge Plan - Plan Referrals: Reinaldo Valladares Jr, MD [Primary Care Provider] - 05/25/16 9:15 am
--- NOTE | 2016-05-19 12:36 | Cardiology Consult Note ---
<Spenser Swain - Last Filed: 05/19/16 13:08> Date of Encounter: 05/19/16 Time of Encounter: 12:35 Assessment and Plan (1) Acute exacerbation of congestive heart failure Current Visit: No Status: Acute Per Cardiology: Recent EF on echo 40-45%. Current echo shows EF down to 20-25%, moderate to severe MR, moderate pulmonary hypertension. BMP noted to be elevated in the 3800s. Currently IV Lasix 40 mg daily. Continue with diuresis. Patient reports she is clinically improved somewhat. kidney function closely. Strict I and O , daily weights, continue with fluid restriction. Qualifiers: Congestive heart failure type: combined Qualified Code(s): I50.43 - Acute on chronic combined systolic (congestive) and diastolic (congestive) heart failure (2) Anemia Current Visit: Yes Status: Acute Per Cardiology: Management per primary team. Currently receiving blood transfusion. Qualifiers: Anemia type: unspecified type Qualified Code(s): D64.9 - Anemia, unspecified (3) Elevated troponin I measurement Current Visit: Yes Status: Acute Per Cardiology: Mild troponin elevation with peaked 0.05. Denies any chest pain. Suspect NSTEMI , suspect demand ischemia in setting of CKDIV and acute on chronic heart failure. No cardiac rehabilitation consult warranted. (4) A-fib Current Visit: Yes Status: Chronic Per Cardiology: Patient with known history of atrial fibrillation. Heart rate remains elevated in the 100s currently. Beta ramy recently titrated by hospitalist service. We 'll continue to monitor telemetry. Current systolic blood pressure in the 100s to 110s. Not on anticoagulation other than aspirin. Again currently receiving blood transfusion. Qualifiers: Atrial fibrillation type: unspecified Qualified Code(s): I48.91 - Unspecified atrial fibrillation (5) CAD (coronary artery disease) Current Visit: Yes Status: Chronic Per Cardiology: Past history CAD with CABG around 1995. Patient reports no recent left heart catheterization. We leave the discussion today regarding decreased EF and mild troponin elevation, however patient agreeable with conservative medical management does not desire left heart catheterization. Would be challenging with her CK D and anemia currently anyway. I discussed with patient regarding part of care she is interested in consult regarding discussion on hospice care at time of discharge. Qualifiers: Coronary Disease-Associated Artery/Lesion type: iliamna artery Teller vs. transplanted heart: unspecified whether iliamna or transplanted heart Associated angina: with unspecified angina Qualified Code(s): I25.119 - Atherosclerotic heart disease of iliamna coronary artery with unspecified angina pectoris Discussion w patient/family: The assessment and plan as outlined above was discussed with the patient who expressed understanding and agreement. All questions were answered. Thank you for involving us in the care of your patient. Please call with any questions. Patient discussed with Dr. Quijano. History of Present Illness Consult date: 05/19/16 Requesting physician: Jacquie Stearns Consult reason: CHF Chief complaint: SOB History of present illness: Ms. Rodas is a 86 year old female with a relevant past medical history of atrial fibrillation, CHF, CAD with history of CABG, diabetes mellitus type 2, GERD, hyperlipidemia, hypertension, CK D stage IV, PVD with history of femoropopliteal bypass. Patient seen during recent hospitalization with EF 40-45% on echocardiogram. Patient had positive care consult was made DNR/DNI/Comfort Care arrest. Patient reports she was discharged home with son. She reports came back to hospital due to worsening short of breath at rest over the past couple days. She denies any chest pain. She denies any active bleeding or blood loss. She reports fatigue about baseline. Reports her source of breath has somewhat improved during hospital stay. She does still desire to remain DNR DNI Comfort Care arrest. No family currently present at bedside. Past Med Surg Social Fam HX - Past Medical History Attestation: Yes The following information was validated with the patient. Source: patient, old records reviewed Medical history: arthritis, atrial fibrillation, cardiomyopathy, CHF (Combined systolic and diastolic heart failure), COPD, coronary artery disease, diabetes, GERD, hyperlipidemia, hypertension, kidney stones, migraine, myocardial infarction, osteoporosis, peripheral artery disease, renal disease, SVT, valvular heart disease, other Psychiatric history: anxiety, other - Past Surgical History Surgical History: appendectomy, cholecystectomy, coronary bypass (CABG), hysterectomy, orthopedic, other (Right shoulder surgery. Lumbar laminectomy.), sinus surgery (Tonsillectomy adenoidectomy.), DARYL/BSO, ureteral stent (Renal stone removal.), other, vascular surgery (History of femoropopliteal bypass.), LE bypass, LE vascular intervention - Social History Smoking Status: Former smoker Smokeless Tobacco Status: No Alcohol use: none Drug use: none - Family History Mother Living Status: Age at : 35 Cause of : cerebral hemmorrhage Hx Family Cardiac Disorders: Yes Father Living Status: Age at : 70 Hx Family Cardiac Disorders: No Hx Family Respiratory Disorders: No Hx Family Cancer: No Hx Family GI Disorders: No Hx Family Endocrine Disorder: Yes Medications and Allergies Albuterol Neb [Proventil Neb] 2.5 mg IH Q4HR PRN 05/18/16 [History] Alprazolam [Xanax 1 MG Tablet] 1 mg PO BID PRN 05/18/16 [History] Aspirin [Lo-Dose Aspirin EC] 81 mg PO DAILY 05/18/16 [History] Atorvastatin [Lipitor] 40 mg PO HS 05/18/16 [History] Dapagliflozin Propanediol [Farxiga] 5 mg PO DAILY 05/18/16 [History] Furosemide [Lasix] 20 - 40 mg PO DAILY PRN 05/18/16 [History] Glimepiride [Amaryl] 1 mg PO DAILY 05/18/16 [History] HydrALAZINE 25 mg PO Q6HR 05/18/16 [History] Hydrochlorothiazide 12.5 mg PO DAILY 05/18/16 [History] Isosorbide MONOnitrate (24 HR) [Imdur] 30 mg PO DAILY 05/18/16 [History] Lactobacillus Acidophilus [Acidophilus] 100 mg PO BID 05/18/16 [History] Metoprolol XL (24 HR) Succ [Toprol XL] 100 mg PO BID 05/18/16 [History] Nitroglycerin [Nitrostat] 0.4 mg SL AD PRN 05/18/16 [History] Oxycodone HCl/Acetaminophen [Percocet 5-325 mg Tablet] 1 - 2 tab PO QID PRN 06/01 [History] PredniSONE [Deltasone] 30 mg PO DAILY 05/18/16 [History] Ubidecarenone [Co Q-10] 100 mg PO DAILY 05/18/16 [History] Zinc Acetate [Galzin] 50 mg PO DAILY 05/18/16 [History] Allergies Opium (Anthroposophic) Allergy (Unknown, Verified 05/18/16 08:38) See Comments LISTED ON PATIENT'S [facility] LAST APPT WITH PCP DR. MARY daniels Adverse Reaction (Unknown, Verified 05/18/16 00:26) Gastrointestinal Upset All Systems Review: A 10-system review of systems was performed and is negative for pertinent findings except as documented above in the HPI. - Constitutional Constitutional: fatigue - Cardiovascular Cardiovascular: as per HPI, dyspnea at rest Physical Examination Vital Signs, Last 4 Hours Temp Pulse Resp BP Pulse Ox 05/19/16 12:28 98.1 F 103 16 114/68 95 05/19/16 12:17 115 05/19/16 12:13 97.7 F 115 16 112/68 97 05/19/16 11:16 97.7 F 92 16 111/71 95 General: Conversant HEENT: Atraumatic, Normocephaly Cardiac: No Murmur, Other (Irregularly irregular) Lungs: Other (Diminished breath sounds to bilateral bases, mild conversational dyspnea noted) Neuro: Alert and responsive, No focal deficits noted Abdomen: Soft, Non-Tender Extremities: Other (+2 nonpitting edema, erythematous) Results 05/19/16 05:56 05/19/16 05:56 Lab Results Laboratory Tests 05/18/16 05/18/16 05/18/16 00:30 00:30 00:30 Hgb Hct INR Creatinine 1.66 H Est GFR (Non-Af Amer) 29 L Troponin I 0.05 H* B-Natriuretic Peptide [address] [facility] 05/18/16 05/18/16 05/18/16 01:35 04:27 04:27 Hgb 8.9 L Hct 28.8 L INR 1.1 Creatinine Est GFR (Non-Af Amer) Troponin I 0.04 H* B-Natriuretic Peptide [facility] 05/18/16 05/18/16 05/18/16 04:27 10:31 10:31 Hgb 7.5 L Hct 23.8 L INR Creatinine Est GFR (Non-Af Amer) Troponin I 0.03 B-Natriuretic Peptide TSH 1.295 05/18/16 05/18/16 05/19/16 10:31 16:20 05:56 Hgb 7.6 L Hct 24.2 L INR Creatinine 1.67 H Est GFR (Non-Af Amer) 29 L Troponin I 0.04 H* B-Natriuretic Peptide [facility] 05/19/16 05/19/16 05:56 05:56 Hgb Hct INR Creatinine 1.78 H Est GFR (Non-Af Amer) 27 L Troponin I 0.03 B-Natriuretic Peptide TSH ITS Impressions Chest X-Ray 05/18/16 00:47 IMPRESSION: Cardiomegaly with pulmonary edema and small bilateral pleural effusions. D/ / Angeles Santamaria MD / Angeles Santamaria MD Interpreting Provider: Angeles Santamaria MD Chest CT 05/18/16 08:00 IMPRESSION: 1. Small to moderate right and trace to small left pleural effusions with underlying passive atelectasis most prominent in the right lower lobe. There are no associated air bronchograms to suggest superimposed pneumonia. 2. Mild cardiomegaly with severe coronary atherosclerotic calcifications status post bypass grafting. 3. Interstitial and suspected subtle alveolar pulmonary edema, suggestive of congestive heart failure. 4. Markedly dilated pulmonary arteries, suggestive of pulmonary hypertension. 5. Centrilobular groundglass especially near the apices, potentially respiratory bronchiolitis, infectious bronchiolitis, or hypersensitivity pneumonitis. 6. Long-term stability of a 6.6 cm x 4.9 cm x 3.1 cm heterogeneous soft tissue density lesion associated with the pericardium anterior to the right atrium. Of note, this is located adjacent to the right coronary artery. Considerations include benign or indolent malignant neoplasm versus thrombosed aneurysm. 7. Aortic valve leaflet calcifications, a finding that can be seen with aortic valve stenosis. Of note, there is no associated dilation of the ascending thoracic aorta. 8. Borderline to mildly dilated mediastinal and right hilar lymph nodes, most likely reactive. 9. Changes of cirrhosis. There is long-term stability of an area of capsular bulging in hepatic segment 5 adjacent to the gallbladder fossa. An underlying neoplasm cannot be excluded, and further evaluation with liver protocol MRI or CT is recommended on a nonemergent basis. D/ / Freddie Ruiz MD / Freddie Ruiz MD Interpreting Provider: Freddie Ruiz MD Intake & Output 0305/17/16 05/18/16 05/19/16 23:59 23:59 23:59 23:59 Intake Total 930 / 930 240 / 240 Output Total 2600 / 2600 400 / 400 Balance -1670 / -1670 -160 / -160 Weight 67.132 kg 68.6 kg Active Medications Acetaminophen (Tylenol) 650 mg PO Q6HR PRN PRN Reason: Mild Pain (1-3) Stop: 11/17/16 03:40 Albuterol Sulfate (Proventil Neb) 2.5 mg IH Q2H PRN PRN Reason: Shortness Of Breath/Wheezing Stop: 11/17/16 06:10 Albuterol/Ipratropium (Duoneb) 3 ml IH QIDR [facility] Stop: 11/17/16 06:16 Last Admin: 05/19/16 11:31 Dose: 3 ml Alprazolam (Xanax) 1 mg PO BID PRN; Protocol PRN Reason: Anxiety Stop: 11/17/16 10:13 Aspirin (Aspirin Ec) 81 mg PO DAILY [facility] Stop: 11/17/16 09:01 Last Admin: 05/19/16 08:30 Dose: 81 mg Atorvastatin Calcium (Lipitor) 40 mg PO HS [facility] Stop: 11/17/16 21:01 Last Admin: 05/18/16 21:45 Dose: 40 mg Dextrose/Water (Dextrose 50% (Syg)) 25 ml IVP AD PRN PRN Reason: Hypoglycemia Stop: 11/17/16 10:24 Docusate Sodium (Colace) 100 mg PO BID PRN PRN Reason: Constipation Stop: 11/17/16 03:40 Furosemide (Lasix) 40 mg IVP DAILY [facility] Stop: 11/18/16 09:01 Last Admin: 05/19/16 08:29 Dose: 40 mg Glucagon (Glucagen) 1 mg IM ONCE PRN PRN Reason: Hypoglycemia Stop: 11/17/16 10:24 Glucose (Gluctose) 15 gm PO ONCE PRN PRN Reason: Hypoglycemia Stop: 11/17/16 10:24 Glucose (Gluctose) 30 gm PO ONCE PRN PRN Reason: Hypoglycemia Stop: 11/17/16 10:24 Hydralazine HCl (Hydralazine) 10 mg PO TIDAC [facility] Stop: 11/17/16 07:31 Last Admin: 05/19/16 11:24 Dose: 10 mg Hydrochlorothiazide (Hydrochlorothiazide) 12.5 mg PO DAILY [facility] Stop: 11/18/16 08:01 Last Admin: 05/19/16 11:28 Dose: Not Given Piperacillin Sod/Tazobactam (Sod 3.375 gm/ Dextrose) 100 mls @ 25 mls/hr IVPB Q12HR [place] PRN Reason: Protocol Stop: 11/17/16 06:35 Last Admin: 05/19/16 06:22 Dose: 25 mls/hr Dextrose (Dextrose 5%) 1,000 mls @ 100 mls/hr IV CONT PRN PRN Reason: HYPOGLYCEMIA Stop: 11/17/16 10:24 Vancomycin HCl 1 each/ (Dextrose) 250 mls @ 167 mls/hr IVPB RPHPROT PRN; Protocol PRN Reason: PHARMACY DOSING Stop: 11/17/16 07:01 Insulin Human Lispro (Humalog) 0 units SQ HS [place] PRN Reason: Protocol Stop: 11/17/16 21:01 Last Admin: 05/18/16 21:45 Dose: 8 units Insulin Human Lispro (Humalog) 0 units SQ TIDAC [place] PRN Reason: Protocol Stop: 11/17/16 11:31 Last Admin: 05/19/16 11:29 Dose: 16 units Isosorbide Mononitrate (Imdur) 30 mg PO DAILY [facility] Stop: 11/18/16 09:01 Last Admin: 05/19/16 08:29 Dose: 30 mg Lactobacillus Acidophilus/Rhamnosus (Culturelle) 1 each PO DAILY [facility] Stop: 11/18/16 09:01 Last Admin: 05/19/16 08:29 Dose: 1 each Metoprolol Tartrate (Lopressor) 25 mg PO BID [facility] Stop: 11/18/16 20:01 Morphine Sulfate (Morphine Sulfate) 2 mg IVP Q4HR PRN PRN Reason: Severe Pain (7-10) Stop: 11/17/16 03:40 Naloxone HCl (Narcan) 0.4 mg IVP Q2MIN PRN PRN Reason: Opioid Reversal Stop: 11/17/16 03:40 Omeprazole (Prilosec) 20 mg PO DAILY@0630 [place] PRN Reason: Protocol Stop: 11/17/16 06:31 Last Admin: 05/19/16 06:22 Dose: 20 mg Ondansetron HCl (Zofran) 4 mg IVP Q8HR PRN PRN Reason: Nausea And Vomiting Stop: 11/17/16 03:40 Oxycodone HCl (Roxicodone) 5 mg PO Q6HR PRN PRN Reason: Moderate Pain (4-6) Stop: 11/17/16 03:40 Last Admin: 05/19/16 04:54 Dose: 5 mg Prednisone (Prednisone) 30 mg PO DAILY [place] Stop: 11/17/16 10:16 Last Admin: 05/19/16 08:30 Dose: 30 mg - Imaging and Cardiology Chest Xray: report reviewed Echo: report reviewed - EKG Interpretation EKG results cardiology: personally reviewed (Atrial fibrillation), other ( Currently A. fib on telemetry with heart rate fluctuating 100s to 130s) Consult Discharge Plan - Plan Referrals: Reinaldo Valladares Jr, MD [Primary Care Provider] - 05/25/16 9:15 am <Ed Quijano - Last Filed: 05/19/16 13:25> Date of Encounter: 05/19/16 Assessment and Plan Discussion w patient/family: The assessment and plan as outlined above was discussed with the patient and/or family members who expressed understanding and agreement. All questions were answered. Thank you for involving us in the care of your patient. Please call with any questions. History of Present Illness History of present illness: Ms. Rodas is a 86 year old female All Systems Review: A 10-system review of systems was performed and is negative for pertinent findings except as documented above in the HPI. Physical Examination Vital Signs, Last 4 Hours Temp Pulse Resp BP Pulse Ox 05/19/16 12:28 98.1 F 103 16 114/68 95 05/19/16 12:17 115 05/19/16 12:13 97.7 F 115 16 112/68 97 05/19/16 11:16 97.7 F 92 16 111/71 95 Results 05/19/16 05:56 05/19/16 05:56 Lab Results 05/18/16 05/19/16 05/19/16 16:20 05:56 05:56 WBC 3.9 L Hgb 7.6 L Hct 24.2 L Plt Count 130 L Sodium 134 L Potassium 5.2 H Chloride 98 Carbon Dioxide 27 BUN 39 H Creatinine 1.78 H Glucose 293 H Calcium 7.8 L Magnesium 1.6 Troponin I 0.04 H* 05/19/16 05:56 WBC Hgb Hct Plt Count Sodium Potassium Chloride Carbon Dioxide BUN Creatinine Glucose Calcium Magnesium Troponin I 0.03 - Attending Attestation Patient was seen, examined and agree with plan as outlined. Unfortunate case with recent drop in EF. Lengthy discussions today regarding disease, prognosis, and desired treatment. Patient is not interested in invasive evaluation. This would be high risk due to CKD and Anemia As such recommend supportive care - CHF meds as tolerated Agree with transfusion Diuresis as renal function tolerates Titrate meds for better rate control. Discussed with patient possibility of Hospice care -she was previously seen by Palliative care and wants to explore this further. Consult placed. Thanks for consult.
--- NOTE | 2016-05-19 14:02 | Palliative - Consult Note ---
Date of Encounter: 05/19/16 Time of Encounter: 13:59 - Assessment and Plan (1) Acute decompensated heart failure Current Visit: Yes Status: Acute Assessment and plan: Decrease in ejection fraction from 40-45% down to 20-25%. She does not wish to have any further intervention. Plan is to continue diuresis. (2) Acute kidney injury superimposed on CKD Current Visit: Yes Status: Acute Assessment and plan: No significant change from yesterday, continue to avoid nephrotoxic drugs. Recommend against her feeding at this time due to the effects of morphine 6 she is not using any morphine at this time. (3) Anemia Current Visit: Yes Status: Acute Assessment and plan: She is being transfused. Plan per hospitalist team. Qualifiers: Anemia type: unspecified type Qualified Code(s): D64.9 - Anemia, unspecified (4) A-fib Current Visit: Yes Status: Chronic Assessment and plan: [place] per hospitalist team and cardiology. Qualifiers: Atrial fibrillation type: unspecified Qualified Code(s): I48.91 - Unspecified atrial fibrillation (5) Counseling regarding advanced care planning and goals of care Current Visit: No Status: Acute Assessment and plan: Patient is DNR CCA DNI as from previous hospitalization. Patient confirms that this is still her CODE STATUS. All of care is to return home area and it has questions regarding hospice on discharge. She is considering that as we speak. Requested to have time to speak to her family will be arranged on discharge if she desires to be in hospice. She does meet hospice lines by virtue of continued decline in function with regards to her heart. (6) Dyspnea Current Visit: No Status: Acute Assessment and plan: This is much improved since admission. Plan per continue diuresis per hospitalist team and cardiology. Qualifiers: Dyspnea type: shortness of breath Qualified Code(s): R06.02 - Shortness of breath Palliative-CN HPI - Data of Consult Patient: known to practice within the last 3 years Requesting Physician: Jacquie Stearns MD Primary Care Provider: Reinaldo Valladares Jr, MD - Consult Narrative Palliative Care/Comfort Measures: Palliative care Reason for consult: hospice questions History of present illness: Ms. Rodas is a 86 year old female Admitted yesterday with a history of atrial fibrillation CHF CAD and a past history of CABG as well as diabetes type 2 and stage IV kidney disease. He was seen in March with an EF of 40-45% on echocardiogram. He was discharged to home with her son but she came back to the hospital with worsening shortness of breath over the past couple of days. She denies any chest pain she denies any active bleeding or blood loss. She does report about baseline spread has gotten better since she has been here. Service and had made herself DNR DNI at that time. Had that advanced directives but had not finished doing her medical power of trade mark attorney. Her oldest son Isaak phone number [phone] she wishes to be her medical power of trade mark attorney but has not designated this as yet. She did have questions regarding hospice please see the assessment and plan. 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 Lumbar laminectomy.), sinus surgery (Tonsillectomy adenoidectomy.), DARYL/BSO, ureteral stent (Renal stone removal.), other, vascular surgery (History of femoropopliteal bypass.), LE bypass, LE vascular intervention - Social History Smoking Status: Former smoker Smokeless Tobacco Status: No Alcohol use: none Drug use: none - Family History Mother Living Status: Age at : 35 Cause of : cerebral hemmorrhage Hx Family Cardiac Disorders: Yes Father Living Status: Age at : 70 Hx Family Cardiac Disorders: No Hx Family Respiratory Disorders: No Hx Family Cancer: No Hx Family GI Disorders: No Hx Family Endocrine Disorder: Yes Medications and Allergies Albuterol Neb [Proventil Neb] 2.5 mg IH Q4HR PRN 05/18/16 [History] Alprazolam [Xanax 1 MG Tablet] 1 mg PO BID PRN 05/18/16 [History] Aspirin [Lo-Dose Aspirin EC] 81 mg PO DAILY 05/18/16 [History] Atorvastatin [Lipitor] 40 mg PO HS 05/18/16 [History] Dapagliflozin Propanediol [Farxiga] 5 mg PO DAILY 05/18/16 [History] Furosemide [Lasix] 20 - 40 mg PO DAILY PRN 05/18/16 [History] Glimepiride [Amaryl] 1 mg PO DAILY 05/18/16 [History] HydrALAZINE 25 mg PO Q6HR 05/18/16 [History] Hydrochlorothiazide 12.5 mg PO DAILY 05/18/16 [History] Isosorbide MONOnitrate (24 HR) [Imdur] 30 mg PO DAILY 05/18/16 [History] Lactobacillus Acidophilus [Acidophilus] 100 mg PO BID 05/18/16 [History] Metoprolol XL (24 HR) Succ [Toprol XL] 100 mg PO BID 05/18/16 [History] Nitroglycerin [Nitrostat] 0.4 mg SL AD PRN 05/18/16 [History] Oxycodone HCl/Acetaminophen [Percocet 5-325 mg Tablet] 1 - 2 tab PO QID PRN 06/01 [History] PredniSONE [Deltasone] 30 mg PO DAILY 05/18/16 [History] Ubidecarenone [Co Q-10] 100 mg PO DAILY 05/18/16 [History] Zinc Acetate [Galzin] 50 mg PO DAILY 05/18/16 [History] Allergies Opium (Anthroposophic) Allergy (Unknown, Verified 05/18/16 08:38) See Comments LISTED ON PATIENT'S EC[facility] LAST APPT WITH PCP DR. MARY daniels Adverse Reaction (Unknown, Verified 05/18/16 00:26) Gastrointestinal Upset - Constitutional Constitutional ROS PAL: fatigue (Mild), no decreased appetite, no anorexia, no chills - EENT Eyes: no discharge, no pain Ears: no ear discharge, no ear pain Ears, nose, mouth, throat: no facial pain, no hoarseness, no lip swelling, no neck mass, no neck pain - Cardiovascular Cardiovascular ROS: dyspnea on exertion, edema, irregular heart rhythm, no chest pain, no chest pain at rest, no chest pain with activity - Respiratory Respiratory: dyspnea, dyspnea on exertion, no cough, no pain on inspiration, no chest congestion, no excessive phlegm production - Gastrointestinal Gastrointestinal: constipation, no diarrhea, no nausea, no vomiting - Genitourinary Palliative ROS female: no urinary frequency, no urinary hesitancy, no urinary incontinence - Musculoskeletal Musculoskeletal ROS IM: no arthralgias, no back pain, no joint swelling - Integumentary ROS Integumentary: no rash, no skin pain - Neurological Neurological ROS: no frequent falls, no headache(s), no radicular pain, no sensory deficit - Psychiatric Psychiatric general PM: no difficulty concentrating, no homicidal ideation, no hopelessness, no suicidal ideation - Endocrine Endocrine IM: other (Nausea for diabetes) Palliative Care-Exam - Constitutional Vitals: Temp Pulse Resp BP Pulse Ox 98.1 F 103 16 114/68 95 05/19/16 12:28 05/19/16 12:28 05/19/16 12:28 05/19/16 12:28 05/19/16 12:28 - Eye Eye exam: Present: EOMI, normal appearance, PERRL - ENT ENT exam: Present: mucous membranes moist - Neck Neck exam: Present: full ROM, normal inspection - Respiratory Respiratory exam: Present: accessory muscle use, decreased breath sounds - Cardiovascular Cardiovascular exam: Present: irregular rhythm - GI/Abdominal Exam GI/Abdominal exam: Present: normal bowel sounds, soft. Absent: tenderness - Catheter Type: Urethral (Ann) - Extremities Exam Extremities exam: Present: pedal edema. Absent: normal inspection, tenderness - Neurological Exam Neurological exam: Present: alert, oriented X3 - Expanded Neurological Exam Neurological exam expanded: Present: inattentive - Psychiatric Psychiatric exam: Present: normal affect, normal mood. Absent: agitated, anxious, homicidal ideation, suicidal ideation - Skin Skin exam: Present: dry, warm Internal Medicine - CN: Reslt - Labs CBC & Chem 7: 05/19/16 05:56 05/19/16 05:56 Labs: Short CBC 05/19/16 Range/Units 05:56 WBC 3.9 L (4.3-11.1) K/mcL Hgb 7.6 L (11.5-15.4) g/dL Hct 24.2 L (35.3-44.9) % Plt Count 130 L (140-400) K/mcL Neutrophils # 3.2 (1.6-8.9) K/mcL BMP 05/19/16 05:56 Sodium 134 L Potassium 5.2 H Chloride 98 Carbon Dioxide 27 BUN 39 H Creatinine 1.78 H Glucose 293 H Calcium 7.8 L Cardiac Enzymes 05/18/16 05/19/16 Range/Units 16:20 05:56 Troponin I 0.04 H* 0.03 (0-0.03) ng/mL - ABG Interpretation ABG results: PT/INR, D-dimer PT 12.2 Seconds (9.4-12.1) H 05/18/16 04:27 Consult Discharge Plan - Plan Referrals: Reinaldo Valladares Jr, MD [Primary Care Provider] - 05/25/16 9:15 am Palliative Quality Palliative Quality: Screen for Code Status: Yes, Screen for Goals of Care: Yes, Screen for Pain: Yes, If Pain Regimen Started, Initiate Bowel Regimen: NA, Screen for Nausea/Vomitting: Yes Code Status: 05/18/16 03:39 Resuscitation Status: Active [RES] Routine Comment: Resuscitation Status: [id number]
[2016-05-20] MEDS: Ipratropium/Albuterol Neb 3 ML IH SCH (05:19)
[2016-05-20] MEDS: Piperacillin/Tazobactam 3.375 GM in D5% in Water (Mini-Bag+) 100 ML IVPB SCH ×2 (05:27→17:08)
[2016-05-20 05:37] LABS: Basophils % 0.2 %; Hematocrit 30.6 % (35.3-44.9); Hemoglobin 9.3 g/dL (11.5-15.4); Immature Granulocytes % 1.2 % (0-4); Lymphocytes # 0.9 K/mcL (0.6-4.6); Mean Corpuscular HGB Conc 30.4 g/dL (31.6-35.5); Mean Corpuscular Hemoglobin 28.6 pg (28.0-33.3); Mean Corpuscular Volume 94.2 fL (83.0-100.0); Mean Platelet Volume 10.6 fL (9.4-12.4); Monocytes # 0.5 K/mcL (0.0-1.3); Monocytes % 7.2 %; Platelet Count 146 K/mcL (140-400); Red Blood Count 3.25 M/mcL (3.82-4.97); Red Cell Distribution Width 18.4 % (11.5-14.5); Segmented Neutrophils % 77.4 %
[2016-05-20 06:02] LABS: Calcium 7.9 mg/dL (8.6-10.8); Magnesium 1.7 mg/dL (1.6-2.6); Phosphorous 4.8 mg/dL (2.3-4.7); Potassium 4.5 mEq/L (3.5-4.5)
[2016-05-20] MEDS: hydrALAZINE 10 MG TABLET PO SCH ×3 (06:26→17:13)
[2016-05-20 06:42] LABS: Bilirubin,Urine Negative (Negative); Blood,Urine Negative (Negative); Clarity,Urine Cloudy (Clear); Color,Urine Yellow (Yellow); Glucose,Urine (UA) Normal (Normal); Ketones,Urine Negative (Negative); Leukocyte Esterase,Urine Negative (Negative); Nitrite,Urine Negative (Negative); PH,Urine 5.5 pH Units (5.0-8.0); Protein,Urine 100 mg/dL (Neg-Trace); Specific Gravity,Urine 1.019 (1.010-1.025); Urobilinogen,Urine Normal (Normal)
[2016-05-20 07:00] LABS: Bacteria,Urine Few per hpf (None-Few); RBC,Urine 0-3 per hpf (0-3); WBC,Urine 0-3 per hpf (0-3)
--- NOTE | 2016-05-20 07:38 | Cardiology Progress Note ---
<Ed Quijano M - Last Filed: 05/20/16 11:42> Date of Encounter: 05/20/16 Assessment and Plan Discussion w patient/family: The assessment and plan as outlined above was discussed with the patient and/or family members who expressed understanding and agreement. All questions were answered. Thank you for involving us in the care of your patient. Please call with any questions. Objective Vital Signs, Last 4 Hours Temp Pulse Resp BP Pulse Ox 05/20/16 09:35 98.5 F 160 30 142/93 92 L 05/20/16 09:30 98.2 F 145 32 136/80 90 L 05/20/16 09:00 98.9 F 136 16 153/89 88 L Results 05/20/16 05:26 05/20/16 05:43 Lab Results 05/20/16 05/20/16 05:26 05:43 WBC 6.5 D Hgb 9.3 L D Hct 30.6 L Plt Count 146 Sodium 135 L Potassium 4.5 Chloride 97 L Carbon Dioxide 25 BUN 39 H Creatinine 1.94 H Glucose 254 H Calcium 7.9 L Magnesium 1.7 Consult Discharge Plan - Plan Referrals: Reinaldo Valladares Jr, MD [Primary Care Provider] - 05/25/16 9:15 am Attestation: My signature below is to certify that this patient is under my care and that I, or nurse practitioner, or a physician's educational assistant teacher working with me, has a face-to -face encounter with this patient. Patient was seen examined and agree Clinically is doing worse today - requiring BiPAP, Afib with RVR also slightly worse today. Recommend Amio load for HR control given low BP and CHF> Continue CHF meds Diuresis as renal function tolerates. (worsening Creatinine is worrisome - meds adjusted) <Spenser Swain - Last Filed: 05/20/16 11:51> Date of Encounter: 05/20/16 Time of Encounter: 08:00 Assessment and Plan (1) Acute exacerbation of congestive heart failure Current Visit: No Status: Acute Per Cardiology: Recent EF on echo 40-45%. Current echo shows EF down to 20-25%, moderate to severe MR, moderate pulmonary hypertension. BNP noted to be elevated in the 3800s. Currently IV Lasix 40 mg daily. Net -1492ml. Continue with diuresis cautiously. Patient reports she is clinically improved somewhat. Follow kidney function closely-- worsened today, will stop HCTZ. Will switch to Toprol XL. Strict I and O, daily weights, continue with fluid restriction. Had worsened SOB this am, revaluated with improvement with Ativan and BiPap. Qualifiers: Congestive heart failure type: combined Qualified Code(s): I50.43 - Acute on chronic combined systolic (congestive) and diastolic (congestive) heart failure (2) Anemia Current Visit: Yes Status: Acute Per Cardiology: Management per primary team. Improved s/p 1 unit PRBC. Qualifiers: Anemia type: unspecified type Qualified Code(s): D64.9 - Anemia, unspecified (3) Elevated troponin I measurement Current Visit: Yes Status: Acute Per Cardiology: Mild troponin elevation with peaked 0.05. Denies any chest pain. Suspect NSTEMI , suspect demand ischemia in setting of CKD IV and acute on chronic heart failure. (4) A-fib Current Visit: Yes Status: Chronic Per Cardiology: Patient with known history of atrial fibrillation. Heart rate remains elevated in the 100s currently. Current systolic blood pressure in the 110's - 130's. Now on Toprol XL, HCTZ stopped. Per discussion with Dr. Quijano, will avoid IV CCB with decreased EF and proceed with IV amiodarone protocol for rate control. Not on anticoagulation other than aspirin. S/p transfusion. Qualifiers: Atrial fibrillation type: unspecified Qualified Code(s): I48.91 - Unspecified atrial fibrillation (5) CAD (coronary artery disease) Current Visit: Yes Status: Chronic Per Cardiology: Past history CAD with CABG around 1995. Patient reports no recent left heart catheterization. Decreased EF 20-25% and mild troponin elevation, however patient agreeable with conservative medical management does not desire left heart catheterization. Has CKD IV and is s/p transfusion. DNR/DNI/CCA, discussing possible Hospice. Qualifiers: Coronary Disease-Associated Artery/Lesion type: [place] artery [place] vs. transplanted heart: unspecified whether [place] or transplanted heart Associated angina: with unspecified angina Qualified Code(s): I25.119 - Atherosclerotic heart disease of [place] coronary artery with unspecified angina pectoris Discussion w patient/family: The assessment and plan as outlined above was discussed with the patient who expressed understanding and agreement. All questions were answered. Thank you for involving us in the care of your patient. Please call with any questions. Patient discussed with Dr. Quijano. Subjective Principal diagnosis: SOB Interval history: Patient reports worsened SOB this am. Denies any CP. Denies any active bleeding. Still exploring home Hospice. Objective Vital Signs, Last 4 Hours Temp Pulse Resp BP Pulse Ox 05/20/16 05:20 20 93 L 05/20/16 04:01 98.2 F 117 18 131/80 94 L General: Conversant HEENT: Atraumatic, Normocephaly Cardiac: No Murmur, Other (Irregularly irregular) Lungs: Other (resp labored at rest, decreased throughout, now alfredo Bipap) Neuro: Alert and responsive, No focal deficits noted Skin: No rashes noted on visualized skin Extremities: Other (+2 nonpitting bilateral LE, dusky colored) Results 05/20/16 05:26 05/20/16 05:43 Lab Results Laboratory Tests 05/18/16 05/18/16 05/20/16 00:30 01:35 05:26 Hgb 8.9 L 9.3 L D Hct 28.8 L 30.6 L Creatinine 1.66 H Est GFR (Non-Af Amer) 29 L Magnesium 05/20/16 05:43 Hgb Hct Creatinine 1.94 H Est GFR (Non-Af Amer) 25 L Magnesium 1.7 Intake & Output 05/17/16 05/18/16 05/19/16 05/20/16 23:59 23:59 23:59 23:59 Intake Total 930 / 930 1278 / 1278 300 / 300 Output Total 2600 / 2600 1400 / 1400 Balance -1670 / -1670 -122 / -122 300 / 300 Weight 67.132 kg 68.6 kg 66.8 kg Active Medications Acetaminophen (Tylenol) 650 mg PO Q6HR PRN PRN Reason: Mild Pain (1-3) Stop: 11/17/16 03:40 Last Admin: 05/20/16 06:25 Dose: 650 mg Albuterol Sulfate (Proventil Neb) 2.5 mg IH Q2H PRN PRN Reason: Shortness Of Breath/Wheezing Stop: 11/17/16 06:10 Albuterol/Ipratropium (Duoneb) 3 ml IH QIDR [place] Stop: 11/17/16 06:16 Last Admin: 05/20/16 05:19 Dose: 3 ml Alprazolam (Xanax) 1 mg PO BID PRN; Protocol PRN Reason: Anxiety Stop: 11/17/16 10:13 Aspirin (Aspirin Ec) 81 mg PO DAILY [place] Stop: 11/17/16 09:01 Last Admin: 05/19/16 08:30 Dose: 81 mg Atorvastatin Calcium (Lipitor) 40 mg PO HS [place] Stop: 11/17/16 21:01 Last Admin: 05/19/16 20:42 Dose: 40 mg Dextrose/Water (Dextrose 50% (Syg)) 25 ml IVP AD PRN PRN Reason: Hypoglycemia Stop: 11/17/16 10:24 Docusate Sodium (Colace) 100 mg PO BID PRN PRN Reason: Constipation Stop: 11/17/16 03:40 Furosemide (Lasix) 40 mg IVP DAILY [place] Stop: 11/18/16 09:01 Last Admin: 05/19/16 08:29 Dose: 40 mg Glucagon (Glucagen) 1 mg IM ONCE PRN PRN Reason: Hypoglycemia Stop: 11/17/16 10:24 Glucose (Gluctose) 15 gm PO ONCE PRN PRN Reason: Hypoglycemia Stop: 11/17/16 10:24 Glucose (Gluctose) 30 gm PO ONCE PRN PRN Reason: Hypoglycemia Stop: 11/17/16 10:24 Hydralazine HCl (Hydralazine) 10 mg PO TIDAC [facility] Stop: 11/17/16 07:31 Last Admin: 05/20/16 06:26 Dose: 10 mg Hydrochlorothiazide (Hydrochlorothiazide) 12.5 mg PO DAILY [facility] Stop: 11/18/16 08:01 Last Admin: 05/19/16 11:28 Dose: Not Given Piperacillin Sod/Tazobactam (Sod 3.375 gm/ Dextrose) 100 mls @ 25 mls/hr IVPB Q12HR [place] PRN Reason: Protocol Stop: 11/17/16 06:35 Last Admin: 05/20/16 05:27 Dose: 25 mls/hr Dextrose (Dextrose 5%) 1,000 mls @ 100 mls/hr IV CONT PRN PRN Reason: HYPOGLYCEMIA Stop: 11/17/16 10:24 Vancomycin HCl 1 each/ (Dextrose) 250 mls @ 167 mls/hr IVPB RPHPROT PRN; Protocol PRN Reason: PHARMACY DOSING Stop: 11/17/16 07:01 Insulin Human Lispro (Humalog) 0 units SQ HS [facility] PRN Reason: Protocol Stop: 11/17/16 21:01 Last Admin: 05/19/16 20:41 Dose: 7 units Insulin Human Lispro (Humalog) 0 units SQ TIDAC [facility] PRN Reason: Protocol Stop: 11/17/16 11:31 Last Admin: 05/19/16 16:51 Dose: 14 units Isosorbide Mononitrate (Imdur) 30 mg PO DAILY [facility] Stop: 11/18/16 09:01 Last Admin: 05/19/16 08:29 Dose: 30 mg Lactobacillus Acidophilus/Rhamnosus (Culturelle) 1 each PO DAILY [facility] Stop: 11/18/16 09:01 Last Admin: 05/19/16 08:29 Dose: 1 each Metoprolol Tartrate (Lopressor) 25 mg PO BID [facility] Stop: 11/18/16 20:01 Last Admin: 05/19/16 20:41 Dose: 25 mg Morphine Sulfate (Morphine Sulfate) 2 mg IVP Q4HR PRN PRN Reason: Severe Pain (7-10) Stop: 11/17/16 03:40 Naloxone HCl (Narcan) 0.4 mg IVP Q2MIN PRN PRN Reason: Opioid Reversal Stop: 11/17/16 03:40 Omeprazole (Prilosec) 20 mg PO DAILY@0630 [facility] PRN Reason: Protocol Stop: 11/17/16 06:31 Last Admin: 05/20/16 05:29 Dose: 20 mg Ondansetron HCl (Zofran) 4 mg IVP Q8HR PRN PRN Reason: Nausea And Vomiting Stop: 11/17/16 03:40 Oxycodone HCl (Roxicodone) 5 mg PO Q6HR PRN PRN Reason: Moderate Pain (4-6) Stop: 11/17/16 03:40 Last Admin: 05/19/16 04:54 Dose: 5 mg Prednisone (Prednisone) 30 mg PO DAILY [facility] Stop: 11/17/16 10:16 Last Admin: 05/19/16 08:30 Dose: 30 mg - EKG Interpretation EKG results cardiology: other (24 hr tele reviewed, remains afib, avg hr 108, longest pause 2.1 sec, 1 3 beat run VT) - VTE Documentation of Mechanical Device: Venous foot pump, device
--- NOTE | 2016-05-20 08:35 | Palliative Progress Note ---
Date of Encounter: 05/20/16 Time of Encounter: 07:35 - Assessment and plan (1) Dyspnea Current Visit: No Status: Acute Assessment and plan: This appears to be getting better continue current plans per hospitalist team and cardiology. Qualifiers: Dyspnea type: shortness of breath Qualified Code(s): R06.02 - Shortness of breath (2) Acute kidney injury superimposed on CKD Current Visit: Yes Status: Acute (3) Anemia Current Visit: Yes Status: Acute Assessment and plan: Hemoglobin much better today after getting Qualifiers: Anemia type: unspecified type Qualified Code(s): D64.9 - Anemia, unspecified (4) A-fib Current Visit: Yes Status: Chronic Assessment and plan: Currently tachycardic,, however it appears the patient's A. fib has been largely under control. Plan per cardiology and hospitalist team. Qualifiers: Atrial fibrillation type: unspecified Qualified Code(s): I48.91 - Unspecified atrial fibrillation (5) Counseling regarding advanced care planning and goals of care Current Visit: No Status: Acute Assessment and plan: Patient's CODE STATUS DNR CCA, DNI. Patient is discussing with family about whether or not she like to go home with hospice or not. This discussion is currently on hold as the patient needs to have a bowel movement this was arranged for. (6) Constipation by delayed colonic transit Current Visit: Yes Status: Acute Assessment and plan: Per patient request she was provided with warm prune juice this morning and enema was also discussed with her and ordered. Patient will decline it if she does not feel she needs it but at this point in time she is willing to accept. (7) Acute decompensated heart failure Current Visit: Yes Status: Acute Assessment and plan: Overall this seems to be slightly better. Patient is breathing easier, however at this time she is having a lot of discomfort from her abdomen. - Time Spent With Patient Total time spent is greater than 50% in coordination of care (as documented) at patient's floor/unit and/or counseling patient: - Subjective Interval history: Breathing is okay, patient is complaining bitterly about needing a bowel movement having a lot of abdominal discomfort secondary to distention. She feels that all she needs is a warm prune juice as this will get her bowels moving and she will feel much better. Did provide her with Cipro juice via the nursing staff, she is also got an enema ordered. - Constitutional Vitals: Abnormal lab results RBC 3.25 M/mcL (3.82-4.97) L 05/20/16 05:26 Hgb 9.3 g/dL (11.5-15.4) L D 05/20/16 05:26 Hct 30.6 % (35.3-44.9) L 05/20/16 05:26 MCHC 30.4 g/dL (31.6-35.5) L 05/20/16 05:26 RDW 18.4 % (11.5-14.5) H 05/20/16 05:26 PT 12.2 Seconds (9.4-12.1) H 05/18/16 04:27 APTT 25.6 Seconds (26.0-36.0) L 05/18/16 04:27 Sodium 135 mEq/L (136-145) L 05/20/16 05:43 Chloride 97 mEq/L (98-109) L 05/20/16 05:43 BUN 39 mg/dL (7-20) H 05/20/16 05:43 Creatinine 1.94 mg/dL (0.57-1.11) H 05/20/16 05:43 Est GFR ( Amer) 30 (> 60) L 05/20/16 05:43 Est GFR (Non-Af Amer) 25 (> 60) L 05/20/16 05:43 Glucose 254 mg/dL (70-99) H 05/20/16 05:43 POC Glucose 317 (58-89) H 05/19/16 19:47 Calcium 7.9 mg/dL (8.6-10.8) L 05/20/16 05:43 Phosphorus 4.8 mg/dL (2.3-4.7) H 05/20/16 05:43 Iron 26 mcg/dL (50-170) L 05/19/16 05:56 % Saturation 10 % (15-50) L 05/19/16 05:56 Total Bilirubin 1.4 mg/dL (0.2-1.2) H 05/18/16 04:27 Direct Bilirubin 0.7 mg/dL (0.0-0.5) H 05/18/16 04:27 B-Natriuretic Peptide 3803 pg/mL (0-100) H 05/18/16 00:30 Albumin 2.4 g/dL (3.5-5.0) L 05/18/16 04:27 Globulin 3.6 g/dL (2.4-3.5) H 05/18/16 04:27 Albumin/Globulin Ratio 0.7 (1.1-2.2) L 05/18/16 04:27 HDL Cholesterol 21 mg/dL (40-59) L 05/18/16 04:27 Urine Clarity Cloudy (Clear) A 05/20/16 06:30 Urine Protein 100 mg/dL (Neg-Trace) H 05/20/16 06:30 General appearance: Present: mild distress (Secondary to abdominal discomfort) - Head Head exam: Present: atraumatic, normal inspection - Eye Eye exam: Present: normal appearance - Neck Neck exam: Present: normal inspection - Respiratory Respiratory exam: Present: decreased breath sounds, rales (Some mild crackles) - Cardiovascular Cardiovascular exam: Present: irregular rhythm, tachycardia - GI/Abdominal GI/Abdominal exam: Present: distended (Very tympanitic), hypoactive bowel sounds. Absent: tenderness (Not particularly tender) - Extremities Exam Extremities exam: Present: pedal edema. Absent: tenderness - Neurological Exam Neurological exam: Present: alert, oriented X3 - Psychiatric Psychiatric exam: Present: agitated (Regarding her abdominal discomfort and needing a bowel movement.), anxious - Skin Skin exam: Present: dry, warm Palliative Quality Palliative Quality: Screen for Code Status: Yes, Screen for Goals of Care: Yes, Screen for Pain: Yes, If Pain Regimen Started, Initiate Bowel Regimen: NA, Screen for Nausea/Vomitting: Yes Code Status: 05/18/16 03:39 Resuscitation Status: Active [RES] Routine Comment: Resuscitation Status: [id number] - Labs CBC & Chem 7: 05/20/16 05:26 05/20/16 05:43 Labs: Laboratory Results - last 24 hr 05/19/16 05/19/16 05/19/16 05:56 07:49 08:36 WBC RBC Hgb Hct MCV MCH MCHC RDW Plt Count MPV Immature Gran % Seg Neutrophils % Lymphocytes % Monocytes % Eosinophils % Basophils % Neutrophils # Lymphocytes # Monocytes # Eosinophils # Basophils # Sodium Potassium Chloride Carbon Dioxide BUN Creatinine Est GFR ( Amer) Est GFR (Non-Af Amer) BUN/Creatinine Ratio Glucose POC Glucose 323 H Calculated Osmolality Calcium Phosphorus Magnesium Iron 26 L % Saturation 10 L Transferrin 193 Ferritin 77 Urine Color Urine Clarity Urine pH Ur Specific [place] Urine Protein Urine Glucose (UA) Urine Ketones Urine Blood Urine Nitrite Urine Bilirubin Urine Urobilinogen Ur Leukocyte Esterase Urine Microscopic RBC Urine Microscopic WBC Urine Bacteria Vancomycin Trough Random Vancomycin 8.3 Specimen Rejected Blood Type A NEGATIVE Antibody Screen NEGATIVE Crossmatch See Detail 05/19/16 05/19/16 05/19/16 11:12 16:14 19:47 WBC RBC Hgb Hct MCV MCH MCHC RDW Plt Count MPV Immature Gran % Seg Neutrophils % Lymphocytes % Monocytes % Eosinophils % Basophils % Neutrophils # Lymphocytes # Monocytes # Eosinophils # Basophils # Sodium Potassium Chloride Carbon Dioxide BUN Creatinine Est GFR ( Amer) Est GFR (Non-Af Amer) BUN/Creatinine Ratio Glucose POC Glucose 354 H 313 H 317 H Calculated Osmolality Calcium Phosphorus Magnesium Iron % Saturation Transferrin Ferritin Urine Color Urine Clarity Urine pH Ur Specific [place] Urine Protein Urine Glucose (UA) Urine Ketones Urine Blood Urine Nitrite Urine Bilirubin Urine Urobilinogen Ur Leukocyte Esterase Urine Microscopic RBC Urine Microscopic WBC Urine Bacteria Vancomycin Trough Random Vancomycin Specimen Rejected Blood Type Antibody Screen Crossmatch 05/20/16 05/20/16 05/20/16 05:26 05:26 05:38 WBC 6.5 D RBC 3.25 L Hgb 9.3 L D Hct 30.6 L MCV 94.2 MCH 28.6 MCHC 30.4 L RDW 18.4 H Plt Count 146 MPV 10.6 Immature Gran % 1.2 Seg Neutrophils % 77.4 Lymphocytes % 14.0 Monocytes % 7.2 Eosinophils % 0.0 Basophils % 0.2 Neutrophils # 5.0 Lymphocytes # 0.9 Monocytes # 0.5 Eosinophils # 0.0 Basophils # 0.0 Sodium Potassium Chloride Carbon Dioxide BUN Creatinine Est GFR ( Amer) Est GFR (Non-Af Amer) BUN/Creatinine Ratio Glucose POC Glucose Calculated Osmolality Calcium Phosphorus Magnesium Iron % Saturation Transferrin Ferritin Urine Color Urine Clarity Urine pH Ur Specific [place] Urine Protein Urine Glucose (UA) Urine Ketones Urine Blood Urine Nitrite Urine Bilirubin Urine Urobilinogen Ur Leukocyte Esterase Urine Microscopic RBC Urine Microscopic WBC Urine Bacteria Vancomycin Trough 12.0 Random Vancomycin Specimen Rejected Hemolyzed Blood Type Antibody Screen Crossmatch 05/20/16 05/20/16 05:43 06:30 WBC RBC Hgb Hct MCV MCH MCHC RDW Plt Count MPV Immature Gran % Seg Neutrophils % Lymphocytes % Monocytes % Eosinophils % Basophils % Neutrophils # Lymphocytes # Monocytes # Eosinophils # Basophils # Sodium 135 L Potassium 4.5 Chloride 97 L Carbon Dioxide 25 BUN 39 H Creatinine 1.94 H Est GFR ( Amer) 30 L Est GFR (Non-Af Amer) 25 L BUN/Creatinine Ratio 20 Glucose 254 H POC Glucose Calculated Osmolality 298 Calcium 7.9 L Phosphorus 4.8 H Magnesium 1.7 Iron % Saturation Transferrin Ferritin Urine Color Yellow Urine Clarity Cloudy A Urine pH 5.5 Ur Specific [place] 1.019 Urine Protein 100 H Urine Glucose (UA) Normal Urine Ketones Negative Urine Blood Negative Urine Nitrite Negative Urine Bilirubin Negative Urine Urobilinogen Normal Ur Leukocyte Esterase Negative Urine Microscopic RBC 0-3 Urine Microscopic WBC 0-3 Urine Bacteria Few Vancomycin Trough Random Vancomycin Specimen Rejected Blood Type Antibody Screen Crossmatch - ABG Interpretation ABG results: PT/INR, D-dimer PT 12.2 Seconds (9.4-12.1) H 05/18/16 04:27 Consult Discharge Plan - Plan Referrals: Reinaldo Valladares Jr, MD [Primary Care Provider] - 05/25/16 9:15 am
[2016-05-20] MEDS: Isosorbide MONOnitrate (24 HR) 30 MG TAB.ER.24H PO SCH (09:07)
[2016-05-20] MEDS: Metoprolol XL (24 HR) Succ 50 MG TAB.ER.24H PO SCH (09:07)
[2016-05-20] MEDS: Lactobacillus 1 EACH CAP.SPRINK PO SCH (09:07)
[2016-05-20] MEDS: predniSONE 20 MG TABLET PO SCH (09:07)
[2016-05-20] MEDS: Aspirin Enteric Coated 81 MG Tablet PO SCH (09:07)
[2016-05-20] MEDS: Furosemide 40 MG/4 ML VIAL IVP SCH (09:08)
[2016-05-20] MEDS: Insulin LISPRO 300 UNITS/3 ML VIAL SQ SCH ×4 (09:08→21:58)
[2016-05-20] MEDS: Levalbuterol Neb 0.63 MG/3 ML IH SCH ×3 (09:42→22:59)
[2016-05-20] MEDS ORDERED: *HR* LORazepam 2 MG/ML VIAL ONE (09:43)
[2016-05-20] MEDS ORDERED: Amiodarone Premix 360 MG/200 ML BAG IVC ONE (11:41)
[2016-05-20] MEDS ORDERED: Amiodarone Premix 150 MG/100 ML BAG IVPB ONE (11:41)
--- NOTE | 2016-05-20 12:53 | Internal Med Progress Note ---
Date of Encounter: 05/20/16 Time of Encounter: 09:50 - Assessment and plan (1) A-fib Current Visit: Yes Status: Chronic Assessment and plan: Afib with RVR Rate not controlled with Metoprolol Started Amiodarone drip Cardiology consultation appreciated Not on anticoagulation due to high risk of falls Qualifiers: Atrial fibrillation type: unspecified Qualified Code(s): I48.91 - Unspecified atrial fibrillation (2) Acute decompensated heart failure Current Visit: Yes Status: Acute Assessment and plan: Acute respiratory distress secondary to Acute decompensated HF 2D echo: LVEF 20-25% significantly reduced from 03/2016, moderate-severe mitral regurgitation, severely dilated left atrium, moderate pulm hypertension, severe global LV systolic dysfunciton continue diuretic therapy It is not clear if patient is compliant with her medical therapy readjusted her home medication dosing given her current BP readings continue to monitor I/Os fluid restricted diet (1.5L/day) early ambulation encouraged monitor daily weights O2 supplementation as needed cardiology consultation appreciated. pt opted for medical management at this time and wishes to consider hospice care. Palliative consultation requested. (3) Elevated troponin I measurement Current Visit: Yes Status: Acute Assessment and plan: Likely demand ischemia no chest pain reported at this time NO EKG changes noted TNI normalized (4) Cellulitis of both lower extremities Current Visit: Yes Status: Resolved Assessment and plan: continue IV abx f/u cultures (5) Acute kidney injury superimposed on CKD Current Visit: Yes Status: Acute Assessment and plan: Kidney function worsened from previous day likely secondary to diuretic therapy will continue to monitor (6) CAD (coronary artery disease) Current Visit: Yes Status: Chronic Qualifiers: Coronary Disease-Associated Artery/Lesion type: [place] artery [place] vs. transplanted heart: unspecified whether [place] or transplanted heart Associated angina: with unspecified angina Qualified Code(s): I25.119 - Atherosclerotic heart disease of [place] coronary artery with unspecified angina pectoris (7) COPD (chronic obstructive pulmonary disease) Current Visit: Yes Status: Chronic Qualifiers: COPD type: unspecified COPD Qualified Code(s): J44.9 - Chronic obstructive pulmonary disease, unspecified (8) Diabetes Current Visit: Yes Status: Chronic Qualifiers: Diabetes mellitus type: type 2 Diabetes mellitus complication status: with unspecified complications Diabetes mellitus termination clerk insulin use: unspecified skilled nursing insulin use status Qualified Code(s): E11.8 - Type 2 diabetes mellitus with unspecified complications (9) HLD (hyperlipidemia) Current Visit: Yes Status: Chronic Qualifiers: Hyperlipidemia type: mixed hyperlipidemia Qualified Code(s): E78.2 - Mixed hyperlipidemia (10) DVT prophylaxis Current Visit: No Status: Acute Assessment and plan: IPCD due to anemia (11) Anemia Current Visit: Yes Status: Acute Assessment and plan: Patient has history of anemia NOted to have iron deficiency anemia Will start iron supplementation H&H within acceptable range at this time no active bleeding reported will continue to monitor awaiting stool for stool occult study Qualifiers: Anemia type: unspecified type Qualified Code(s): D64.9 - Anemia, unspecified - Subjective Interval history: Patient is an 86y/o female who is admitted for management of Acute respiratory distress secondary to CHF decompensation, Elevated TNI, MELLISSA, and Lower extremity cellulitis. Patient seen and examined at bedside. Reported to have difficulty breathing and worsening of Afib with RVR. placed on bipap support and started Amiodarone drip for rate control. Symptoms improved with these interventions. - Constitutional Vitals: Temp Pulse Resp BP Pulse Ox 98.2 F 90 20 117/69 98 05/20/16 12:15 05/20/16 12:30 05/20/16 12:30 05/20/16 12:30 05/20/16 12:30 General appearance: Present: cooperative, mild distress, A&O X 3, obese, answers questions appropriately - Eye Eye exam: Present: PERRL, conjuntiva pink, sclera anicteric - Respiratory Respiratory exam: Present: respiratory distress (decreased breath sounds, bibasilar crackles). Absent: wheezes - Cardiovascular Cardiovascular exam: Present: irregular rhythm, +S1, +S2, tachycardia - GI/Abdominal GI/Abdominal exam: Present: normal bowel sounds, soft, no peritoneal signs. Absent: distended, tenderness - Extremities Exam Extremities exam: Present: pedal edema (2+pitting edema in bilateral lower extremities; erythema noted on distal bilateral lower extremities), warm, radial pulses palpable and symetrical. Absent: calf tenderness - Neurological Exam Neurological exam: Present: alert, oriented X3 - Psychiatric Psychiatric exam: Present: normal affect, normal mood Internal Medicine: Result - Labs CBC & Chem 7: 05/20/16 05:26 05/20/16 05:43 Labs: Short CBC 05/20/16 Range/Units 05:26 WBC 6.5 D (4.3-11.1) K/mcL Hgb 9.3 L D (11.5-15.4) g/dL Hct 30.6 L (35.3-44.9) % Plt Count 146 (140-400) K/mcL Neutrophils # 5.0 (1.6-8.9) K/mcL BMP 05/20/16 05:43 Sodium 135 L Potassium 4.5 Chloride 97 L Carbon Dioxide 25 BUN 39 H Creatinine 1.94 H Glucose 254 H Calcium 7.9 L Urine 05/20/16 Range/Units 06:30 Urine Color Yellow (Yellow) Urine Clarity Cloudy A (Clear) Urine pH 5.5 (5.0-8.0) pH Units Ur Specific [place] 1.019 (1.010-1.025) Urine Protein 100 H (Neg-Trace) mg/dL Urine Glucose (UA) Normal (Normal) mg/dL - ABG Interpretation ABG results: PT/INR, D-dimer PT 12.2 Seconds (9.4-12.1) H 05/18/16 04:27 - VTE Documentation of Mechanical Device: Venous foot pump, device Consult Discharge Plan - Plan Referrals: Reinaldo Valladares Jr, MD [Primary Care Provider] - 05/25/16 9:15 am
[2016-05-20] MEDS ORDERED: Vancomycin 1,000 MG in D5% in Water 250 ML IVPB ONE (13:53)
[2016-05-20] MEDS: Amiodarone Premix 360 MG/200 ML BAG IVC SCH (18:42)
[2016-05-20] MEDS: ALPRAZolam 1 MG TABLET PO PRN (21:21)
[2016-05-20] MEDS: Sennosides/Docusate Sodium TABLET PO SCH (21:21)
[2016-05-20] MEDS: Insulin DETEMIR 100 UNIT/ML X5UNITS SQ SCH (21:58)
[2016-05-21 03:44] LABS: Basophils % 0.2 %; Hematocrit 27.8 % (35.3-44.9); Hemoglobin 8.8 g/dL (11.5-15.4); Immature Granulocytes % 1.1 % (0-4); Lymphocytes # 0.6 K/mcL (0.6-4.6); Lymphocytes % 11.3 %; Mean Corpuscular HGB Conc 31.7 g/dL (31.6-35.5); Mean Corpuscular Hemoglobin 29.7 pg (28.0-33.3); Mean Corpuscular Volume 93.9 fL (83.0-100.0); Mean Platelet Volume 10.3 fL (9.4-12.4); Monocytes # 0.4 K/mcL (0.0-1.3); Monocytes % 7.4 %; Neutrophils # 4.2 K/mcL (1.6-8.9); Platelet Count 122 K/mcL (140-400); Red Blood Count 2.96 M/mcL (3.82-4.97); Red Cell Distribution Width 17.9 % (11.5-14.5)
[2016-05-21 04:04] LABS: Calcium 7.9 mg/dL (8.6-10.8); Magnesium 1.9 mg/dL (1.6-2.6); Phosphorous 5.7 mg/dL (2.3-4.7); Potassium 4.2 mEq/L (3.5-4.5)
[2016-05-21] MEDS: Levalbuterol Neb 0.63 MG/3 ML IH SCH ×4 (04:21→22:41)
[2016-05-21] MEDS: Piperacillin/Tazobactam 3.375 GM in D5% in Water (Mini-Bag+) 100 ML IVPB SCH ×2 (05:41→16:37)
[2016-05-21] MEDS: Amiodarone Premix 360 MG/200 ML BAG IVC SCH (05:45)
--- NOTE | 2016-05-21 08:12 | Cardiology Progress Note ---
Date of Encounter: 05/21/16 Time of Encounter: 08:30 Assessment and Plan (1) Acute exacerbation of congestive heart failure Current Visit: No Status: Acute Per Cardiology: Recent EF on echo 40-45%. Current echo shows EF down to 20-25%, moderate to severe MR, moderate pulmonary hypertension. BNP noted to be elevated in the 3800s. Currently IV Lasix 40 mg daily. Net -1174ml. Kidney function continues to worsen. Off HCTZ. Will DC IV Lasix for now-- SOB has improved. Consider nephrology c/s. On Toprol XL. Continue strict I and O, daily weights, continue with fluid restriction. Qualifiers: Congestive heart failure type: combined Qualified Code(s): I50.43 - Acute on chronic combined systolic (congestive) and diastolic (congestive) heart failure (2) A-fib Current Visit: Yes Status: Chronic Per Cardiology: Patient with known history of atrial fibrillation. Heart rate remains elevated in the 100s currently. Current systolic blood pressure in the 110's - 130's. On Toprol XL and amiodarone gtt. Will discuss with Dr. Perez converting to by mouth amiodarone. Not on anticoagulation other than aspirin. S/p transfusion. Patient aware of increased stroke risk. Qualifiers: Atrial fibrillation type: unspecified Qualified Code(s): I48.91 - Unspecified atrial fibrillation (3) Anemia Current Visit: Yes Status: Acute Per Cardiology: Management per primary team. S/p 1 unit PRBC during stay. Qualifiers: Anemia type: unspecified type Qualified Code(s): D64.9 - Anemia, unspecified (4) Elevated troponin I measurement Current Visit: Yes Status: Acute Per Cardiology: Mild troponin elevation with peaked 0.05. Denies any chest pain. Do not suspect NSTEMI, suspect demand ischemia in setting of CKD IV and acute on chronic heart failure. (5) CAD (coronary artery disease) Current Visit: Yes Status: Chronic Per Cardiology: Past history CAD with CABG around 1995. Patient reports no recent left heart catheterization. Decreased EF 20-25% and mild troponin elevation, however patient agreeable with conservative medical management does not desire left heart catheterization. Has CKD IV and is s/p transfusion. DNR/DNI/CCA, she is still interested in Hospice-- discussing with family (no family at bedside currently). On aspirin, statin, beta ramy, long-acting nitrate. Remains chest pain-free. Can titrate long acting nitrate or add Ranexa if clinically warranted. Qualifiers: Coronary Disease-Associated Artery/Lesion type: [place] artery [place] vs. transplanted heart: unspecified whether [place] or transplanted heart Associated angina: with unspecified angina Qualified Code(s): I25.119 - Atherosclerotic heart disease of [place] coronary artery with unspecified angina pectoris Discussion w patient/family: The assessment and plan as outlined above was discussed with the patient who expressed understanding and agreement. All questions were answered. Thank you for involving us in the care of your patient. Please call with any questions. Subjective Principal diagnosis: SOB Interval history: Patient reports shortness of breath has improved. She denies any chest pain or palpitations. Denies any awareness of any active bleeding or blood loss. Reports an active discussions with family regarding plans for home care in terms of hospice. She desires to remain DNR/DNI, Comfort Care arrest. Objective Vital Signs, Last 4 Hours Temp Pulse Resp BP Pulse Ox 05/21/16 07:33 97.0 F L 106 22 112/76 98 05/21/16 06:00 97 115/81 05/21/16 05:00 114 131/61 05/21/16 04:21 24 98 General: Conversant HEENT: Atraumatic Cardiac: No Murmur, Other (Irregularly irregular) Lungs: Other (Diminished bilateral bases) Neuro: Alert and responsive, No focal deficits noted Extremities: Other (+1 pitting to bilateral feet, dusky colored) Results 05/21/16 03:22 05/21/16 03:22 Lab Results Laboratory Tests 05/21/16 03:22 Creatinine 2.17 H Est GFR (Non-Af Amer) 22 L Intake & Output 05/18/16 05/19/16 05/20/16 05/21/16 23:59 23:59 23:59 23:59 Intake Total 930 / 930 1278 / 1278 1218 / 1218 200 / 200 Output Total 2600 / 2600 1400 / 1400 800 / 800 Balance -1670 / -1670 -122 / -122 418 / 418 200 / 200 Weight 67.132 kg 68.6 kg 66.8 kg Active Medications Acetaminophen (Tylenol) 650 mg PO Q6HR PRN PRN Reason: Mild Pain (1-3) Stop: 11/17/16 03:40 Last Admin: 05/20/16 06:25 Dose: 650 mg Alprazolam (Xanax) 1 mg PO BID PRN; Protocol PRN Reason: Anxiety Stop: 11/17/16 10:13 Last Admin: 05/20/16 21:21 Dose: 1 mg Aspirin (Aspirin Ec) 81 mg PO DAILY [place] Stop: 11/17/16 09:01 Last Admin: 05/20/16 09:07 Dose: 81 mg Atorvastatin Calcium (Lipitor) 40 mg PO HS [place] Stop: 11/17/16 21:01 Last Admin: 05/20/16 21:21 Dose: 40 mg Dextrose/Water (Dextrose 50% (Syg)) 25 ml IVP AD PRN PRN Reason: Hypoglycemia Stop: 11/17/16 10:24 Ferrous Sulfate (Ferrous Sulfate) 325 mg PO DAILY@0800 [place] Stop: 11/20/16 08:01 Furosemide (Lasix) 40 mg IVP DAILY [place] Stop: 11/18/16 09:01 Last Admin: 05/20/16 09:08 Dose: 40 mg Glucagon (Glucagen) 1 mg IM ONCE PRN PRN Reason: Hypoglycemia Stop: 11/17/16 10:24 Glucose (Gluctose) 15 gm PO ONCE PRN PRN Reason: Hypoglycemia Stop: 11/17/16 10:24 Glucose (Gluctose) 30 gm PO ONCE PRN PRN Reason: Hypoglycemia Stop: 11/17/16 10:24 Hydralazine HCl (Hydralazine) 10 mg PO TIDAC [place] Stop: 11/17/16 07:31 Last Admin: 05/20/16 17:13 Dose: 10 mg Piperacillin Sod/Tazobactam (Sod 3.375 gm/ Dextrose) 100 mls @ 25 mls/hr IVPB Q12HR [place] PRN Reason: Protocol Stop: 11/17/16 06:35 Last Admin: 05/21/16 05:41 Dose: 25 mls/hr Dextrose (Dextrose 5%) 1,000 mls @ 100 mls/hr IV CONT PRN PRN Reason: HYPOGLYCEMIA Stop: 11/17/16 10:24 Vancomycin HCl 1 each/ (Dextrose) 250 mls @ 167 mls/hr IVPB RPHPROT PRN; Protocol PRN Reason: PHARMACY DOSING Stop: 11/17/16 07:01 Amiodarone HCl/Dextrose (Amiodarone 360mg/200ml Drip Premix) 360 mg in 200 mls @ 16.667 mls/hr IVC CONT [facility] PRN Reason: 0.5 MG/MIN Stop: 11/19/16 11:46 Last Admin: 05/21/16 05:45 Dose: 0.5 mg/min, 16.667 mls/hr Insulin Detemir (Levemir) 15 unit SQ BID [facility] Stop: 11/19/16 21:01 Last Admin: 05/20/16 21:58 Dose: 15 unit Insulin Human Lispro (Humalog) 0 units SQ HS [facility] PRN Reason: Protocol Stop: 11/17/16 21:01 Last Admin: 05/20/16 21:58 Dose: 8 units Insulin Human Lispro (Humalog) 0 units SQ TIDAC [facility] PRN Reason: Protocol Stop: 11/17/16 11:31 Last Admin: 05/20/16 17:10 Dose: 12 units Isosorbide Mononitrate (Imdur) 30 mg PO DAILY [facility] Stop: 11/18/16 09:01 Last Admin: 05/20/16 09:07 Dose: 30 mg Lactobacillus Acidophilus/Rhamnosus (Culturelle) 1 each PO DAILY [facility] Stop: 11/18/16 09:01 Last Admin: 05/20/16 09:07 Dose: 1 each Levalbuterol HCl (Xopenex) 0.63 mg IH [id number] [facility] Stop: 11/19/16 10:01 Last Admin: 05/21/16 04:21 Dose: 0.63 mg Metoprolol Succinate (Toprol Xl) 50 mg PO DAILY [facility] Stop: 11/19/16 09:01 Last Admin: 05/20/16 09:07 Dose: 50 mg Morphine Sulfate (Morphine Sulfate) 2 mg IVP Q4HR PRN PRN Reason: Severe Pain (7-10) Stop: 11/17/16 03:40 Naloxone HCl (Narcan) 0.4 mg IVP Q2MIN PRN PRN Reason: Opioid Reversal Stop: 11/17/16 03:40 Omeprazole (Prilosec) 20 mg PO DAILY@0630 [facility] PRN Reason: Protocol Stop: 11/17/16 06:31 Last Admin: 05/21/16 05:57 Dose: 20 mg Ondansetron HCl (Zofran) 4 mg IVP Q8HR PRN PRN Reason: Nausea And Vomiting Stop: 11/17/16 03:40 Oxycodone HCl (Roxicodone) 5 mg PO Q6HR PRN PRN Reason: Moderate Pain (4-6) Stop: 11/17/16 03:40 Last Admin: 05/19/16 04:54 Dose: 5 mg Prednisone (Prednisone) 30 mg PO DAILY [facility] Stop: 11/17/16 10:16 Last Admin: 05/20/16 09:07 Dose: 30 mg Senna/Docusate Sodium (Senna Plus) 2 each PO BID [place] PRN Reason: Protocol Stop: 11/19/16 21:01 Last Admin: 05/20/16 21:21 Dose: 2 each - EKG Interpretation EKG results cardiology: other (Telemetry reviewed with average heart rate the past 12 hours 98, remains atrial fibrillation) - VTE Documentation of Mechanical Device: Venous foot pump, device Consult Discharge Plan - Plan Referrals: Reinaldo Valladares Jr, MD [Primary Care Provider] - 05/25/16 9:15 am
[2016-05-21] MEDS: Metoprolol XL (24 HR) Succ 50 MG TAB.ER.24H PO SCH ×2 (08:50→21:01)
[2016-05-21] MEDS: Sennosides/Docusate Sodium TABLET PO SCH ×2 (08:50→21:01)
[2016-05-21] MEDS: hydrALAZINE 10 MG TABLET PO SCH (08:50)
[2016-05-21] MEDS: predniSONE 20 MG TABLET PO SCH (08:50)
[2016-05-21] MEDS: Lactobacillus 1 EACH CAP.SPRINK PO SCH (08:50)
[2016-05-21] MEDS: Furosemide 40 MG/4 ML VIAL IVP SCH (08:51)
[2016-05-21] MEDS: Insulin LISPRO 300 UNITS/3 ML VIAL SQ SCH ×6 (08:51→21:02)
[2016-05-21] MEDS: Isosorbide MONOnitrate (24 HR) 30 MG TAB.ER.24H PO SCH (08:51)
[2016-05-21] MEDS: Insulin DETEMIR 100 UNIT/ML X5UNITS SQ SCH ×2 (08:51→21:01)
[2016-05-21] MEDS: Aspirin Enteric Coated 81 MG Tablet PO SCH (08:51)
--- NOTE | 2016-05-21 09:27 | Palliative Progress Note ---
Date of Encounter: 05/21/16 Time of Encounter: 08:40 - Assessment and plan (1) Dyspnea Current Visit: No Status: Acute Assessment and plan: This appears that her this morning. Patient is not having any difficulty with her bowels either at this point in time. Patient is tolerating BiPAP well. [place] per hospitalist team. Qualifiers: Dyspnea type: shortness of breath Qualified Code(s): R06.02 - Shortness of breath (2) Acute kidney injury superimposed on CKD Current Visit: Yes Status: Acute Assessment and plan: Slow decline continues to continue to watch. (3) Anemia Current Visit: Yes Status: Acute Assessment and plan: Hemoglobin had a small drop from yesterday. Note that the are heme positive. Hospitalist team is watching this currently. Qualifiers: Anemia type: unspecified type Qualified Code(s): D64.9 - Anemia, unspecified (4) A-fib Current Visit: Yes Status: Chronic Assessment and plan: Currently tachycardic, on amiodarone drip at this time. Being followed by hospitalist team and cardiology. Qualifiers: Atrial fibrillation type: unspecified Qualified Code(s): I48.91 - Unspecified atrial fibrillation (5) Counseling regarding advanced care planning and goals of care Current Visit: No Status: Acute Assessment and plan: Patient's CODE STATUS DNR CCA, DNI. Patient is discussing with family about whether or not she like to go home with hospice or not. He is feeling better today she has made no firm decisions and wishes to discuss this further with her family. (6) Constipation by delayed colonic transit Current Visit: Yes Status: Acute Assessment and plan: Per patient request she was provided with warm prune juice yesterday morning. Patient states she did have a bowel movement and felt much better afterward. However this. Time she also had her A. fib speed up markedly. That left her several very short of breath. Is in addition to the abdominal discomfort that she was having. States that she did have a bowel movement and everything has been better since then. Continue to watch.. (7) Acute decompensated heart failure Current Visit: Yes Status: Acute - Time Spent With Patient Total time spent is greater than 50% in coordination of care (as documented) at patient's floor/unit and/or counseling patient: - Subjective Interval history: The patient is currently on BiPAP and tolerating it well. She states she did have a bowel movement yesterday and feels much better. Did note the medical record that shortly after I saw her she was in a A. fib with rapid ventricular response and she has responded to medications.. - Constitutional Vitals: Abnormal lab results RBC 2.96 M/mcL (3.82-4.97) L 05/21/16 03:22 Hgb 8.8 g/dL (11.5-15.4) L 05/21/16 03:22 Hct 27.8 % (35.3-44.9) L 05/21/16 03:22 RDW 17.9 % (11.5-14.5) H 05/21/16 03:22 Plt Count 122 K/mcL (140-400) L 05/21/16 03:22 PT 12.2 Seconds (9.4-12.1) H 05/18/16 04:27 APTT 25.6 Seconds (26.0-36.0) L 05/18/16 04:27 Sodium 133 mEq/L (136-145) L 05/21/16 03:22 Chloride 96 mEq/L (98-109) L 05/21/16 03:22 BUN 46 mg/dL (7-20) H 05/21/16 03:22 Creatinine 2.17 mg/dL (0.57-1.11) H 05/21/16 03:22 Est GFR ( Amer) 26 (> 60) L 05/21/16 03:22 Est GFR (Non-Af Amer) 22 (> 60) L 05/21/16 03:22 Glucose 321 mg/dL (70-99) H 05/21/16 03:22 POC Glucose 371 (58-89) H 05/20/16 20:44 Calcium 7.9 mg/dL (8.6-10.8) L 05/21/16 03:22 Phosphorus 5.7 mg/dL (2.3-4.7) H 05/21/16 03:22 Iron 26 mcg/dL (50-170) L 05/19/16 05:56 % Saturation 10 % (15-50) L 05/19/16 05:56 Total Bilirubin 1.4 mg/dL (0.2-1.2) H 05/18/16 04:27 Direct Bilirubin 0.7 mg/dL (0.0-0.5) H 05/18/16 04:27 B-Natriuretic Peptide 3803 pg/mL (0-100) H 05/18/16 00:30 Albumin 2.4 g/dL (3.5-5.0) L 05/18/16 04:27 Globulin 3.6 g/dL (2.4-3.5) H 05/18/16 04:27 Albumin/Globulin Ratio 0.7 (1.1-2.2) L 05/18/16 04:27 HDL Cholesterol 21 mg/dL (40-59) L 05/18/16 04:27 Urine Clarity Cloudy (Clear) A 05/20/16 06:30 Urine Protein 100 mg/dL (Neg-Trace) H 05/20/16 06:30 Stool Occult Blood Positive (Negative) A 05/20/16 14:00 General appearance: Present: no acute distress - Head Head exam: Present: atraumatic, normal inspection - Eye Eye exam: Present: normal appearance - ENT ENT exam: Present: mucous membranes moist (BiPAP mask is in place) - Respiratory Respiratory exam: Present: decreased breath sounds - Cardiovascular Cardiovascular exam: Present: irregular rhythm, tachycardia - GI/Abdominal GI/Abdominal exam: Present: normal bowel sounds, soft (Much less distended from yesterday.). Absent: tenderness - Extremities Exam Extremities exam: Present: normal inspection, pedal edema. Absent: tenderness - Neurological Exam Neurological exam: Present: alert, oriented X3 - Psychiatric Psychiatric exam: Present: normal affect, normal mood. Absent: agitated, anxious - Skin Skin exam: Present: dry, warm Palliative Quality Palliative Quality: Screen for Code Status: Yes, Screen for Goals of Care: Yes, Screen for Pain: Yes, If Pain Regimen Started, Initiate Bowel Regimen: NA, Screen for Nausea/Vomitting: Yes - Labs CBC & Chem 7: 05/21/16 03:22 05/21/16 03:22 Labs: Laboratory Results - last 24 hr 05/20/16 05/20/16 05/20/16 14:00 16:22 20:44 WBC RBC Hgb Hct MCV MCH MCHC RDW Plt Count MPV Immature Gran % Seg Neutrophils % Lymphocytes % Monocytes % Eosinophils % Basophils % Neutrophils # Lymphocytes # Monocytes # Eosinophils # Basophils # Sodium Potassium Chloride Carbon Dioxide BUN Creatinine Est GFR ( Amer) Est GFR (Non-Af Amer) BUN/Creatinine Ratio Glucose POC Glucose 285 H 371 H Calculated Osmolality Calcium Phosphorus Magnesium Stool Occult Blood Positive A 05/21/16 05/21/16 03:22 03:22 WBC 5.3 RBC 2.96 L Hgb 8.8 L Hct 27.8 L MCV 93.9 MCH 29.7 MCHC 31.7 RDW 17.9 H Plt Count 122 L MPV 10.3 Immature Gran % 1.1 Seg Neutrophils % 80.0 Lymphocytes % 11.3 Monocytes % 7.4 Eosinophils % 0.0 Basophils % 0.2 Neutrophils # 4.2 Lymphocytes # 0.6 Monocytes # 0.4 Eosinophils # 0.0 Basophils # 0.0 Sodium 133 L Potassium 4.2 Chloride 96 L Carbon Dioxide 25 BUN 46 H Creatinine 2.17 H Est GFR ( Amer) 26 L Est GFR (Non-Af Amer) 22 L BUN/Creatinine Ratio 21 Glucose 321 H POC Glucose Calculated Osmolality 300 Calcium 7.9 L Phosphorus 5.7 H Magnesium 1.9 Stool Occult Blood - ABG Interpretation ABG results: PT/INR, D-dimer PT 12.2 Seconds (9.4-12.1) H 05/18/16 04:27 Consult Discharge Plan - Plan Referrals: Reinaldo Valladares Jr, MD [Primary Care Provider] - 05/25/16 9:15 am
--- NOTE | 2016-05-21 10:35 | Nephrology Consult Note ---
Date of Encounter: 05/21/16 Time of Encounter: 10:32 Assessment and Plan (1) Acute kidney injury superimposed on CKD Current Visit: Yes Status: Acute Mild MELLISSA superimposed on CKD Stage 3. Baseline SCr 1.5-1.7 Patient has been diuresed during this visit for acute decompensated heart failure with lasix 40mg IV. SCr worsening from baseline. 3/6 SCr 2.17, GFR 22 3/6 Na 133, K 4.2 3/5 UOP 800, intake 1218, POSITIVE balance of 418 MELLISSA most likely secondary to lasix and vancomycin administration. Plan: -Hold lasix dose 1-2 days unless her respiratory status worsens. If there is a decrease in SCr, may resume lasix -Will screen form MRSA, if negative recommend taking the patient off of vancomycin -Recommend avoiding nephrotoxic agents -Renally dose medications Thank you for consulting [facility]. (2) Anemia Current Visit: Yes Status: Acute Manage per GI Qualifiers: Anemia type: unspecified type Qualified Code(s): D64.9 - Anemia, unspecified (3) Acute exacerbation of congestive heart failure Current Visit: No Status: Acute Qualifiers: Congestive heart failure type: combined Qualified Code(s): I50.43 - Acute on chronic combined systolic (congestive) and diastolic (congestive) heart failure History of Present Illness - Reason for Consult Consult date: 05/21/16 Acute Kidney Injury, Chronic Kidney Disease Requesting physician: Jacquie Stearns - Chief Complaint CHERYL - History of Present Illness Ms. Rodas is a 86 y/o female with PMH of DM, CAD, CKD Stage 3, CHF has been in the hospital being treated for acute decompensated heart failure, pulmonary edema and afib with RVR. HCTZ had been held, but she was being diuressed with lasix 40mg IV daily. She has also been treated with vancomycin during this hospital stay. The patient has been developing worsening renal function over the course of the admission. She has also had a decrease in her hemoglobin with FOB positive. The patient states that she has had "bad kidneys" for a while. She has also had kidney stones in the past. She denies any fevers, chills, chest pain, sob, abdominal pain, dysuria, hematuria. Past Med Surg Social Fam HX - Past Medical History Medical history: arthritis, atrial fibrillation, cardiomyopathy, CHF (Combined systolic and diastolic heart failure), COPD, coronary artery disease, diabetes, GERD, hyperlipidemia, hypertension, kidney stones, migraine, myocardial infarction, osteoporosis, peripheral artery disease, renal disease, SVT, valvular heart disease, other Psychiatric history: anxiety, other - Past Surgical History Surgical History: appendectomy, cholecystectomy, coronary bypass (CABG), hysterectomy, orthopedic, other (Right shoulder surgery. Lumbar laminectomy.), sinus surgery (Tonsillectomy adenoidectomy.), DARYL/BSO, ureteral stent (Renal stone removal.), other, vascular surgery (History of femoropopliteal bypass.), LE bypass, LE vascular intervention - Social History Smoking Status: Former smoker Smokeless Tobacco Status: No Alcohol use: none Drug use: none - Family History Mother Living Status: Age at : 35 Cause of : cerebral hemmorrhage Hx Family Cardiac Disorders: Yes Father Living Status: Age at : 70 Hx Family Cardiac Disorders: No Hx Family Respiratory Disorders: No Hx Family Cancer: No Hx Family GI Disorders: No Hx Family Endocrine Disorder: Yes Medications and Allergies Albuterol Neb [Proventil Neb] 2.5 mg IH Q4HR PRN 05/18/16 [History] Alprazolam [Xanax 1 MG Tablet] 1 mg PO BID PRN 05/18/16 [History] Aspirin [Lo-Dose Aspirin EC] 81 mg PO DAILY 05/18/16 [History] Atorvastatin [Lipitor] 40 mg PO HS 05/18/16 [History] Dapagliflozin Propanediol [Farxiga] 5 mg PO DAILY 05/18/16 [History] Furosemide [Lasix] 20 - 40 mg PO DAILY PRN 05/18/16 [History] Glimepiride [Amaryl] 1 mg PO DAILY 05/18/16 [History] HydrALAZINE 25 mg PO Q6HR 05/18/16 [History] Hydrochlorothiazide 12.5 mg PO DAILY 05/18/16 [History] Isosorbide MONOnitrate (24 HR) [Imdur] 30 mg PO DAILY 05/18/16 [History] Lactobacillus Acidophilus [Acidophilus] 100 mg PO BID 05/18/16 [History] Metoprolol XL (24 HR) Succ [Toprol XL] 100 mg PO BID 05/18/16 [History] Nitroglycerin [Nitrostat] 0.4 mg SL AD PRN 05/18/16 [History] Oxycodone HCl/Acetaminophen [Percocet 5-325 mg Tablet] 1 - 2 tab PO QID PRN 06/01 [History] PredniSONE [Deltasone] 30 mg PO DAILY 05/18/16 [History] Ubidecarenone [Co Q-10] 100 mg PO DAILY 05/18/16 [History] Zinc Acetate [Galzin] 50 mg PO DAILY 05/18/16 [History] Allergies Opium (Anthroposophic) Allergy (Unknown, Verified 05/18/16 08:38) See Comments LISTED ON PATIENT'S [facility] LAST APPT WITH PCP DR. MARY daniels Adverse Reaction (Unknown, Verified 05/18/16 00:26) Gastrointestinal Upset Exam - Vital Signs Vital signs: Initial Vital Signs Temp Pulse Resp BP Pulse Ox 98.1 F 98 22 132/75 90 L 05/18/16 00:27 05/18/16 00:27 05/18/16 00:27 05/18/16 00:27 05/18/16 00:27 Vital Signs - Last 8 Hours Temp Pulse Resp BP Pulse Ox 05/21/16 07:33 97.0 F L 106 22 112/76 98 05/21/16 06:00 97 115/81 05/21/16 05:00 114 131/61 05/21/16 04:21 24 98 05/21/16 04:00 107 131/61 05/21/16 03:15 109 05/21/16 03:00 107 117/76 05/21/16 02:45 97.8 F 100 26 111/79 97 Intake and Output 05/20/16 05/21/16 05/21/16 23:59 07:59 15:59 Intake Total 500 / 500 200 / 200 Output Total 350 / 350 Balance 150 / 150 200 / 200 Intake: IV Fluids 100 / 100 200 / 200 Amiodarone 360mg/200mL 200 / 200 Drip Premix 360 mg In 200 ml @ 0.5 MG/MIN 16.667 mls/hr IVC CONT [facility] Rx#: [id number] Zosyn 3.375 GM In 100 / 100 Dextrose 5% (Minibag+) 100 ML 100 ML @ 25 mls/hr IVPB Q12HR [facility] Rx#: [id number] Oral 400 / 400 Output: Catheter 350 / 350 Other: Stool Size Large Stool Consistency soft Blood Glucose* 371 325 - General Appearance General appearance: well-developed, well-nourished, chronically ill, frail EENT: ATNC, PERRL, mucous membranes dry Neck: supple Respiratory: clear Cardiology: edema (b/l LE) Additional Comments: tachycardia Gastrointestinal: normoactive bowel sounds, no tenderness, no guarding Integumentary: no rash, warm and dry, erythema (b/l LE) Neurologic: no focal deficit Musculoskeletal: erythema, no cyanosis, no clubbing Psychiatric: mood/affect appropriate, cooperative Results - Lab Results 05/21/16 03:22 05/21/16 03:22 Most recent lab results Calcium 7.9 mg/dL (8.6-10.8) L 05/21/16 03:22 Phosphorus 5.7 mg/dL (2.3-4.7) H 05/21/16 03:22 Magnesium 1.9 mg/dL (1.6-2.6) 05/21/16 03:22 Consult Discharge Plan - Plan Referrals: Reinaldo Valladares Jr, MD [Primary Care Provider] - 05/25/16 9:15 am
--- NOTE | 2016-05-21 11:09 | Internal Med Progress Note ---
Date of Encounter: 05/21/16 Time of Encounter: 11:05 - Assessment and plan (1) A-fib Current Visit: Yes Status: Chronic Assessment and plan: Afib with RVR Rate better controlled however HR persists in high 90s and 100s Currently on amiodarone drip, will be switched over to Amiodarone PO by cardiology Continue Metoprolol Cardiology consultation appreciated Not on anticoagulation due to high risk of falls Qualifiers: Atrial fibrillation type: unspecified Qualified Code(s): I48.91 - Unspecified atrial fibrillation (2) Acute decompensated heart failure Current Visit: Yes Status: Acute Assessment and plan: Acute respiratory distress secondary to Acute decompensated HF 2D echo: LVEF 20-25% significantly reduced from 03/2016, moderate-severe mitral regurgitation, severely dilated left atrium, moderate pulm hypertension, severe global LV systolic dysfunciton Hold Diuretic therapy at this time due to worsening kidney function continue to monitor I/Os fluid restricted diet (1.5L/day) early ambulation encouraged monitor daily weights O2 supplementation as needed cardiology consultation appreciated. pt opted for medical management at this time and wishes to consider hospice care. Palliative care on board (3) Elevated troponin I measurement Current Visit: Yes Status: Acute Assessment and plan: Likely demand ischemia no chest pain reported at this time NO EKG changes noted TNI normalized (4) Cellulitis of both lower extremities Current Visit: Yes Status: Resolved (5) Acute kidney injury superimposed on CKD Current Visit: Yes Status: Acute Assessment and plan: Worsening renal function likely secondary Diuretic therapy Will hold Diuretic therapy at this time Nephrology consultation requested with Dr. Partida holding HCTZ at this time will continue to monitor (6) CAD (coronary artery disease) Current Visit: Yes Status: Chronic Assessment and plan: No signs of angina present at this time continue home meds (ASA, BB, statin) Qualifiers: Coronary Disease-Associated Artery/Lesion type: [place] artery [place] vs. transplanted heart: unspecified whether [place] or transplanted heart Associated angina: with unspecified angina Qualified Code(s): I25.119 - Atherosclerotic heart disease of [place] coronary artery with unspecified angina pectoris (7) COPD (chronic obstructive pulmonary disease) Current Visit: Yes Status: Chronic Assessment and plan: Not in acute exacerbation continue home meds patient chronically on steroid therapy, will continue continue O2 supplementation as needed Qualifiers: COPD type: unspecified COPD Qualified Code(s): J44.9 - Chronic obstructive pulmonary disease, unspecified (8) Diabetes Current Visit: Yes Status: Chronic Assessment and plan: Hold oral antihyperglycemic agents at this time continue insulin sliding scale algorithm Hyperglycemia persists Adjusted Levemir dosing as per insulin requirements for the last 24hours Levemir increased to 25units BID, added Humalog 6units TIDAC continue to monitor fingerstick and blood glucose Qualifiers: Diabetes mellitus type: type 2 Diabetes mellitus complication status: with unspecified complications Diabetes mellitus snf insulin use: unspecified snf insulin use status Qualified Code(s): E11.8 - Type 2 diabetes mellitus with unspecified complications (9) HLD (hyperlipidemia) Current Visit: Yes Status: Chronic Qualifiers: Hyperlipidemia type: mixed hyperlipidemia Qualified Code(s): E78.2 - Mixed hyperlipidemia (10) DVT prophylaxis Current Visit: No Status: Acute Assessment and plan: IPCD due to anemia (11) Anemia Current Visit: Yes Status: Acute Assessment and plan: Patient has history of anemia NOted to have iron deficiency anemia continue iron supplementation H&H within acceptable range at this time no active bleeding reported will continue to monitor stool occult positive: GI consultation requested Qualifiers: Anemia type: unspecified type Qualified Code(s): D64.9 - Anemia, unspecified - Subjective Interval history: Patient is an 86y/o female who is admitted for management of Acute respiratory distress secondary to CHF decompensation, Elevated TNI, MELLISSA, and Lower extremity cellulitis. Patient seen and examined at bedside. Improvement in respiratory status, currently saturating well on nasal cannula. HR remains elevated in 100s but patient denies any chest pain or palpitations. Currently on Amiodarone gtt and cardiology on board. - Constitutional Vitals: Temp Pulse Resp BP Pulse Ox 97.0 F L 102 22 112/76 98 05/21/16 07:33 05/21/16 07:45 05/21/16 07:33 05/21/16 07:33 05/21/16 07:33 General appearance: Present: cooperative, A&O X 3, no acute distress, obese, answers questions appropriately - Head Head exam: Present: atraumatic, normocephalic - Eye Eye exam: Present: normal appearance, conjuntiva pink, sclera anicteric - Respiratory Respiratory exam: Absent: respiratory distress, wheezes - Cardiovascular Cardiovascular exam: Present: RRR, +S1, +S2 - GI/Abdominal GI/Abdominal exam: Present: normal bowel sounds, soft. Absent: distended, tenderness - Extremities Exam Extremities exam: Present: pedal edema (pitting edema, improvement in erythema on bilateral lower extremities ), warm, radial pulses palpable and symetrical - Neurological Exam Neurological exam: Present: alert, oriented X3, no focal deficits - Psychiatric Psychiatric exam: Present: normal affect, normal mood Internal Medicine: Result - Labs CBC & Chem 7: 05/21/16 03:22 05/21/16 03:22 Labs: Short CBC 05/21/16 Range/Units 03:22 WBC 5.3 (4.3-11.1) K/mcL Hgb 8.8 L (11.5-15.4) g/dL Hct 27.8 L (35.3-44.9) % Plt Count 122 L (140-400) K/mcL Neutrophils # 4.2 (1.6-8.9) K/mcL BMP 05/21/16 03:22 Sodium 133 L Potassium 4.2 Chloride 96 L Carbon Dioxide 25 BUN 46 H Creatinine 2.17 H Glucose 321 H Calcium 7.9 L - ABG Interpretation ABG results: PT/INR, D-dimer PT 12.2 Seconds (9.4-12.1) H 05/18/16 04:27 - VTE Documentation of Mechanical Device: Venous foot pump, device Consult Discharge Plan - Plan Referrals: Reinaldo Valladares Jr, MD [Primary Care Provider] - 05/25/16 9:15 am
[2016-05-21] MEDS ORDERED: Insulin DETEMIR 100 UNIT/ML X5UNITS SQ ONE (11:25)
--- NOTE | 2016-05-21 11:53 | Gastroenterology Consult Note ---
<Cardenas,Freddie Garza - Last Filed: 05/21/16 12:18> Date of Encounter: 05/21/16 Time of Encounter: 10:40 - Assessment and plan (1) Anemia Current Visit: Yes Status: Acute Assessment and plan: Hgb 8.8 on admission, and dropped to 7.5 on 05/18. This AM Hgb 8.8. FOBT was positive. Possible EGD and colonoscopy on Saturday, once CHF has improved. Clear liquid diet tomorrow (Saturday), no red or purple. NPO at midnight Saturday night. If unable tolerate NuLytely please use MiraLAX prep. If not clear by 6 AM Saturday, give 2 tap water enemas. Qualifiers: Anemia type: unspecified type Qualified Code(s): D64.9 - Anemia, unspecified (2) Acute decompensated heart failure Current Visit: Yes Status: Acute Assessment and plan: Management per primary team and cardiology. (3) COPD (chronic obstructive pulmonary disease) Current Visit: Yes Status: Chronic Qualifiers: COPD type: unspecified COPD Qualified Code(s): J44.9 - Chronic obstructive pulmonary disease, unspecified - Time Spent With Patient Total time spent is greater than 50% in coordination of care (as documented) at patient's floor/unit and/or counseling patient: GI History of Present Illness - Data of Consult Patient: new to practice Consult date: 05/21/16 Requesting Physician: Jacquie Stearns MD - Consult Narrative Reason for consult: Anemia History of present illness: Ms. Rodas is a 86 year old female with PMHx of Afib, iron deficiency anemia, CHF , COPD, CAD, CABG, DM, GERD, HLD, HTN, MO, and CKD who presented to the ED with difficulty breathing secondary to CHF decompesnsation. She denies chest pain, active bleeding, or blood loss. Her breathing worsened and was placed on BiPAP. Also, her Afib worsened and was started on Amiodarone gtt for rate control. Hgb was 8.8 on admission, and dropped to 7.5 on 05/18, this AM Hgb 8.8. FOBT was positive on 05/20. We were consulted for evaluation of her anemia and FOBT. 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 Lumbar laminectomy.), sinus surgery (Tonsillectomy adenoidectomy.), DARYL/BSO, ureteral stent (Renal stone removal.), other, vascular surgery (History of femoropopliteal bypass.), LE bypass, LE vascular intervention - Social History Smoking Status: Former smoker Smokeless Tobacco Status: No Alcohol use: none Drug use: none - Family History Mother Living Status: Age at : 35 Cause of : cerebral hemmorrhage Hx Family Cardiac Disorders: Yes Father Living Status: Age at : 70 Hx Family Cardiac Disorders: No Hx Family Respiratory Disorders: No Hx Family Cancer: No Hx Family GI Disorders: No Hx Family Endocrine Disorder: Yes - Gastrointestinal Gastrointestinal: Present: as per HPI - Constitutional Constitutional: as per HPI - EENT Eyes: as per HPI Ears: Present: as per HPI Nose, mouth and throat: Present: as per HPI - Cardiovascular Cardiovascular ROS: Present: as per HPI - Respiratory Respiratory IM: Present: as per HPI - Genitourinary Genitourinary: Absent: change in color, Urinary frequency - Neurological ROS Neurological GI: Present: as per HPI - Hematologic/Lymphatic Hematologic/Lymphatic pediatric: Present: as per HPI - Musculoskeletal Musculoskeletal ROS GI: Present: as per HPI - Integumentary Integumentary GI: Present: as per HPI - Psychiatric ROS Psychiatric GI: Present: as per HPI - Endocrine Endocrine IM: Present: as per HPI - Constitutional Vitals: Temp Pulse Resp BP Pulse Ox 97.0 F L 102 22 112/76 98 05/21/16 07:33 05/21/16 07:45 05/21/16 07:33 05/21/16 07:33 05/21/16 07:33 General appearance: Present: cooperative, A&O X 3, no acute distress, answers questions appropriately - Head Head exam: Present: atraumatic, normocephalic - Eye Eye exam: Present: normal appearance, sclera anicteric - ENT ENT exam: Present: mucous membranes moist - Neck Neck exam general surgery: Present: normal inspection, trachea midline - Respiratory Respiratory exam: Present: CTAB. Absent: rales, rhonchi, wheezes - Cardiovascular Cardiovascular exam: Present: RRR, +S1, +S2 - GI/Abdominal GI/Abdominal exam: Present: soft, no peritoneal signs. Absent: distended, firm , guarding, tenderness - Rectal Rectal exam: Present: deferred - Extremities Exam Extremities exam: Present: pedal edema, warm - Neurological Exam Neurological exam: Present: no focal deficits - Psychiatric Psychiatric exam: Present: normal affect, normal mood - Skin Skin exam: Present: dry, intact, normal color, warm Results - Labs CBC & Chem 7: 05/21/16 03:22 05/21/16 03:22 Labs: Last Result Calcium 7.9 mg/dL (8.6-10.8) L 05/21/16 03:22 Iron 26 mcg/dL (50-170) L 05/19/16 05:56 % Saturation 10 % (15-50) L 05/19/16 05:56 Transferrin 193 mg/dL (180-382) 05/19/16 05:56 Ferritin 77 ng/ml (5-204) 05/19/16 05:56 Troponin I 0.03 ng/mL (0-0.03) 05/19/16 05:56 Triglycerides 145 mg/dL (< 150) 05/18/16 04:27 Stool Occult Blood Positive (Negative) A 05/20/16 14:00 Entire Visit Hgb 8.8 g/dL (11.5-15.4) L 05/21/16 03:22 Hct 27.8 % (35.3-44.9) L 05/21/16 03:22 PT 12.2 Seconds (9.4-12.1) H 05/18/16 04:27 Ferritin 77 ng/ml (5-204) 05/19/16 05:56 Total Bilirubin 1.4 mg/dL (0.2-1.2) H 05/18/16 04:27 AST 16 Units/L (5-34) 05/18/16 04:27 ALT 21 Units/L (0-55) 05/18/16 04:27 - ABG ABG results: PT/INR, D-dimer PT 12.2 Seconds (9.4-12.1) H 05/18/16 04:27 Consult Discharge Plan - Plan Referrals: Reinaldo Valladares Jr, MD [Primary Care Provider] - 05/25/16 9:15 am <Jace Mace - Last Filed: 05/21/16 20:36> Date of Encounter: 05/21/16 Time of Encounter: 19:00 - Time Spent With Patient Total time spent is greater than 50% in coordination of care (as documented) at patient's floor/unit and/or counseling patient: GI History of Present Illness - Data of Consult Requesting Physician: Jacquie Stearns MD - Consult Narrative History of present illness: Ms. Rodas is a 86 year old female - Constitutional Vitals: Temp Pulse Resp BP Pulse Ox 98.1 F 88 18 116/69 92 L 05/21/16 17:14 05/21/16 16:30 05/21/16 17:13 05/21/16 11:51 05/21/16 17:13 Results - Labs CBC & Chem 7: 05/21/16 03:22 05/21/16 03:22 Labs: Last Result Calcium 7.9 mg/dL (8.6-10.8) L 05/21/16 03:22 Iron 26 mcg/dL (50-170) L 05/19/16 05:56 % Saturation 10 % (15-50) L 05/19/16 05:56 Transferrin 193 mg/dL (180-382) 05/19/16 05:56 Ferritin 77 ng/ml (5-204) 05/19/16 05:56 Troponin I 0.03 ng/mL (0-0.03) 05/19/16 05:56 Triglycerides 145 mg/dL (< 150) 05/18/16 04:27 Stool Occult Blood Positive (Negative) A 05/20/16 14:00 Entire Visit Hgb 8.8 g/dL (11.5-15.4) L 05/21/16 03:22 Hct 27.8 % (35.3-44.9) L 05/21/16 03:22 PT 12.2 Seconds (9.4-12.1) H 05/18/16 04:27 Ferritin 77 ng/ml (5-204) 05/19/16 05:56 Total Bilirubin 1.4 mg/dL (0.2-1.2) H 05/18/16 04:27 AST 16 Units/L (5-34) 05/18/16 04:27 ALT 21 Units/L (0-55) 05/18/16 04:27 - ABG ABG results: PT/INR, D-dimer PT 12.2 Seconds (9.4-12.1) H 05/18/16 04:27 - Attending Attestation I examined this patient and my medical decision-making was reviewed with the ASH COLLECTOR/PA/Advanced Practice Nurse/Resident Physician. I agree with the documented findings, disposition and treatment plan as described except to the extent set forth below.
[2016-05-22] MEDS ORDERED: Vancomycin 500 MG in D5% in Water (Mini-Bag+) 100 ML IVPB ONE (01:00)
[2016-05-22] MEDS: Levalbuterol Neb 0.63 MG/3 ML IH SCH ×4 (03:45→21:36)
[2016-05-22] MEDS: Piperacillin/Tazobactam 3.375 GM in D5% in Water (Mini-Bag+) 100 ML IVPB SCH (06:09)
[2016-05-22] MEDS ORDERED: Aminoglycoside Consult 1 EACH MC ONE (08:21)
[2016-05-22] MEDS: predniSONE 20 MG TABLET PO SCH (08:24)
[2016-05-22] MEDS: Lactobacillus 1 EACH CAP.SPRINK PO SCH (08:25)
[2016-05-22] MEDS: Metoprolol XL (24 HR) Succ 50 MG TAB.ER.24H PO SCH ×2 (08:25→20:47)
[2016-05-22] MEDS: Isosorbide MONOnitrate (24 HR) 30 MG TAB.ER.24H PO SCH (08:25)
[2016-05-22] MEDS: Sennosides/Docusate Sodium TABLET PO SCH ×2 (08:25→20:46)
[2016-05-22] MEDS: Insulin LISPRO 300 UNITS/3 ML VIAL SQ SCH ×7 (08:25→20:47)
[2016-05-22] MEDS: Aspirin Enteric Coated 81 MG Tablet PO SCH (08:25)
[2016-05-22] MEDS: Insulin DETEMIR 100 UNIT/ML X5UNITS SQ SCH ×2 (08:26→20:47)
--- NOTE | 2016-05-22 08:37 | Cardiology Progress Note ---
Date of Encounter: 05/22/16 Time of Encounter: 08:35 Assessment and Plan (1) Acute exacerbation of congestive heart failure Current Visit: No Status: Acute Per Cardiology: Recent EF on echo 40-45%. Current echo shows EF down to 20-25%, moderate to severe MR, moderate pulmonary hypertension. BNP noted to be elevated in the 3800s. Net -1054ml. Kidney function continues to worsen. Now off HCTZ and IV Lasix due to worsening kidney function-- SOB has improved. Consider nephrology c /s. On Toprol XL. Continue strict I and O, daily weights, continue with fluid restriction. Anticipate DC with Hospice, palliative care following. Qualifiers: Congestive heart failure type: combined Qualified Code(s): I50.43 - Acute on chronic combined systolic (congestive) and diastolic (congestive) heart failure (2) A-fib Current Visit: Yes Status: Chronic Per Cardiology: Patient with known history of atrial fibrillation. Average heart rate on telemetry 90 the past 12 hours and remains afib. Now off amiodarone drip. On Toprol-XL 50 mg by mouth twice a day. Current systolic blood pressure in the 110s to 120s. Heart rate currently on telemetry in the 80s. Titrate beta ramy as needed. Discussed and reviewed with Dr. Perez, will sign off, reconsult as needed. Not on anticoagulation other than aspirin. S/p transfusion. Patient aware of increased stroke risk. GI following patient with plans for EGD and colonoscopy possibly tomorrow, however patient appears she is not interested. Qualifiers: Atrial fibrillation type: unspecified Qualified Code(s): I48.91 - Unspecified atrial fibrillation (3) Anemia Current Visit: Yes Status: Acute Per Cardiology: Management per primary team. S/p 1 unit PRBC during stay. GI following. Qualifiers: Anemia type: unspecified type Qualified Code(s): D64.9 - Anemia, unspecified (4) Elevated troponin I measurement Current Visit: Yes Status: Acute Per Cardiology: Mild troponin elevation with peaked 0.05. Denies any chest pain. Do not suspect NSTEMI, suspect demand ischemia in setting of CKD IV and acute on chronic heart failure. (5) CAD (coronary artery disease) Current Visit: Yes Status: Chronic Per Cardiology: Past history CAD with CABG around 1995. Patient reports no recent left heart catheterization. Decreased EF 20-25% and mild troponin elevation, however patient agreeable with conservative medical management does not desire left heart catheterization. Has CKD IV and is s/p transfusion. DNR/DNI/CCA, she is still interested in Hospice-- discussing with family (no family at bedside currently). On aspirin, statin, beta ramy, long-acting nitrate. Remains chest pain-free. Can titrate long acting nitrate or add Ranexa if clinically warranted. Qualifiers: Coronary Disease-Associated Artery/Lesion type: [place] artery Circle vs. transplanted heart: unspecified whether [place] or transplanted heart Associated angina: with unspecified angina Qualified Code(s): I25.119 - Atherosclerotic heart disease of [place] coronary artery with unspecified angina pectoris Discussion w patient/family: The assessment and plan as outlined above was discussed with the patient who expressed understanding and agreement. All questions were answered. Thank you for involving us in the care of your patient. Please call with any questions. Discussed with palliative care team. Subjective Principal diagnosis: SOB Interval history: Patient reports shortness of breath has improved. She denies any chest pain or palpitations. Denies any awareness of any active bleeding or blood loss. Reports an active discussions with family regarding plans for home care in terms of hospice. She desires to remain DNR/DNI, Comfort Care arrest. Objective Vital Signs, Last 4 Hours Temp Pulse Resp BP Pulse Ox 05/22/16 08:08 97.5 F L 89 20 128/73 91 L General: Conversant HEENT: Atraumatic, Normocephaly Cardiac: No Murmur, Other (Irregularly irregular) Lungs: Other (diminished breath sounds to bilateral bases, mild conversational dyspnea) Neuro: Alert and responsive, No focal deficits noted Extremities: Other (+1 pedal edema_) Results 05/21/16 03:22 05/21/16 03:22 Laboratory Tests 05/21/16 12:30 MRSA Surveillance Scrn Positive A Active Medications Acetaminophen (Tylenol) 650 mg PO Q6HR PRN PRN Reason: Mild Pain (1-3) Stop: 11/17/16 03:40 Last Admin: 05/20/16 06:25 Dose: 650 mg Alprazolam (Xanax) 1 mg PO BID PRN; Protocol PRN Reason: Anxiety Stop: 11/17/16 10:13 Last Admin: 05/20/16 21:21 Dose: 1 mg Aspirin (Aspirin Ec) 81 mg PO DAILY [facility] Stop: 11/17/16 09:01 Last Admin: 05/21/16 08:51 Dose: 81 mg Atorvastatin Calcium (Lipitor) 40 mg PO HS [facility] Stop: 11/17/16 21:01 Last Admin: 05/21/16 21:01 Dose: 40 mg Dextrose/Water (Dextrose 50% (Syg)) 25 ml IVP AD PRN PRN Reason: Hypoglycemia Stop: 11/17/16 10:24 Ferrous Sulfate (Ferrous Sulfate) 325 mg PO DAILY@0800 [facility] Stop: 11/20/16 08:01 Last Admin: 05/21/16 08:51 Dose: 325 mg Glucagon (Glucagen) 1 mg IM ONCE PRN PRN Reason: Hypoglycemia Stop: 11/17/16 10:24 Glucose (Gluctose) 15 gm PO ONCE PRN PRN Reason: Hypoglycemia Stop: 11/17/16 10:24 Glucose (Gluctose) 30 gm PO ONCE PRN PRN Reason: Hypoglycemia Stop: 11/17/16 10:24 Piperacillin Sod/Tazobactam (Sod 3.375 gm/ Dextrose) 100 mls @ 25 mls/hr IVPB Q12HR [place] PRN Reason: Protocol Stop: 11/17/16 06:35 Last Admin: 05/22/16 06:09 Dose: 25 mls/hr Dextrose (Dextrose 5%) 1,000 mls @ 100 mls/hr IV CONT PRN PRN Reason: HYPOGLYCEMIA Stop: 11/17/16 10:24 Vancomycin HCl 1 each/ (Dextrose) 250 mls @ 167 mls/hr IVPB RPHPROT PRN; Protocol PRN Reason: PHARMACY DOSING Stop: 11/17/16 07:01 Insulin Detemir (Levemir) 25 unit SQ BID [facility] Stop: 11/20/16 21:01 Last Admin: 05/21/16 21:01 Dose: 25 unit Insulin Human Lispro (Humalog) 0 units SQ HS [facility] PRN Reason: Protocol Stop: 11/17/16 21:01 Last Admin: 05/21/16 21:02 Dose: 4 units Insulin Human Lispro (Humalog) 0 units SQ TIDAC [place] PRN Reason: Protocol Stop: 11/17/16 11:31 Last Admin: 05/21/16 16:29 Dose: Not Given Insulin Human Lispro (Humalog) 6 units SQ TIDAC [facility] Stop: 11/20/16 11:31 Last Admin: 05/21/16 16:30 Dose: 6 units Isosorbide Mononitrate (Imdur) 30 mg PO DAILY [facility] Stop: 11/18/16 09:01 Last Admin: 05/21/16 08:51 Dose: 30 mg Lactobacillus Acidophilus/Rhamnosus (Culturelle) 1 each PO DAILY [facility] Stop: 11/18/16 09:01 Last Admin: 05/21/16 08:50 Dose: 1 each Levalbuterol HCl (Xopenex) 0.63 mg IH [id number] [facility] Stop: 11/19/16 10:01 Last Admin: 05/22/16 03:45 Dose: 0.63 mg Metoprolol Succinate (Toprol Xl) 50 mg PO BID [facility] Stop: 11/20/16 21:01 Last Admin: 05/21/16 21:01 Dose: 50 mg Morphine Sulfate (Morphine Sulfate) 2 mg IVP Q4HR PRN PRN Reason: Severe Pain (7-10) Stop: 11/17/16 03:40 Naloxone HCl (Narcan) 0.4 mg IVP Q2MIN PRN PRN Reason: Opioid Reversal Stop: 11/17/16 03:40 Omeprazole (Prilosec) 20 mg PO DAILY@0630 [facility] PRN Reason: Protocol Stop: 11/17/16 06:31 Last Admin: 05/22/16 06:13 Dose: 20 mg Ondansetron HCl (Zofran) 4 mg IVP Q8HR PRN PRN Reason: Nausea And Vomiting Stop: 11/17/16 03:40 Oxycodone HCl (Roxicodone) 5 mg PO Q6HR PRN PRN Reason: Moderate Pain (4-6) Stop: 11/17/16 03:40 Last Admin: 05/19/16 04:54 Dose: 5 mg Prednisone (Prednisone) 30 mg PO DAILY [facility] Stop: 11/17/16 10:16 Last Admin: 05/21/16 08:50 Dose: 30 mg Senna/Docusate Sodium (Senna Plus) 2 each PO BID [facility] PRN Reason: Protocol Stop: 11/19/16 21:01 Last Admin: 05/21/16 21:01 Dose: 2 each - EKG Interpretation EKG results cardiology: other (Telemetry reviewed with average heart rate the past 12 hours 90, remains atrial fibrillation, few episodes of PVCs with bigeminy and 3 beat runs NSVT, no significant ventricular arrhythmias noted) - VTE Documentation of Mechanical Device: Venous foot pump, device Consult Discharge Plan - Plan Referrals: Reinaldo Valladares Jr, MD [Primary Care Provider] - 05/25/16 9:15 am
[2016-05-22 10:14] LABS: Basophils % 0.1 %; Hematocrit 33.3 % (35.3-44.9); Hemoglobin 10.1 g/dL (11.5-15.4); Immature Granulocytes % 1.7 % (0-4); Lymphocytes # 0.6 K/mcL (0.6-4.6); Mean Corpuscular HGB Conc 30.3 g/dL (31.6-35.5); Mean Corpuscular Hemoglobin 28.8 pg (28.0-33.3); Mean Corpuscular Volume 94.9 fL (83.0-100.0); Mean Platelet Volume 10.2 fL (9.4-12.4); Monocytes # 0.5 K/mcL (0.0-1.3); Monocytes % 7.1 %; Neutrophils # 5.7 K/mcL (1.6-8.9); Platelet Count 164 K/mcL (140-400); Red Blood Count 3.51 M/mcL (3.82-4.97); Red Cell Distribution Width 17.5 % (11.5-14.5); Segmented Neutrophils % 82.1 %
--- NOTE | 2016-05-22 10:18 | Palliative Progress Note ---
Date of Encounter: 05/22/16 Time of Encounter: 09:30 - Assessment and plan (1) Dyspnea Current Visit: No Status: Acute Assessment and plan: She is stable this morning. Indwelling well but does have some conversational dyspnea. Patient is opting for comfort care, and for hospice care. Qualifiers: Dyspnea type: shortness of breath Qualified Code(s): R06.02 - Shortness of breath (2) Acute kidney injury superimposed on CKD Current Visit: Yes Status: Acute Assessment and plan: Slow decline continues patient is now opting for hospice care, on discharge. (3) Anemia Current Visit: Yes Status: Acute Assessment and plan: The patient does have positive stool, received a unit of blood, she is to opt for hospice at this time does not wish to have any further workup. There will be no colonoscopy or EGD,, per patient request. Qualifiers: Anemia type: unspecified type Qualified Code(s): D64.9 - Anemia, unspecified (4) A-fib Current Visit: Yes Status: Chronic Assessment and plan: Currently rate is controlled. Cardiology is signing off. Patient is opting for comfort care only and hospice care. She will be meeting with hospice later today. Qualifiers: Atrial fibrillation type: unspecified Qualified Code(s): I48.91 - Unspecified atrial fibrillation (5) Counseling regarding advanced care planning and goals of care Current Visit: No Status: Acute Assessment and plan: Patient's CODE STATUS NOW COMFORT CARE. PER PATIENT REQUEST. SHE HAS DECIDED SHE DOES WISH TO GO HOME WITH HOSPICE WISHES TO DISCUSS WITH HOSPICE NURSE TODAY AND THIS IS BEEN ARRANGED SHE WILL MEET WITH AGAIN A HOSPICE TIME AFTER LUNCH. SHE HAS DECLINED ANY FURTHER GI WORKUP AT THIS TIME. (6) Constipation by delayed colonic transit Current Visit: Yes Status: Acute Assessment and plan: Per patient H her bowels are now moving in her abdomen feels much better. Continue to watch... (7) Acute decompensated heart failure Current Visit: Yes Status: Acute Assessment and plan: Patient has now opted for comfort care only and wishes to go home with hospice this is being arranged for on discharge. - Time Spent With Patient Total time spent is greater than 50% in coordination of care (as documented) at patient's floor/unit and/or counseling patient: - Subjective Interval history: The patient is feeling better this am. she does not wish further w/u and wants to go home with hospice care. She requests meeting with hospice nurse this afternoon to discuss this. [facility] will meet with her this is a non- obligation meeting. He is also opted for comfort care. This order has been placed. - Constitutional Vitals: Abnormal lab results RBC 3.51 M/mcL (3.82-4.97) L 05/22/16 10:04 Hgb 10.1 g/dL (11.5-15.4) L 05/22/16 10:04 Hct 33.3 % (35.3-44.9) L 05/22/16 10:04 MCHC 30.3 g/dL (31.6-35.5) L 05/22/16 10:04 RDW 17.5 % (11.5-14.5) H 05/22/16 10:04 PT 12.2 Seconds (9.4-12.1) H 05/18/16 04:27 APTT 25.6 Seconds (26.0-36.0) L 05/18/16 04:27 Sodium 133 mEq/L (136-145) L 05/21/16 03:22 Chloride 96 mEq/L (98-109) L 05/21/16 03:22 BUN 46 mg/dL (7-20) H 05/21/16 03:22 Creatinine 2.17 mg/dL (0.57-1.11) H 05/21/16 03:22 Est GFR ( Amer) 26 (> 60) L 05/21/16 03:22 Est GFR (Non-Af Amer) 22 (> 60) L 05/21/16 03:22 Glucose 321 mg/dL (70-99) H 05/21/16 03:22 POC Glucose 210 (58-89) H 05/21/16 21:00 Calcium 7.9 mg/dL (8.6-10.8) L 05/21/16 03:22 Phosphorus 5.7 mg/dL (2.3-4.7) H 05/21/16 03:22 Iron 26 mcg/dL (50-170) L 05/19/16 05:56 % Saturation 10 % (15-50) L 05/19/16 05:56 Total Bilirubin 1.4 mg/dL (0.2-1.2) H 05/18/16 04:27 Direct Bilirubin 0.7 mg/dL (0.0-0.5) H 05/18/16 04:27 B-Natriuretic Peptide 3803 pg/mL (0-100) H 05/18/16 00:30 Albumin 2.4 g/dL (3.5-5.0) L 05/18/16 04:27 Globulin 3.6 g/dL (2.4-3.5) H 05/18/16 04:27 Albumin/Globulin Ratio 0.7 (1.1-2.2) L 05/18/16 04:27 HDL Cholesterol 21 mg/dL (40-59) L 05/18/16 04:27 Urine Clarity Cloudy (Clear) A 05/20/16 06:30 Urine Protein 100 mg/dL (Neg-Trace) H 05/20/16 06:30 Stool Occult Blood Positive (Negative) A 05/20/16 14:00 MRSA Surveillance Scrn Positive (Negative) A 05/21/16 12:30 General appearance: Present: no acute distress - Head Head exam: Present: atraumatic, normal inspection - Eye Eye exam: Present: EOMI, PERRL - ENT ENT exam: Present: mucous membranes moist - Respiratory Respiratory exam: Present: decreased breath sounds - Cardiovascular Cardiovascular exam: Present: irregular rhythm - GI/Abdominal GI/Abdominal exam: Present: normal bowel sounds, soft. Absent: tenderness - Extremities Exam Extremities exam: Present: pedal edema. Absent: tenderness - Neurological Exam Neurological exam: Present: alert, oriented X3 - Psychiatric Psychiatric exam: Present: normal affect, normal mood. Absent: agitated, anxious - Skin Skin exam: Present: dry, warm Palliative Quality Palliative Quality: Screen for Code Status: Yes, Screen for Goals of Care: Yes, Screen for Pain: Yes, If Pain Regimen Started, Initiate Bowel Regimen: NA, Screen for Nausea/Vomitting: Yes Code Status: 05/18/16 03:39 Resuscitation Status: Active [RES] Routine Resuscitation Status: DNR-Comfort Care Comment: - Labs CBC & Chem 7: 05/22/16 10:04 05/21/16 03:22 Labs: Laboratory Results - last 24 hr 05/21/16 05/21/16 05/21/16 07:37 11:53 12:30 WBC RBC Hgb Hct MCV MCH MCHC RDW Plt Count MPV Immature Gran % Seg Neutrophils % Lymphocytes % Monocytes % Eosinophils % Basophils % Neutrophils # Lymphocytes # Monocytes # Eosinophils # Basophils # POC Glucose 325 H 229 H Random Vancomycin MRSA Surveillance Scrn Positive A 05/21/16 05/21/16 05/21/16 14:39 16:27 21:00 WBC RBC Hgb Hct MCV MCH MCHC RDW Plt Count MPV Immature Gran % Seg Neutrophils % Lymphocytes % Monocytes % Eosinophils % Basophils % Neutrophils # Lymphocytes # Monocytes # Eosinophils # Basophils # POC Glucose 122 H 210 H Random Vancomycin 17.6 MRSA Surveillance Scrn 05/22/16 10:04 WBC 6.9 RBC 3.51 L Hgb 10.1 L Hct 33.3 L MCV 94.9 MCH 28.8 MCHC 30.3 L RDW 17.5 H Plt Count 164 MPV 10.2 Immature Gran % 1.7 Seg Neutrophils % 82.1 Lymphocytes % 9.0 Monocytes % 7.1 Eosinophils % 0.0 Basophils % 0.1 Neutrophils # 5.7 Lymphocytes # 0.6 Monocytes # 0.5 Eosinophils # 0.0 Basophils # 0.0 POC Glucose Random Vancomycin MRSA Surveillance Scrn - ABG Interpretation ABG results: PT/INR, D-dimer PT 12.2 Seconds (9.4-12.1) H 05/18/16 04:27 Consult Discharge Plan - Plan Referrals: Reinaldo Valladares Jr, MD [Primary Care Provider] - 05/25/16 9:15 am
--- NOTE | 2016-05-22 10:21 | Nephrology Progress Note ---
Date of Encounter: 05/22/16 Time of Encounter: 10:30 - Assessment and Plan (1) Acute kidney injury superimposed on CKD Current Visit: Yes Status: Acute 3/7 SCr 2.18, GFR 22, Na134, K 3.5, Ca 8.1, Phos 5, Mg 2.1 3/6 UOP 300, intake 1120, net POSITIVE balance of 820 3/7 UOP 500 so far, weight 65.8kg MRSA Screen positive Patient has been off diuretics. Declining EGD/Colonoscopy Patient discussing hospice care upon discharge from the hospital. Plan: -OK to restart lasix today -Continue fluid restriction and strict I/Os -Continue to avoid nephrotoxic agents -Renally dose medications. (2) Anemia Current Visit: Yes Status: Acute (3) Acute exacerbation of congestive heart failure Current Visit: No Status: Acute Qualifiers: Congestive heart failure type: combined Qualified Code(s): I50.43 - Acute on chronic combined systolic (congestive) and diastolic (congestive) heart failure Subjective Principal diagnosis: SOB Interval history: Patient seen and examined. She denies worsening shortness of breath overnight. She also denies cp, fevers, chills, abdominal pain and leg pain. She is wanting hospice at discharge. She has declined EGD/Colonoscopy for evaluation of the occult blood in her stool. Objective - Vital Signs Vital signs: Vital Signs Temp Pulse Resp BP Pulse Ox 05/22/16 08:08 97.5 F L 89 20 128/73 91 L 05/22/16 08:00 88 95 05/22/16 03:55 97.6 F 87 23 113/68 99 05/22/16 03:46 26 96 05/21/16 22:41 20 100 05/21/16 21:42 97.7 F 98 22 114/80 93 L 05/21/16 17:14 98.1 F 05/21/16 17:13 18 92 L 05/21/16 16:30 88 05/21/16 11:55 80 05/21/16 11:51 96.7 F L 85 18 116/69 90 L Intake and Output 05/21/16 05/22/16 05/22/16 23:59 07:59 15:59 Intake Total 580 / 580 Output Total 300 / 300 500 / 500 Balance 280 / 280 -500 / -500 Intake: IV Fluids 100 / 100 Zosyn 3.375 GM In 100 / 100 Dextrose 5% (Minibag+) 100 ML 100 ML @ 25 mls/hr IVPB Q12HR [facility] Rx#: [id number] Oral 480 / 480 Output: Catheter 300 / 300 500 / 500 Other: # Bowel Movement Diapers 1 Weight 65.8 kg Blood Glucose* 122 104 Patient Weight 05/22/16 23:59 Weight 65.8 kg - General Appearance General appearance: Present: chronically ill, frail EENT: Present: ATNC, PERRL, mucous membranes dry Neck: Present: no JVD, supple Respiratory: Present: course breath sounds, rhonchi Cardiology: Present: edema (b/l LE), irregular rhythm Gastrointestinal: Present: normoactive bowel sounds, no tenderness Integumentary: Present: no rash, warm and dry, chronic venous stasis Neurologic: Present: no focal deficit Musculoskeletal: Present: no cyanosis, no clubbing Psychiatric: Present: mood/affect appropriate, cooperative - Lab 05/22/16 10:04 05/22/16 10:04 Most recent lab results Calcium 7.9 mg/dL (8.6-10.8) L 05/21/16 03:22 Phosphorus 5.7 mg/dL (2.3-4.7) H 05/21/16 03:22 Magnesium 1.9 mg/dL (1.6-2.6) 05/21/16 03:22 - Allied health notes Allied health notes reviewed: nursing - VTE Documentation of Mechanical Device: Venous foot pump, device Consult Discharge Plan - Plan Referrals: Reinaldo Valladares Jr, MD [Primary Care Provider] - 05/25/16 9:15 am
[2016-05-22 11:02] LABS: Calcium 8.1 mg/dL (8.6-10.8); Magnesium 2.1 mg/dL (1.6-2.6); Potassium 3.5 mEq/L (3.5-4.5)
--- NOTE | 2016-05-22 14:19 | Internal Med Progress Note ---
Date of Encounter: 05/22/16 Time of Encounter: 13:50 - Assessment and plan (1) A-fib Current Visit: Yes Status: Chronic Assessment and plan: Afib with RVR Rate currently controlled with Metoprolol Cardiology consultation appreciated Not on anticoagulation due to high risk of falls Qualifiers: Atrial fibrillation type: unspecified Qualified Code(s): I48.91 - Unspecified atrial fibrillation (2) Acute decompensated heart failure Current Visit: Yes Status: Acute Assessment and plan: Acute respiratory distress secondary to Acute decompensated HF 2D echo: LVEF 20-25% significantly reduced from 03/2016, moderate-severe mitral regurgitation, severely dilated left atrium, moderate pulm hypertension, severe global LV systolic dysfunction Hold Diuretic therapy at this time due to worsening kidney function continue to monitor I/Os fluid restricted diet (1.5L/day) early ambulation encouraged monitor daily weights O2 supplementation as needed cardiology consultation appreciated. pt opted for medical management at this time and wishes to consider hospice care. Palliative care on board (3) Elevated troponin I measurement Current Visit: Yes Status: Resolved Assessment and plan: Likely demand ischemia no chest pain reported at this time NO EKG changes noted TNI normalized (4) Cellulitis of both lower extremities Current Visit: Yes Status: Resolved Assessment and plan: Given worsening renal function and improvement in symptoms will de-escalate abx therapy d/c Vancomycin and Zosyn Start Clindamycin 600mg IV q6h (5) Acute kidney injury superimposed on CKD Current Visit: Yes Status: Acute Assessment and plan: Worsening renal function likely secondary Diuretic therapy Will hold Diuretic therapy at this time Nephrology consultation appreciated holding HCTZ,Lasix at this time will continue to monitor (6) CAD (coronary artery disease) Current Visit: Yes Status: Chronic Assessment and plan: No signs of angina present at this time continue home meds (ASA, BB, statin) Qualifiers: Coronary Disease-Associated Artery/Lesion type: [place] artery [place] vs. transplanted heart: unspecified whether [place] or transplanted heart Associated angina: with unspecified angina Qualified Code(s): I25.119 - Atherosclerotic heart disease of [place] coronary artery with unspecified angina pectoris (7) COPD (chronic obstructive pulmonary disease) Current Visit: Yes Status: Chronic Assessment and plan: Not in acute exacerbation continue home meds patient chronically on steroid therapy, will continue continue O2 supplementation as needed Qualifiers: COPD type: unspecified COPD Qualified Code(s): J44.9 - Chronic obstructive pulmonary disease, unspecified (8) Diabetes Current Visit: Yes Status: Chronic Assessment and plan: Hold oral antihyperglycemic agents at this time continue insulin sliding scale algorithm Continue Levemir 25units BID and Humalog 6units TIDAC continue to monitor fingerstick and blood glucose Qualifiers: Diabetes mellitus type: type 2 Diabetes mellitus complication status: with unspecified complications Diabetes mellitus longterm insulin use: unspecified long chain beamer insulin use status Qualified Code(s): E11.8 - Type 2 diabetes mellitus with unspecified complications (9) HLD (hyperlipidemia) Current Visit: Yes Status: Chronic Qualifiers: Hyperlipidemia type: mixed hyperlipidemia Qualified Code(s): E78.2 - Mixed hyperlipidemia (10) DVT prophylaxis Current Visit: No Status: Acute Assessment and plan: IPCD due to anemia (11) Anemia Current Visit: Yes Status: Acute Assessment and plan: Patient has history of anemia NOted to have iron deficiency anemia continue iron supplementation H&H within acceptable range at this time no active bleeding reported will continue to monitor stool occult positive: GI consultation appreciated Patient wishes to not have any colonoscopy and EGD at this time. Qualifiers: Anemia type: unspecified type Qualified Code(s): D64.9 - Anemia, unspecified - Subjective Interval history: Patient is an 86y/o female who is admitted for management of Acute respiratory distress secondary to CHF decompensation, Elevated TNI, MELLISSA, and Lower extremity cellulitis. Patient seen and examined at bedside. Improvement in respiratory status, currently saturating well on nasal cannula. Palliative care consultation was requested, and patient wishes to be on hospice care upon her discharge. Her CODE STATUS has been changed to DNR comfort care as per patient's wishes. She does not wish to undergo any colonoscopy or EGD. - Constitutional Vitals: Temp Pulse Resp BP Pulse Ox 97.0 F L 77 18 120/69 96 05/22/16 11:05 05/22/16 13:11 05/22/16 11:05 05/22/16 11:05 05/22/16 11:05 General appearance: Present: cooperative, A&O X 3, no acute distress, obese, answers questions appropriately - Head Head exam: Present: atraumatic, normocephalic - Eye Eye exam: Present: normal appearance, conjuntiva pink, sclera anicteric - Respiratory Respiratory exam: Present: CTAB. Absent: respiratory distress, wheezes - Cardiovascular Cardiovascular exam: Present: irregular rhythm, +S1, +S2 - GI/Abdominal GI/Abdominal exam: Present: normal bowel sounds, soft. Absent: tenderness - Extremities Exam Extremities exam: Present: pedal edema, warm, radial pulses palpable and symetrical (erythema on bilateral lower extremities) - Neurological Exam Neurological exam: Present: alert, oriented X3 - Psychiatric Psychiatric exam: Present: normal affect, normal mood Internal Medicine: Result - Labs CBC & Chem 7: 05/22/16 10:04 05/22/16 10:04 Labs: Short CBC 05/22/16 Range/Units 10:04 WBC 6.9 (4.3-11.1) K/mcL Hgb 10.1 L (11.5-15.4) g/dL Hct 33.3 L (35.3-44.9) % Plt Count 164 (140-400) K/mcL Neutrophils # 5.7 (1.6-8.9) K/mcL BMP 05/22/16 10:04 Sodium 134 L Potassium 3.5 Chloride 96 L Carbon Dioxide 25 BUN 48 H Creatinine 2.12 H Glucose 191 H Calcium 8.1 L - ABG Interpretation ABG results: PT/INR, D-dimer PT 12.2 Seconds (9.4-12.1) H 05/18/16 04:27 - VTE Documentation of Mechanical Device: Venous foot pump, device Consult Discharge Plan - Plan Referrals: Reinaldo Valladares Jr, MD [Primary Care Provider] - 05/25/16 9:15 am
[2016-05-22] MEDS: Clindamycin 600 MG/50 ML 600 MG/50 ML IV.SOLN IVPB SCH (17:29)
[2016-05-23] MEDS: Clindamycin 600 MG/50 ML 600 MG/50 ML IV.SOLN IVPB SCH ×4 (00:09→23:45)
[2016-05-23] MEDS: Levalbuterol Neb 0.63 MG/3 ML IH SCH ×4 (03:52→22:08)
[2016-05-23 05:29] LABS: Basophils % 0.3 %; Eosinophils % 0.1 %; Hematocrit 33.2 % (35.3-44.9); Hemoglobin 10.1 g/dL (11.5-15.4); Immature Granulocytes % 2.4 % (0-4); Lymphocytes # 1.5 K/mcL (0.6-4.6); Lymphocytes % 15.4 %; Mean Corpuscular HGB Conc 30.4 g/dL (31.6-35.5); Mean Corpuscular Hemoglobin 28.3 pg (28.0-33.3); Mean Platelet Volume 10.5 fL (9.4-12.4); Monocytes # 0.8 K/mcL (0.0-1.3); Monocytes % 8.3 %; Neutrophils # 7.3 K/mcL (1.6-8.9); Platelet Count 229 K/mcL (140-400); Red Blood Count 3.57 M/mcL (3.82-4.97); Red Cell Distribution Width 17.3 % (11.5-14.5); Segmented Neutrophils % 73.5 %
[2016-05-23 05:48] LABS: Calcium 7.9 mg/dL (8.6-10.8); Phosphorous 4.5 mg/dL (2.3-4.7); Potassium 3.4 mEq/L (3.5-4.5)
[2016-05-23] MEDS: Sennosides/Docusate Sodium TABLET PO SCH ×2 (08:24→21:11)
[2016-05-23] MEDS: Lactobacillus 1 EACH CAP.SPRINK PO SCH (08:24)
[2016-05-23] MEDS: predniSONE 20 MG TABLET PO SCH (08:24)
[2016-05-23] MEDS: Metoprolol XL (24 HR) Succ 50 MG TAB.ER.24H PO SCH ×2 (08:24→21:11)
[2016-05-23] MEDS: Isosorbide MONOnitrate (24 HR) 30 MG TAB.ER.24H PO SCH (08:25)
[2016-05-23] MEDS: Aspirin Enteric Coated 81 MG Tablet PO SCH (08:25)
[2016-05-23] MEDS: Insulin LISPRO 300 UNITS/3 ML VIAL SQ SCH ×7 (08:25→23:23)
[2016-05-23] MEDS ORDERED: Furosemide 20 MG/2 ML VIAL IVP ONE ×2 (08:33→08:37)
--- NOTE | 2016-05-23 08:56 | Palliative Progress Note ---
Date of Encounter: 05/23/16 Time of Encounter: 07:35 - Assessment and plan (1) Dyspnea Current Visit: No Status: Acute Assessment and plan: She is stable this morning. . Qualifiers: Dyspnea type: shortness of breath Qualified Code(s): R06.02 - Shortness of breath (2) Acute kidney injury superimposed on CKD Current Visit: Yes Status: Acute Assessment and plan: Slow decline has stopped and is actually starting to reverse. Continue to watch. (3) Anemia Current Visit: Yes Status: Acute Assessment and plan: The patient does have positive stool, anemia is stable at present. Patient does not wish to have any further workup of this done. Qualifiers: Anemia type: unspecified type Qualified Code(s): D64.9 - Anemia, unspecified (4) A-fib Current Visit: Yes Status: Chronic Assessment and plan: Currently rate is controlled. Cardiology has signed off. She is doing well.. Qualifiers: Atrial fibrillation type: unspecified Qualified Code(s): I48.91 - Unspecified atrial fibrillation (5) Counseling regarding advanced care planning and goals of care Current Visit: No Status: Acute Assessment and plan: Patient's CODE STATUS NOW COMFORT CARE. PER PATIENT REQUEST. SHE HAS DECIDED SHE DOES WISH TO GO HOME WITH HOSPICE. SHE HAS DECLINED ANY FURTHER GI WORKUP AT THIS TIME. (6) Constipation by delayed colonic transit Current Visit: Yes Status: Acute Assessment and plan: Per patient H her bowels are now moving in her abdomen feels much better. Continue to watch... (7) Acute decompensated heart failure Current Visit: Yes Status: Acute Assessment and plan: Patient has now opted for comfort care only and wishes to go home with hospice this is being arranged for on discharge. - Time Spent With Patient Total time spent is greater than 50% in coordination of care (as documented) at patient's floor/unit and/or counseling patient: - Subjective Interval history: The patient is feeling better this am. She is hoping to go home soon. She did meet with hospice yesterday and has elected to go home with hospice. He is agreeable to waiting until she is a little bit better tuned up prior to leaving however.. - Constitutional Vitals: Abnormal lab results RBC 3.57 M/mcL (3.82-4.97) L 05/23/16 03:52 Hgb 10.1 g/dL (11.5-15.4) L 05/23/16 03:52 Hct 33.2 % (35.3-44.9) L 05/23/16 03:52 MCHC 30.4 g/dL (31.6-35.5) L 05/23/16 03:52 RDW 17.3 % (11.5-14.5) H 05/23/16 03:52 PT 12.2 Seconds (9.4-12.1) H 05/18/16 04:27 APTT 25.6 Seconds (26.0-36.0) L 05/18/16 04:27 Potassium 3.4 mEq/L (3.5-4.5) L 05/23/16 03:52 BUN 52 mg/dL (7-20) H 05/23/16 03:52 Creatinine 1.78 mg/dL (0.57-1.11) H 05/23/16 03:52 Est GFR ( Amer) 33 (> 60) L 05/23/16 03:52 Est GFR (Non-Af Amer) 27 (> 60) L 05/23/16 03:52 BUN/Creatinine Ratio 29 (6-26) H 05/23/16 03:52 POC Glucose 198 (58-89) H 05/22/16 20:20 Calcium 7.9 mg/dL (8.6-10.8) L 05/23/16 03:52 Iron 26 mcg/dL (50-170) L 05/19/16 05:56 % Saturation 10 % (15-50) L 05/19/16 05:56 Total Bilirubin 1.4 mg/dL (0.2-1.2) H 05/18/16 04:27 Direct Bilirubin 0.7 mg/dL (0.0-0.5) H 05/18/16 04:27 B-Natriuretic Peptide 3803 pg/mL (0-100) H 05/18/16 00:30 Albumin 2.4 g/dL (3.5-5.0) L 05/18/16 04:27 Globulin 3.6 g/dL (2.4-3.5) H 05/18/16 04:27 Albumin/Globulin Ratio 0.7 (1.1-2.2) L 05/18/16 04:27 HDL Cholesterol 21 mg/dL (40-59) L 05/18/16 04:27 Urine Clarity Cloudy (Clear) A 05/20/16 06:30 Urine Protein 100 mg/dL (Neg-Trace) H 05/20/16 06:30 Stool Occult Blood Positive (Negative) A 05/20/16 14:00 MRSA Surveillance Scrn Positive (Negative) A 05/21/16 12:30 General appearance: Present: no acute distress - Head Head exam: Present: atraumatic, normal inspection - Eye Eye exam: Present: normal appearance - ENT ENT exam: Present: mucous membranes moist - Respiratory Respiratory exam: Present: decreased breath sounds - Cardiovascular Cardiovascular exam: Present: irregular rhythm - GI/Abdominal GI/Abdominal exam: Present: normal bowel sounds, soft. Absent: tenderness - Extremities Exam Extremities exam: Present: normal inspection. Absent: tenderness - Neurological Exam Neurological exam: Present: alert, oriented X3 - Psychiatric Psychiatric exam: Present: normal affect, normal mood. Absent: agitated, anxious - Skin Skin exam: Present: dry, warm Palliative Quality Palliative Quality: Screen for Code Status: Yes, Screen for Goals of Care: Yes, Screen for Pain: Yes, If Pain Regimen Started, Initiate Bowel Regimen: NA, Screen for Nausea/Vomitting: Yes Code Status: 05/18/16 03:39 Resuscitation Status: Active [RES] Routine Comment: Resuscitation Status: DNR-Comfort Care - Labs CBC & Chem 7: 05/23/16 03:52 05/23/16 03:52 Labs: Laboratory Results - last 24 hr 05/22/16 05/22/16 05/22/16 08:06 10:04 10:04 WBC 6.9 RBC 3.51 L Hgb 10.1 L Hct 33.3 L MCV 94.9 MCH 28.8 MCHC 30.3 L RDW 17.5 H Plt Count 164 MPV 10.2 Immature Gran % 1.7 Seg Neutrophils % 82.1 Lymphocytes % 9.0 Monocytes % 7.1 Eosinophils % 0.0 Basophils % 0.1 Neutrophils # 5.7 Lymphocytes # 0.6 Monocytes # 0.5 Eosinophils # 0.0 Basophils # 0.0 Sodium 134 L Potassium 3.5 Chloride 96 L Carbon Dioxide 25 BUN 48 H Creatinine 2.12 H Est GFR ( Amer) 27 L Est GFR (Non-Af Amer) 22 L BUN/Creatinine Ratio 23 Glucose 191 H POC Glucose 104 H Calculated Osmolality 296 Calcium 8.1 L Phosphorus 5.0 H Magnesium 2.1 05/22/16 05/22/16 05/22/16 11:04 15:56 20:20 WBC RBC Hgb Hct MCV MCH MCHC RDW Plt Count MPV Immature Gran % Seg Neutrophils % Lymphocytes % Monocytes % Eosinophils % Basophils % Neutrophils # Lymphocytes # Monocytes # Eosinophils # Basophils # Sodium Potassium Chloride Carbon Dioxide BUN Creatinine Est GFR ( Amer) Est GFR (Non-Af Amer) BUN/Creatinine Ratio Glucose POC Glucose 170 H 208 H 198 H Calculated Osmolality Calcium Phosphorus Magnesium 05/23/16 05/23/16 03:52 03:52 WBC 9.9 RBC 3.57 L Hgb 10.1 L Hct 33.2 L MCV 93.0 MCH 28.3 MCHC 30.4 L RDW 17.3 H Plt Count 229 MPV 10.5 Immature Gran % 2.4 Seg Neutrophils % 73.5 Lymphocytes % 15.4 Monocytes % 8.3 Eosinophils % 0.1 Basophils % 0.3 Neutrophils # 7.3 Lymphocytes # 1.5 Monocytes # 0.8 Eosinophils # 0.0 Basophils # 0.0 Sodium 137 Potassium 3.4 L Chloride 98 Carbon Dioxide 28 BUN 52 H Creatinine 1.78 H Est GFR ( Amer) 33 L Est GFR (Non-Af Amer) 27 L BUN/Creatinine Ratio 29 H Glucose 70 POC Glucose Calculated Osmolality 296 Calcium 7.9 L Phosphorus 4.5 Magnesium 2.0 - ABG Interpretation ABG results: PT/INR, D-dimer PT 12.2 Seconds (9.4-12.1) H 05/18/16 04:27 Consult Discharge Plan - Plan Referrals: Reinaldo Valladares Jr, MD [Primary Care Provider] - 05/25/16 9:15 am
--- NOTE | 2016-05-23 09:26 | Nephrology Progress Note ---
Date of Encounter: 05/23/16 Time of Encounter: 09:26 - Assessment and Plan (1) Acute kidney injury superimposed on CKD Current Visit: Yes Status: Acute Renal function has pretty much returned to baseline. Ok to cautiously resume diuretics. I recommend starting once daily dosing and if she tolerates this then dose can be increased to twice daily dosing. (2) Anemia Current Visit: Yes Status: Acute transfuse as needed. Monitor for bleeding. Qualifiers: Anemia type: unspecified type Qualified Code(s): D64.9 - Anemia, unspecified (3) Pulmonary edema Current Visit: Yes Status: Acute ok to resume diuresis. Qualifiers: Qualified Code(s): J81.1 - Chronic pulmonary edema Subjective Principal diagnosis: SOB Interval history: Patient seen and evaluated. She has no new complaints. ROS otherwise stable. Objective - Vital Signs Vital signs: Vital Signs Temp Pulse Resp BP Pulse Ox 05/23/16 07:59 95.4 F L 111 18 143/91 89 L 05/23/16 03:53 19 91 L 05/23/16 03:42 97.5 F L 85 18 127/83 91 L 05/22/16 23:17 97.1 F L 100 22 129/65 92 L 05/22/16 21:37 18 92 L 05/22/16 20:24 97.0 F L 89 17 121/54 91 L 05/22/16 20:00 95 05/22/16 16:28 16 99 05/22/16 15:55 97.7 F 82 16 120/69 99 05/22/16 15:25 80 05/22/16 13:11 77 05/22/16 11:05 97.0 F L 84 18 120/69 96 05/22/16 10:34 16 100 Intake and Output 05/22/16 05/23/16 05/23/16 23:59 07:59 15:59 Intake Total 530 / 530 50 / 50 Output Total 450 / 450 150 / 150 Balance 80 / 80 -100 / -100 Intake: IV Fluids 50 / 50 50 / 50 Cleocin 600 MG/50 ML 600 50 / 50 50 / 50 mg In 50 ml @ 50 mls/hr IVPB Q8HR [facility] Rx#: [id number] Oral 480 / 480 Output: Catheter 450 / 450 150 / 150 Other: Meal Dinner Percent of Meal Consumed 100% Stool Size Moderate Stool Consistency soft Stool Color Brown # Bowel Movements 1 Weight 66.8 kg Blood Glucose* 198 60 109 Patient Weight 05/23/16 23:59 Weight 66.8 kg - General Appearance General appearance: Present: well-developed, well-nourished EENT: Present: ATNC Neck: Present: supple Respiratory: Present: clear Cardiology: Present: edema, regular rate Gastrointestinal: Present: normoactive bowel sounds Integumentary: Present: warm and dry Neurologic: Present: alert and oriented x3 Musculoskeletal: Present: no cyanosis Psychiatric: Present: mood/affect appropriate - Lab 05/23/16 03:52 05/23/16 03:52 Most recent lab results Calcium 7.9 mg/dL (8.6-10.8) L 05/23/16 03:52 Phosphorus 4.5 mg/dL (2.3-4.7) 05/23/16 03:52 Magnesium 2.0 mg/dL (1.6-2.6) 05/23/16 03:52 - VTE Documentation of Mechanical Device: Venous foot pump, device Consult Discharge Plan - Plan Referrals: Dimas Herrera MD [Partnered Physician] - 06/07/16 9:50 am Reinaldo Valladares Jr, MD [Primary Care Provider] - 05/25/16 9:15 am
[2016-05-23] MEDS ORDERED: 0.9 % Sodium Chloride 250 ML ONE ×2 (11:09→14:11)
--- NOTE | 2016-05-23 11:37 | Internal Med Progress Note ---
Date of Encounter: 05/23/16 Time of Encounter: 11:35 - Assessment and plan (1) A-fib Current Visit: Yes Status: Chronic Assessment and plan: Afib with RVR Rate currently controlled with Metoprolol Cardiology consultation appreciated Not on anticoagulation due to high risk of falls and GI bleed Qualifiers: Atrial fibrillation type: unspecified Qualified Code(s): I48.91 - Unspecified atrial fibrillation (2) Acute decompensated heart failure Current Visit: Yes Status: Acute Assessment and plan: Acute respiratory distress secondary to Acute decompensated HF 2D echo: LVEF 20-25% significantly reduced from 03/2016, moderate-severe mitral regurgitation, severely dilated left atrium, moderate pulm hypertension, severe global LV systolic dysfunction Restarted Diuretic therapy given respiratory status continue to monitor I/Os fluid restricted diet (1.5L/day) early ambulation encouraged monitor daily weights O2 supplementation as needed cardiology consultation appreciated. pt opted for medical management at this time and wishes to consider hospice care. Palliative care on board (3) Elevated troponin I measurement Current Visit: Yes Status: Resolved Assessment and plan: Likely demand ischemia no chest pain reported at this time NO EKG changes noted TNI normalized (4) Cellulitis of both lower extremities Current Visit: Yes Status: Resolved Assessment and plan: Clinically improved Will continue Clindamycin at this time. Will treat with abx for a total of 7- 10days. (5) Acute kidney injury superimposed on CKD Current Visit: Yes Status: Acute Assessment and plan: Kidney function returned to baseline Restarted diuretic therapy given worsening respiratory status will continue to hold HCTZ closely monitor renal function Nephrology consultation appreciated. (6) CAD (coronary artery disease) Current Visit: Yes Status: Chronic Assessment and plan: No signs of angina present at this time continue home meds (ASA, BB, statin) Qualifiers: Coronary Disease-Associated Artery/Lesion type: [place] artery [place] vs. transplanted heart: unspecified whether [place] or transplanted heart Associated angina: with unspecified angina Qualified Code(s): I25.119 - Atherosclerotic heart disease of [place] coronary artery with unspecified angina pectoris (7) COPD (chronic obstructive pulmonary disease) Current Visit: Yes Status: Chronic Assessment and plan: Not in acute exacerbation continue home meds patient chronically on steroid therapy, will continue continue O2 supplementation as needed Qualifiers: COPD type: unspecified COPD Qualified Code(s): J44.9 - Chronic obstructive pulmonary disease, unspecified (8) Diabetes Current Visit: Yes Status: Chronic Assessment and plan: Hold oral antihyperglycemic agents at this time continue insulin sliding scale algorithm Continue Levemir 25units BID and Humalog 6units TIDAC continue to monitor fingerstick and blood glucose Qualifiers: Diabetes mellitus type: type 2 Diabetes mellitus complication status: with unspecified complications Diabetes mellitus fdc insulin use: unspecified buttermaker insulin use status Qualified Code(s): E11.8 - Type 2 diabetes mellitus with unspecified complications (9) HLD (hyperlipidemia) Current Visit: Yes Status: Chronic Qualifiers: Hyperlipidemia type: mixed hyperlipidemia Qualified Code(s): E78.2 - Mixed hyperlipidemia (10) DVT prophylaxis Current Visit: No Status: Acute Assessment and plan: IPCD due to anemia (11) Anemia Current Visit: Yes Status: Acute Assessment and plan: Patient has history of anemia NOted to have iron deficiency anemia continue iron supplementation H&H within acceptable range at this time no active bleeding reported will continue to monitor stool occult positive: GI consultation appreciated Patient wishes to not have any colonoscopy and EGD at this time. Qualifiers: Anemia type: unspecified type Qualified Code(s): D64.9 - Anemia, unspecified (12) Hypokalemia Current Visit: Yes Status: Acute Assessment and plan: Potassium supplemented Continue to monitor electrolytes and replace as needed - Subjective Interval history: Patient is an 86y/o female who is admitted for management of Acute respiratory distress secondary to CHF decompensation, Elevated TNI, MELLISSA, and Lower extremity cellulitis. Patient seen and examined at bedside. Resting comfortably in bed and breathing comfortably on nasal cannula at this time. Patient was reported to be in acute respiratory distress with hypoxia and tachycardia earlier this morning. She was given 1 time dose of Lasix 20 mg IV with improvement in her respiratory distress. She states she can finally breathe better and denies any chest pain or discomfort at this time. Palliative care consultation was requested, and patient wishes to be on hospice care upon her discharge. Her CODE STATUS has been changed to DNR comfort care as per patient's wishes. She does not wish to undergo any colonoscopy or EGD. - Constitutional Vitals: Temp Pulse Resp BP Pulse Ox 95.4 F L 86 22 112/79 94 L 05/23/16 07:59 05/23/16 11:00 05/23/16 11:00 05/23/16 11:00 05/23/16 11:00 General appearance: Present: cooperative, A&O X 3, no acute distress, obese, answers questions appropriately - Head Head exam: Present: atraumatic, normocephalic - Eye Eye exam: Present: normal appearance, conjuntiva pink, sclera anicteric - Respiratory Respiratory exam: Absent: respiratory distress, wheezes (bibasilar crackles) - Cardiovascular Cardiovascular exam: Present: RRR, +S1, +S2 - GI/Abdominal GI/Abdominal exam: Present: normal bowel sounds, soft. Absent: distended, tenderness - Extremities Exam Extremities exam: Present: pedal edema (bilaterally-improving, erythema on bilateral distal lower extremities-improving), warm, radial pulses palpable and symetrical. Absent: calf tenderness - Neurological Exam Neurological exam: Present: alert, oriented X3 - Psychiatric Psychiatric exam: Present: normal affect, normal mood Internal Medicine: Result - Labs CBC & Chem 7: 05/23/16 03:52 05/23/16 03:52 Labs: Short CBC 05/23/16 Range/Units 03:52 WBC 9.9 (4.3-11.1) K/mcL Hgb 10.1 L (11.5-15.4) g/dL Hct 33.2 L (35.3-44.9) % Plt Count 229 (140-400) K/mcL Neutrophils # 7.3 (1.6-8.9) K/mcL BMP 05/23/16 03:52 Sodium 137 Potassium 3.4 L Chloride 98 Carbon Dioxide 28 BUN 52 H Creatinine 1.78 H Glucose 70 Calcium 7.9 L - ABG Interpretation ABG results: PT/INR, D-dimer PT 12.2 Seconds (9.4-12.1) H 05/18/16 04:27 - VTE Documentation of Mechanical Device: Venous foot pump, device Consult Discharge Plan - Plan Referrals: Dimas Herrera MD [Partnered Physician] - 06/07/16 9:50 am Reinaldo Valladares Jr, MD [Primary Care Provider] - 05/25/16 9:15 am
[2016-05-23] MEDS: Insulin DETEMIR 100 UNIT/ML X5UNITS SQ SCH ×2 (13:00→23:21)
[2016-05-24] MEDS: Levalbuterol Neb 0.63 MG/3 ML IH SCH ×2 (03:44→11:31)
[2016-05-24 05:37] LABS: Basophils % 0.3 %; Eosinophils % 0.1 %; Hematocrit 32.5 % (35.3-44.9); Hemoglobin 10.2 g/dL (11.5-15.4); Immature Granulocytes % 2.2 % (0-4); Lymphocytes # 1.1 K/mcL (0.6-4.6); Lymphocytes % 14.1 %; Mean Corpuscular HGB Conc 31.4 g/dL (31.6-35.5); Mean Corpuscular Hemoglobin 29.4 pg (28.0-33.3); Mean Corpuscular Volume 93.7 fL (83.0-100.0); Mean Platelet Volume 10.2 fL (9.4-12.4); Monocytes # 0.6 K/mcL (0.0-1.3); Neutrophils # 5.8 K/mcL (1.6-8.9); Platelet Count 194 K/mcL (140-400); Red Blood Count 3.47 M/mcL (3.82-4.97); Red Cell Distribution Width 17.2 % (11.5-14.5); Segmented Neutrophils % 75.3 %
[2016-05-24 05:57] LABS: Calcium 7.8 mg/dL (8.6-10.8); Chol/HDL Ratio 2.6 (0-4.9); Phosphorous 3.7 mg/dL (2.3-4.7); Potassium 4.1 mEq/L (3.5-4.5)
[2016-05-24 06:30] LABS: Folate 9.1 ng/mL (7.0-31.4)
[2016-05-24] MEDS ORDERED: Furosemide 40 MG/4 ML VIAL IVP ONE (07:13)
--- NOTE | 2016-05-24 08:58 | Electrocardiograph Report ---
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
[2016-05-24] MEDS ORDERED: Furosemide 40 MG/4 ML VIAL IVP SCH (09:00)
[2016-05-24] MEDS: Insulin LISPRO 300 UNITS/3 ML VIAL SQ SCH ×4 (09:30→11:52)
[2016-05-24] MEDS: Clindamycin 600 MG/50 ML 600 MG/50 ML IV.SOLN IVPB SCH (09:35)
[2016-05-24] MEDS: Insulin DETEMIR 100 UNIT/ML X5UNITS SQ SCH (09:35)
[2016-05-24] MEDS: Isosorbide MONOnitrate (24 HR) 30 MG TAB.ER.24H PO SCH (09:36)
[2016-05-24] MEDS: Lactobacillus 1 EACH CAP.SPRINK PO SCH (09:36)
[2016-05-24] MEDS: Sennosides/Docusate Sodium TABLET PO SCH (09:36)
[2016-05-24] MEDS: Metoprolol XL (24 HR) Succ 50 MG TAB.ER.24H PO SCH (09:36)
[2016-05-24] MEDS: Aspirin Enteric Coated 81 MG Tablet PO SCH (09:36)
[2016-05-24] MEDS: predniSONE 20 MG TABLET PO SCH (09:36)
--- NOTE | 2016-05-24 09:53 | Nephrology Progress Note ---
Date of Encounter: 05/24/16 Time of Encounter: 10:53 - Assessment and Plan (1) Acute kidney injury superimposed on CKD Current Visit: Yes Status: Acute 05/24 SCr 1.52, GFR 35, Na 136, K 4.1: SCr has returned to baseline. 05/23 UOP 800, intake 1100, net POSITIVE balance of 310, unclear if this is accurate as there is also cumulative urine output noted of 1150 that does not correlate with total output 05/24 UOP 1900 so far MRSA Screen positive Diuretics have been resumed Declining EGD/Colonoscopy Patient discussing hospice care upon discharge from the hospital. Plan: -Continue diuretics -Continue fluid restriction and strict I/Os -Continue to avoid nephrotoxic agents -Renally dose medications. (2) Anemia Current Visit: Yes Status: Acute Qualifiers: Anemia type: unspecified type Qualified Code(s): D64.9 - Anemia, unspecified (3) Acute exacerbation of congestive heart failure Current Visit: No Status: Acute Qualifiers: Congestive heart failure type: combined Qualified Code(s): I50.43 - Acute on chronic combined systolic (congestive) and diastolic (congestive) heart failure Subjective Principal diagnosis: SOB Interval history: Patient seen and examined. She complains of mild SOB, but denies cp, fevers, chills, abdominal pain and leg pain. She will be discharged to hospice today. Objective - Vital Signs Vital signs: Vital Signs Temp Pulse Resp BP Pulse Ox 05/24/16 07:00 96 05/24/16 06:57 98.0 F 127 22 148/91 92 L 05/24/16 03:44 18 92 L 05/24/16 03:37 97.9 F 95 20 134/88 90 L 05/24/16 00:16 97.5 F L 104 22 131/76 93 L 05/23/16 22:08 16 94 L 05/23/16 15:41 97.5 F L 80 18 133/88 94 L 05/23/16 13:00 89 94 L 05/23/16 11:41 97.5 F L 05/23/16 11:30 89 05/23/16 11:03 18 93 L 05/23/16 11:00 86 22 112/79 94 L Intake and Output 05/23/16 05/24/16 05/24/16 23:59 07:59 15:59 Intake Total 287 / 287 50 / 50 Output Total 300 / 300 Balance 287 / 287 -250 / -250 Intake: IV Fluids 50 / 50 50 / 50 Cleocin 600 MG/50 ML 600 50 / 50 50 / 50 mg In 50 ml @ 50 mls/hr IVPB Q8HR [facility] Rx#: [id number] Oral 237 / 237 Output: Urine 300 / 300 Other: Meal Dinner Percent of Meal Consumed 90% Stool Size Moderate Stool Consistency loose Stool Color Brown Green Weight 67.8 kg Blood Glucose* 150 103 Patient Weight 05/24/16 23:59 Weight 67.8 kg - General Appearance General appearance: Present: well-developed, well-nourished, chronically ill EENT: Present: ATNC, PERRL, mucous membranes moist Neck: Present: supple Respiratory: Present: clear Cardiology: Present: irregular rhythm Gastrointestinal: Present: normoactive bowel sounds, no tenderness Integumentary: Present: no rash, warm and dry Neurologic: Present: no focal deficit Musculoskeletal: Present: no deformities, no erythema, no cyanosis, no clubbing Psychiatric: Present: mood/affect appropriate, cooperative - Lab 05/24/16 05:28 05/24/16 05:28 Most recent lab results Calcium 7.8 mg/dL (8.6-10.8) L 05/24/16 05:28 Phosphorus 3.7 mg/dL (2.3-4.7) 05/24/16 05:28 Magnesium 2.0 mg/dL (1.6-2.6) 05/24/16 05:28 - VTE Documentation of Mechanical Device: Venous foot pump, device Consult Discharge Plan - Plan Referrals: Dimas Herrera MD [Partnered Physician] - 06/07/16 9:50 am Reinaldo Valladares Jr, MD [Primary Care Provider] - 05/25/16 9:15 am Prescriptions: LORazepam Oral Conc [Ativan Oral Conc] 1 mg PO Q6HR #30 mls Morphine Oral CONC [Roxanol] 5 mg PO Q2H PRN #30 ml PRN Reason: pain or sob
--- NOTE | 2016-05-24 10:31 | Palliative Progress Note ---
Date of Encounter: 05/24/16 Time of Encounter: 10:15 - Assessment and plan (1) Dyspnea Current Visit: No Status: Acute Assessment and plan: She is stable this morning. . Qualifiers: Dyspnea type: shortness of breath Qualified Code(s): R06.02 - Shortness of breath (2) Acute kidney injury superimposed on CKD Current Visit: Yes Status: Acute Assessment and plan: Nephrology back to baseline. sHe will be going out with hospice today.. (3) Anemia Current Visit: Yes Status: Acute Assessment and plan: The patient does have positive stool, anemia is stable at present. She is going out with hospice no further workup will be done. This is per patient request. Qualifiers: Anemia type: unspecified type Qualified Code(s): D64.9 - Anemia, unspecified (4) A-fib Current Visit: Yes Status: Chronic Assessment and plan: Currently rate is controlled. Cardiology has signed off. She is doing well.. Qualifiers: Atrial fibrillation type: unspecified Qualified Code(s): I48.91 - Unspecified atrial fibrillation (5) Counseling regarding advanced care planning and goals of care Current Visit: No Status: Acute Assessment and plan: Patient's CODE STATUS NOW COMFORT CARE. PER PATIENT REQUEST. SHE HAS DECIDED SHE DOES WISH TO GO HOME WITH HOSPICE. Hospice has been notified that she will be discharged sometime before noon. They will make arrangements for the patient to go home. (6) Constipation by delayed colonic transit Current Visit: Yes Status: Acute (7) Acute decompensated heart failure Current Visit: Yes Status: Acute Assessment and plan: Patient has now opted for comfort care only and wishes to go home with hospice this is being arranged for on discharge. - Time Spent With Patient Total time spent is greater than 50% in coordination of care (as documented) at patient's floor/unit and/or counseling patient: - Subjective Interval history: The patient is feeling better this am. Hospitalist team patient will be discharged later today. Patient is excited about this... - Constitutional Vitals: Abnormal lab results RBC 3.47 M/mcL (3.82-4.97) L 05/24/16 05:28 Hgb 10.2 g/dL (11.5-15.4) L 05/24/16 05:28 Hct 32.5 % (35.3-44.9) L 05/24/16 05:28 MCHC 31.4 g/dL (31.6-35.5) L 05/24/16 05:28 RDW 17.2 % (11.5-14.5) H 05/24/16 05:28 PT 12.2 Seconds (9.4-12.1) H 05/18/16 04:27 APTT 25.6 Seconds (26.0-36.0) L 05/18/16 04:27 BUN 53 mg/dL (7-20) H 05/24/16 05:28 Creatinine 1.52 mg/dL (0.57-1.11) H 05/24/16 05:28 Est GFR ( Amer) 39 (> 60) L 05/24/16 05:28 Est GFR (Non-Af Amer) 33 (> 60) L 05/24/16 05:28 BUN/Creatinine Ratio 35 (6-26) H 05/24/16 05:28 POC Glucose 150 (58-89) H 05/23/16 21:26 Calcium 7.8 mg/dL (8.6-10.8) L 05/24/16 05:28 Iron 26 mcg/dL (50-170) L 05/19/16 05:56 % Saturation 10 % (15-50) L 05/19/16 05:56 Total Bilirubin 1.4 mg/dL (0.2-1.2) H 05/18/16 04:27 Direct Bilirubin 0.7 mg/dL (0.0-0.5) H 05/18/16 04:27 B-Natriuretic Peptide 3803 pg/mL (0-100) H 05/18/16 00:30 Albumin 2.4 g/dL (3.5-5.0) L 05/18/16 04:27 Globulin 3.6 g/dL (2.4-3.5) H 05/18/16 04:27 Albumin/Globulin Ratio 0.7 (1.1-2.2) L 05/18/16 04:27 Urine Clarity Cloudy (Clear) A 05/20/16 06:30 Urine Protein 100 mg/dL (Neg-Trace) H 05/20/16 06:30 Stool Occult Blood Positive (Negative) A 05/20/16 14:00 MRSA Surveillance Scrn Positive (Negative) A 05/21/16 12:30 General appearance: Present: no acute distress - Head Head exam: Present: atraumatic, normal inspection - ENT ENT exam: Present: mucous membranes moist - Respiratory Respiratory exam: Present: decreased breath sounds - Cardiovascular Cardiovascular exam: Present: irregular rhythm - GI/Abdominal GI/Abdominal exam: Present: normal bowel sounds, soft. Absent: tenderness - Extremities Exam Extremities exam: Present: pedal edema. Absent: normal inspection, tenderness - Neurological Exam Neurological exam: Present: alert, oriented X3 - Psychiatric Psychiatric exam: Present: normal affect, normal mood. Absent: agitated, anxious - Skin Skin exam: Present: dry, warm Palliative Quality Palliative Quality: Screen for Code Status: Yes, Screen for Goals of Care: Yes, Screen for Pain: Yes, If Pain Regimen Started, Initiate Bowel Regimen: NA, Screen for Nausea/Vomitting: Yes Code Status: 05/18/16 03:39 Resuscitation Status: Active [RES] Routine Comment: Resuscitation Status: DNR-Comfort Care - Labs CBC & Chem 7: 05/24/16 05:28 05/24/16 05:28 Labs: Laboratory Results - last 24 hr 05/23/16 05/23/16 05/23/16 08:01 08:03 09:01 WBC RBC Hgb Hct MCV MCH MCHC RDW Plt Count MPV Immature Gran % Seg Neutrophils % Lymphocytes % Monocytes % Eosinophils % Basophils % Neutrophils # Lymphocytes # Monocytes # Eosinophils # Basophils # Sodium Potassium Chloride Carbon Dioxide BUN Creatinine Est GFR ( Amer) Est GFR (Non-Af Amer) BUN/Creatinine Ratio Glucose POC Glucose 64 60 109 H Calculated Osmolality Calcium Phosphorus Magnesium Triglycerides Cholesterol LDL Cholesterol, Calc VLDL Cholesterol, Calc HDL Cholesterol Cholesterol/HDL Ratio Vitamin B12 Folate 05/23/16 05/23/16 05/23/16 10:56 16:10 21:26 WBC RBC Hgb Hct MCV MCH MCHC RDW Plt Count MPV Immature Gran % Seg Neutrophils % Lymphocytes % Monocytes % Eosinophils % Basophils % Neutrophils # Lymphocytes # Monocytes # Eosinophils # Basophils # Sodium Potassium Chloride Carbon Dioxide BUN Creatinine Est GFR ( Amer) Est GFR (Non-Af Amer) BUN/Creatinine Ratio Glucose POC Glucose 206 H 223 H 150 H Calculated Osmolality Calcium Phosphorus Magnesium Triglycerides Cholesterol LDL Cholesterol, Calc VLDL Cholesterol, Calc HDL Cholesterol Cholesterol/HDL Ratio Vitamin B12 Folate 05/24/16 05/24/16 05/24/16 05:28 05:28 05:28 WBC 7.7 RBC 3.47 L Hgb 10.2 L Hct 32.5 L MCV 93.7 MCH 29.4 MCHC 31.4 L RDW 17.2 H Plt Count 194 MPV 10.2 Immature Gran % 2.2 Seg Neutrophils % 75.3 Lymphocytes % 14.1 Monocytes % 8.0 Eosinophils % 0.1 Basophils % 0.3 Neutrophils # 5.8 Lymphocytes # 1.1 Monocytes # 0.6 Eosinophils # 0.0 Basophils # 0.0 Sodium 136 Potassium 4.1 Chloride 100 Carbon Dioxide 28 BUN 53 H Creatinine 1.52 H Est GFR ( Amer) 39 L Est GFR (Non-Af Amer) 33 L BUN/Creatinine Ratio 35 H Glucose 86 POC Glucose Calculated Osmolality 296 Calcium 7.8 L Phosphorus 3.7 Magnesium 2.0 Triglycerides 84 Cholesterol 131 LDL Cholesterol, Calc 63 VLDL Cholesterol, Calc 17 HDL Cholesterol 51 Cholesterol/HDL Ratio 2.6 Vitamin B12 786 Folate 9.1 - ABG Interpretation ABG results: PT/INR, D-dimer PT 12.2 Seconds (9.4-12.1) H 05/18/16 04:27 Consult Discharge Plan - Plan Referrals: Dimas Herrera MD [Partnered Physician] - 06/07/16 9:50 am Reinaldo Valladares Jr, MD [Primary Care Provider] - 05/25/16 9:15 am
--- NOTE | 2016-05-24 11:21 | Discharge Summary ---
Date of Encounter: 05/24/16 Time of Encounter: 11:15 - Discharge Diagnosis (1) A-fib Priority: Primary Status: Chronic Qualifiers: Atrial fibrillation type: unspecified Qualified Code(s): I48.91 - Unspecified atrial fibrillation (2) Acute decompensated heart failure Priority: Primary Status: Acute (3) Elevated troponin I measurement Priority: Secondary Status: Resolved (4) Cellulitis of both lower extremities Priority: Secondary Status: Resolved (5) Acute kidney injury superimposed on CKD Priority: Secondary Status: Acute (6) CAD (coronary artery disease) Priority: Secondary Status: Chronic Qualifiers: Coronary Disease-Associated Artery/Lesion type: [place] artery [place] vs. transplanted heart: unspecified whether [place] or transplanted heart Associated angina: with unspecified angina Qualified Code(s): I25.119 - Atherosclerotic heart disease of [place] coronary artery with unspecified angina pectoris (7) COPD (chronic obstructive pulmonary disease) Priority: Secondary Status: Chronic Qualifiers: COPD type: unspecified COPD Qualified Code(s): J44.9 - Chronic obstructive pulmonary disease, unspecified (8) Diabetes Priority: Secondary Status: Chronic Qualifiers: Diabetes mellitus type: type 2 Diabetes mellitus complication status: with unspecified complications 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 use: unspecified fdc insulin use status Qualified Code(s): E11.8 - Type 2 diabetes mellitus with unspecified complications (9) HLD (hyperlipidemia) Priority: Secondary Status: Chronic Qualifiers: Hyperlipidemia type: mixed hyperlipidemia Qualified Code(s): E78.2 - Mixed hyperlipidemia (10) DVT prophylaxis Priority: Secondary Status: Acute (11) Anemia Priority: Secondary Status: Acute Qualifiers: Anemia type: unspecified type Qualified Code(s): D64.9 - Anemia, unspecified (12) Hypokalemia Priority: Secondary Status: Acute - Discharge Medications Prescriptions: Clindamycin [Cleocin] 300 mg PO Q6HR #3 capsule LORazepam Oral Conc [Ativan Oral Conc] 1 mg PO Q6HR #30 mls Ferrous Sulfate 325 mg PO DAILY@0800 #30 tablet Furosemide [Lasix] 20 mg PO BID #60 tablet Metoprolol XL (24 HR) Succ [Toprol XL] 50 mg PO BID #30 tab.er.24h Morphine Oral CONC [Roxanol] 5 mg PO Q2H PRN #30 ml PRN Reason: pain or sob Sennosides/Docusate Sodium [Senna Plus] 2 each PO BID PRN #30 tablet PRN Reason: Constipation Home Medications: Albuterol Neb [Proventil Neb] 2.5 mg IH Q4HR PRN 05/18/16 [History] Alprazolam [Xanax 1 MG Tablet] 1 mg PO BID PRN 05/18/16 [History] Aspirin [Lo-Dose Aspirin EC] 81 mg PO DAILY 05/18/16 [History] Atorvastatin [Lipitor] 40 mg PO HS 05/18/16 [History] Dapagliflozin Propanediol [Farxiga] 5 mg PO DAILY 05/18/16 [History] Glimepiride [Amaryl] 1 mg PO DAILY 05/18/16 [History] HydrALAZINE 25 mg PO Q6HR 05/18/16 [History] Hydrochlorothiazide 12.5 mg PO DAILY 05/18/16 [History] Isosorbide MONOnitrate (24 HR) [Imdur] 30 mg PO DAILY 05/18/16 [History] Lactobacillus Acidophilus [Acidophilus] 100 mg PO BID 05/18/16 [History] Nitroglycerin [Nitrostat] 0.4 mg SL AD PRN 05/18/16 [History] Oxycodone HCl/Acetaminophen [Percocet 5-325 mg Tablet] 1 - 2 tab PO QID PRN 06/01 [History] PredniSONE [Deltasone] 30 mg PO DAILY 05/18/16 [History] Ubidecarenone [Co Q-10] 100 mg PO DAILY 05/18/16 [History] Zinc Acetate [Galzin] 50 mg PO DAILY 05/18/16 [History] Clindamycin [Cleocin] 300 mg PO Q6HR #3 capsule 05/24/16 [Rx] Ferrous Sulfate 325 mg PO DAILY@0800 #30 tablet 05/24/16 [Rx] Furosemide [Lasix] 20 mg PO BID #60 tablet 05/24/16 [Rx] LORazepam Oral Conc [Ativan Oral Conc] 1 mg PO Q6HR #30 mls 05/24/16 [Rx] Metoprolol XL (24 HR) Succ [Toprol XL] 50 mg PO BID #30 tab.er.24h 05/24/16 [Rx] Morphine Oral CONC [Roxanol] 5 mg PO Q2H PRN #30 ml 05/24/16 [Rx] Sennosides/Docusate Sodium [Senna Plus] 2 each PO BID PRN #30 tablet 05/24/16 [ Rx] Allergies/Adverse Reactions: Allergies Opium (Anthroposophic) Allergy (Unknown, Verified 05/18/16 08:38) See Comments LISTED ON PATIENT'S ECW LAST APPT WITH PCP DR. MARY daniels Adverse Reaction (Unknown, Verified 05/18/16 00:26) Gastrointestinal Upset Procedures/tests Complete & Pending: Procedures Performed prior 72 hours Category Date Time Status ECG 12 lead ECG [ECG] Routine Y 05/23/16 08:27 Completed Date of admission: 05/20/16 13:44 Primary care physician: Reinaldo Valladares Jr, MD Consults: 05/21/16 08:05 Consult to Nephrology [CONS] Routine Consulting Provider: Kidney Renick/NEAL/ROSIE/JULISA Reason for Consult: MELLISSA on CKD Call Completed: Yes 05/21/16 08:07 Consult to Gastroenterology [CONS] Routine Consulting Provider: Gastroenterology Renick Reason for Consult: anemia, positive stool occult Call Completed: Yes Discharging clinician: Jacquie Stearns Anticipated date of discharge: 05/24/16 - Patient Status Disposition: Home Health Service Condition: Good Overall status at discharge: patient is back to baseline - Discharge Instructions Follow Up With: Dimas Herrera MD [Partnered Physician] - 06/07/16 9:50 am Reinaldo Valladares Jr, MD [Primary Care Provider] - 05/25/16 9:15 am Additional Instructions: Please follow up with your primary care physician, cardiology within one week after your discharge from the hospital. Your home medications doses have been adjusted.Metoprolol has been decreased to 50mg PO twice a day. You will be going home with Hospice services. Please continue antibiotics for one more day. Please resume your home medications as prescribed by your primary care physician. - Diet and Activity Activity: resume usual activities as tolerated Diet: low salt diet Hospital course: Ms. Rodas is a 86 year old female with medical history significant for CAD/ [id number]/AMI, combined syst/diast CHF`PCMA28-11%, PAF (no A/C due to high fall risk), valvular heart disease/moderate MR+TR/Pulm HTN, type II DM, hypertension , dyslipidemia, osteoarthritis, osteoporosis, PAD/LE fem-pop bypass, CKD III, nephrolithiasis, anemia of chronic disease, anxiety disorder, H/O treated TA/PMR , former smoker admitted for CHF decompensation and cellulitis of bilateral Lower extremities. Patient was evaluated by cardiology and responded well to IV diuretic therapy. However patient's hospital course was complicated with anemia and acute kidney injury. Patient's diuretic was placed on hold due to the kidney injury which improved her renal function. Once patient's renal function returned to baseline her diuretic therapy was resumed as she was noted to be in respiratory distress. Patient also opted to choose hospice care during this hospitalization and will be discharged to home with hospice care. She also was started on IV antibiotics for cellulitis and responded well to therapy. Patient is to be discharged home with oral antibiotics. Patient will have follow-up with primary care physician, cardiology, and will have hospice services on board. - Time Spent with Patient Total time spent providing and/or coordinating discharge services: - Constitutional Vitals: Temp Pulse Resp BP Pulse Ox 98.0 F 96 22 148/91 92 L 05/24/16 06:57 05/24/16 07:00 05/24/16 06:57 05/24/16 06:57 05/24/16 06:57 General appearance: Present: cooperative, A&O X 3, no acute distress, obese, answers questions appropriately - Head Head exam: Present: atraumatic, normocephalic - Eye Eye exam: Present: normal appearance, conjuntiva pink, sclera anicteric - Respiratory Respiratory exam: Present: CTAB. Absent: respiratory distress, wheezes - Cardiovascular Cardiovascular exam: Present: RRR, +S1, +S2 - GI/Abdominal GI/Abdominal exam: Present: normal bowel sounds, soft. Absent: distended, tenderness - Extremities Exam Extremities exam: Present: pedal edema (mild pedal edema bilaterally), warm, radial pulses palpable and symetrical. Absent: calf tenderness - Neurological Exam Neurological exam: Present: alert, oriented X3 - Psychiatric Psychiatric exam: Present: normal affect, normal mood - VTE Documentation of Mechanical Device: Venous foot pump, device
--- NOTE | 2016-05-24 11:33 | Physician Discharge Referral ---
Home Health/Hosp Referral Info Transfer to: Hospice Provider in Charge Post Discharge: PCP - Diagnosis (1) A-fib Priority: Primary Status: Chronic (2) Acute decompensated heart failure Priority: Primary Status: Acute (3) Elevated troponin I measurement Priority: Secondary Status: Resolved (4) Cellulitis of both lower extremities Priority: Primary Status: Resolved (5) Acute kidney injury superimposed on CKD Priority: Secondary Status: Resolved (6) CAD (coronary artery disease) Priority: Secondary Status: Chronic (7) COPD (chronic obstructive pulmonary disease) Status: Chronic (8) Diabetes Priority: Secondary Status: Chronic (9) HLD (hyperlipidemia) Priority: Secondary Status: Chronic (10) DVT prophylaxis Priority: Secondary Status: Acute (11) Anemia Priority: Secondary Status: Acute (12) Hypokalemia Priority: Secondary Status: Resolved - Respiratory Orders Smoking Cessation: Smoking cessation has been advised. For more information, call the [place] Tobacco Quit Line at 1-249-KVIK-NOW. - Services Needed Following services are medically necessary services: Nursing, Home Health Aide, Physical Therapy, Occupational Therapy - Transfer Medications Prescriptions: Clindamycin [Cleocin] 300 mg PO Q6HR #3 capsule LORazepam Oral Conc [Ativan Oral Conc] 1 mg PO Q6HR #30 mls Ferrous Sulfate 325 mg PO DAILY@0800 #30 tablet Furosemide [Lasix] 20 mg PO BID #60 tablet Metoprolol XL (24 HR) Succ [Toprol XL] 50 mg PO BID #30 tab.er.24h Morphine Oral CONC [Roxanol] 5 mg PO Q2H PRN #30 ml PRN Reason: pain or sob Sennosides/Docusate Sodium [Senna Plus] 2 each PO BID PRN #30 tablet PRN Reason: Constipation Home Medications: Albuterol Neb [Proventil Neb] 2.5 mg IH Q4HR PRN 05/18/16 [History] Alprazolam [Xanax 1 MG Tablet] 1 mg PO BID PRN 05/18/16 [History] Aspirin [Lo-Dose Aspirin EC] 81 mg PO DAILY 05/18/16 [History] Atorvastatin [Lipitor] 40 mg PO HS 05/18/16 [History] Dapagliflozin Propanediol [Farxiga] 5 mg PO DAILY 05/18/16 [History] Glimepiride [Amaryl] 1 mg PO DAILY 05/18/16 [History] HydrALAZINE 25 mg PO Q6HR 05/18/16 [History] Hydrochlorothiazide 12.5 mg PO DAILY 05/18/16 [History] Isosorbide MONOnitrate (24 HR) [Imdur] 30 mg PO DAILY 05/18/16 [History] Lactobacillus Acidophilus [Acidophilus] 100 mg PO BID 05/18/16 [History] Nitroglycerin [Nitrostat] 0.4 mg SL AD PRN 05/18/16 [History] Oxycodone HCl/Acetaminophen [Percocet 5-325 mg Tablet] 1 - 2 tab PO QID PRN 06/01 [History] PredniSONE [Deltasone] 30 mg PO DAILY 05/18/16 [History] Ubidecarenone [Co Q-10] 100 mg PO DAILY 05/18/16 [History] Zinc Acetate [Galzin] 50 mg PO DAILY 05/18/16 [History] Clindamycin [Cleocin] 300 mg PO Q6HR #3 capsule 05/24/16 [Rx] Ferrous Sulfate 325 mg PO DAILY@0800 #30 tablet 05/24/16 [Rx] Furosemide [Lasix] 20 mg PO BID #60 tablet 05/24/16 [Rx] LORazepam Oral Conc [Ativan Oral Conc] 1 mg PO Q6HR #30 mls 05/24/16 [Rx] Metoprolol XL (24 HR) Succ [Toprol XL] 50 mg PO BID #30 tab.er.24h 05/24/16 [Rx] Morphine Oral CONC [Roxanol] 5 mg PO Q2H PRN #30 ml 05/24/16 [Rx] Sennosides/Docusate Sodium [Senna Plus] 2 each PO BID PRN #30 tablet 05/24/16 [ Rx] Allergies/Adverse Reactions: Allergies Opium (Anthroposophic) Allergy (Unknown, Verified 05/18/16 08:38) See Comments LISTED ON PATIENT'S ECW LAST APPT WITH PCP DR. MARY daniels Adverse Reaction (Unknown, Verified 05/18/16 00:26) Gastrointestinal Upset Certification: Further, I certify that my clinical findings support that this patient is homebound (i.e. absences from home require considerable and taxing effort and are for medical reasons or [facility] or infrequently or short duration when for other reasons) because: Homebound Reason: Patient requires assistance of a person or device to safely leave home Attestation: My signature below is to certify that this patient is under my care and that I, or nurse practitioner, or a physician's catering administrative assistant working with me, has a face-to -face encounter with this patient.
[2016-05-24 11:52] VITALS: BP 147/87
[2016-05-24] MEDS: ALPRAZolam 1 MG TABLET PO PRN (13:03)
== END 2016-05-24 15:25 | disposition hospice, home (50) | DRG 291 ==
LOC: EMEROO 00:24 → 2NNU 00:24
PROVIDERS: ADMIT Internal Medicine; ATTEND Internal Medicine

== ENCOUNTER 2016-05-26 11:47 | Observation (INO) ==
--- NOTE | 2016-05-26 11:58 | Emergency Department Note ---
START Narrative - START START: I examined this patient and my medical decision-making was reviewed with the WASTE WATER [employer] WATER PLANT OPERATOR/PA/Advanced Practice Nurse/Resident Physician. I agree with the documented findings, disposition and treatment plan as described except to the extent set forth below. ED attending note: Patient seen with emergency medicine resident Dr. Nickerson. Please see a copy of his note for details of the H&P, evaluation, management and disposition of this patient. We independently had [id number] contact with the patient Briefly: A 86-year-old female by EMS for chest pain not a candidate for catheterization. Has DNR comfort care valid number. We are consulting hospice at this time. Patient stable with a guarded prognosis. We will provide Medication for pain relief. Disposition pending.
[2016-05-26] MEDS ORDERED: Ondansetron 4 MG/2 ML VIAL IVP ONE (12:05)
[2016-05-26] MEDS ORDERED: *HR* Morphine 2 MG/ML SYRINGE IV ONE (12:05)
--- NOTE | 2016-05-26 12:55 | Emergency Department Note ---
Disposition Clinical Impression: Intractable pain Disposition: Admitted As Inpatient Condition: Fair Time of Disposition: 14:48 Chest Pain HPI - General Chief Complaint: ED Chest Pain Stated Complaint: chest pain Time Seen by Provider: 05/26/16 11:54 Source: patient, EMS Limitations: no limitations Vital Signs Reviewed: Yes Nursing Notes Reviewed: Yes - History of Present Illness HPI Narrative: 86-year-old female on hospice for CAD, acute on chronic respiratory failure, CHF , just discharged from the hospital 2 days ago and placed on hospice. She was at home and her hospice nurse called and told the family not to call EMS, she was having chest pain 10 out of 10, not responsive to morphine or sublingual blistering, the patient was getting more distressed, so she ended up revoking her hospice and coming in by EMS. Essentially for IV pain control. She is still DNR CC request no left heart catheterization or further interventions or procedures. Pt complaint: chest pain Onset (ago): day(s) Duration: intermittent Pain Location: substernal Severity: moderate Severity scale (1-10): 8 Pain Radiation: none Improves with: nothing Worsens with: nothing Treatments prior to arrival chest pain: nitroglycerin, other (morphine) - Related Data Home Medications Medication Instructions Recorded Confirmed Albuterol Neb [Proventil Neb] 2.5 mg IH Q4HR PRN 05/18/16 05/26/16 Alprazolam [Xanax 1 MG Tablet] 1 mg PO BID PRN 05/18/16 05/26/16 Aspirin [Lo-Dose Aspirin EC] 81 mg PO DAILY 05/18/16 05/26/16 Atorvastatin [Lipitor] 40 mg PO HS 05/18/16 05/26/16 Dapagliflozin Propanediol [Farxiga] 5 mg PO DAILY 05/18/16 05/26/16 Glimepiride [Amaryl] 1 mg PO DAILY 05/18/16 05/26/16 HydrALAZINE 25 mg PO Q6HR 05/18/16 05/26/16 Isosorbide MONOnitrate (24 HR) 30 mg PO DAILY 05/18/16 05/26/16 [Imdur] Lactobacillus Acidophilus 100 mg PO BID 05/18/16 05/26/16 [Acidophilus] Nitroglycerin [Nitrostat] 0.4 mg SL AD PRN 05/18/16 05/26/16 Oxycodone HCl/Acetaminophen 1 - 2 tab PO QID PRN 05/18/16 05/26/16 [Percocet 5-325 mg Tablet] Ubidecarenone [Co Q-10] 100 mg PO DAILY 05/18/16 05/26/16 Zinc Acetate [Galzin] 50 mg PO DAILY 05/18/16 05/26/16 Ferrous Sulfate 325 mg PO DAILY 05/26/16 05/26/16 Sennosides/Docusate Sodium [Senna 2 tab PO BID PRN 05/26/16 05/26/16 Plus] Previous Rx's Medication Instructions Recorded Clindamycin [Cleocin] 300 mg PO Q6HR #3 capsule 05/24/16 Furosemide [Lasix] 20 mg PO BID #60 tablet 05/24/16 LORazepam Oral Conc [Ativan Oral 1 mg PO Q6HR #30 mls 05/24/16 Conc] Metoprolol XL (24 HR) Succ [Toprol 50 mg PO BID #30 tab.er.24h 05/24/16 XL] Morphine Oral CONC [Roxanol] 5 mg PO Q2H PRN #30 ml 05/24/16 Allergies Allergy/AdvReac Type Severity Reaction Status Date / Time Opium (Anthroposophic) Allergy Unknown See Verified 05/18/16 08:38 Comments codeine AdvReac Unknown Gastrointestinal Verified 05/18/16 00:26 Upset All systems ED: reviewed and negative except as stated. Constitutional: Denies: fever, chills Cardiovascular: Reports: as per HPI, chest pain, dyspnea on exertion. Denies: palpitations Respiratory: Reports: as per HPI, dyspnea. Denies: wheezes Gastrointestinal: Reports: nausea. Denies: abdominal pain, vomiting Genitourinary: Denies: urgency, dysuria Musculoskeletal: Denies: back pain, neck pain Neurological: Denies: headache, weakness Chest Pain PMH - Past Medical History Medical history: Reports: arthritis, atrial fibrillation, cardiomyopathy, CHF, COPD, coronary artery disease, diabetes, GERD, hyperlipidemia, hypertension, kidney stones, migraine, myocardial infarction, osteoporosis, peripheral artery disease, renal disease, SVT, valvular heart disease, other Surgical history: Reports: appendectomy, cholecystectomy, coronary bypass (CABG) , hysterectomy, orthopedic, other (Right shoulder surgery. Lumbar laminectomy.) , sinus surgery (Tonsillectomy adenoidectomy.), DARYL/BSO, ureteral stent (Renal stone removal.), other, vascular surgery (History of femoropopliteal bypass.), LE bypass, LE vascular intervention Psychiatric history: Reports: anxiety, other - Social History Smoking Status: Former smoker Alcohol use: Reports: none Drug use: Reports: none Physical Exam Constitutional: Elderly female active, alert and oriented 3, vital signs stable HEENT: NCAT, sclera anicteric, PERRLA bilaterally, normal external ears bilaterally, nasal septum nondeviated, average dentition, MMM Neck: normal inspection, neck is supple, trachea midline Resp: normal chest inspection, CTA bilaterally, no resp distress CV: RRR, no m/g/r GI: soft, nondistended Back: normal inspection, no tenderness to palpation Neuro: A&O3, no gross motor or sensory deficits bilaterally MSK: normal inspection, bilateral UE and LE with normal ROM Skin: No rashes, skin warm, dry, intact - General Limitations: no limitations General appearance: alert, in distress Course Course Narrative: 86-year-old female from hospice, brought back in once revoked hospice at this time but we will see How I did consul, I spoke with Dr. Martinez he will admit the patient for pain control. Vital Signs Temperature 97.9 F 05/26/16 11:51 Pulse Rate 91 05/26/16 11:51 Respiratory Rate 16 05/26/16 11:51 Blood Pressure 134/80 05/26/16 11:51 O2 Sat by Pulse Oximetry 94 L 05/26/16 11:51 Temperature 97.7 F 05/26/16 14:27 Pulse Rate 90 05/26/16 14:27 Respiratory Rate 16 05/26/16 14:27 Blood Pressure 123/71 05/26/16 14:27 O2 Sat by Pulse Oximetry 90 L 05/26/16 14:27 Oxygen Delivery Oxygen Delivery Nasal Cannula Chest Pain - MDM Narrative Medical decision making narrative: 86-year-old female admitted for intractable chest pain, EKG and chest x-ray deferred secondary to DNR CC wishes, was to pursue palliative consultation admitted for pain control essentially to the hospital service in serious condition - Differential Diagnosis Likely: fracture of rib, atypical chest pain, st elevation myocardial infraction - Medical Records Medical records reviewed: Yes I reviewed the patient's medical records.
[2016-05-26] MEDS ORDERED: Albuterol 2.5 MG/3 ML NEBULIZER IH PRN (16:29)
[2016-05-26] MEDS ORDERED: Sennosides/Docusate Sodium TABLET PO PRN (16:29)
[2016-05-26] MEDS ORDERED: ALPRAZolam 1 MG TABLET PO PRN (16:29)
[2016-05-26] MEDS ORDERED: Morphine Oral CONC 5 MG/0.25 ML ORAL.SYG PO PRN (16:29)
[2016-05-26] MEDS ORDERED: Nitroglycerin 0.4 MG TAB.SUBL SL PRN (16:29)
[2016-05-26] MEDS ORDERED: Ondansetron 4 MG/2 ML VIAL IVP PRN (16:33)
[2016-05-26] MEDS ORDERED: *HR* HYDROmorphone (PF) 1 MG/ML SYRINGE IVP PRN (16:33)
[2016-05-26] MEDS ORDERED: Acetaminophen 325 MG TABLET PO PRN (16:33)
[2016-05-26] MEDS ORDERED: Naloxone 0.4 MG/ML INJ IVP PRN (16:33)
--- NOTE | 2016-05-26 16:41 | Internal Med History&Physical ---
Date of Encounter: 05/26/16 Time of Encounter: 16:00 Assessment and Plan (1) Acute chest wall pain Current visit: No Status: Acute Patient does not want any further workup into her chest pain and therefore no troponin will be drawn. No EKG. Note no telemetry need an. I have discussed the assessment and plan and the patient would only like she take care of the symptoms. We will treat her with oral morphine and IV Dilaudid if the patient does not respond to oral morphine. The chest pain could also be an indication of GERD or gastritis, esophagitis and therefore I stop any unnecessary medication including her clindamycin , Lipitor and coenzyme Q which are likely causing more harm than good at this point. (2) DVT prophylaxis Current visit: No Status: Acute None needed the patient is DNR comfort care only (3) CAD (coronary artery disease) Current visit: No Status: Chronic Continue with morphine and nitroglycerin as needed and morphine and Dilaudid for pain. Qualifiers: Coronary Disease-Associated Artery/Lesion type: unspecified vessel or lesion type [place] vs. transplanted heart: [place] heart Associated angina: without angina Qualified Code(s): I25.10 - Atherosclerotic heart disease of [place] coronary artery without angina pectoris (4) CKD (chronic kidney disease), stage III Current visit: No Status: Chronic (5) Diabetes Current visit: No Status: Chronic Continue with Amaryl. She does not need fingersticks due to comfort care only. No concentrated sweets in her diet. Qualifiers: Diabetes mellitus type: type 2 Diabetes mellitus complication status: with unspecified complications Diabetes mellitus puller through insulin use: unspecified correction insulin use status Qualified Code(s): E11.8 - Type 2 diabetes mellitus with unspecified complications (6) Paroxysmal atrial fibrillation Current visit: No Status: Chronic (7) Goals of care, counseling/discussion Current visit: Yes Status: Acute She is at high risk for morbidity mortality and complications due to treatment with IV opiates, advanced age and multiple advanced medical comorbidities. She was previously on hospice and would like to continue with DNR comfort care course however she canceled her hospice services. We will continue with comfort care. Discontinue all unnecessary medication. Focus on comfort treating pain anxiety shortness of breath and nausea. No needlestick including Accu-Cheks. Internal Medicine - H&P: HPI Chief complaint: Chest pain Admitted From: Emergency Dept Plans for Post Hospital Care: Home History of present illness: Ms. Rodas is a 86 year old female with past medical history significant for advanced CAD status post non-ST elevation CT, hypertension and diabetes, previously discharged home 2 days ago with home hospice was brought to the hospital for evaluation of pain. History is mostly provided by the patient's daughter at the bedside. The patient took her morning pills this morning and then soon thereafter started having severe substernal and 10/10 chest pain that was unrelenting. As instructed by hospice nurse she administered 5 mg liquid morphine twice twice but the pain did not subside. Patient's daughter then called the hospice nurse back and asked her if she could come in for a home visit. She was told that it could take more than an hour for her to be seen and therefore she decided to cancel her hospice service and called the squad to have her mother brought to the hospital for evaluation. Patient denied associated shortness of breath palpitations and lightheadedness. She denies fevers chills cough nausea vomiting diarrhea drinking some pains. Reports some anxiety. A 10 point review of systems was otherwise negative. Family history was reviewed and found to be noncontributory to this presentation. Past Med Surg Social Fam HX - Past Medical History Medical history: arthritis, atrial fibrillation, cardiomyopathy, CHF, COPD, coronary artery disease, diabetes, GERD, hyperlipidemia, hypertension, kidney stones, migraine, myocardial infarction, osteoporosis, peripheral artery disease , renal disease, SVT, valvular heart disease, other Psychiatric history: anxiety, other - Past Surgical History Surgical History: appendectomy, cholecystectomy, coronary bypass (CABG), hysterectomy, orthopedic, other (Right shoulder surgery. Lumbar laminectomy.), sinus surgery (Tonsillectomy adenoidectomy.), DARYL/BSO, ureteral stent (Renal stone removal.), other, vascular surgery (History of femoropopliteal bypass.), LE bypass, LE vascular intervention - Social History Smoking Status: Former smoker Packs per day: 1 Smokeless Tobacco Status: No Alcohol use: none Drug use: none - Family History Mother Living Status: Hx Family Cardiac Disorders: Yes Father Living Status: Hx Family Cardiac Disorders: No Hx Family Respiratory Disorders: No Hx Family Cancer: No Hx Family GI Disorders: No Hx Family Endocrine Disorder: Yes Internal Medicine - H&P: Meds Albuterol Neb [Proventil Neb] 2.5 mg IH Q4HR PRN 05/18/16 [History] Alprazolam [Xanax 1 MG Tablet] 1 mg PO BID PRN 05/18/16 [History] Aspirin [Lo-Dose Aspirin EC] 81 mg PO DAILY 05/18/16 [History] Atorvastatin [Lipitor] 40 mg PO HS 05/18/16 [History] Dapagliflozin Propanediol [Farxiga] 5 mg PO DAILY 05/18/16 [History] Glimepiride [Amaryl] 1 mg PO DAILY 05/18/16 [History] HydrALAZINE 25 mg PO Q6HR 05/18/16 [History] Isosorbide MONOnitrate (24 HR) [Imdur] 30 mg PO DAILY 05/18/16 [History] Lactobacillus Acidophilus [Acidophilus] 100 mg PO BID 05/18/16 [History] Nitroglycerin [Nitrostat] 0.4 mg SL AD PRN 05/18/16 [History] Oxycodone HCl/Acetaminophen [Percocet 5-325 mg Tablet] 1 - 2 tab PO QID PRN 06/01 [History] Ubidecarenone [Co Q-10] 100 mg PO DAILY 05/18/16 [History] Zinc Acetate [Galzin] 50 mg PO DAILY 05/18/16 [History] Clindamycin [Cleocin] 300 mg PO Q6HR #3 capsule 05/24/16 [Rx] Furosemide [Lasix] 20 mg PO BID #60 tablet 05/24/16 [Rx] LORazepam Oral Conc [Ativan Oral Conc] 1 mg PO Q6HR #30 mls 05/24/16 [Rx] Metoprolol XL (24 HR) Succ [Toprol XL] 50 mg PO BID #30 tab.er.24h 05/24/16 [Rx] Morphine Oral CONC [Roxanol] 5 mg PO Q2H PRN #30 ml 05/24/16 [Rx] Ferrous Sulfate 325 mg PO DAILY 05/26/16 [History] Sennosides/Docusate Sodium [Senna Plus] 2 tab PO BID PRN 05/26/16 [History] Allergies Opium (Anthroposophic) Allergy (Unknown, Verified 05/18/16 08:38) See Comments LISTED ON PATIENT'S ECW LAST APPT WITH PCP DR. MARY daniels Adverse Reaction (Unknown, Verified 05/18/16 00:26) Gastrointestinal Upset All Systems PM: A 10-system review of systems was performed and is negative for pertinent findings except as documented above in the HPI. - Constitutional Vitals: Temp Pulse Resp BP Pulse Ox 97.7 F 90 16 123/71 90 L 05/26/16 14:27 05/26/16 14:27 05/26/16 14:27 05/26/16 14:27 05/26/16 14:27 General appearance: Present: A&O X 3, pleasant, no acute distress - Neck Neck exam general surgery: Present: supple, trachea midline. Absent: lymphadenopathy - Respiratory Respiratory exam: Present: CTAB. Absent: accessory muscle use, rales, rhonchi, wheezes - Cardiovascular Cardiovascular exam: Present: RRR, +S1, +S2. Absent: diastolic murmur, gallop, rubs, systolic murmur - GI/Abdominal GI/Abdominal exam: Present: normal bowel sounds, soft, no peritoneal signs. Absent: distended, tenderness - Extremities Exam Extremities exam: Present: warm, radial pulses palpable and symetrical. Absent : calf tenderness, cyanotic, pedal edema - Neurological Exam Neurological exam: Present: CN II-XII intact, oriented X3, no focal deficits. Absent: pronater drift, facial droop, speech deficit - Skin Skin exam: Present: dry, intact Internal Med - H&P Results - Labs Labs: Per chart review her troponin in April 13 of this year peaked at 27.01. Per medical records she was evaluated by cardiology on her previous admission. She opted for medical management at a time. She was evaluated by [facility] care and was discharged home with hospice.
[2016-05-26] MEDS: hydrALAZINE 25 MG TABLET PO SCH ×2 (17:29→23:59)
[2016-05-26] MEDS: *HR* LORazepam Oral Conc 2 MG/ML PO SCH (18:04)
[2016-05-26] MEDS ORDERED: Mag Hydrox/Al Hydrox/Simeth 30 ML UDC PO PRN (18:57)
[2016-05-26] MEDS: Metoprolol XL (24 HR) Succ 50 MG TAB.ER.24H PO SCH (20:05)
--- NOTE | 2016-05-26 21:11 | Palliative - Consult Note ---
Date of Encounter: 05/26/16 Time of Encounter: 13:00 - Assessment and Plan (1) Anxiety Current Visit: Yes Status: Acute Assessment and plan: Alprazolam 1 mg twice a day as needed. May utilize oral lorazepam concentrate every 6 hours as needed for breakthrough anxiety (2) Goals of care, counseling/discussion Current Visit: Yes Status: Acute Assessment and plan: Discuss goals of care with the patient's daughter, Leann in the emergency department. Plan for family meeting on 05/27/2016 at 1:00 in the afternoon. Meeting topics included discharge planning, further goals of care. Ms. Rodas continues to decline aggressive workup for her symptoms. She will be treated conservatively with medications to manage her pain, and additional symptoms. Discussed case with Hospitalist. Ms. Rodas revoked hospice services upon transfer to the emergency department. The palliative care team will continue to follow. (3) Acute chest wall pain Current Visit: No Status: Acute Assessment and plan: May utilize sublingual morphine concentrate 5 mg as needed. Palliative-CN HPI - Data of Consult Patient: known to practice within the last 3 years Consult date: 05/26/16 Requesting Physician: Thompson Garcia Primary Care Provider: Reinaldo Valladares Jr, MD - Consult Narrative Palliative Care/Comfort Measures: Palliative care Reason for consult: Goals of care History of present illness: Ms. Rodas is a 86 year old female known to the palliative care team from prior admissions. Ms. Yanes was enrolled in [place] hospice services at the beginning of the month. She had developed chest pain starting 1 day prior to admission. She describes it as severe substernal chest pain that did not improve with medications. Upon discussions with the patient's hospice nurse, the patient was given 2 doses of sublingual nitroglycerin, along with 2 doses of sublingual oral morphine concentrate. Despite the medication administration, symptoms persisted. Her family member became increasingly uneasy and nervous about keeping her home during this situation. The patient's daughter contacted emergency services and had her mother evaluated in the emergency department. Upon initial exam, the patient was chest pain-free. She declined additional symptoms such as shortness of breath, nausea/vomiting/constipation/diarrhea. She was admitted under the hospitalist service for symptom management. Both Ms. Yanes, and her family, continue to support CODE STATUS of DNR comfort care. The palliative care services were consulted to assist with goals of care discussions and discharge planning giving the patient's recent admission and hospice care. CC: Thompson Garcia Past Med Surg Social Fam HX - Past Medical History Medical history: arthritis, atrial fibrillation, cardiomyopathy, CHF, COPD, coronary artery disease, diabetes, GERD, hyperlipidemia, hypertension, kidney stones, migraine, myocardial infarction, osteoporosis, peripheral artery disease , renal disease, SVT, valvular heart disease, other Psychiatric history: anxiety, other - Past Surgical History Surgical History: appendectomy, cholecystectomy, coronary bypass (CABG), hysterectomy, orthopedic, other (Right shoulder surgery. Lumbar laminectomy.), sinus surgery (Tonsillectomy adenoidectomy.), DARYL/BSO, ureteral stent (Renal stone removal.), other, vascular surgery (History of femoropopliteal bypass.), LE bypass, LE vascular intervention - Social History Smoking Status: Former smoker Packs per day: 1 Smokeless Tobacco Status: No Alcohol use: none Drug use: none - Family History Mother Living Status: Hx Family Cardiac Disorders: Yes Father Living Status: Hx Family Cardiac Disorders: No Hx Family Respiratory Disorders: No Hx Family Cancer: No Hx Family GI Disorders: No Hx Family Endocrine Disorder: Yes Medications and Allergies Albuterol Neb [Proventil Neb] 2.5 mg IH Q4HR PRN 05/18/16 [History] Alprazolam [Xanax 1 MG Tablet] 1 mg PO BID PRN 05/18/16 [History] Aspirin [Lo-Dose Aspirin EC] 81 mg PO DAILY 05/18/16 [History] Atorvastatin [Lipitor] 40 mg PO HS 05/18/16 [History] Dapagliflozin Propanediol [Farxiga] 5 mg PO DAILY 05/18/16 [History] Glimepiride [Amaryl] 1 mg PO DAILY 05/18/16 [History] HydrALAZINE 25 mg PO Q6HR 05/18/16 [History] Isosorbide MONOnitrate (24 HR) [Imdur] 30 mg PO DAILY 05/18/16 [History] Lactobacillus Acidophilus [Acidophilus] 100 mg PO BID 05/18/16 [History] Nitroglycerin [Nitrostat] 0.4 mg SL AD PRN 05/18/16 [History] Oxycodone HCl/Acetaminophen [Percocet 5-325 mg Tablet] 1 - 2 tab PO QID PRN 06/01 [History] Ubidecarenone [Co Q-10] 100 mg PO DAILY 05/18/16 [History] Zinc Acetate [Galzin] 50 mg PO DAILY 05/18/16 [History] Clindamycin [Cleocin] 300 mg PO Q6HR #3 capsule 05/24/16 [Rx] Furosemide [Lasix] 20 mg PO BID #60 tablet 05/24/16 [Rx] LORazepam Oral Conc [Ativan Oral Conc] 1 mg PO Q6HR #30 mls 05/24/16 [Rx] Metoprolol XL (24 HR) Succ [Toprol XL] 50 mg PO BID #30 tab.er.24h 05/24/16 [Rx] Morphine Oral CONC [Roxanol] 5 mg PO Q2H PRN #30 ml 05/24/16 [Rx] Ferrous Sulfate 325 mg PO DAILY 05/26/16 [History] Sennosides/Docusate Sodium [Senna Plus] 2 tab PO BID PRN 05/26/16 [History] Allergies Opium (Anthroposophic) Allergy (Unknown, Verified 05/18/16 08:38) See Comments LISTED ON PATIENT'S ECW LAST APPT WITH PCP DR. VALLADARES- jeremiah Adverse Reaction (Unknown, Verified 05/18/16 00:26) Gastrointestinal Upset - Constitutional Constitutional ROS PAL: no decreased appetite, no frequent falls, no weight loss - EENT Eyes: no change in vision Ears, nose, mouth, throat: no sinus pain, no dysphagia, no sore throat - Cardiovascular Cardiovascular ROS: no chest pain, no chest pain with activity, no dyspnea on exertion, no irregular heart rhythm, no pedal edema - Respiratory Respiratory: no cough, no dyspnea, no dyspnea on exertion - Gastrointestinal Gastrointestinal: no abdominal pain, no constipation, no diarrhea, no nausea, no vomiting - Genitourinary Palliative ROS female: no difficulty voiding, no dysuria - Musculoskeletal Musculoskeletal ROS IM: muscle weakness - Integumentary ROS Integumentary: no sores, no wounds - Neurological Neurological ROS: weakness (Global), no confusion - Psychiatric Psychiatric general PM: no anxiety Palliative Care-Exam - Constitutional Vitals: Temp Pulse Resp BP Pulse Ox 98.0 F 76 20 111/69 95 05/26/16 19:27 05/26/16 19:27 05/26/16 19:27 05/26/16 19:27 05/26/16 19:27 General appearance: Present: average body habitus, cooperative - Eye Eye exam: Present: EOMI - ENT ENT exam: Present: mucous membranes dry - Respiratory Respiratory exam: Present: CTAB. Absent: accessory muscle use, respiratory distress - Cardiovascular Cardiovascular exam: Present: RRR. Absent: diastolic murmur, systolic murmur, tachycardia - GI/Abdominal Exam GI/Abdominal exam: Present: normal bowel sounds, soft. Absent: tenderness - Rectal Rectal exam: Present: deferred - Neurological Exam Neurological exam: Present: alert, oriented X3, no focal deficits, strengths equal and symetr throughout - Psychiatric Psychiatric exam: Absent: agitated, anxious - Skin Skin exam: Present: dry, warm Consult Discharge Plan - Plan Referrals: Reinaldo Valladares Jr, MD [Primary Care Provider] - Palliative Quality Palliative Quality: Screen for Code Status: Yes, Screen for Goals of Care: Yes, Screen for Pain: Yes, If Pain Regimen Started, Initiate Bowel Regimen: NA, Screen for Nausea/Vomitting: Yes
[2016-05-27] MEDS: *HR* LORazepam Oral Conc 2 MG/ML PO SCH ×3 (00:18→12:19)
[2016-05-27] MEDS: hydrALAZINE 25 MG TABLET PO SCH ×2 (05:27→12:19)
[2016-05-27] MEDS: Metoprolol XL (24 HR) Succ 50 MG TAB.ER.24H PO SCH (08:59)
[2016-05-27] MEDS ORDERED: Aspirin Enteric Coated 81 MG Tablet PO SCH (09:00)
[2016-05-27] MEDS ORDERED: *HR* Glimepiride 2 MG TABLET PO SCH (09:00)
[2016-05-27] MEDS ORDERED: Isosorbide MONOnitrate (24 HR) 30 MG TAB.ER.24H PO SCH (09:00)
[2016-05-27 11:00] VITALS: BP 116/55
--- NOTE | 2016-05-27 12:52 | Palliative Progress Note ---
Date of Encounter: 05/27/16 Time of Encounter: 12:46 - Assessment and plan (1) Anxiety Current Visit: Yes Status: Acute Assessment and plan: Continue home medications as needed. (2) Goals of care, counseling/discussion Current Visit: Yes Status: Acute Assessment and plan: Goals of care discussion with the patient and her daughter-Leann, son-Brigido. Ms. Rodas revoked hospice care when she sought treatment in the emergency department. She is no longer interested in resuming hospice care upon discharge from [place]. She would like to have further home care with [facility]. This is per patient and family request as they have had experience with [facility] in the past. Discussed additional options for future hospice care. Patient and family report understanding that she will remain hospice eligible. Primary nurse notified, social work to be contacted. Discussed case with Dr. Hoffmann. (3) Acute chest wall pain Current Visit: No Status: Acute Assessment and plan: Continue with Morphine 5mg every 2 hours as needed or hydromorphone if pain is unrelieved with morphine. The patient has not utilized any medications since arriving to the nursing unit. - Time Spent With Patient Total time spent is greater than 50% in coordination of care (as documented) at patient's floor/unit and/or counseling patient: - Subjective Interval history: Ms. Chapin is sitting up in bed, family at bedside, eating lunch. She reports appetite is fair. Patient denies any chest pain since admission to the hospital. She denies nausea vomiting and upset stomach - Constitutional Vitals: Abnormal lab results POC Glucose 243 (58-89) H 05/26/16 14:32 General appearance: Present: cooperative, no acute distress - Respiratory Respiratory exam: Present: decreased breath sounds. Absent: accessory muscle use, prolonged expiratory phase, respiratory distress - Cardiovascular Cardiovascular exam: Present: RRR - GI/Abdominal GI/Abdominal exam: Present: soft. Absent: tenderness - Extremities Exam Extremities exam: Present: normal inspection - Neurological Exam Neurological exam: Present: alert, oriented X3, no focal deficits, strengths equal and symetr throughout - Psychiatric Psychiatric exam: Absent: agitated, anxious Palliative Quality Palliative Quality: Screen for Code Status: Yes, Screen for Goals of Care: Yes, Screen for Pain: Yes, If Pain Regimen Started, Initiate Bowel Regimen: NA, Screen for Nausea/Vomitting: Yes - Labs Labs: Laboratory Results - last 24 hr 05/26/16 14:32 POC Glucose 243 H Consult Discharge Plan - Plan Referrals: Reinaldo Valladares Jr, MD [Primary Care Provider] -
--- NOTE | 2016-05-27 14:24 | Discharge Summary ---
Date of Encounter: 05/27/16 Time of Encounter: 14:05 - Discharge Diagnosis (1) Atypical chest pain Priority: Primary Status: Acute (2) Functional dyspepsia Priority: Primary Status: Acute (3) Anxiety Priority: Primary Status: Acute - Discharge Medications Home Medications: Albuterol Neb [Proventil Neb] 2.5 mg IH Q4HR PRN 05/18/16 [History] Alprazolam [Xanax 1 MG Tablet] 1 mg PO BID PRN 05/18/16 [History] Aspirin [Lo-Dose Aspirin EC] 81 mg PO DAILY 05/18/16 [History] Atorvastatin [Lipitor] 40 mg PO HS 05/18/16 [History] Dapagliflozin Propanediol [Farxiga] 5 mg PO DAILY 05/18/16 [History] Glimepiride [Amaryl] 1 mg PO DAILY 05/18/16 [History] HydrALAZINE 25 mg PO Q6HR 05/18/16 [History] Isosorbide MONOnitrate (24 HR) [Imdur] 30 mg PO DAILY 05/18/16 [History] Lactobacillus Acidophilus [Acidophilus] 100 mg PO BID 05/18/16 [History] Nitroglycerin [Nitrostat] 0.4 mg SL AD PRN 05/18/16 [History] Oxycodone HCl/Acetaminophen [Percocet 5-325 mg Tablet] 1 - 2 tab PO QID PRN 06/01 [History] Ubidecarenone [Co Q-10] 100 mg PO DAILY 05/18/16 [History] Zinc Acetate [Galzin] 50 mg PO DAILY 05/18/16 [History] Clindamycin [Cleocin] 300 mg PO Q6HR #3 capsule 05/24/16 [Rx] Furosemide [Lasix] 20 mg PO BID #60 tablet 05/24/16 [Rx] LORazepam Oral Conc [Ativan Oral Conc] 1 mg PO Q6HR #30 mls 05/24/16 [Rx] Metoprolol XL (24 HR) Succ [Toprol Xl] 50 mg PO BID #30 tab.er.24h 05/24/16 [Rx] Morphine Oral CONC [Roxanol] 5 mg PO Q2H PRN #30 ml 05/24/16 [Rx] Ferrous Sulfate 325 mg PO DAILY 05/26/16 [History] Sennosides/Docusate Sodium [Senna Plus] 2 tab PO BID PRN 05/26/16 [History] Allergies/Adverse Reactions: Allergies Opium (Anthroposophic) Allergy (Unknown, Verified 05/18/16 08:38) See Comments LISTED ON PATIENT'S ECW LAST APPT WITH PCP DR. VALLECILLO- jeremiah Adverse Reaction (Unknown, Verified 05/18/16 00:26) Gastrointestinal Upset Date of admission: 05/26/16 13:49 Primary care physician: Reinaldo Vallecillo Jr, MD Consults: 05/26/16 14:49 Consult to Boiler House Inspector [CONS] Routine Reason for SW Consult: return to hospice 05/26/16 16:57 Consult to Palliative Care [CONS] Stat Comment: Consulting Provider: Palliative Care Patricia Discharging clinician: Arslan Hoffmann Anticipated date of discharge: 05/27/16 - Patient Status Disposition: Hospice - Home Condition: Fair Overall status at discharge: patient is progressing back to baseline - Discharge Instructions Follow Up With: Reinaldo Vallecillo Jr, MD [Primary Care Provider] - - Diet and Activity Activity: other (bedrest) Diet: advance to your usual diet Interval History: Feels better, pain has resolved. Hospital course: Ms. Rodas is a 86 year old female with medical history significant for advanced CAD status post non-ST elevation NM, hypertension and diabetes, recently discharged home 2 days ago with home hospice was brought to the hospital for evaluation of chest pain. She broke hospice protocol as 5 mg liquid morphine twice twice (upon instruction of hospice nurse) did not help her pain. She was admitted for pain control and for observation. Care provided was mainly symptomatic. Differential for her chest pain include: unstable angina/ functional dyspepsia related to recent antibiotic use for cellulitis and sever bout of anxiety. She is resolved to go back home to hospice. Instruction giving on interaction and accessing hospice. Her son lives with her and is always there all the time. Nutrition and hydration is always available to her. Minimal exam provided at discharge Not pale, anicteric, afebrile, acyanotic Chest wall pain not reproducible. Some epigastric tenderness. Heaart: IRREGULAR, HS1/2 ?S4 PLAN DC by to [facility] hospice I spent 30 minutes discussing with the patient and her family. I spent 10 minutes discussing the case with the hospice nurse, and another 15 minutes with coordination of care. She has supplies of liquid morphine and sublingual nitroglycerin. Family is very supportive - Time Spent with Patient Total time spent providing and/or coordinating discharge services: Greater than 30 minutes Specific discharge activities: Best rest, minimal activity as tolerated. - Constitutional Vitals: Temp Pulse Resp BP Pulse Ox 98.2 F 62 16 116/55 92 L 05/27/16 10:54 05/27/16 10:54 05/27/16 10:54 05/27/16 10:54 05/27/16 10:54 General appearance: Present: A&O X 3, pleasant, no acute distress - VTE Reasons for not Prescribing Prophylaxis: Medical contraindication
== END 2016-05-27 16:22 | disposition hospice, home (50) ==
LOC: 3BNU 11:47 → EMEROO 11:47 → 3BNU 14:30
PROVIDERS: ADMIT Internal Medicine; ATTEND Internal Medicine Endocrinology, Diabetes & Metabolism